=== PATIENT | female | born 1935 | race Caucasian/White ===

== ENCOUNTER → 2016-06-13 | Outpatient (CLI) | payer BC ==
[~2016-06-13] MED LIST: ACET-1256 PO; ACET1TAB84 PO; ACET325T96 PO; AMT10 PO; CALC500C3 PO; CEFU1TAB35 PO; CHOL1TAB42 PO; CIPR250T3 PO; HYDR25TA5 PO; LANS30CA63 PO; LEVO75TA PO; LISI-725 PO; LISI20TA3 PO; LPR25 PO; MELA1TAB5 PO; METO25TA56 PO; MGNO400 PO; MTR500 PO; ONDA4TAB46 PO; PLQ200 PO; PRD/1 PO; PRD10 PO; PRED-301 PO; PRED10TA PO; QSTP PO; RANI150T3 PO; SACC250C PO; SACC250C3 PO; SERT25TA PO; VANC1CAP3 PO; VANC5CAP PO; VERA1TAB52 PO
--- NOTE | 2016-06-13 09:32 | DIAGNOSTIC IMAGING REPORT ---
THORACIC SPINE 3 VIEWS ROUTINE CLINICAL HISTORY: Polymyalgia rheumatica, long-term steroid use COMPARISON STUDY: No previous studies for comparison. FINDINGS: There are mild to moderate multilevel degenerative changes. No acute fractures are visualized. The paraspinal line is not displaced. There is a minor spinal curvature convex to the right. There is widening of the prevertebral soft tissues and cervical level. A neck mass cannot be excluded. IMPRESSION: 1. Multilevel degenerative change. No acute fractures are visualized on conventional radiographic imaging. 2. Widening of the prevertebral soft tissues at the mid cervical level. This could be indirect evidence of a neck mass. CT scanning could be obtained in follow-up as deemed clinically indicated. Electronically signed by: Jerome Al M.D. 06/13/2016 9:30 AM Dictated Date/Time: 06/13/2016 9:25 AM
[2016-06-13 16:17] LABS: BLOOD UREA NITROGEN 23 mg/dl (7-18)
[2016-06-14 17:25] LABS: ALBUMIN 3.9 G/DL (3.8-4.8); GAMMA GLOBULIN 0.6 G/DL (0.8-1.7); TOTAL PROTEIN 6.6 G/DL (6.2-8.3)
== END | disposition home or self-care (01) ==
LOC: C.RAD1850 09:02
PROVIDERS: ATTEND Internal Medicine Rheumatology
DX: E55.9 Vitamin D deficiency, unspecified (principal); M15.9 Polyosteoarthritis, unspecified; M35.3 Polymyalgia rheumatica; M62.81 Muscle weakness (generalized); R53.81 Other malaise; Z79.52 Long term (current) use of systemic steroids

== ENCOUNTER → 2016-06-19 | Outpatient (CLI) | payer BC ==
[~2016-06-19] MED LIST changes: +OPTIRAY 320 IV PRN
--- NOTE | 2016-06-19 11:48 | DIAGNOSTIC IMAGING REPORT ---
CT soft tissue neck SOFT TISSUE NECK WITH CLINICAL HISTORY: R22.1 Neck [id number] abnormal cervical thoracic images. Mass. TECHNIQUE: Transaxial acquisition with multi axial reformatted images COMPARISON STUDY: 06/13/2016 FINDINGS: Patient salivary glands are unremarkable. This includes parotid and submandibular glands. Prevertebral soft tissues showed no evidence for abnormal mass or collection. The plain film findings most likely are on the basis of technical and/or positional artifact. Thyroid appears to be symmetric. There is some nodularity of the superior aspects of the thyroid lobes bilaterally. There is no significant cervical adenopathy. There is no airway compromise. IMPRESSION: Negative study. Soft tissue prominence in the prevertebral mid cervical region appears to be secondary to overlap or positional artifact. Electronically signed by: Byron Garcia M.D. 06/19/2016 11:47 AM Dictated Date/Time: 06/19/2016 11:43 AM
== END | disposition home or self-care (01) ==
LOC: C.CTS 10:45
PROVIDERS: ATTEND Internal Medicine Rheumatology
DX: R22.1 Localized swelling, mass and lump, neck (principal)

== ENCOUNTER → 2016-07-07 | Outpatient (CLI) | payer BC ==
[~2016-07-07] MED LIST changes: -OPTIRAY 320 IV PRN
[2016-07-07 14:53] LABS: BASO % 0.3 %; BASO ABS # 0.04 K/uL (0-0.2); COMPLETE YES; EOS % 0.5 %; HEMATOCRIT 30.1 % (37-47); IG% 0.5 %; LYMPH % 5.7 %; LYMPH ABS # 0.85 K/uL (1.2-3.4); MEAN CELL VOLUME 84.8 fL (80-100); MEAN CORPUSCULAR HEMOGLOBIN 26.5 pg (25-34); MEAN CORPUSCULAR HGB CONC 31.2 g/dl (32-36); MEAN PLATELET VOLUME 10.4 fL (7.4-10.4); MONO % 2.7 %; NEUT % 90.3 %; PLATELET COUNT 371 K/uL (130-400); RED BLOOD COUNT 3.55 M/uL (4.2-5.4); WHITE BLOOD COUNT 14.91 K/uL (4.8-10.8)
[2016-07-07 14:58] LABS: ALT/SGPT 14 U/L (12-78); AST/SGOT 8 U/L (15-37)
[2016-07-07 15:01] LABS: ALKALINE PHOSPHATASE 52 U/L (45-117)
== END | disposition home or self-care (01) ==
LOC: C.LAB1850 12:44
PROVIDERS: ATTEND Internal Medicine Rheumatology
DX: E55.9 Vitamin D deficiency, unspecified (principal); M65.88 Other synovitis and tenosynovitis, other site; R60.9 Edema, unspecified; Z79.52 Long term (current) use of systemic steroids; M15.9 Polyosteoarthritis, unspecified; R29.898 Other symptoms and signs involving the musculoskeletal system

== ENCOUNTER → 2016-08-24 | Outpatient (CLI) | payer BC ==
--- NOTE | 2016-08-24 12:24 | DIAGNOSTIC IMAGING REPORT ---
RIGHT HAND 3 VIEWS CLINICAL HISTORY: Right hand pain. FINDINGS: 3 views of the right hand are obtained. No prior studies are available for comparison at the time of dictation. The skeletal structures are osteopenic. No fracture is seen. 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 Mild osteoarthritic change is present at the first metacarpophalangeal joint and the proximal interphalangeal joints. Mild arthritic changes also seen at the carpometacarpal joint. Moderate arthritic changes seen involving the radial carpal row. The overlying soft tissues are within normal limits. IMPRESSION: Osteopenia end arthritic change as above. Erosive arthritis is noted involving the distal interphalangeal joints. Electronically signed by: Juan Nguyen M.D. 08/24/2016 12:23 PM Dictated Date/Time: 08/24/2016 12:21 PM
--- NOTE | 2016-08-24 12:27 | DIAGNOSTIC IMAGING REPORT ---
RIGHT HIP UNILATERAL 2 VIEWS CLINICAL HISTORY: Right hip pain. Remitting seronegative symmetrical synovitis with pitting edema. COMPARISON: CT of the abdomen and pelvis November 01, 2015 and pelvis radiograph May 12, 2015. FINDINGS: Alignment of the right hip is anatomic. There is no acute fracture or joint space is preserved. There is mild osteophytosis. There is no evidence of avascular necrosis of the right femoral head on this exam. Vascular calcification is noted. There are soft tissue calcification of the proximal right thigh which is chronic. IMPRESSION: 1. Mild osteoarthritis of the right hip. No radiographic evidence of avascular necrosis. 2. No acute fracture. Electronically signed by: Miko Richmond M.D. 08/24/2016 12:26 PM Dictated Date/Time: 08/24/2016 12:21 PM
== END | disposition home or self-care (01) ==
LOC: C.RAD1850 12:05
PROVIDERS: ATTEND Internal Medicine Rheumatology
DX: E55.9 Vitamin D deficiency, unspecified (principal); M65.88 Other synovitis and tenosynovitis, other site; M79.643 Pain in unspecified hand; M85.841 Other specified disorders of bone density and structure, right hand

== ENCOUNTER 2016-09-23 12:28 | Emergency (ER) | payer BC ==
[~2016-09-23] VITALS: Ht 152.4 cm; Wt 77.3 kg
[~2016-09-23 12:28] MED LIST changes: -ACET1TAB84 PO; -ACET325T96 PO; -CALC500C3 PO; -CEFU1TAB35 PO; -CHOL1TAB42 PO; -CIPR250T3 PO; -LISI20TA3 PO; -LPR25 PO; -METO25TA56 PO; -MGNO400 PO; -MTR500 PO; -ONDA4TAB46 PO; -PLQ200 PO; -PRD10 PO; -PRED10TA PO; -QSTP PO; -RANI150T3 PO; -SACC250C PO; -SACC250C3 PO; -SERT25TA PO; -VANC1CAP3 PO; -VANC5CAP PO
[2016-09-23 12:47] VITALS: Ht 152.4 cm; Wt 77.3 kg
[2016-09-23 13:25] LABS: HEMATOCRIT 27.7 % (37-47); MEAN CELL VOLUME 81.7 fL (80-100); MEAN CORPUSCULAR HEMOGLOBIN 26.5 pg (25-34); MEAN CORPUSCULAR HGB CONC 32.5 g/dl (32-36); MEAN PLATELET VOLUME 10.4 fL (7.4-10.4); PLATELET COUNT 340 K/uL (130-400); RED BLOOD COUNT 3.39 M/uL (4.2-5.4); WHITE BLOOD COUNT 12.46 K/uL (4.8-10.8)
[2016-09-23] MEDS ORDERED: SODIUM CHLORIDE 0.9% 1000ML 1,000 ML IV ONE (13:30)
[2016-09-23] MEDS ORDERED: ONDANSETRON INJ 2 MG/ML 2 ML VIAL IV PRN (13:30)
--- NOTE | 2016-09-23 13:30 | EMERGENCY ROOM VISIT NOTE ---
History Report prepared by Shavon: Natalie Burrows Under the Supervision of: Dr. Se Chavez M.D. First contact with patient: 13:15 Chief Complaint: ILLNESS Stated Complaint: GENERALIZED WEAKNESS/NAUSEA/VOMITING History of Present Illness The patient is an 81 year old female who presents to the Emergency Room with complaints of a persistent illness that began 1 week ago. The patient reports that she was recently started on medications for her arthritis. She states that she has been feeling generally weak and has noticed bilateral hand swelling. The patient states that she initially started the medication just daily, but states that recently she had been taking the medication twice per day. She states that she developed nausea, vomiting and diarrhea and was instructed to stop taking the medication until the diarrhea was under control. The patient reports that she took the medication yesterday for the first time in several days, but states that she has continued to feel ill today. She associates dry heaving today, but denies any current diarrhea. The patient additionally notes a chills, but denies any abdominal pain or fever. She states that she has been trying to keep up with fluid intake, but states that she has only been able to take small sips. Source of History: patient Onset: 1 week ago Position: other (global) Quality: other (illness) Timing: other (persistent) Associated Symptoms: + chills, + nausea, + vomiting, + diarrhea, No fevers, No abdominal pain Review of Systems All systems have been listed, reviewed, and are negative other than those previously mentioned. Please see Additional Medical History Sheet. Past Medical & Surgical Medical Problems: (1) Acute kidney injury (2) Dehydration (3) Diarrhea (4) Dizziness (5) DJD (degenerative joint disease) (6) Hypertension (7) Hypokalemia (8) Syncopal episodes (9) Thoracic radiculopathy Family History Heart disease Hypertension Social History Smoking Status: Never Smoker Smokeless Tobacco Use: No Alcohol Use: none Drug Use: none Marital Status: Housing Status: lives with significant other Occupation Status: retired Current/Historical Medications Scheduled Cholecalciferol (Vitamin D), 5,000 UNITS PO DAILY Hydrochlorothiazide (Hydrochlorothiazide), 25 MG PO DAILY Hydroxychloroquine Sulfate (Hydroxychloroquine Sulfat), 200 MG PO BID Lansoprazole (Prevacid), 30 MG PO DAILY Levothyroxine Sodium (Synthroid), 75 MCG PO DAILY Lisinopril (Prinivil), 20 MG PO BID Melatonin (Kp Melatonin), 6 MG PO HS Prednisone (Prednisone), 3 MG PO QAM Prednisone (Prednisone), 5 MG PO DAILY Sertraline (Zoloft), 25 MG PO HS Verapamil Hcl (Verapamil Hcl Er), 120 MG PO DAILY Allergies Coded Allergies: Sulfa Antibiotics (Verified Allergy, Intermediate, RASH, 09/23/16) Erythromycin (Verified Adverse Reaction, Unknown, N&V, 09/23/16) N&V Physical Exam Vital Signs Date Time Temp Pulse Resp B/P (MAP) Pulse Ox O2 Delivery O2 Flow Rate FiO2 09/23/16 18:35 37.2 77 18 149/63 96 09/23/16 17:43 78 16 96 09/23/16 17:38 80 16 95 09/23/16 17:33 82 17 97 09/23/16 17:32 149/63 09/23/16 17:28 81 22 94 09/23/16 17:23 84 23 98 09/23/16 17:18 83 18 93 09/23/16 17:13 83 20 94 09/23/16 17:08 81 19 93 09/23/16 17:03 80 17 94 09/23/16 17:02 157/56 09/23/16 16:58 78 16 95 09/23/16 16:53 79 18 94 09/23/16 16:48 78 22 96 09/23/16 16:43 77 15 98 09/23/16 16:38 86 20 95 09/23/16 16:33 87 22 94 09/23/16 16:32 175/82 09/23/16 16:28 92 24 95 09/23/16 16:23 80 16 93 09/23/16 16:18 80 17 97 09/23/16 16:13 81 18 92 09/23/16 16:08 81 18 93 09/23/16 16:03 82 21 89 09/23/16 16:02 162/58 09/23/16 15:58 79 16 93 09/23/16 15:53 82 19 91 09/23/16 15:48 79 21 99 09/23/16 15:43 77 13 98 09/23/16 15:38 81 22 99 09/23/16 15:33 81 19 91 09/23/16 15:32 164/58 09/23/16 15:28 79 20 92 09/23/16 15:23 81 17 91 09/23/16 15:19 159/67 09/23/16 15:18 78 17 96 09/23/16 15:13 86 17 87 09/23/16 15:08 84 17 85 09/23/16 15:03 37.2 91 19 85 09/23/16 14:58 89 19 86 09/23/16 14:53 90 19 81 09/23/16 14:48 85 17 83 09/23/16 14:43 82 15 85 09/23/16 14:38 75 22 97 09/23/16 14:33 75 19 94 09/23/16 14:28 74 18 99 09/23/16 14:23 72 20 94 09/23/16 14:18 70 20 97 09/23/16 14:13 68 17 98 09/23/16 14:08 73 20 100 09/23/16 14:03 72 22 98 09/23/16 13:58 81 23 99 09/23/16 13:53 78 16 100 09/23/16 13:48 68 17 147/70 97 09/23/16 13:43 67 17 98 09/23/16 13:38 70 17 96 09/23/16 13:33 69 17 94 09/23/16 13:28 69 15 98 09/23/16 13:23 70 22 99 09/23/16 13:18 69 19 99 09/23/16 13:13 73 21 96 09/23/16 13:08 69 15 99 09/23/16 13:03 68 21 99 09/23/16 13:02 71 09/23/16 12:47 36.5 70 18 163/102 99 Room Air 09/23/16 12:35 163/102 Physical Exam GENERAL: Patient awake, alert, oriented x 3. Patient appears mildly dehydrated. Patient follows commands. Patient does not appear toxic. Patient is well-nourished. SKIN: No erythema, pallor, cyanosis or rash HEENT: Normal head, pupils equal, reactive to light and accommodation. Ears normal. Mucous membranes appear slightly dry. Oral cavity and posterior pharynx appear normal. Neck: Without adenopathy, no neck vein distention. LUNGS: Clear to auscultation. No wheezes, no rales, no rhonchi. HEART: No murmurs. No gallops. No rubs ABDOMEN: Obese, No masses, no rebound, no hepatomegaly or splenomegaly. EXTREMITIES: Patient has some generalized swelling of hands consistent with chronic rheumatoid arthritis, 2+ nonpitting pretibial edema. NEUROLOGIC: Cranial nerves II-XII within normal limits. No gross motor sensory function deficits. Medical Decision & Procedures Laboratory Results 09/23/16 13:10 Red Blood Count 3.39, Mean Corpuscular Volume 81.7, Mean Corpuscular Hemoglobin 26.5, Mean Corpuscular Hemoglobin Concent 32.5, Mean Platelet Volume 10.4, Neutrophils (%) (Auto) 88.9, Lymphocytes (%) (Auto) 5.1, Monocytes (%) (Auto) 5.3, Eosinophils (%) (Auto) 0.0, Basophils (%) (Auto) 0.3, Neutrophils # (Auto) 11.07, Lymphocytes # (Auto) 0.64, Monocytes # (Auto) 0.66, Eosinophils # (Auto) 0.00, Basophils # (Auto) 0.04 09/23/16 13:10 Test 09/23/16 13:10 09/23/16 14:00 09/23/16 14:12 White Blood Count 12.46 K/uL (4.8-10.8) Red Blood Count 3.39 M/uL (4.2-5.4) Hemoglobin 9.0 g/dL (12.0-16.0) Hematocrit 27.7 % (37-47) Mean Corpuscular Volume 81.7 fL (80-100) Mean Corpuscular Hemoglobin 26.5 pg (25-34) Mean Corpuscular Hemoglobin Concent 32.5 g/dl (32-36) Platelet Count 340 K/uL (130-400) Mean Platelet Volume 10.4 fL (7.4-10.4) Neutrophils (%) (Auto) 88.9 % Lymphocytes (%) (Auto) 5.1 % Monocytes (%) (Auto) 5.3 % Eosinophils (%) (Auto) 0.0 % Basophils (%) (Auto) 0.3 % Neutrophils # (Auto) 11.07 K/uL (1.4-6.5) Lymphocytes # (Auto) 0.64 K/uL (1.2-3.4) Monocytes # (Auto) 0.66 K/uL (0.11-0.59) Eosinophils # (Auto) 0.00 K/uL (0-0.5) Basophils # (Auto) 0.04 K/uL (0-0.2) RDW Standard Deviation 44.0 fL (36.4-46.3) RDW Coefficient of Variation 14.6 % (11.5-14.5) Immature Granulocyte % (Auto) 0.4 % Immature Granulocyte # (Auto) 0.05 K/uL (0.00-0.02) Anion Gap 9.0 mmol/L (3-11) Est Creatinine Clear Calc Drug Dose 27.5 ml/min Estimated GFR () 37.7 Estimated GFR (Non- 32.6 BUN/Creatinine Ratio 13.3 (10-20) Calcium Level 8.9 mg/dl (8.5-10.1) Total Bilirubin 0.4 mg/dl (0.2-1) Aspartate Amino Transf (AST/SGOT) 15 U/L (15-37) Alanine Aminotransferase (ALT/SGPT) 12 U/L (12-78) Alkaline Phosphatase 53 U/L (45-117) Total Protein 6.5 gm/dl (6.4-8.2) Albumin 3.4 gm/dl (3.4-5.0) Globulin 3.1 gm/dl (2.5-4.0) Albumin/Globulin Ratio 1.1 (0.9-2) Urine Color YELLOW Urine Appearance CLEAR (CLEAR) Urine pH 8.0 (4.5-7.5) Urine Specific [place] 1.006 (1.000-1.030) Urine Protein NEG (NEG) Urine Glucose (UA) NEG (NEG) Urine Ketones NEG (NEG) Urine Occult Blood NEG (NEG) Urine Nitrite POS (NEG) Urine Bilirubin NEG (NEG) Urine Urobilinogen NEG (NEG) Urine Leukocyte Esterase SMALL (NEG) Urine WBC (Auto) 5-10 /hpf (0-5) Urine RBC (Auto) 0-4 /hpf (0-4) Urine Hyaline Casts (Auto) 0 /lpf (0-5) Urine Epithelial Cells (Auto) 20-30 /lpf (0-5) Urine Bacteria (Auto) 4+ (NEG) Influenza Type A Antigen Neg for Influ A (NEG) Influenza Type B Antigen Neg for Influ B (NEG) Laboratory results as stated above per my review. Medications Administered Medications (Trade) Dose Ordered Sig/Sanya Route Start Time Stop Time Status Last Admin Dose Admin Sodium Chloride 1,000 ml @ 1,000 mls/hr Q1H ONCE IV 09/23/16 13:30 09/23/16 14:29 DC 09/23/16 13:30 1,000 MLS/HR Ondansetron HCl (Zofran Inj) 4 mg Q1HWA PRN IV 09/23/16 13:30 09/23/16 18:55 DC 09/23/16 14:04 4 MG ECG Indication: weakness Rate (beats per minute): 70 Rhythm: sinus rhythm Findings: no acute ischemic change, no ectopy, other (short AR interval) ED Course 1316: Past medical records reviewed. The patient was evaluated in room B7. A complete history and physical examination was performed. 1330: Ordered Zofran Inj 4 mg IV, Sodium Chloride 1000 ml @ 1000 mls/hr IV. 1615: I reevaluated the patient and she is feeling better. She states that her nausea has subsided so she is going to try eating and drinking. 1715: I reevaluated the patient and she is doing well. I discussed all the exam findings with her and I discussed the treatment plan. She verbalized complete understanding and agreement. She is ready to go home. Medical Decision Nurses notes reviewed. Medical history sheet reviewed. Differential diagnosis includes but is not limited to: medication reaction, gastritis, gastroenteritis , dehydration, metabolic disorder. Medication Reconciliation: I attest that I have personally reviewed the patient' s current medication list. Blood Pressure Screening: Patient was found to have an elevated blood pressure and was referred to their primary doctor for recheck and further treatment. The patient was given medication for nausea.. She was able to drink and eat prior to discharge. I believe her symptoms are related to the hydroxychloroquine. Labs, EKG and imaging were evaluated. Please see above. The patient will stop the hydroxychloroquine.. She is to follow up with her sharepoint analyst within the next 3 days. Impression Primary Impression: Medication reaction Additional Impression: Anemia Scribe Attestation The scribe's documentation has been prepared under my direction and personally reviewed by me in its entirety. I confirm that the note above accurately reflects all work, treatment, procedures, and medical decision making performed by me. Departure Information Dispostion Home / Self-Care Referrals Seth Knox D.O. (PCP) Reyna Marte MD Forms HOME CARE DOCUMENTATION FORM, IMPORTANT VISIT INFORMATION Patient Instructions My [facility] Additional Instructions Stop hydroxychloroquine. Continue all of your other medications as prescribed. Follow up with your sharepoint analyst on Sunday. Drink extra fluids. Problem Qualifiers
[2016-09-23 13:43] LABS: BUN/CREATININE RATIO 13.3 (10-20); CALCIUM 8.9 mg/dl (8.5-10.1); CREATININE 1.5 mg/dl (0.60-1.20); POTASSIUM 3.4 mmol/L (3.5-5.1)
[2016-09-23 13:46] LABS: ALB/GLOB RATIO 1.1 (0.9-2)
[2016-09-23 13:49] LABS: BASO % 0.3 %; BASO ABS # 0.04 K/uL (0-0.2); COMPLETE YES; IG% 0.4 %; LYMPH % 5.1 %; LYMPH ABS # 0.64 K/uL (1.2-3.4); MONO % 5.3 %; NEUT % 88.9 %
[2016-09-23] MEDS ORDERED: CHOL1TAB42 PO (13:59)
[2016-09-23] MEDS ORDERED: SERT25TA PO (13:59)
[2016-09-23] MEDS ORDERED: LISI20TA3 PO (13:59)
[2016-09-23] MEDS ORDERED: PLQ200 PO (13:59)
[2016-09-23 14:30] LABS: URINE APPEARANCE CLEAR (CLEAR); URINE BILIRUBIN NEG (NEG); URINE COLOR YELLOW; URINE EPITHELIAL CELL AUTO 20-30 /lpf (0-5); URINE NITRITE POS (NEG); URINE SPECIFIC GRAVITY 1.006 (1.000-1.030); UROBILINOGEN NEG (NEG); ZZURINE CULT IF INDIC CATH YES
[2016-09-23 14:40] LABS: MANUAL MICROSCOPIC REQUIRED? NO; REVIEW REQ? NO
[2016-09-23 18:35] VITALS: BP 149/63; PULSE 77; TEMP 37.2; O2SAT 96
--- NOTE | 2016-09-26 16:45 | Pharmacy Progress Note ---
ED Pharmacist Culture FollowUp Date of Service: Sep 26, 2016. Patient was admitted to [facility] on 09/25. They are currently receiving ceftriaxone which should cover the E. coli growing from the patient's urine culture.
[2016-10-03] MEDS ORDERED: LPR25 PO (11:55)
[2016-10-03] MEDS ORDERED: VANC5CAP PO (11:55)
[2016-10-23] MEDS ORDERED: QSTP PO (08:30)
[2016-10-23] MEDS ORDERED: METO25TA56 PO (14:13)
== END 2016-09-23 18:00 | disposition home or self-care (01) ==
LOC: EDBD 12:28 → C.EDB 12:29
DX: T50.905A Adverse effect of unspecified drugs, medicaments and biological substances, initial encounter (principal); D64.9 Anemia, unspecified; I10 Essential (primary) hypertension; M19.90 Unspecified osteoarthritis, unspecified site; M54.14 Radiculopathy, thoracic region; Z79.899 Other long term (current) drug therapy; Z88.2 Allergy status to sulfonamides; Z88.3 Allergy status to other anti-infective agents; Z82.49 Family history of ischemic heart disease and other diseases of the circulatory system

== ENCOUNTER 2016-09-25 13:04 | Inpatient (IN) | payer BC, OTHER ==
[~2016-09-25] VITALS: Ht 152.4 cm; Wt 79.7 kg
[~2016-09-25 13:04] MED LIST changes: -ACET-1256 PO; -AMT10 PO; +CHOL1TAB42 PO; -LISI-725 PO; +LISI20TA3 PO; +PLQ200 PO; +SERT25TA PO
[2016-09-25] MEDS ORDERED: SODIUM CHLORIDE 0.9% 1000ML 500 ML IV STA (14:01)
[2016-09-25] MEDS ORDERED: SODIUM CHLORIDE 0.9% 1000ML 1,000 ML IV STA (14:01)
[2016-09-25] MEDS ORDERED: CEFTRIAXONE SOD INJ 1 GM ADDVIAL IV STA (14:12)
[2016-09-25 14:38] LABS: BASO % 0.2 %; BASO ABS # 0.03 K/uL (0-0.2); COMPLETE YES; HEMATOCRIT 29.3 % (37-47); IG% 0.2 %; LYMPH % 3.9 %; MEAN CELL VOLUME 81.4 fL (80-100); MEAN CORPUSCULAR HEMOGLOBIN 26.4 pg (25-34); MEAN CORPUSCULAR HGB CONC 32.4 g/dl (32-36); MEAN PLATELET VOLUME 10.1 fL (7.4-10.4); MONO % 4.9 %; NEUT % 90.8 %; PLATELET COUNT 344 K/uL (130-400); WHITE BLOOD COUNT 12.92 K/uL (4.8-10.8)
[2016-09-25 14:57] LABS: BUN/CREATININE RATIO 12.1 (10-20); CALCIUM 9.1 mg/dl (8.5-10.1); CREATININE 1.2 mg/dl (0.60-1.20); MAGNESIUM 1.8 mg/dl (1.8-2.4); POTASSIUM 3.3 mmol/L (3.5-5.1)
--- NOTE | 2016-09-25 15:03 | DIAGNOSTIC IMAGING REPORT ---
CT SCAN OF THE ABDOMEN AND PELVIS WITHOUT IV CONTRAST CLINICAL HISTORY: Nausea and vomiting. Diarrhea. COMPARISON STUDY: Abdominal CT dated 11/01/2015. TECHNIQUE: CT scan of the abdomen and pelvis is performed from the lung bases to the proximal femora. Images are reviewed in the axial, sagittal, and coronal planes. IV contrast was not administered for this examination as per the referring clinician. Note that examination is significant suboptimal without oral and IV contrast. The examination is also degraded by motion artifact. Automated dose control exposure was utilized. CT DOSE: 938.09 mGy.cm FINDINGS: Lung bases: The heart is top normal in size and without pericardial effusion. There is diminished attenuation of the cardiac blood pool as compared to the myocardium suggesting anemia. Coronary artery calcifications are noted. The lung bases are clear. Liver: The unenhanced liver is normal in size, contour, and attenuation. There is no intrahepatic biliary ductal dilatation. Gallbladder: Unremarkable. Spleen: Normal in size and attenuation. Pancreas: There is fatty atrophy of the pancreas which is grossly unremarkable. Adrenal glands: Unremarkable. Kidneys: The unenhanced kidneys are atrophic and without hydronephrosis. There are no renal calculi identified. There is no evidence of contour deforming renal mass lesion. Abdominal vasculature: The abdominal aorta is normal in course and caliber noting moderate atherosclerotic calcification. Bowel: There is no bowel obstruction. There is moderate sigmoid diverticulosis without CT evidence of acute diverticulitis. Submucosal fat deposition is incidentally noted in the cecum. The appendix is well-visualized and normal. Peritoneum: There is no intraperitoneal free air or abdominal ascites. Lymphadenopathy: None. Pelvic viscera: The bladder is normal as visualized. The uterus is surgically absent. No adnexal lesion is seen. There is nonspecific induration of the perianal soft tissues. Skeletal structures: The skeletal structures are osteopenic. No lytic or blastic lesions are seen. IMPRESSION: 1. Suboptimal examination without oral and IV contrast. 2. There are no acute infectious or inflammatory findings in the abdomen or pelvis. 3. There is nonspecific induration of the perianal soft tissues. This is of indeterminant etiology and significance. Correlation with physical examination findings is recommended. 4. Moderate sigmoid diverticulosis without CT evidence of acute diverticulitis. Electronically signed by: Juan Nguyen M.D. 09/25/2016 3:01 PM Dictated Date/Time: 09/25/2016 2:55 PM
--- NOTE | 2016-09-25 15:54 | EMERGENCY ROOM VISIT NOTE ---
ED Visit Note First contact with patient: 13:37 Staff note: I have reviewed the Patients chart and have discussed this case with my PA. I generally agree with the ED note and findings.
--- NOTE | 2016-09-25 16:05 | EMERGENCY ROOM VISIT NOTE ---
History First contact with patient: 13:37 Chief Complaint: ILLNESS Stated Complaint: N/V/D History of Present Illness Patient is an 81-year-old white female with past medical history including GERD , hypothyroidism, hypertension, depression, PMR, degenerative joint disease, arthritis, vitamin D deficiency, chronic urinary incontinence, among others, who is brought back to the emergency department by ALS ambulance from home for evaluation of nausea, vomiting, diarrhea and weakness 2 days. Patient was seen here 2 days ago for the same complaint. Patient provides the history, is supplemented thumb by the daughter. She has been having trouble for several weeks, they thought it was related to a new medication, hydroxychloroquine, which was started for her arthritic process. She had started it last week, and developed some GI symptoms which were alleviated when she stopped the medication. She took it again last Sunday, and again developed nausea, vomiting and diarrhea for which she was seen in the emergency department Sunday, 09/23. She was evaluated with laboratory studies, urinalysis and an EKG , which apparently were unremarkable, and the patient reports that she did not feel better upon discharge from our facility. She was too weak to be able to care for herself at home, cannot get out of bed or get to a bathroom without significant assistance. She did feel a little bit better yesterday and was able to eat half of the grill cheese sandwich, some mashed potatoes and pasta but did feel nauseous after dinner. Today, she had yogurt and part of a bagel, then promptly vomited and had diarrhea 2. This occurred about 3 hours ago. She denies any abdominal pain or distention. She does have a history of diverticulosis, but has never had a bowel obstruction. She has chronic urinary incontinence, wears pads and diapers, and denies any changes in this although family does note a small foul-smelling urine. She has been referred to urology for the incontinence and cannot get in until next month. She has not had any fevers. She denies any back or flank pain. No chest pain, palpitations or shortness of breath. She has not been on any antibiotics recently. No sick contacts at home. They have well water with filters as a source at home. She was scheduled to see Dr. Marte, her crossbar frame wirer in follow-up tomorrow. Review of Systems Review of systems as per HPI. All other systems reviewed were negative. 10 systems reviewed. Past Medical/Surgical History Medical Problems: (1) Acute kidney injury (2) Altered mental status (3) Anemia (4) Dehydration (5) Diarrhea (6) Diverticulosis Colon (W/O Ment Of Hemorrhage) (7) Dizziness (8) DJD (degenerative joint disease) (9) Esophageal Reflux (10) Headache (11) Hypertension (12) Hypokalemia (13) Hypomagnesemia (14) Hyponatremia (15) Hypothyroidism, Unspecified (16) Irritable Bowel Syndrome (17) Long-Term(Current)Use Of Steroids (18) Medication reaction (19) Nausea & vomiting (20) Polymyalgia Rheumatica (21) Renal insufficiency (22) Rheumatoid Arthritis, Unspecified (23) SIRS (systemic inflammatory response syndrome) (24) Syncopal episodes (25) Syncope (26) Thoracic radiculopathy (27) Unspecified Urinary Incontinence (28) Vitamin D Deficiency, Unspecified (29) Weakness Surgical Problems: (1) History of hysterectomy (2) Knee Joint Replacement Status Electronic medical records are reviewed and summarized as above/below. See Problem List. Family History Heart disease Hypertension Social History Smoking Status: Never Smoker Alcohol Use: none Drug Use: none Marital Status: Housing Status: lives with family Occupation Status: retired Current/Historical Medications Scheduled Cholecalciferol (Vitamin D), 5,000 UNITS PO DAILY Hydrochlorothiazide (Hydrochlorothiazide), 25 MG PO DAILY Hydroxychloroquine Sulfate (Hydroxychloroquine Sulfat), 200 MG PO BID Lansoprazole (Prevacid), 30 MG PO DAILY Levothyroxine Sodium (Synthroid), 75 MCG PO DAILY Lisinopril (Prinivil), 20 MG PO BID Melatonin (Kp Melatonin), 6 MG PO HS Prednisone (Prednisone), 3 MG PO QAM Prednisone (Prednisone), 5 MG PO DAILY Sertraline (Zoloft), 25 MG PO HS Verapamil Hcl (Verapamil Hcl Er), 120 MG PO DAILY Allergies Coded Allergies: Sulfa Antibiotics (Verified Allergy, Intermediate, RASH, 09/25/16) Erythromycin (Verified Adverse Reaction, Unknown, N&V, 09/25/16) N&V Physical Exam Vital Signs Date Time Temp Pulse Resp B/P (MAP) Pulse Ox O2 Delivery O2 Flow Rate FiO2 09/25/16 17:01 98 Room Air 09/25/16 16:25 70 16 149/87 98 Room Air 09/25/16 15:25 65 09/25/16 15:15 66 16 150/91 09/25/16 13:17 36.5 74 18 135/65 98 Room Air Physical Exam CONSTITUTIONAL: Patient is a well-appearing 81-year-old white female who is awake and alert and in no acute distress. Vital signs are stable. EYES: Pupils equal, round, reactive to light and accommodation. EOMs intact without nystagmus. Sclera are anicteric. ENT: Tympanic membranes intact, with normal landmarks. External canals are clear. Oral and nasopharynx are clear. Mucous membranes are moist, no lesions , tongue and gums appear normal. CARDIOVASCULAR: Regular rate and rhythm, with normal S1 and S2, no murmur or gallop or rub is heard. No carotid bruits auscultated. No JVD. Peripheral pulses easy to palpable. RESPIRATORY: Breath sounds equal and clear to auscultation without wheezes, rales, or rhonchi heard. Full and equal chest expansion without accessory muscle use or retractions. GI: Bowel sounds are present. Abdomen is soft, nontender, nondistended. No organomegaly. No pulsatile masses. No guarding or rebound. MUSCULOSKELETAL: Full range of motion of extremities x 4 with good strength. No cyanosis, edema, joint tenderness or swelling. No deformity. INTEGUMENTARY: No lesions or rash, normal skin turgor. NEUROLOGICAL: Alert, oriented, and cooperative. Cranial nerves, sensation and strength grossly intact. Pupils round, equal, and react to light, EOMs are full. LYMPH: No lymphadenopathy. Medical Decision & Procedures ER Provider Diagnostic Interpretation: CT SCAN OF THE ABDOMEN AND PELVIS WITHOUT IV CONTRAST CLINICAL HISTORY: Nausea and vomiting. Diarrhea. COMPARISON STUDY: Abdominal CT dated 11/01/2015. TECHNIQUE: CT scan of the abdomen and pelvis is performed from the lung bases to the proximal femora. Images are reviewed in the axial, sagittal, and coronal planes. IV contrast was not administered for this examination as per the referring clinician. Note that examination is significant suboptimal without oral and IV contrast. The examination is also degraded by motion artifact. Automated dose control exposure was utilized. CT DOSE: 938.09 mGy.cm FINDINGS: Lung bases: The heart is top normal in size and without pericardial effusion. There is diminished attenuation of the cardiac blood pool as compared to the myocardium suggesting anemia. Coronary artery calcifications are noted. The lung bases are clear. Liver: The unenhanced liver is normal in size, contour, and attenuation. There is no intrahepatic biliary ductal dilatation. Gallbladder: Unremarkable. Spleen: Normal in size and attenuation. Pancreas: There is fatty atrophy of the pancreas which is grossly unremarkable. Adrenal glands: Unremarkable. Kidneys: The unenhanced kidneys are atrophic and without hydronephrosis. There are no renal calculi identified. There is no evidence of contour deforming renal mass lesion. Abdominal vasculature: The abdominal aorta is normal in course and caliber noting moderate atherosclerotic calcification. Bowel: There is no bowel obstruction. There is moderate sigmoid diverticulosis without CT evidence of acute diverticulitis. Submucosal fat deposition is incidentally noted in the cecum. The appendix is well-visualized and normal. Peritoneum: There is no intraperitoneal free air or abdominal ascites. Lymphadenopathy: None. Pelvic viscera: The bladder is normal as visualized. The uterus is surgically absent. No adnexal lesion is seen. There is nonspecific induration of the perianal soft tissues. Skeletal structures: The skeletal structures are osteopenic. No lytic or blastic lesions are seen. IMPRESSION: 1. Suboptimal examination without oral and IV contrast. 2. There are no acute infectious or inflammatory findings in the abdomen or pelvis. 3. There is nonspecific induration of the perianal soft tissues. This is of indeterminant etiology and significance. Correlation with physical examination findings is recommended. 4. Moderate sigmoid diverticulosis without CT evidence of acute diverticulitis. Laboratory Results 09/25/16 14:20 Red Blood Count 3.60, Mean Corpuscular Volume 81.4, Mean Corpuscular Hemoglobin 26.4, Mean Corpuscular Hemoglobin Concent 32.4, Mean Platelet Volume 10.1, Neutrophils (%) (Auto) 90.8, Lymphocytes (%) (Auto) 3.9, Monocytes (%) (Auto) 4.9, Eosinophils (%) (Auto) 0.0, Basophils (%) (Auto) 0.2, Neutrophils # (Auto) 11.73, Lymphocytes # (Auto) 0.50, Monocytes # (Auto) 0.63, Eosinophils # (Auto) 0.00, Basophils # (Auto) 0.03 09/25/16 14:20 Test 09/25/16 14:20 White Blood Count 12.92 K/uL (4.8-10.8) Red Blood Count 3.60 M/uL (4.2-5.4) Hemoglobin 9.5 g/dL (12.0-16.0) Hematocrit 29.3 % (37-47) Mean Corpuscular Volume 81.4 fL (80-100) Mean Corpuscular Hemoglobin 26.4 pg (25-34) Mean Corpuscular Hemoglobin Concent 32.4 g/dl (32-36) Platelet Count 344 K/uL (130-400) Mean Platelet Volume 10.1 fL (7.4-10.4) Neutrophils (%) (Auto) 90.8 % Lymphocytes (%) (Auto) 3.9 % Monocytes (%) (Auto) 4.9 % Eosinophils (%) (Auto) 0.0 % Basophils (%) (Auto) 0.2 % Neutrophils # (Auto) 11.73 K/uL (1.4-6.5) Lymphocytes # (Auto) 0.50 K/uL (1.2-3.4) Monocytes # (Auto) 0.63 K/uL (0.11-0.59) Eosinophils # (Auto) 0.00 K/uL (0-0.5) Basophils # (Auto) 0.03 K/uL (0-0.2) RDW Standard Deviation 43.5 fL (36.4-46.3) RDW Coefficient of Variation 14.6 % (11.5-14.5) Immature Granulocyte % (Auto) 0.2 % Immature Granulocyte # (Auto) 0.03 K/uL (0.00-0.02) Prothrombin Time 10.9 SECONDS (9.0-12.0) Prothromb Time International Ratio 1.0 (0.9-1.1) Activated Partial Thromboplast Time 29.1 SECONDS (21.0-31.0) Partial Thromboplastin Ratio 1.1 Anion Gap 11.0 mmol/L (3-11) Est Creatinine Clear Calc Drug Dose 34.9 ml/min Estimated GFR () 49.4 Estimated GFR (Non- 42.7 BUN/Creatinine Ratio 12.1 (10-20) Calcium Level 9.1 mg/dl (8.5-10.1) Magnesium Level 1.8 mg/dl (1.8-2.4) Total Bilirubin 0.4 mg/dl (0.2-1) Aspartate Amino Transf (AST/SGOT) 13 U/L (15-37) Alanine Aminotransferase (ALT/SGPT) 13 U/L (12-78) Alkaline Phosphatase 54 U/L (45-117) Total Protein 6.7 gm/dl (6.4-8.2) Albumin 3.3 gm/dl (3.4-5.0) Globulin 3.4 gm/dl (2.5-4.0) Albumin/Globulin Ratio 1.0 (0.9-2) Lipase 105 U/L (73-393) Medications Administered Medications (Trade) Dose Ordered Sig/Sanya Route Start Time Stop Time Status Last Admin Dose Admin Sodium Chloride 500 ml @ 999 mls/hr Q31M STAT IV 09/25/16 14:01 09/25/16 14:31 DC 09/25/16 14:40 999 MLS/HR Sodium Chloride 1,000 ml @ 250 mls/hr Q4H STAT IV 09/25/16 14:01 09/25/16 18:00 DC 09/25/16 15:19 250 MLS/HR Ceftriaxone Sodium (Rocephin Inj) 1 gm NOW STAT IV 09/25/16 14:12 09/25/16 14:13 DC 09/25/16 15:19 1 GM Potassium Chloride (Klor-Con Tab) 40 meq NOW ONCE PO 09/25/16 18:00 09/25/16 19:21 DC 09/25/16 19:38 40 MEQ Sodium Chloride 1,000 ml @ 125 mls/hr Q8H IV 09/25/16 18:00 10/25/16 17:59 09/25/16 19:37 125 MLS/HR ED Course The patient was seen and assessed as above. Her old records were reviewed, including her ED visit from 2 days ago. Her urine culture from that time is growing Escherichia coli and a gram-negative emili. This was not treated. IV lock was initiated. Patient was hydrated with normal saline solution. She was given 1 g of Rocephin IV. Laboratory studies were collected including CBC with differential CMP, magnesium, and lipase. The patient was unable to give a stool for analysis. Urinalysis was not repeated as it had just been performed 2 days ago and she has a positive urine culture. Given her persistent vomiting and diarrhea, CT scan of the abdomen pelvis with no contrast was ordered. Laboratory studies today revealed a white count of 12,900, consistent with prior labs. Stable anemia, H&H 9.5 and 29.3. Electrolytes revealed a sodium of 130, potassium 3.3, chloride 91, carbon dioxide 28, BUN 14 and creatinine 1.2. Liver functions are not elevated. Magnesium is normal. Lipase is not indicative of acute pancreatitis. CT scan of the abdomen and pelvis without contrast did not identify any acute infectious or inflammatory findings. There was evidence for sigmoid IV particular cyst without evidence for acute diverticulitis. The patient was reassessed. She had no further diarrhea or vomiting while in the emergency department. All laboratory and diagnostic imaging studies were reviewed with attending physician, and discussed with the mass spectrometry manager. Given her present vomiting and diarrheal illness in addition to the pain and disability from her arthritic condition, the patient is unable to care for herself at home, even with assistance of family members. It was not felt that she could be safely discharged home. Patient was discussed with the [facility] Hospitalist Service for further care and management. Medical Decision Differential diagnoses entertained included UTI, cystitis, pyelonephritis, renal colic, viral illness, infectious versus inflammatory colitis/enteritis, bowel obstruction, perforation, abscess, medication side effect, among others. Impression Primary Impression: Vomiting and diarrhea Additional Impressions: Urinary tract infection Weakness Departure Information Referrals Seth Knox D.O. (PCP) Patient Instructions My [facility] Health Problem Qualifiers
[2016-09-25 17:01] VITALS: O2SAT 98; Ht 152.4 cm; Wt 79.7 kg
[2016-09-25] MEDS ORDERED: ONDANSETRON INJ 2 MG/ML 2 ML VIAL IV PRN (18:00)
[2016-09-25] MEDS ORDERED: POTASSIUM CHLORIDE 20 MEQ TABCR PO ONE (18:00)
[2016-09-25] MEDS ORDERED: POLYETHYLENE (MIRALAX) 17 GM PACK PO PRN (18:00)
[2016-09-25] MEDS ORDERED: ALUMINUM/MAGNESIUM/SIMETH (MAALOX MAX) 30 ML UDC PO PRN (18:00)
[2016-09-25] MEDS ORDERED: MAGNESIUM HYDROXIDE SUSP 30 ML UDC PO PRN (18:00)
--- NOTE | 2016-09-25 18:33 | History and Physical ---
History & Physical Date & Time of Service: Sep 25, 2016 at 18:08 Chief Complaint: N/V/D Primary Care Physician: Seth Knox D.OMike History of Present Illness Source: patient, spouse ( at bedside), clinic records, hospital records This is an 81 y/o female with a history of PMR, RS3PE syndrome, inflammatory symmetrical polyarthritis, hypertension, hypothyroidism, irritable bowel syndrome, and chronic reflux esophagitis who presented to the ED on 09/25 with nausea, vomiting, diarrhea, and weakness. The patient states that she's been having nausea, vomiting, and diarrhea for the last 2 weeks. She was recently started on hydroxychloroquine for her inflammatory arthritis by her electrician refinery, Dr. Marte. The patient was initially started on 200 mg once daily for 1 week, and then her dose was increased to 200 mg BID. The patient had been able to tolerate the lower dosing and saw improvement in her symptoms however after increasing her dosage she began to develop N/V/D. She then called Dr. Marte who advised that she stop the medication until her symptoms were under control and then restart at the lower dosage. The patient stopped the medication on September 19 and was feeling better. She took one dose on September 22 and then experienced recurrence of her N/V/D. The last 2 days the patient has been feeling very weak in addition to her previous symptoms. The patient has not been able to take care of herself due to her weakness. The patient also complains of swelling and joint pain in her hands and wrists that also limits her ability to care of herself. When the swelling is severe, she also complains of numbness and tingling in her hands. The patient denies fevers, chills, sweats, chest pain, palpitations, claudication, cough, wheezing, shortness of breath, abdominal pain, dysuria, hematuria, urinary retention, paralysis. Past Medical/Surgical History Medical Problems: (1) Acute kidney injury Status: Resolved (2) Altered mental status Status: Resolved (3) Anemia Status: Chronic (4) Dehydration Status: Resolved (5) Diarrhea Status: Resolved (6) Diverticulosis Colon (W/O Ment Of Hemorrhage) Status: Chronic (7) Dizziness Status: Resolved (8) DJD (degenerative joint disease) Status: Chronic (9) Esophageal Reflux Status: Chronic (10) Headache Status: Resolved (11) Hypertension Status: Chronic (12) Hypokalemia Status: Resolved (13) Hypomagnesemia Status: Resolved (14) Hyponatremia Status: Resolved (15) Hypothyroidism, Unspecified Status: Chronic (16) Irritable Bowel Syndrome Status: Chronic (17) Long-Term(Current)Use Of Steroids Status: Chronic (18) Medication reaction Status: Resolved (19) Polymyalgia Rheumatica Status: Chronic (20) Renal insufficiency Status: Resolved (21) Rheumatoid Arthritis, Unspecified Status: Chronic (22) SIRS (systemic inflammatory response syndrome) Status: Resolved (23) Syncopal episodes Status: Resolved (24) Syncope Status: Resolved (25) Thoracic radiculopathy Status: Resolved (26) Unspecified Urinary Incontinence Status: Chronic (27) Vitamin D Deficiency, Unspecified Status: Chronic Surgical Problems: (1) History of hysterectomy Status: Resolved (2) Knee Joint Replacement Status Status: Resolved Family History Heart disease Hypertension Social History Smoking Status: Never Smoker Smokeless Tobacco Use: No Alcohol Use: none Drug Use: none Marital Status: Housing status: lives with significant other Occupational Status: retired Immunizations History of Influenza Vaccine: Yes History of Tetanus Vaccine?: Yes Tetanus Immunization Date: Oct 30, 2007 History of Pneumococcal: Yes Pneumococcal Date: Sep 30, 2003 History of Hepatitis B Vaccine: No Multi-Drug Resistant Organisms History of MDRO: No Allergies Coded Allergies: Sulfa Antibiotics (Verified Allergy, Intermediate, RASH, 09/25/16) Erythromycin (Verified Adverse Reaction, Unknown, N&V, 09/25/16) N&V Home Medications Scheduled Cholecalciferol (Vitamin D), 5,000 UNITS PO DAILY Hydrochlorothiazide (Hydrochlorothiazide), 25 MG PO DAILY Hydroxychloroquine Sulfate (Hydroxychloroquine Sulfat), 200 MG PO BID Lansoprazole (Prevacid), 30 MG PO DAILY Levothyroxine Sodium (Synthroid), 75 MCG PO DAILY Lisinopril (Prinivil), 20 MG PO BID Melatonin (Kp Melatonin), 6 MG PO HS Prednisone (Prednisone), 3 MG PO QAM Prednisone (Prednisone), 5 MG PO DAILY Sertraline (Zoloft), 25 MG PO HS Verapamil Hcl (Verapamil Hcl Er), 120 MG PO DAILY Review of Systems Constitutional: + weakness, + fatigue, No fever, No chills, No sweats Eyes: No worsening of vision, No eye pain, No diplopia ENT: No sore throat, No trouble swallowing Respiratory: No cough, No wheezing, No shortness of breath Cardiovascular: No chest pain, No claudication, No palpitations Abdomen: + nausea, + vomiting, + diarrhea, No pain, No GI bleeding Musculoskeletal: + joint pain, + swelling, No calf pain Genitourinary - Female: + urinary incontinence (chronic), No dysuria, No hematuria Neurologic: + numbness/tingling, No paralysis, No weakness Integumentary: No rash, No itch, No color change Physical Exam Vital Signs Date Time Temp Pulse Resp B/P (MAP) Pulse Ox O2 Delivery O2 Flow Rate FiO2 09/25/16 17:01 98 Room Air 09/25/16 16:25 70 16 149/87 98 Room Air 09/25/16 15:25 65 09/25/16 15:15 66 16 150/91 09/25/16 13:17 36.5 74 18 135/65 98 Room Air General appearance: +Obese. Well-developed, well-nourished, no apparent distress Head: Normocephalic, atraumatic Eyes: Normal inspection, PERRL, EOMI ENT: Normal ENT inspection, hearing grossly normal, pharynx normal Neck: Supple, no JVD, trachea midline Respiratory/Chest: Lungs clear to auscultation, normal breath sounds, no respiratory distress Cardiovascular: Regular rate & rhythm, no gallop, no murmur Abdomen/GI: +Hypoactive bowel sounds. Non-tender, soft Extremities/Musculoskeletal: +Edema of hands/fingers bilaterally. Limited ROM of fingers secondary to swelling. Normal inspection, no calf tenderness Skin: Normal color, warm/dry, no rash Diagnostics Laboratory Results Results Past 24 Hours Test 09/25/16 14:20 Range/Units White Blood Count 12.92 4.8-10.8 K/uL Red Blood Count 3.60 4.2-5.4 M/uL Hemoglobin 9.5 12.0-16.0 g/dL Hematocrit 29.3 37-47 % Mean Corpuscular Volume 81.4 80-100 fL Mean Corpuscular Hemoglobin 26.4 25-34 pg Mean Corpuscular Hemoglobin Concent 32.4 32-36 g/dl Platelet Count 344 130-400 K/uL Mean Platelet Volume 10.1 7.4-10.4 fL Neutrophils (%) (Auto) 90.8 % Lymphocytes (%) (Auto) 3.9 % Monocytes (%) (Auto) 4.9 % Eosinophils (%) (Auto) 0.0 % Basophils (%) (Auto) 0.2 % Neutrophils # (Auto) 11.73 1.4-6.5 K/uL Lymphocytes # (Auto) 0.50 1.2-3.4 K/uL Monocytes # (Auto) 0.63 0.11-0.59 K/uL Eosinophils # (Auto) 0.00 0-0.5 K/uL Basophils # (Auto) 0.03 0-0.2 K/uL RDW Standard Deviation 43.5 36.4-46.3 fL RDW Coefficient of Variation 14.6 11.5-14.5 % Immature Granulocyte % (Auto) 0.2 % Immature Granulocyte # (Auto) 0.03 0.00-0.02 K/uL Sodium Level 130 136-145 mmol/L Potassium Level 3.3 3.5-5.1 mmol/L Chloride Level 91 98-107 mmol/L Carbon Dioxide Level 28 21-32 mmol/L Anion Gap 11.0 3-11 mmol/L Blood Urea Nitrogen 14 7-18 mg/dl Creatinine 1.20 0.60-1.20 mg/dl Est Creatinine Clear Calc Drug Dose 34.9 ml/min Estimated GFR () 49.4 Estimated GFR (Non- 42.7 BUN/Creatinine Ratio 12.1 10-20 Random Glucose 112 70-99 mg/dl Calcium Level 9.1 8.5-10.1 mg/dl Magnesium Level 1.8 1.8-2.4 mg/dl Total Bilirubin 0.4 0.2-1 mg/dl Aspartate Amino Transf (AST/SGOT) 13 15-37 U/L Alanine Aminotransferase (ALT/SGPT) 13 12-78 U/L Alkaline Phosphatase 54 45-117 U/L Total Protein 6.7 6.4-8.2 gm/dl Albumin 3.3 3.4-5.0 gm/dl Globulin 3.4 2.5-4.0 gm/dl Albumin/Globulin Ratio 1.0 0.9-2 Lipase 105 73-393 U/L Diagnostic Radiology Reviewed the following studies and agree with interpretation as follows: Patient Name: YELENA MCCOY Unit Number: [id number] Dictated: 09/25/161454 Transcribed: 09/25/161454 EV Printed Date/Time: [~ rep prt dt]/[~ rep prt tm] [~ rep ct labl] - [~ rep ct ivnm] [facility] [place] [place] [address] Dictated: 09/25/161454 Transcribed: 09/25/161454 EV Printed Date/Time: [~ rep prt dt]/[~ rep prt tm] [~ rep ct labl] - [~ rep ct ivnm] Patient: YELENA MCCOY Address1: [address] [place] [address] Rec: [id number] Address2: Acct ID: [id number] [facility] Zip: [place] [address] Date: 1935 Sex: F Room/Bed: Ref Phy: Seth Knox D.O. SC: VERN Att Phy: Report #: [id number] Vani Phy: Seth Knox D.O. Test: APWO Admit Phy: Studio Associate: [facility] Interpreting Phy: Juan Nguyen M.D. Diagnosis: N/V/D Ordering Phy: Shae Castano Service Date: 09/25/16 Admit Date: 09/25/16 MNE: [id number] CONF: DICTATED BY: Juan Nguyen M.D.]] CC: Seth Knox D.O. Burton, Ryan M., Shae Weaver PA Endcc: [~ rep ct add3]] CT SCAN OF THE ABDOMEN AND PELVIS WITHOUT IV CONTRAST CLINICAL HISTORY: Nausea and vomiting. Diarrhea. COMPARISON STUDY: Abdominal CT dated 11/01/2015. TECHNIQUE: CT scan of the abdomen and pelvis is performed from the lung bases to the proximal femora. Images are reviewed in the axial, sagittal, and coronal planes. IV contrast was not administered for this examination as per the referring clinician. Note that examination is significant suboptimal without oral and IV contrast. The examination is also degraded by motion artifact. Automated dose control exposure was utilized. CT DOSE: 938.09 mGy.cm FINDINGS: Lung bases: The heart is top normal in size and without pericardial effusion. There is diminished attenuation of the cardiac blood pool as compared to the myocardium suggesting anemia. Coronary artery calcifications are noted. The lung bases are clear. Liver: The unenhanced liver is normal in size, contour, and attenuation. There is no intrahepatic biliary ductal dilatation. Gallbladder: Unremarkable. Spleen: Normal in size and attenuation. Pancreas: There is fatty atrophy of the pancreas which is grossly unremarkable. Adrenal glands: Unremarkable. Kidneys: The unenhanced kidneys are atrophic and without hydronephrosis. There are no renal calculi identified. There is no evidence of contour deforming renal mass lesion. Abdominal vasculature: The abdominal aorta is normal in course and caliber noting moderate atherosclerotic calcification. Bowel: There is no bowel obstruction. There is moderate sigmoid diverticulosis without CT evidence of acute diverticulitis. Submucosal fat deposition is incidentally noted in the cecum. The appendix is well-visualized and normal. Peritoneum: There is no intraperitoneal free air or abdominal ascites. Lymphadenopathy: None. Pelvic viscera: The bladder is normal as visualized. The uterus is surgically absent. No adnexal lesion is seen. There is nonspecific induration of the perianal soft tissues. Skeletal structures: The skeletal structures are osteopenic. No lytic or blastic lesions are seen. IMPRESSION: 1. Suboptimal examination without oral and IV contrast. 2. There are no acute infectious or inflammatory findings in the abdomen or pelvis. 3. There is nonspecific induration of the perianal soft tissues. This is of indeterminant etiology and significance. Correlation with physical examination findings is recommended. 4. Moderate sigmoid diverticulosis without CT evidence of acute diverticulitis. Electronically signed by: Juan Nguyen M.D. 09/25/2016 3:01 PM Dictated Date/Time: 09/25/2016 2:55 PM The status of this report is Signed. Draft = Not yet reviewed or approved by Radiologist. Signed = Reviewed and approved by Radiologist. <AttendingPhy></AttendingPhy> <FamilyPhy>Seth Knox D.O.</FamilyPhy> < PrimaryPhy>Seth Knox D.O.</PrimaryPhy> <UnitNumber>[id number]</ UnitNumber> <VisitNumber>[id number]</VisitNumber> <PatientName>YELENA MCCOY</PatientName> <DateOfBirth>1935</DateOfBirth> <Location>[facility]</Location > <ServiceDate>09/25/16</ServiceDate> <MNE>ESINDI</MNE> <OrderingPhy>Eyad Shae C PA</OrderingPhy> <OrderingPhyMNE>f rep ord dr jimenez</OrderingPhyMNE> < DictatingPhyMNE>f rep dict dr jimenez</DictatingPhyMNE> <CCListMNE>f rep ct yovannye</ CCListMNE> <AdmittingPhyMNE>f pt admit dr jimenez</AdmittingPhyMNE> <AttendingPhyMNE >f pt attend dr jimenez</AttendingPhyMNE> <ConsultingPhyMNE>f pt consult dr jimenez</ConsultingPhyMNE> <FamilyPhyMNE>f pt fam dr jimenez</FamilyPhyMNE> <OtherPhyMNE>f pt other dr jimenez</OtherPhyMNE> < PrimaryPhyMNE>f pt prim care dr jimenez</PrimaryPhyMNE> <ReferringPhyMNE>f pt referring dr jimenez</ReferringPhyMNE> Impression Assessment and Plan 81 y/o female with a history of PMR, RS3PE syndrome, inflammatory symmetrical polyarthritis, hypertension, hypothyroidism, irritable bowel syndrome, and chronic reflux esophagitis who presented to the ED on 09/25 with nausea, vomiting , diarrhea, and weakness. Patient was recently started on hydroxychloroquine when the symptoms began and symptoms improved when she stopped taking it. Abdominal CT unremarkable and does not show evidence of acute inflammation or infection. White blood cell count elevated at 12.92. Patient presented to ER on 09/23 where she had a urinalysis and urine culture obtained. Urine culture is back positive with Escherichia coli and a second gram-negative emili. Patient received a dose of Rocephin IV in ED. Nausea, vomiting, diarrhea--likely secondary to hydroxychloroquine -Admit to med/surg -Hold hydroxychloroquine -Clear liquid diet -Zofran 4 mg IV every 6 hours when necessary for nausea -IV fluids with normal saline solution 125 mL per hour Weakness--could be secondary to N/V/D vs adrenal insufficiency -Increase patient's prednisone to 15 mg for stress dosing -PT/OT evaluate and treat UTI POA--positive urinalysis and urine culture from 09/23, did not receive empiric treatment. Given Rocephin 1 gm IV x 1 in ED 09/25 -Continue Rocephin 1 gm IV qd for now Hypokalemia -Potassium 3.3 on arrival -Potassium chloride 40 mEq PO x 1 -Continue to monitor Hyponatremia -Sodium 130 on arrival -IVF with NSS as above PMR--per Dr. Marte's records, this has been stable -Prednisone as above RS3PE/inflammatory symmetrical polyarthritis--ongoing -Hold hydroxychloroquine HTN--stable -Continue lisinopril 20 mg PO BID, hydrochlorothiazide 25 mg PO qd, and verapamil 120 mg PO qd Hypothyroidism -Continue Synthroid 75 g PO qd Depression -Continue Zoloft 25 mg PO qhs DVT prophylaxis -Heparin 5000 units SC q12h -BRONWYN whittaker and Dodie Code Status -Level V, DO NOT RESUSCITATE Level of Care Med/Surg Advanced Directives Existing Living Will: Yes Existing Power of Childbirth Educator: Yes Resuscitation Status DO NOT RESUSCITATE VTE Prophylaxis VTE Risk Assessment Done? Y/N: Yes Risk Level: Moderate Given or contraindicated: Unfractionated heparin SQ, T.E.D. Stockings, SCD's Assessment and Plan Attending Addendum: I have physically seen and examined this patient, directed their medical care, supervised the Physician Balancing Machine Set Up Worker's activity, and agree with the H&P as noted above, with the following changes: NONE.
[2016-09-25 19:26] VITALS: BP 156/82; PULSE 67; TEMP 36.7; O2SAT 95
[2016-09-25 19:31] LABS: PARTIAL THROMBOPLASTIN RATIO 1.1; PROTHROMBIN TIME (PATIENT) 10.9 SECONDS (9.0-12.0)
[2016-09-25] MEDS: SODIUM CHLORIDE 0.9% 1000ML 1,000 ML IV SCH (19:37)
[2016-09-25] MEDS: SERTRALINE HCL 50 MG TAB PO SCH (21:50)
[2016-09-25] MEDS: LISINOPRIL 20 MG TAB PO SCH (21:50)
[2016-09-25] MEDS: HEPARIN SOD 5000 UNIT/0.5 ML CARP SQ SCH (21:52)
[2016-09-26] VITALS: BP 153/77; PULSE 75; TEMP 36.9; O2SAT 96
[2016-09-26] MEDS: SODIUM CHLORIDE 0.9% 1000ML 1,000 ML IV SCH ×3 (02:12→23:17)
[2016-09-26] MEDS: LEVOTHYROXINE 75 MCG TAB PO SCH (04:55)
[2016-09-26 07:02] VITALS: BP 171/64; PULSE 83; TEMP 36.9; O2SAT 96
[2016-09-26 07:57] LABS: BASO % 0.5 %; BASO ABS # 0.04 K/uL (0-0.2); EOS % 0.7 %; HEMATOCRIT 25.7 % (37-47); IG% 0.3 %; LYMPH % 21.7 %; LYMPH ABS # 1.59 K/uL (1.2-3.4); MEAN CELL VOLUME 82.1 fL (80-100); MEAN CORPUSCULAR HEMOGLOBIN 26.2 pg (25-34); MEAN CORPUSCULAR HGB CONC 31.9 g/dl (32-36); MEAN PLATELET VOLUME 9.8 fL (7.4-10.4); MONO % 7.5 %; NEUT % 69.3 %; PLATELET COUNT 309 K/uL (130-400); RED BLOOD COUNT 3.13 M/uL (4.2-5.4); WHITE BLOOD COUNT 7.32 K/uL (4.8-10.8)
[2016-09-26] MEDS ORDERED: HydrALAZINE HCL 20 MG/ML VIAL IV. PRN (08:00)
[2016-09-26 08:35] LABS: BUN/CREATININE RATIO 10.1 (10-20); CREATININE 0.92 mg/dl (0.60-1.20); POTASSIUM 3.6 mmol/L (3.5-5.1)
[2016-09-26 08:48] LABS: COMPLETE YES
[2016-09-26] MEDS: LISINOPRIL 20 MG TAB PO SCH ×2 (08:50→20:35)
[2016-09-26] MEDS: VERAPAMIL HCL 120 MG TABCR PO SCH (08:51)
[2016-09-26] MEDS: HYDROCHLOROTHIAZIDE 25 MG TAB PO SCH (08:52)
[2016-09-26] MEDS: PANTOprazole SOD 40 MG TAB PO SCH (08:52)
[2016-09-26 08:55] LABS: CALCIUM 8.8 mg/dl (8.5-10.1)
[2016-09-26] MEDS: HEPARIN SOD 5000 UNIT/0.5 ML CARP SQ SCH ×2 (08:55→20:39)
--- NOTE | 2016-09-26 08:55 | Progress Note ---
Subjective Date of Service: Sep 26, 2016. Subjective Pt evaluation today including: conversation w/ patient, physical exam, chart review, lab review, review of studies, conversation w/ specialty development consultant, review of inpatient medication list No more nausea vomiting, tolerate diet, however reports ubaldo wrists and elbows pain and swelling, which she has it before, No other complaint Problem List Medical Problems: (1) Anemia Status: Chronic (2) Diverticulosis Colon (W/O Ment Of Hemorrhage) Status: Chronic (3) DJD (degenerative joint disease) Status: Chronic (4) Esophageal Reflux Status: Chronic (5) Hypertension Status: Chronic (6) Hypothyroidism, Unspecified Status: Chronic (7) Irritable Bowel Syndrome Status: Chronic (8) Long-Term(Current)Use Of Steroids Status: Chronic (9) Polymyalgia Rheumatica Status: Chronic (10) Rheumatoid Arthritis, Unspecified Status: Chronic (11) Unspecified Urinary Incontinence Status: Chronic (12) Urinary tract infection Status: Acute (13) Vitamin D Deficiency, Unspecified Status: Chronic (14) Vomiting and diarrhea Status: Acute Review of Systems Constitutional: + weakness, + fatigue, No fever, No chills, No sweats, No weight loss, No problem reported Eyes: No worsening of vision, No eye pain, No redness, No discharge, No diplopia ENT: No hearing loss, No unusual epistaxis, No nasal symptoms, No sore throat, No tinnitus, No dental problems, No trouble swallowing Respiratory: No cough, No sputum, No wheezing, No shortness of breath, No dyspnea on exertion, No dyspnea at rest, No hemoptysis Cardiac: No chest pain, No orthopnea, No PND, No edema, No claudication, No palpitations Abdomen: No pain, No nausea, No vomiting, No diarrhea, No constipation Musculoskeletal: + joint pain, + swelling, No muscle pain, No calf pain Female : No dysuria, No urinary frequency, No hematuria, No incontinence, No abnormal vaginal bleeding, No vaginal discharge Neurologic: No memory loss, No paralysis, No weakness, No numbness/tingling, No vertigo, No balance problems Psychiatric: No depression symptoms, No anhedonism, No anxiety, No insomnia, No substance abuse Heme: No abnormal bleeding/bruising, No clotting problems, No swollen lymph nodes, No night sweats Endo: No fatigue, No excessive thirst, No excessive urination Skin: No rash, No itch, No new/changing skin lesions, No color change, No bleeding Objective Vital Signs Date Time Temp Pulse Resp B/P (MAP) Pulse Ox O2 Delivery O2 Flow Rate FiO2 09/26/16 07:37 Room Air 09/26/16 07:02 36.9 83 18 171/64 (99) 96 Room Air 09/26/16 00:00 36.9 75 18 153/77 (102) 96 Room Air 09/26/16 00:00 Room Air 09/25/16 19:26 36.7 67 18 156/82 (106) 95 Room Air 09/25/16 18:40 36.5 73 16 162/76 98 09/25/16 18:12 73 16 162/76 98 Room Air 09/25/16 17:01 98 Room Air 09/25/16 16:25 70 16 149/87 98 Room Air 09/25/16 15:25 65 09/25/16 15:15 66 16 150/91 09/25/16 13:17 36.5 74 18 135/65 98 Room Air Physical Exam General Appearance: WD/WN, no apparent distress, + obese Eyes: normal inspection, PERRL, EOMI, sclerae normal ENT: normal ENT inspection, hearing grossly normal, pharynx normal Neck: supple, no adenopathy, thyroid normal, no JVD, no carotid bruits, trachea midline Respiratory/Chest: chest non-tender, lungs clear, normal breath sounds, no respiratory distress, no accessory muscle use Cardiovascular: regular rate, rhythm, no edema, no gallop, no JVD, no murmur Abdomen: normal bowel sounds, non tender, soft, no organomegaly, no pulsatile mass Extremities: no pedal edema, no calf tenderness, normal capillary refill, pelvis stable, + pertinent finding (bilateral wrists swelling and tender in palpation, associated with symmetric bone deformity which is not new) Neurologic/Psychiatric: custom shoemaker II-XII nml as tested, no motor/sensory deficits, alert, normal mood/affect, oriented x 3 Skin: normal color, warm/dry, no rash Lymphatic: no adenopathy Laboratory Results Last 24 Hours Test 09/25/16 14:20 09/26/16 07:47 White Blood Count 12.92 K/uL 7.32 K/uL Red Blood Count 3.60 M/uL 3.13 M/uL Hemoglobin 9.5 g/dL 8.2 g/dL Hematocrit 29.3 % 25.7 % Mean Corpuscular Volume 81.4 fL 82.1 fL Mean Corpuscular Hemoglobin 26.4 pg 26.2 pg Mean Corpuscular Hemoglobin Concent 32.4 g/dl 31.9 g/dl Platelet Count 344 K/uL 309 K/uL Mean Platelet Volume 10.1 fL 9.8 fL Neutrophils (%) (Auto) 90.8 % 69.3 % Lymphocytes (%) (Auto) 3.9 % 21.7 % Monocytes (%) (Auto) 4.9 % 7.5 % Eosinophils (%) (Auto) 0.0 % 0.7 % Basophils (%) (Auto) 0.2 % 0.5 % Neutrophils # (Auto) 11.73 K/uL 5.07 K/uL Lymphocytes # (Auto) 0.50 K/uL 1.59 K/uL Monocytes # (Auto) 0.63 K/uL 0.55 K/uL Eosinophils # (Auto) 0.00 K/uL 0.05 K/uL Basophils # (Auto) 0.03 K/uL 0.04 K/uL RDW Standard Deviation 43.5 fL 44.3 fL RDW Coefficient of Variation 14.6 % 14.7 % Immature Granulocyte % (Auto) 0.2 % 0.3 % Immature Granulocyte # (Auto) 0.03 K/uL 0.02 K/uL Prothrombin Time 10.9 SECONDS Prothromb Time International Ratio 1.0 Activated Partial Thromboplast Time 29.1 SECONDS Partial Thromboplastin Ratio 1.1 Sodium Level 130 mmol/L 134 mmol/L Potassium Level 3.3 mmol/L 3.6 mmol/L Chloride Level 91 mmol/L 99 mmol/L Carbon Dioxide Level 28 mmol/L 24 mmol/L Anion Gap 11.0 mmol/L 11.0 mmol/L Blood Urea Nitrogen 14 mg/dl 9 mg/dl Creatinine 1.20 mg/dl 0.92 mg/dl Est Creatinine Clear Calc Drug Dose 34.9 ml/min 45.6 ml/min Estimated GFR () 49.4 68.2 Estimated GFR (Non- 42.7 58.8 BUN/Creatinine Ratio 12.1 10.1 Random Glucose 112 mg/dl 80 mg/dl Calcium Level 9.1 mg/dl Magnesium Level 1.8 mg/dl Total Bilirubin 0.4 mg/dl Aspartate Amino Transf (AST/SGOT) 13 U/L Alanine Aminotransferase (ALT/SGPT) 13 U/L Alkaline Phosphatase 54 U/L Total Protein 6.7 gm/dl Albumin 3.3 gm/dl Globulin 3.4 gm/dl Albumin/Globulin Ratio 1.0 Lipase 105 U/L Assessment and Plan 81 y/o female admitted on 09/25/2016 with possible gastritis with nausea, vomiting , diarrhea, and weakness. Patient was recently started on hydroxychloroquine when the symptoms began and symptoms improved when she stopped taking it. Abdominal CT unremarkable and does not show evidence of acute inflammation or infection. White blood cell count elevated at 12.92. Patient presented to ER on 09/23 where she had a urinalysis and urine culture obtained. Urine culture is back positive with Escherichia coli and a second gram-negative emili. Patient received a dose of Rocephin IV in ED. History of PMR, RS3PE syndrome, inflammatory symmetrical polyarthritis, hypertension, hypothyroidism, irritable bowel syndrome, and chronic reflux esophagitis who presented to the ED on Possible drug-induced gastritis by hydroxychloroquine with Nausea, vomiting, diarrhea--likely Stable and improved - cont hold hydroxychloroquine -Continue Clear liquid diet -Continue Zofran 4 mg IV every 6 hours when necessary for nausea - Decreased IV fluids with normal saline solution 125 mL per hour to a female per hour Weakness--could be secondary to N/V/D vs adrenal insufficiency -Has Increases patient's prednisone to 15 mg for stress dosing upon admission -PT/OT evaluate and treat UTI POA--positive urinalysis and urine culture from 09/23, did not receive empiric treatment. Given Rocephin 1 gm IV x 1 in ED 09/25 -Continue Rocephin 1 gm IV qd for now, will change to oral per culture results and if tolerate diet continuely Hypokalemia resolved -Potassium 3.3 on arrival -Potassium chloride 40 mEq PO x 1 upon admission improved -Continue to monitor Hyponatremia improved -Sodium 130 on arrival -IVF with NSS as above PMR--per Dr. Marte's records, this has been stable -Prednisone as above - I'm contacting Dr. taylor office to get advice of hydroxychloroquine, will night to know to decrease the dose of one tablet a day on restart the same dose 1 tablet 2 times a day, or change to other medication, we'll continue follow- up. Patient reported she tolerated well when hydroxychloroquine was on once a day RS3PE/inflammatory symmetrical polyarthritis--ongoing -Hold hydroxychloroquine HTN--stable -Continue lisinopril 20 mg PO BID, hydrochlorothiazide 25 mg PO qd, and verapamil 120 mg PO qd Hypothyroidism -Continue Synthroid 75 g PO qd Depression -Continue Zoloft 25 mg PO qhs DVT prophylaxis -Heparin 5000 units SC q12h -BRONWYN Renteria Code Status -Level V, DO NOT RESUSCITATE Discussed with patient about a care plan, answered all the questions, Continued [facility] stay due to: multiple IV medications needed Discharge planning: home
[2016-09-26] MEDS: CHOLECALCIFEROL 1000 INTER.UNIT TAB PO SCH (09:01)
[2016-09-26] MEDS: ACETAMINOPHEN 325 MG TAB PO PRN (10:31)
[2016-09-26 15:38] VITALS: BP 130/66; PULSE 76; TEMP 36.7; O2SAT 95
[2016-09-26 16:00] VITALS: O2SAT 95
[2016-09-26] MEDS ORDERED: CEFTRIAXONE SOD INJ 1 GM in DEXTROSE 5% ADD-VANTAGE 50ML 50 ML IV SCH (16:00)
[2016-09-26] MEDS: SERTRALINE HCL 50 MG TAB PO SCH (20:36)
[2016-09-26] MEDS ORDERED: MELATONIN 6 MG PO SCH (22:00)
[2016-09-26 23:13] VITALS: BP 148/70; PULSE 71; TEMP 36.8; O2SAT 96
[2016-09-27] MEDS: LEVOTHYROXINE 75 MCG TAB PO SCH (06:04)
[2016-09-27 07:25] VITALS: BP 181/69; PULSE 76; TEMP 36.7; O2SAT 97
[2016-09-27 07:45] VITALS: O2SAT 97
[2016-09-27 08:17] LABS: BASO % 0.5 %; BASO ABS # 0.03 K/uL (0-0.2); EOS % 0.2 %; HEMATOCRIT 26.6 % (37-47); IG% 0.3 %; LYMPH % 22.3 %; LYMPH ABS # 1.36 K/uL (1.2-3.4); MEAN CELL VOLUME 81.1 fL (80-100); MEAN CORPUSCULAR HEMOGLOBIN 25.3 pg (25-34); MEAN CORPUSCULAR HGB CONC 31.2 g/dl (32-36); MEAN PLATELET VOLUME 9.5 fL (7.4-10.4); MONO % 10.2 %; NEUT % 66.5 %; PLATELET COUNT 311 K/uL (130-400); RED BLOOD COUNT 3.28 M/uL (4.2-5.4); WHITE BLOOD COUNT 6.09 K/uL (4.8-10.8)
[2016-09-27 08:44] LABS: BUN/CREATININE RATIO 8.9 (10-20); CREATININE 0.87 mg/dl (0.60-1.20); POTASSIUM 3.5 mmol/L (3.5-5.1)
[2016-09-27 08:48] LABS: CALCIUM 8.8 mg/dl (8.5-10.1)
[2016-09-27] MEDS: VERAPAMIL HCL 120 MG TABCR PO SCH (09:07)
[2016-09-27] MEDS: PANTOprazole SOD 40 MG TAB PO SCH (09:07)
[2016-09-27] MEDS: CHOLECALCIFEROL 1000 INTER.UNIT TAB PO SCH (09:07)
[2016-09-27] MEDS: HYDROCHLOROTHIAZIDE 25 MG TAB PO SCH (09:07)
[2016-09-27] MEDS: LISINOPRIL 20 MG TAB PO SCH ×2 (09:07→21:17)
[2016-09-27] MEDS: HEPARIN SOD 5000 UNIT/0.5 ML CARP SQ SCH ×2 (09:13→21:18)
[2016-09-27 10:00] VITALS: BP 152/68; PULSE 72; TEMP 36.5; O2SAT 97
[2016-09-27 10:01] LABS: COMPLETE YES
[2016-09-27] MEDS: ACETAMINOPHEN 325 MG TAB PO PRN (11:09)
--- NOTE | 2016-09-27 11:36 | Progress Note ---
Subjective Date of Service: Sep 27, 2016. Subjective Pt evaluation today including: conversation w/ patient, physical exam, chart review, lab review, review of studies, conversation w/ netsuite consultant, review of inpatient medication list Report 2-3 times diarrhea since yesterday, stool samples mixed with incontinent urine, Generally looking better, and ubaldo hands and wrist less swelling and pain No other complaint Problem List Medical Problems: (1) Anemia Status: Chronic (2) Diverticulosis Colon (W/O Ment Of Hemorrhage) Status: Chronic (3) DJD (degenerative joint disease) Status: Chronic (4) Esophageal Reflux Status: Chronic (5) Hypertension Status: Chronic (6) Hypothyroidism, Unspecified Status: Chronic (7) Irritable Bowel Syndrome Status: Chronic (8) Long-Term(Current)Use Of Steroids Status: Chronic (9) Polymyalgia Rheumatica Status: Chronic (10) Rheumatoid Arthritis, Unspecified Status: Chronic (11) Unspecified Urinary Incontinence Status: Chronic (12) Urinary tract infection Status: Acute (13) Vitamin D Deficiency, Unspecified Status: Chronic (14) Vomiting and diarrhea Status: Acute Review of Systems Constitutional: + weakness, + fatigue, No fever, No chills, No sweats, No weight loss, No problem reported Eyes: No worsening of vision, No eye pain, No redness, No discharge, No diplopia ENT: No hearing loss, No unusual epistaxis, No nasal symptoms, No sore throat, No tinnitus, No dental problems, No trouble swallowing Respiratory: No cough, No sputum, No wheezing, No shortness of breath, No dyspnea on exertion, No dyspnea at rest, No hemoptysis Cardiac: No chest pain, No orthopnea, No PND, No edema, No claudication, No palpitations Abdomen: + diarrhea, No pain, No nausea, No vomiting, No constipation Musculoskeletal: No joint pain, No muscle pain, No swelling, No calf pain Female : No dysuria, No urinary frequency, No hematuria, No incontinence, No abnormal vaginal bleeding, No vaginal discharge Neurologic: No memory loss, No paralysis, No weakness, No numbness/tingling, No vertigo, No balance problems Psychiatric: No depression symptoms, No anhedonism, No anxiety, No insomnia, No substance abuse Heme: No abnormal bleeding/bruising, No clotting problems, No swollen lymph nodes, No night sweats Endo: No fatigue, No excessive thirst, No excessive urination Skin: No rash, No itch, No new/changing skin lesions, No color change, No bleeding Objective Vital Signs Date Time Temp Pulse Resp B/P (MAP) Pulse Ox O2 Delivery O2 Flow Rate FiO2 09/27/16 10:00 36.5 72 18 152/68 (96) 97 Room Air 09/27/16 07:45 97 Room Air 09/27/16 07:25 36.7 76 18 181/69 (106) 97 Room Air 09/26/16 23:15 Room Air 09/26/16 23:13 36.8 71 18 148/70 (96) 96 Room Air 09/26/16 16:00 95 Room Air 09/26/16 15:38 36.7 76 18 130/66 (87) 95 Room Air Physical Exam General Appearance: WD/WN, no apparent distress Eyes: normal inspection, PERRL, EOMI, sclerae normal ENT: normal ENT inspection, hearing grossly normal, pharynx normal Neck: supple, no adenopathy, thyroid normal, no JVD, no carotid bruits, trachea midline Respiratory/Chest: chest non-tender, lungs clear, normal breath sounds, no respiratory distress, no accessory muscle use Cardiovascular: regular rate, rhythm, no edema, no gallop, no JVD, no murmur Abdomen: normal bowel sounds, non tender, soft, no organomegaly, no pulsatile mass Extremities: normal range of motion, non-tender, normal inspection, no pedal edema, no calf tenderness, normal capillary refill, pelvis stable Neurologic/Psychiatric: maintenance 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 manager II-XII nml as tested, no motor/sensory deficits, alert, normal mood/affect, oriented x 3 Skin: normal color, warm/dry, no rash Lymphatic: no adenopathy Laboratory Results Last 24 Hours Test 09/27/16 07:58 White Blood Count 6.09 K/uL Red Blood Count 3.28 M/uL Hemoglobin 8.3 g/dL Hematocrit 26.6 % Mean Corpuscular Volume 81.1 fL Mean Corpuscular Hemoglobin 25.3 pg Mean Corpuscular Hemoglobin Concent 31.2 g/dl Platelet Count 311 K/uL Mean Platelet Volume 9.5 fL Neutrophils (%) (Auto) 66.5 % Lymphocytes (%) (Auto) 22.3 % Monocytes (%) (Auto) 10.2 % Eosinophils (%) (Auto) 0.2 % Basophils (%) (Auto) 0.5 % Neutrophils # (Auto) 4.05 K/uL Lymphocytes # (Auto) 1.36 K/uL Monocytes # (Auto) 0.62 K/uL Eosinophils # (Auto) 0.01 K/uL Basophils # (Auto) 0.03 K/uL RDW Standard Deviation 42.6 fL RDW Coefficient of Variation 14.3 % Immature Granulocyte % (Auto) 0.3 % Immature Granulocyte # (Auto) 0.02 K/uL Red Blood Cell Morphology Unremarkable Sodium Level 135 mmol/L Potassium Level 3.5 mmol/L Chloride Level 100 mmol/L Carbon Dioxide Level 24 mmol/L Anion Gap 11.0 mmol/L Blood Urea Nitrogen 8 mg/dl Creatinine 0.87 mg/dl Est Creatinine Clear Calc Drug Dose 48.2 ml/min Estimated GFR () 72.9 Estimated GFR (Non- 62.9 BUN/Creatinine Ratio 8.9 Random Glucose 83 mg/dl Calcium Level 8.8 mg/dl Assessment and Plan 81 y/o female admitted on 09/25/2016 with possible gastritis with nausea, vomiting , diarrhea, and weakness. Patient was recently started on hydroxychloroquine when the symptoms began and symptoms improved when she stopped taking it. Abdominal CT unremarkable and does not show evidence of acute inflammation or infection. White blood cell count elevated at 12.92. Patient presented to ER on 09/23 where she had a urinalysis and urine culture obtained. Urine culture is back positive with Escherichia coli and a second gram-negative emili. Patient received a dose of Rocephin IV in ED. History of PMR, RS3PE syndrome, inflammatory symmetrical polyarthritis, hypertension, hypothyroidism, irritable bowel syndrome, and chronic reflux esophagitis who presented to the ED on Possible drug-induced gastritis by hydroxychloroquine with Nausea, vomiting, diarrhea--likely Now has some nausea edition symptoms plus some diarrhea Continue Stable and improved - cont hold hydroxychloroquine -Advance diet as tolerated -Continue Zofran 4 mg IV every 6 hours when necessary for nausea - Decreased IV fluids with normal saline solution 125 mL per hour to a female per hour - Some diarrhea with currently on antibiotic, check stool C. difficile, which has been sent UTI POA has been on Rocephin since 09/25, did not receive empiric treatment. 3 out of 7 days , Change to oral Keflex, no culture results. Hypokalemia resolved -Potassium 3.3 on arrival -Potassium chloride 40 mEq PO x 1 upon admission improved -Continue to monitor Hyponatremia improved -Sodium 130 on arrival -IVF with NSS as above PMR--per Dr. Marte's records, this has been stable RS3PE/inflammatory symmetrical polyarthritis--ongoing -Hold hydroxychloroquine - Discussed with Dr. marte, recommend continue hold hydroxychloroquine, and follow-up with her as outpatient 2 week HTN--stable -Continue lisinopril 20 mg PO BID, hydrochlorothiazide 25 mg PO qd, and verapamil 120 mg PO qd Hypothyroidism -Continue Synthroid 75 g PO qd Depression -Continue Zoloft 25 mg PO qhs DVT prophylaxis -Heparin 5000 units SC q12h -BRONWYN Renteria Code Status -Level V, DO NOT RESUSCITATE - PT OT recommend rehabilitation, will talk to upper caser for the discharge plan - Possible tomorrow Discussed with patient about a care plan, answered all the questions, Continued [facility] stay due to: multiple IV medications needed Discharge planning: home
[2016-09-27] MEDS: CEPHALEXIN MONOHYDRATE 500 MG CAP PO SCH ×3 (13:32→21:17)
[2016-09-27 15:54] VITALS: BP 153/74; PULSE 73; TEMP 36.6; O2SAT 95
[2016-09-27 16:00] VITALS: O2SAT 95
[2016-09-27] MEDS ORDERED: NURSING VERBAL MED ORDER ONE (16:00)
[2016-09-27] MEDS ORDERED: METRONIDAZOLE 500 MG TAB PO ONE (16:15)
[2016-09-27] MEDS: SERTRALINE HCL 50 MG TAB PO SCH (21:17)
[2016-09-27] MEDS: METRONIDAZOLE 500 MG TAB PO SCH (21:17)
[2016-09-28 00:51] VITALS: BP 153/83; PULSE 75; TEMP 36.6; O2SAT 95
[2016-09-28] MEDS: LEVOTHYROXINE 75 MCG TAB PO SCH (06:29)
[2016-09-28 07:34] VITALS: BP 173/73; PULSE 79; TEMP 36.8; O2SAT 94
[2016-09-28 07:37] LABS: BASO % 0.3 %; BASO ABS # 0.03 K/uL (0-0.2); EOS % 0.4 %; HEMATOCRIT 27.1 % (37-47); IG% 0.3 %; LYMPH % 12.1 %; LYMPH ABS # 1.23 K/uL (1.2-3.4); MEAN CELL VOLUME 82.1 fL (80-100); MEAN CORPUSCULAR HEMOGLOBIN 26.4 pg (25-34); MEAN CORPUSCULAR HGB CONC 32.1 g/dl (32-36); MEAN PLATELET VOLUME 9.9 fL (7.4-10.4); MONO % 5.4 %; NEUT % 81.5 %; PLATELET COUNT 309 K/uL (130-400); WHITE BLOOD COUNT 10.16 K/uL (4.8-10.8)
[2016-09-28 08:23] LABS: COMPLETE YES; HYPERSEGMENTED POLYS 1+
[2016-09-28 08:41] LABS: BUN/CREATININE RATIO 8.6 (10-20); CREATININE 0.97 mg/dl (0.60-1.20); MAGNESIUM 1.5 mg/dl (1.8-2.4); POTASSIUM 3.1 mmol/L (3.5-5.1)
[2016-09-28 08:55] LABS: CALCIUM 9.2 mg/dl (8.5-10.1)
[2016-09-28] MEDS: HYDROCHLOROTHIAZIDE 25 MG TAB PO SCH (09:05)
[2016-09-28] MEDS: METRONIDAZOLE 500 MG TAB PO SCH ×3 (09:05→20:59)
[2016-09-28] MEDS: VERAPAMIL HCL 120 MG TABCR PO SCH (09:05)
[2016-09-28] MEDS: HEPARIN SOD 5000 UNIT/0.5 ML CARP SQ SCH ×2 (09:06→21:06)
[2016-09-28] MEDS: LISINOPRIL 20 MG TAB PO SCH ×2 (09:12→20:59)
[2016-09-28] MEDS: CHOLECALCIFEROL 1000 INTER.UNIT TAB PO SCH (09:12)
[2016-09-28] MEDS: PANTOprazole SOD 40 MG TAB PO SCH (09:13)
[2016-09-28] MEDS: CEPHALEXIN MONOHYDRATE 500 MG CAP PO SCH ×2 (09:13→12:54)
--- NOTE | 2016-09-28 11:56 | Progress Note ---
Subjective Date of Service: Sep 28, 2016. Subjective Pt evaluation today including: conversation w/ patient, physical exam, chart review, lab review, review of studies, conversation w/ cognos consultant, review of inpatient medication list Feel mild nausea, a lot of diarrhea, had diarrhea every time after she eat Gen. feel tired Problem List Medical Problems: (1) Anemia Status: Chronic (2) Diverticulosis Colon (W/O Ment Of Hemorrhage) Status: Chronic (3) DJD (degenerative joint disease) Status: Chronic (4) Esophageal Reflux Status: Chronic (5) Hypertension Status: Chronic (6) Hypothyroidism, Unspecified Status: Chronic (7) Irritable Bowel Syndrome Status: Chronic (8) Long-Term(Current)Use Of Steroids Status: Chronic (9) Polymyalgia Rheumatica Status: Chronic (10) Rheumatoid Arthritis, Unspecified Status: Chronic (11) Unspecified Urinary Incontinence Status: Chronic (12) Urinary tract infection Status: Acute (13) Vitamin D Deficiency, Unspecified Status: Chronic (14) Vomiting and diarrhea Status: Acute Review of Systems Constitutional: No fever, No chills, No sweats, No weight loss, No weakness, No fatigue, No problem reported Eyes: No worsening of vision, No eye pain, No redness, No discharge, No diplopia ENT: No hearing loss, No unusual epistaxis, No nasal symptoms, No sore throat, No tinnitus, No dental problems, No trouble swallowing Respiratory: No cough, No sputum, No wheezing, No shortness of breath, No dyspnea on exertion, No dyspnea at rest, No hemoptysis Cardiac: No chest pain, No orthopnea, No PND, No edema, No claudication, No palpitations Abdomen: + see HPI, + nausea, + diarrhea, No pain, No vomiting, No constipation Musculoskeletal: No joint pain, No muscle pain, No swelling, No calf pain Female : No dysuria, No urinary frequency, No hematuria, No incontinence, No abnormal vaginal bleeding, No vaginal discharge Neurologic: No memory loss, No paralysis, No weakness, No numbness/tingling, No vertigo, No balance problems Psychiatric: No depression symptoms, No anhedonism, No anxiety, No insomnia, No substance abuse Heme: No abnormal bleeding/bruising, No clotting problems, No swollen lymph nodes, No night sweats Endo: No fatigue, No excessive thirst, No excessive urination Skin: No rash, No itch, No new/changing skin lesions, No color change, No bleeding Objective Vital Signs Date Time Temp Pulse Resp B/P (MAP) Pulse Ox O2 Delivery O2 Flow Rate FiO2 09/28/16 08:00 Room Air 09/28/16 07:34 36.8 79 20 173/73 (106) 94 09/28/16 00:51 36.6 75 16 153/83 (106) 95 09/27/16 23:59 Room Air 09/27/16 16:00 95 Room Air 09/27/16 15:54 36.6 73 18 153/74 (100) 95 Room Air Physical Exam General Appearance: WD/WN, no apparent distress, + obese, + pertinent finding ( looks tired, ill looking) Eyes: normal inspection, PERRL, EOMI, sclerae normal ENT: normal ENT inspection, hearing grossly normal, pharynx normal Neck: supple, no adenopathy, thyroid normal, no JVD, no carotid bruits, trachea midline Respiratory/Chest: chest non-tender, normal breath sounds, no respiratory distress, no accessory muscle use, + decreased breath sounds Cardiovascular: regular rate, rhythm, no edema, no gallop, no JVD, no murmur Abdomen: normal bowel sounds, non tender, soft, no organomegaly, no pulsatile mass Extremities: normal range of motion, non-tender, normal inspection, no pedal edema, no calf tenderness, normal capillary refill, pelvis stable Neurologic/Psychiatric: 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-XII nml as tested, no motor/sensory deficits, alert, normal mood/affect, oriented x 3 Skin: normal color, warm/dry, no rash Lymphatic: no adenopathy Laboratory Results Last 24 Hours Test 09/28/16 07:22 White Blood Count 10.16 K/uL Red Blood Count 3.30 M/uL Hemoglobin 8.7 g/dL Hematocrit 27.1 % Mean Corpuscular Volume 82.1 fL Mean Corpuscular Hemoglobin 26.4 pg Mean Corpuscular Hemoglobin Concent 32.1 g/dl Platelet Count 309 K/uL Mean Platelet Volume 9.9 fL Neutrophils (%) (Auto) 81.5 % Lymphocytes (%) (Auto) 12.1 % Monocytes (%) (Auto) 5.4 % Eosinophils (%) (Auto) 0.4 % Basophils (%) (Auto) 0.3 % Neutrophils # (Auto) 8.28 K/uL Lymphocytes # (Auto) 1.23 K/uL Monocytes # (Auto) 0.55 K/uL Eosinophils # (Auto) 0.04 K/uL Basophils # (Auto) 0.03 K/uL RDW Standard Deviation 43.6 fL RDW Coefficient of Variation 14.4 % Immature Granulocyte % (Auto) 0.3 % Immature Granulocyte # (Auto) 0.03 K/uL Hypersegmented Polys 1+ Sodium Level 135 mmol/L Potassium Level 3.1 mmol/L Chloride Level 98 mmol/L Carbon Dioxide Level 27 mmol/L Anion Gap 10.0 mmol/L Blood Urea Nitrogen 8 mg/dl Creatinine 0.97 mg/dl Est Creatinine Clear Calc Drug Dose 43.2 ml/min Estimated GFR () 63.9 Estimated GFR (Non- 55.2 BUN/Creatinine Ratio 8.6 Random Glucose 88 mg/dl Calcium Level 9.2 mg/dl Magnesium Level 1.5 mg/dl Assessment and Plan 81 y/o female admitted on 09/25/2016 with possible gastritis with nausea, vomiting , diarrhea, and weakness, found has diarrhea and C. difficile positive on 2016 Patient was recently started on hydroxychloroquine when the symptoms began and symptoms improved when she stopped taking it. Abdominal CT unremarkable and does not show evidence of acute inflammation or infection. White blood cell count elevated at 12.92. Patient presented to ER on 09/23 where she had a urinalysis and urine culture obtained. Urine culture is back positive with Escherichia coli and a second gram-negative emili. Patient received a dose of Rocephin IV in ED. C. difficile diarrhea, new diagnosed which is her first time of this condition, not improved yet Started the metronidazole by mouth 3 times a day from 09/27/2016, day 1 out of 14 Hypokinemia, hypomagnesemia, replaced Diarrhea and poor by mouth intake, possible dehydration, start IV fluid, follow- up lytes Gastritis upon admission , resolved History of PMR, RS3PE syndrome, inflammatory symmetrical polyarthritis, hypertension, hypothyroidism, irritable bowel syndrome, and chronic reflux esophagitis who presented to the ED Possible drug-induced gastritis by hydroxychloroquine with Nausea, vomiting, diarrhea--likely Symptom was totally resolved after holding hydroxychloroquine Continue Stable and improved - cont hold hydroxychloroquine -Advance diet as tolerated -Continue Zofran 4 mg IV every 6 hours when necessary for nausea Escherichia coli UTI POA has been on Rocephin since 09/25, Was changed to Keflex To be sensitive per culture results 4 out of 7 days , Hypokalemia resolved -Potassium 3.3 on arrival -Potassium chloride 40 mEq PO x 1 upon admission improved -Continue to monitor Hyponatremia improved -Sodium 130 on arrival -IVF with NSS as above PMR--per Dr. Marte's records, this has been stable RS3PE/inflammatory symmetrical polyarthritis--ongoing -Hold hydroxychloroquine - Discussed with Dr. marte, recommend continue hold hydroxychloroquine, and follow-up with her as outpatient 2 week HTN--stable -Continue lisinopril 20 mg PO BID, hydrochlorothiazide 25 mg PO qd, and verapamil 120 mg PO qd Hypothyroidism -Continue Synthroid 75 g PO qd Depression -Continue Zoloft 25 mg PO qhs DVT prophylaxis -Heparin 5000 units SC q12h -BRONWYN whittaker and SCDs Code Status -Level V, DO NOT RESUSCITATE - PT OT recommend rehabilitation, will talk to rn case manager for the discharge plan - Possible after improving and diarrhea better Discussed with patient about a care plan, answered all the questions, Continued [facility] stay due to: multiple IV medications needed Discharge planning: home
[2016-09-28] MEDS ORDERED: MAGNESIUM SULFATE 1GM / D5W 1 GM in PREMIXED IN D5W 100 ML IV ONE (12:00)
[2016-09-28] MEDS: SACCHAROMYCES BOUL (FLORASTOR) 250 MG CAP PO SCH (12:53)
[2016-09-28] MEDS: NSS + 20MEQ KCL 1000ML 1,000 ML IV SCH ×2 (12:53→20:57)
[2016-09-28] MEDS: CEFUROXIME AXETIL 500 MG TAB PO SCH ×2 (13:58→21:01)
[2016-09-28 15:52] VITALS: BP 113/61; PULSE 70; TEMP 36.7; O2SAT 96
[2016-09-28 16:00] VITALS: O2SAT 96
[2016-09-28] MEDS: ACETAMINOPHEN 325 MG TAB PO PRN (18:13)
[2016-09-28] MEDS: MAGNESIUM OXIDE 400 MG TAB PO SCH (21:00)
[2016-09-28] MEDS: SERTRALINE HCL 50 MG TAB PO SCH (21:01)
[2016-09-29 00:32] VITALS: BP 136/70; PULSE 71; TEMP 36.4; O2SAT 97
[2016-09-29] MEDS: NSS + 20MEQ KCL 1000ML 1,000 ML IV SCH ×3 (04:07→20:20)
[2016-09-29] MEDS: LEVOTHYROXINE 75 MCG TAB PO SCH (06:20)
[2016-09-29 06:44] LABS: BASO % 0.6 %; BASO ABS # 0.04 K/uL (0-0.2); EOS % 0.8 %; HEMATOCRIT 26.4 % (37-47); IG% 0.5 %; LYMPH % 23.1 %; LYMPH ABS # 1.43 K/uL (1.2-3.4); MEAN CELL VOLUME 82.5 fL (80-100); MEAN CORPUSCULAR HEMOGLOBIN 26.3 pg (25-34); MEAN CORPUSCULAR HGB CONC 31.8 g/dl (32-36); MEAN PLATELET VOLUME 9.5 fL (7.4-10.4); MONO % 8.3 %; NEUT % 66.7 %; PLATELET COUNT 330 K/uL (130-400); WHITE BLOOD COUNT 6.18 K/uL (4.8-10.8)
[2016-09-29 07:25] VITALS: BP 155/77; PULSE 67; TEMP 36.8; O2SAT 97
[2016-09-29 07:36] LABS: COMPLETE YES; HYPERSEGMENTED POLYS 1+
[2016-09-29 07:38] LABS: BUN/CREATININE RATIO 10.2 (10-20); CALCIUM 8.5 mg/dl (8.5-10.1); CREATININE 0.97 mg/dl (0.60-1.20); MAGNESIUM 1.8 mg/dl (1.8-2.4); POTASSIUM 4.1 mmol/L (3.5-5.1)
[2016-09-29] MEDS: VERAPAMIL HCL 120 MG TABCR PO SCH (08:13)
[2016-09-29] MEDS: METRONIDAZOLE 500 MG TAB PO SCH ×3 (08:13→20:09)
[2016-09-29] MEDS: CHOLECALCIFEROL 1000 INTER.UNIT TAB PO SCH (08:14)
[2016-09-29] MEDS: CEFUROXIME AXETIL 500 MG TAB PO SCH ×2 (08:15→20:13)
[2016-09-29] MEDS: HYDROCHLOROTHIAZIDE 25 MG TAB PO SCH (08:15)
[2016-09-29] MEDS: LISINOPRIL 20 MG TAB PO SCH ×2 (08:15→20:09)
[2016-09-29] MEDS: SACCHAROMYCES BOUL (FLORASTOR) 250 MG CAP PO SCH (08:16)
[2016-09-29] MEDS: PANTOprazole SOD 40 MG TAB PO SCH (08:16)
[2016-09-29] MEDS: MAGNESIUM OXIDE 400 MG TAB PO SCH ×2 (08:16→20:08)
[2016-09-29] MEDS: HEPARIN SOD 5000 UNIT/0.5 ML CARP SQ SCH ×2 (09:04→20:15)
--- NOTE | 2016-09-29 14:55 | Progress Note ---
Subjective Date of Service: Sep 29, 2016. Subjective Pt evaluation today including: conversation w/ patient, conversation w/ family , physical exam, chart review, lab review, review of studies, conversation w/ functional consultant, review of inpatient medication list No diarrhea since this morning, feeling 100% better, Problem List Medical Problems: (1) Anemia Status: Chronic (2) Diverticulosis Colon (W/O Ment Of Hemorrhage) Status: Chronic (3) DJD (degenerative joint disease) Status: Chronic (4) Esophageal Reflux Status: Chronic (5) Hypertension Status: Chronic (6) Hypothyroidism, Unspecified Status: Chronic (7) Irritable Bowel Syndrome Status: Chronic (8) Long-Term(Current)Use Of Steroids Status: Chronic (9) Polymyalgia Rheumatica Status: Chronic (10) Rheumatoid Arthritis, Unspecified Status: Chronic (11) Unspecified Urinary Incontinence Status: Chronic (12) Urinary tract infection Status: Acute (13) Vitamin D Deficiency, Unspecified Status: Chronic (14) Vomiting and diarrhea Status: Acute Review of Systems Constitutional: No fever, No chills, No sweats, No weight loss, No weakness, No fatigue, No problem reported Eyes: No worsening of vision, No eye pain, No redness, No discharge, No diplopia ENT: No hearing loss, No unusual epistaxis, No nasal symptoms, No sore throat, No tinnitus, No dental problems, No trouble swallowing Respiratory: No cough, No sputum, No wheezing, No shortness of breath, No dyspnea on exertion, No dyspnea at rest, No hemoptysis Cardiac: No chest pain, No orthopnea, No PND, No edema, No claudication, No palpitations Abdomen: No pain, No nausea, No vomiting, No diarrhea, No constipation Musculoskeletal: No joint pain, No muscle pain, No swelling, No calf pain Female : No dysuria, No urinary frequency, No hematuria, No incontinence, No abnormal vaginal bleeding, No vaginal discharge Neurologic: No memory loss, No paralysis, No weakness, No numbness/tingling, No vertigo, No balance problems Psychiatric: No depression symptoms, No anhedonism, No anxiety, No insomnia, No substance abuse Heme: No abnormal bleeding/bruising, No clotting problems, No swollen lymph nodes, No night sweats Endo: No fatigue, No excessive thirst, No excessive urination Skin: No rash, No itch, No new/changing skin lesions, No color change, No bleeding Objective Vital Signs Date Time Temp Pulse Resp B/P (MAP) Pulse Ox O2 Delivery O2 Flow Rate FiO2 09/29/16 08:00 Room Air 09/29/16 07:25 36.8 67 20 155/77 (103) 97 Room Air 09/29/16 00:32 36.4 71 16 136/70 (92) 97 09/29/16 00:00 Room Air 09/28/16 16:00 96 Room Air 09/28/16 15:52 36.7 70 20 113/61 (78) 96 Room Air Physical Exam General Appearance: WD/WN, no apparent distress, + obese, + pertinent finding ( pleasant and smiling) Eyes: normal inspection, PERRL, EOMI, sclerae normal ENT: normal ENT inspection, hearing grossly normal, pharynx normal Neck: supple, no adenopathy, thyroid normal, no JVD, no carotid bruits, trachea midline Respiratory/Chest: chest non-tender, lungs clear, normal breath sounds, no respiratory distress, no accessory muscle use Cardiovascular: regular rate, rhythm, no edema, no gallop, no JVD, no murmur Abdomen: normal bowel sounds, non tender, soft, no organomegaly, no pulsatile mass Extremities: normal range of motion, non-tender, normal inspection, no pedal edema, no calf tenderness, normal capillary refill, pelvis stable Neurologic/Psychiatric: 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 II-XII nml as tested, no motor/sensory deficits, alert, normal mood/affect, oriented x 3 Skin: normal color, warm/dry, no rash Lymphatic: no adenopathy Laboratory Results Last 24 Hours Test 09/29/16 06:26 White Blood Count 6.18 K/uL Red Blood Count 3.20 M/uL Hemoglobin 8.4 g/dL Hematocrit 26.4 % Mean Corpuscular Volume 82.5 fL Mean Corpuscular Hemoglobin 26.3 pg Mean Corpuscular Hemoglobin Concent 31.8 g/dl Platelet Count 330 K/uL Mean Platelet Volume 9.5 fL Neutrophils (%) (Auto) 66.7 % Lymphocytes (%) (Auto) 23.1 % Monocytes (%) (Auto) 8.3 % Eosinophils (%) (Auto) 0.8 % Basophils (%) (Auto) 0.6 % Neutrophils # (Auto) 4.12 K/uL Lymphocytes # (Auto) 1.43 K/uL Monocytes # (Auto) 0.51 K/uL Eosinophils # (Auto) 0.05 K/uL Basophils # (Auto) 0.04 K/uL RDW Standard Deviation 43.9 fL RDW Coefficient of Variation 14.4 % Immature Granulocyte % (Auto) 0.5 % Immature Granulocyte # (Auto) 0.03 K/uL Hypersegmented Polys 1+ Sodium Level 138 mmol/L Potassium Level 4.1 mmol/L Chloride Level 104 mmol/L Carbon Dioxide Level 27 mmol/L Anion Gap 7.0 mmol/L Blood Urea Nitrogen 10 mg/dl Creatinine 0.97 mg/dl Est Creatinine Clear Calc Drug Dose 43.2 ml/min Estimated GFR () 63.9 Estimated GFR (Non- 55.2 BUN/Creatinine Ratio 10.2 Random Glucose 84 mg/dl Calcium Level 8.5 mg/dl Magnesium Level 1.8 mg/dl Assessment and Plan 81 y/o female admitted on 09/25/2016 with possible gastritis with nausea, vomiting , diarrhea, and weakness, found has diarrhea and C. difficile positive on 2016 Possible hydroxychloroquine -induced gastritis, resolved after discontinuation of hydroxychloroquine Patient was recently started on hydroxychloroquine when the symptoms began and symptoms improved when she stopped taking it. Abdominal CT unremarkable and does not show evidence of acute inflammation or infection. Patient presented to ER on 09/23 where she had a urinalysis and urine culture obtained. Urine culture is back positive with Escherichia coli and a second gram-negative emili. Patient received a dose of Rocephin IV in ED. New diagnosed C. difficile diarrhea, \ is her first time of this condition, not improved yet Started the metronidazole by mouth 3 times a day from 09/27/2016, day 2 out of 14 Significant improves Continue current care Hypokinemia, hypomagnesemia, replaced Diarrhea and poor by mouth intake, possible dehydration, start IV fluid, follow- up lytes History of PMR, RS3PE syndrome, inflammatory symmetrical polyarthritis, hypertension, hypothyroidism, irritable bowel syndrome, and chronic reflux esophagitis who presented to the ED Possible drug-induced gastritis by hydroxychloroquine with Nausea, vomiting, diarrhea--likely Symptom was totally resolved after holding hydroxychloroquine Continue Stable and improved - cont hold hydroxychloroquine, and follow-up with brick off bearer as instructed -Advance diet as tolerated -Continue Zofran 4 mg IV every 6 hours when necessary for nausea Escherichia coli UTI POA has been on Rocephin since 09/25, which was changed to Ceftin, / days Was changed to Ceftin To be sensitive per culture results Hypokalemia resolved -Potassium 3.3 on arrival -Potassium chloride 40 mEq PO x 1 upon admission improved -Continue to monitor Hyponatremia improved -Sodium 130 on arrival -IVF with NSS as above PMR--per Dr. Marte's records, this has been stable RS3PE/inflammatory symmetrical polyarthritis--ongoing -Hold hydroxychloroquine - Discussed with Dr. marte, recommend continue hold hydroxychloroquine, and follow-up with her as outpatient 2 week HTN--stable -Continue lisinopril 20 mg PO BID, hydrochlorothiazide 25 mg PO qd, and verapamil 120 mg PO qd Hypothyroidism -Continue Synthroid 75 g PO qd Depression -Continue Zoloft 25 mg PO qhs DVT prophylaxis -Heparin 5000 units SC q12h -BRONWYN Renteria Code Status -Level V, DO NOT RESUSCITATE - PT OT recommend rehabilitation, talked to caser shoe parts for discharge tomorrow - Possible after improving and diarrhea better Discussed with patient about a care plan, answered all the questions, Continued [facility] stay due to: multiple IV medications needed Discharge planning: home
[2016-09-29 16:09] VITALS: BP 134/72; PULSE 64; TEMP 36.3; O2SAT 98
[2016-09-29] MEDS: SERTRALINE HCL 50 MG TAB PO SCH (20:08)
[2016-09-29 20:09] VITALS: BP 132/68; PULSE 64
[2016-09-30 00:09] VITALS: BP 162/56; PULSE 73; TEMP 36.7; O2SAT 94
[2016-09-30] MEDS: NSS + 20MEQ KCL 1000ML 1,000 ML IV SCH (04:13)
[2016-09-30] MEDS: LEVOTHYROXINE 75 MCG TAB PO SCH (06:43)
[2016-09-30] MEDS ORDERED: MTR500 PO (08:14)
[2016-09-30] MEDS ORDERED: MGNO400 PO (08:14)
[2016-09-30] MEDS: MAGNESIUM OXIDE 400 MG TAB PO SCH ×2 (08:14→21:57)
[2016-09-30] MEDS ORDERED: CEFU1TAB35 PO (08:14)
[2016-09-30] MEDS ORDERED: PRD10 PO (08:14)
[2016-09-30] MEDS ORDERED: SACC250C3 PO (08:14)
[2016-09-30] MEDS: HYDROCHLOROTHIAZIDE 25 MG TAB PO SCH (08:14)
[2016-09-30] MEDS: PANTOprazole SOD 40 MG TAB PO SCH (08:15)
[2016-09-30] MEDS: SACCHAROMYCES BOUL (FLORASTOR) 250 MG CAP PO SCH (08:15)
[2016-09-30] MEDS: CEFUROXIME AXETIL 500 MG TAB PO SCH ×2 (08:15→21:56)
[2016-09-30] MEDS: VERAPAMIL HCL 120 MG TABCR PO SCH (08:15)
[2016-09-30] MEDS: METRONIDAZOLE 500 MG TAB PO SCH ×3 (08:16→21:56)
[2016-09-30] MEDS: CHOLECALCIFEROL 1000 INTER.UNIT TAB PO SCH (08:16)
[2016-09-30] MEDS: LISINOPRIL 20 MG TAB PO SCH ×2 (08:16→21:59)
--- NOTE | 2016-09-30 08:17 | Discharge Instructions ---
Discharge Instructions Date of Service Sep 30, 2016. Admission Reason for Admission: Nausea & Vomiting,Urinary Tract Infection,Weakness Discharge Discharge Diagnosis / Problem: New diagnosed C. difficile diarrhea Discharge Goals Goal(s): Decrease discomfort, Improve function, Increase independence, Improve disease control, Improve nutritional status, Learn about illness, Diagnostic testing, Therapeutic intervention, Prevent Disease Progression, Specific goals Activity Recommendations Activity Level: Up Ad Elli Therapies: Physical Therapy, Occupational Therapy . Additional Information Patient informed of condition: Yes Advance Directives: Yes DNR: Yes Level of Care: Skilled Communicable Disease: Yes Prognosis: Stable Oxygen at (LPM): no Julian Catheter: No Instructions / Follow-Up Instructions / Follow-Up you possible have Possible hydroxychloroquine -induced gastritis, you need to cont hold hydroxychloroquine until you see by Dr. Marte you have New diagnosed C. difficile diarrhea need to continue antibiotics as instructed ecoli uti: need to continue antibiotics as instructed - you need to follow up with your primary care physician in 1 week, - take medication as instructed, never overdose or any misuse, or take with alcohol, because misuse of medicine may cause organ damage or , call your primary care physician if have questions of medicaitons. - call your primary care physician OR go to local emergency room if has any fever/chill, chest pain, shortness of breathing, nausea/vomiting/abdominal pain , facial droop/slurry speech/local weakness, or if has any questions. - fall precaution - diet as instructed - you need to follow up with your subspecialist - you should understand that it is important to follow up the above instruction , and "not following the above instruction" may cause delayed or missed care of your medical conditions which may cause permanent organ damage and even . Current Hospital Diet Patient's current hospital diet: AHA Diet (Heart Healthy) Discharge Diet Recommended Diet: AHA Diet (Heart Healthy) Procedures Procedures Performed: no Pending Studies Studies pending at discharge: no Physician Orders On Transfer POLST Discussion: without POLST completion Medical Emergencies . Who to Call and When: Medical Emergencies: If at any time you feel your situation is an emergency, please call 911 immediately. . Non-Emergent Contact Non-Emergency issues call your: Primary Care Provider, Specialist . . "Provider Documentation" section prepared by Master Jules. . Core Measure Problem Core Measures: None
[2016-09-30 08:24] VITALS: BP_SYST 185; BP_SYST 200; BP_DIAS 73; PULSE 72; TEMP 36.6; O2SAT 97
[2016-09-30] MEDS: HEPARIN SOD 5000 UNIT/0.5 ML CARP SQ SCH ×2 (09:24→22:03)
[2016-09-30] MEDS: ACETAMINOPHEN 325 MG TAB PO PRN (09:39)
--- NOTE | 2016-09-30 09:52 | Progress Note ---
Subjective Date of Service: Sep 30, 2016. Subjective Pt evaluation today including: conversation w/ patient, conversation w/ family , physical exam, chart review, lab review, review of studies, review of inpatient medication list Report has 4 time diarrhea since 4 AM, feeling tired, although the amount of diarrhea is not as bad as before the patient is concerned Problem List Medical Problems: (1) Anemia Status: Chronic (2) Diverticulosis Colon (W/O Ment Of Hemorrhage) Status: Chronic (3) DJD (degenerative joint disease) Status: Chronic (4) Esophageal Reflux Status: Chronic (5) Hypertension Status: Chronic (6) Hypothyroidism, Unspecified Status: Chronic (7) Irritable Bowel Syndrome Status: Chronic (8) Long-Term(Current)Use Of Steroids Status: Chronic (9) Polymyalgia Rheumatica Status: Chronic (10) Rheumatoid Arthritis, Unspecified Status: Chronic (11) Unspecified Urinary Incontinence Status: Chronic (12) Urinary tract infection Status: Acute (13) Vitamin D Deficiency, Unspecified Status: Chronic (14) Vomiting and diarrhea Status: Acute Review of Systems Constitutional: No fever, No chills, No sweats, No weight loss, No weakness, No fatigue, No problem reported Eyes: No worsening of vision, No eye pain, No redness, No discharge, No diplopia ENT: No hearing loss, No unusual epistaxis, No nasal symptoms, No sore throat, No tinnitus, No dental problems, No trouble swallowing Respiratory: No cough, No sputum, No wheezing, No shortness of breath, No dyspnea on exertion, No dyspnea at rest, No hemoptysis Cardiac: No chest pain, No orthopnea, No PND, No edema, No claudication, No palpitations Abdomen: + nausea, + diarrhea, No pain, No vomiting, No constipation Musculoskeletal: No joint pain, No muscle pain, No swelling, No calf pain Female : No dysuria, No urinary frequency, No hematuria, No incontinence, No abnormal vaginal bleeding, No vaginal discharge Neurologic: No memory loss, No paralysis, No weakness, No numbness/tingling, No vertigo, No balance problems Psychiatric: No depression symptoms, No anhedonism, No anxiety, No insomnia, No substance abuse Heme: No abnormal bleeding/bruising, No clotting problems, No swollen lymph nodes, No night sweats Endo: No fatigue, No excessive thirst, No excessive urination Skin: No rash, No itch, No new/changing skin lesions, No color change, No bleeding Objective Vital Signs Date Time Temp Pulse Resp B/P (MAP) Pulse Ox O2 Delivery O2 Flow Rate FiO2 09/30/16 08:24 36.6 72 18 185/73 (110) 97 Room Air 200/73 (115) 09/30/16 00:09 36.7 73 16 162/56 (91) 94 Room Air 09/30/16 00:00 Room Air 09/29/16 20:09 64 132/68 (89) 09/29/16 20:00 Room Air 09/29/16 16:09 36.3 64 19 134/72 (92) 98 Room Air 09/29/16 16:00 Room Air Physical Exam General Appearance: WD/WN, no apparent distress, + obese Eyes: normal inspection, PERRL, EOMI, sclerae normal ENT: normal ENT inspection, hearing grossly normal, pharynx normal Neck: supple, no adenopathy, thyroid normal, no JVD, no carotid bruits, trachea midline Respiratory/Chest: chest non-tender, lungs clear, normal breath sounds, no respiratory distress, no accessory muscle use Cardiovascular: regular rate, rhythm, no edema, no gallop, no JVD, no murmur Abdomen: normal bowel sounds, non tender, soft, no organomegaly, no pulsatile mass Extremities: normal range of motion, non-tender, normal inspection, no pedal edema, no calf tenderness, normal capillary refill, pelvis stable Neurologic/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 difficile positive on 2016 New diagnosed C. difficile diarrhea is her first time of this condition, was improved yesterday But this morning seems have some moderate diarrhea Started the metronidazole by mouth 3 times a day from 09/27/2016, day 3 out of 14 Continue current care, watch for the diarrhea, and lytes Escherichia coli UTI : Patient presented to ER on 09/23 where she had a urinalysis and urine culture obtained. Urine culture is back positive with Escherichia coli and a second gram-negative emili. Patient received a dose of Rocephin IV in ED. Rocephin was changed to oral Ceftin Hypokinemia, hypomagnesemia, replaced Diarrhea and poor by mouth intake, possible dehydration, was on IV fluid, resolved History of PMR, RS3PE syndrome, inflammatory symmetrical polyarthritis, hypertension, hypothyroidism, irritable bowel syndrome, and chronic reflux esophagitis who presented to the ED Possible drug-induced gastritis by hydroxychloroquine with Nausea, vomiting, diarrhea--likely Symptom was totally resolved after holding hydroxychloroquine Continue Stable and improved - cont hold hydroxychloroquine, and follow-up with planer tailer as instructed -Advance diet as tolerated -Continue Zofran 4 mg IV every 6 hours when necessary for nausea Hyponatremia improved -Sodium 130 on arrival -IVF with NSS as above PMR--per Dr. Marte's records, this has been stable RS3PE/inflammatory symmetrical polyarthritis--ongoing -Hold hydroxychloroquine - Discussed with Dr. marte, recommend continue hold hydroxychloroquine, and follow-up with her as outpatient 2 week HTN--stable -Continue lisinopril 20 mg PO BID, hydrochlorothiazide 25 mg PO qd, and verapamil 120 mg PO qd Hypothyroidism -Continue Synthroid 75 g PO qd Depression -Continue Zoloft 25 mg PO qhs DVT prophylaxis -Heparin 5000 units SC q12h -BRONWYN Renteria Code Status -Level V, DO NOT RESUSCITATE - PT OT recommend rehabilitation, hold dc today because some moderate diarrhea, talked to spring encaser for discharge tomorrow Discussed with patient about a care plan, answered all the questions, Continued [facility] stay due to: home environment unsafe for pt Discharge planning: home
[2016-09-30 11:28] VITALS: BP 149/72; PULSE 83
[2016-09-30 15:48] VITALS: BP 170/53; PULSE 81; TEMP 36.6; O2SAT 95
[2016-09-30 21:58] VITALS: BP 172/60; PULSE 74
[2016-09-30] MEDS: SERTRALINE HCL 50 MG TAB PO SCH (21:58)
[2016-10-01 00:48] VITALS: BP 158/68; PULSE 83; TEMP 36.7; O2SAT 95
[2016-10-01] MEDS: LEVOTHYROXINE 75 MCG TAB PO SCH (05:54)
[2016-10-01 06:04] LABS: MEAN CELL VOLUME 82.5 fL (80-100); MEAN CORPUSCULAR HEMOGLOBIN 25.1 pg (25-34); MEAN CORPUSCULAR HGB CONC 30.4 g/dl (32-36); MEAN PLATELET VOLUME 9.3 fL (7.4-10.4); PLATELET COUNT 339 K/uL (130-400); RED BLOOD COUNT 3.15 M/uL (4.2-5.4); WHITE BLOOD COUNT 7.22 K/uL (4.8-10.8)
[2016-10-01 06:38] LABS: BUN/CREATININE RATIO 14.1 (10-20); CALCIUM 8.7 mg/dl (8.5-10.1); CREATININE 0.88 mg/dl (0.60-1.20); MAGNESIUM 1.8 mg/dl (1.8-2.4)
[2016-10-01 07:16] VITALS: BP 185/76; PULSE 93; TEMP 36.6; O2SAT 97
[2016-10-01] MEDS: HYDROCHLOROTHIAZIDE 25 MG TAB PO SCH (07:53)
[2016-10-01] MEDS: CEFUROXIME AXETIL 500 MG TAB PO SCH ×2 (07:54→20:26)
[2016-10-01] MEDS: CHOLECALCIFEROL 1000 INTER.UNIT TAB PO SCH (07:55)
[2016-10-01] MEDS: PANTOprazole SOD 40 MG TAB PO SCH (07:55)
[2016-10-01] MEDS: VERAPAMIL HCL 120 MG TABCR PO SCH (07:55)
[2016-10-01] MEDS: SACCHAROMYCES BOUL (FLORASTOR) 250 MG CAP PO SCH (07:56)
[2016-10-01] MEDS: LISINOPRIL 20 MG TAB PO SCH ×2 (07:57→20:25)
[2016-10-01] MEDS: METRONIDAZOLE 500 MG TAB PO SCH ×2 (07:57→13:45)
[2016-10-01] MEDS: MAGNESIUM OXIDE 400 MG TAB PO SCH ×2 (08:58→20:26)
[2016-10-01] MEDS: HEPARIN SOD 5000 UNIT/0.5 ML CARP SQ SCH (09:00)
[2016-10-01] MEDS: ACETAMINOPHEN 325 MG TAB PO PRN (09:04)
[2016-10-01 09:05] LABS: FERRITIN 224.7 ng/ml (8.0-388.0)
[2016-10-01] MEDS ORDERED: METOPROLOL TARTRATE 25 MG TAB PO SCH (09:30)
[2016-10-01 10:20] VITALS: BP 177/72; PULSE 92
[2016-10-01] MEDS: RASPBERRY SYRUP 5 ML UDP PO SCH ×3 (15:05→20:18)
[2016-10-01] MEDS: VANCOMYCIN HCL 125 MG/2.5ML SOLN PO SCH ×3 (15:05→20:18)
--- NOTE | 2016-10-01 15:10 | Progress Note ---
Subjective Date of Service: Oct 01, 2016. Subjective Pt evaluation today including: conversation w/ patient, conversation w/ family , physical exam, chart review, lab review, review of studies, conversation w/ health analytics consultant, review of inpatient medication list Reported no appetite, general weakness, but is getting better, still has diarrhea 3-4 times this morning, No fever and chill No blood in the stool Problem List Medical Problems: (1) Anemia Status: Chronic (2) Diverticulosis Colon (W/O Ment Of Hemorrhage) Status: Chronic (3) DJD (degenerative joint disease) Status: Chronic (4) Esophageal Reflux Status: Chronic (5) Hypertension Status: Chronic (6) Hypothyroidism, Unspecified Status: Chronic (7) Irritable Bowel Syndrome Status: Chronic (8) Long-Term(Current)Use Of Steroids Status: Chronic (9) Polymyalgia Rheumatica Status: Chronic (10) Rheumatoid Arthritis, Unspecified Status: Chronic (11) Unspecified Urinary Incontinence Status: Chronic (12) Urinary tract infection Status: Acute (13) Vitamin D Deficiency, Unspecified Status: Chronic (14) Vomiting and diarrhea Status: Acute Review of Systems Constitutional: + weakness, + fatigue, No fever, No chills, No sweats, No weight loss, No problem reported Eyes: No worsening of vision, No eye pain, No redness, No discharge, No diplopia ENT: No hearing loss, No unusual epistaxis, No nasal symptoms, No sore throat, No tinnitus, No dental problems, No trouble swallowing Respiratory: No cough, No sputum, No wheezing, No shortness of breath, No dyspnea on exertion, No dyspnea at rest, No hemoptysis Cardiac: No chest pain, No orthopnea, No PND, No edema, No claudication, No palpitations Abdomen: + diarrhea, No pain, No nausea, No vomiting, No constipation Musculoskeletal: No joint pain, No muscle pain, No swelling, No calf pain Female : No dysuria, No urinary frequency, No hematuria, No incontinence, No abnormal vaginal bleeding, No vaginal discharge Neurologic: No memory loss, No paralysis, No weakness, No numbness/tingling, No vertigo, No balance problems Psychiatric: No depression symptoms, No anhedonism, No anxiety, No insomnia, No substance abuse Heme: No abnormal bleeding/bruising, No clotting problems, No swollen lymph nodes, No night sweats Endo: No fatigue, No excessive thirst, No excessive urination Skin: No rash, No itch, No new/changing skin lesions, No color change, No bleeding Objective Vital Signs Date Time Temp Pulse Resp B/P (MAP) Pulse Ox O2 Delivery O2 Flow Rate FiO2 10/01/16 10:20 92 177/72 (107) 10/01/16 08:00 Room Air 10/01/16 07:16 36.6 93 18 185/76 (112) 97 Room Air 10/01/16 00:48 36.7 83 17 158/68 (98) 95 Room Air 10/01/16 00:00 Room Air 09/30/16 21:58 74 172/60 (97) 09/30/16 20:00 Room Air 09/30/16 16:00 Room Air 09/30/16 15:48 36.6 81 20 170/53 (92) 95 Room Air Physical Exam General Appearance: WD/WN, no apparent distress Eyes: normal inspection, PERRL, EOMI, sclerae normal ENT: normal ENT inspection, hearing grossly normal, pharynx normal Neck: supple, no adenopathy, thyroid normal, no JVD, no carotid bruits, trachea midline Respiratory/Chest: chest non-tender, normal breath sounds, no respiratory distress, no accessory muscle use, + decreased breath sounds Cardiovascular: regular rate, rhythm, no edema, no gallop, no JVD, no murmur Abdomen: normal bowel sounds, non tender, soft, no organomegaly, no pulsatile mass Extremities: normal range of motion, non-tender, normal inspection, no pedal edema, no calf tenderness, normal capillary refill, pelvis stable 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/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, no motor/sensory deficits, alert, normal mood/affect, oriented x 3 Skin: normal color, warm/dry, no rash Lymphatic: no adenopathy Laboratory Results Last 24 Hours Test 10/01/16 05:47 10/01/16 08:10 10/01/16 08:16 White Blood Count 7.22 K/uL Red Blood Count 3.15 M/uL Hemoglobin 7.9 g/dL Hematocrit 26.0 % Mean Corpuscular Volume 82.5 fL Mean Corpuscular Hemoglobin 25.1 pg Mean Corpuscular Hemoglobin Concent 30.4 g/dl RDW Standard Deviation 45.3 fL RDW Coefficient of Variation 15.0 % Platelet Count 339 K/uL Mean Platelet Volume 9.3 fL Sodium Level 138 mmol/L Potassium Level 4.0 mmol/L Chloride Level 103 mmol/L Carbon Dioxide Level 26 mmol/L Anion Gap 9.0 mmol/L Blood Urea Nitrogen 12 mg/dl Creatinine 0.88 mg/dl Est Creatinine Clear Calc Drug Dose 47.6 ml/min Estimated GFR () 71.9 Estimated GFR (Non- 62.1 BUN/Creatinine Ratio 14.1 Random Glucose 88 mg/dl Calcium Level 8.7 mg/dl Magnesium Level 1.8 mg/dl Stool Occult Blood POSITIVE Total Iron Binding Capacity 213 mcg/dl Ferritin 224.7 ng/ml Vitamin B12 Level 1735 pg/mL Folate 6.13 ng/mL Assessment and Plan 81 y/o female admitted on 09/25/2016 with possible gastritis with nausea, vomiting , diarrhea, and weakness, found has diarrhea and C. difficile positive on 2016 New diagnosed C. difficile diarrhea, was improved but it getting worse again for 2 days already is her first time of this condition, Initially was started on the metronidazole by mouth 3 times a day from 2016, I changed to oral vancomycin today because of worsening diarrhea for 2 days, patient has underlined possible immunodeficiency secondary to taking oral prednisone for rheumatoid disease Escherichia coli UTI : Patient presented to ER on 09/23 where she had a urinalysis and urine culture obtained. Urine culture is back positive with Escherichia coli and a second gram-negative emili. Patient received a dose of Rocephin IV in ED. Rocephin was changed to oral Ceftin, today will be last dose of Ceftin. Heme positive stool with possible GI bleeding with decreased hemoglobin level Is checking anemia panel , patient had colonoscopy [address] 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 Marte, cont hold hydroxychloroquine, and follow-up with [employer] division director as instructed -Advance diet as tolerated -Continue Zofran 4 mg IV every 6 hours when necessary for nausea Hyponatremia improved -Sodium 130 on arrival - Encourage oral intake PMR--per Dr. Marte's records, this has been stable RS3PE/inflammatory symmetrical polyarthritis--ongoing -Hold hydroxychloroquine - Discussed with Dr. marte, recommend continue hold hydroxychloroquine, and follow-up with her as outpatient 2 week HTN--not well controlled, continue lisinopril 20 mg PO BID, hydrochlorothiazide 25 mg PO qd, and verapamil 120 mg PO qd add metoprolol 12.5 mg by mouth twice a day yesterday, we'll increase to 25 mg by mouth twice a day Hypothyroidism -Continue Synthroid 75 g PO qd Depression -Continue Zoloft 25 mg PO qhs DVT prophylaxis -Heparin 5000 units SC q12h -BRONWYN frausto SCDs Code Status -Level V, DO NOT RESUSCITATE - PT OT recommend rehabilitation, has a bed available at long-term rehabilitation in [facility], can be discharged when medically ready Continued [facility] stay due to: home environment unsafe for pt Discharge planning: home
[2016-10-01 16:00] VITALS: BP 134/75; PULSE 62; TEMP 36.6; O2SAT 96
--- NOTE | 2016-10-01 19:32 | GASTROINTESTINAL CONSULTATION ---
DATE OF CONSULTATION: 10/01/2016 REASON FOR CONSULTATION: C. diff colitis, anemia and heme-positive stool. HISTORY OF PRESENT ILLNESS: The patient is an 81-year-old female from [place] with polymyalgia rheumatica and polyarthritis syndrome who presented to the hospital with nausea, vomiting, diarrhea and weakness on September 25. The patient has been started on hydroxychloroquine for her inflammatory arthritis and apparently was not tolerating it well, was held and then started back and the same symptoms came back. She was admitted to the hospital for the above symptoms and on September 27 was found to have positive C. diff. She was initially treated with Flagyl, but then today since she was not improving she was switched to vancomycin 125 mg 4 times a day. Of note, is that the patient has been getting ceftriaxone for urinary tract infection from E. coli. She is also on a probiotic. She had a CT scan of the abdomen that showed diverticulosis, but no other colonic abnormalities. She did have a colonoscopy about 5 years ago which has showed diverticulosis. PAST MEDICAL HISTORY: Remarkable for anemia of chronic disease, C. diff colitis, this is her first episode; diverticulosis, degenerative joint disease, inflammatory arthropathy, polymyalgia rheumatica, hypertension, hypothyroidism, irritable bowel, renal insufficiency, history of hysterectomy and rectocele repair. MEDICATIONS: Vitamin D, hydrochlorothiazide, hydroxychloroquine, Prevacid, Synthroid, Prinivil, melatonin, prednisone, Zoloft and verapamil. ALLERGIES: SULFA AND ERYTHROMYCIN. FAMILY HISTORY: Positive for heart disease, hypertension. SOCIAL HISTORY: The patient is a resident of [place], lives with her , does not smoke. She is retired. REVIEW OF SYSTEMS: Positive for fatigue and diarrhea. Remainder is negative. PHYSICAL EXAMINATION: GENERAL: The patient is overweight, in no acute distress. VITAL SIGNS: Blood pressure is 150/85, pulse ox is 98 on room air, pulse 70 and regular. ABDOMEN: Shows a low transverse scar. There are no masses, tenderness, or hepatosplenomegaly. LUNGS: Clear. HEART: Showed a normal S1 and S2, regular rate and rhythm without murmurs, rubs, or gallops. LABORATORY: Shows hemoglobin of 7.9, white count 7.22, platelets are 339. B12 and folate are normal. MCV is normal. IMPRESSION: The patient has Clostridium difficile colitis, just starting vancomycin today. Because of the patient's compromised status, I would have preferred that she was started on vancomycin initially, she will need to be on the vancomycin at least 10 days following the termination of her ceftriaxone for urinary tract infection. I agree with keeping her on a probiotic for now to help crowd out the Clostridium difficile. She is at a 25% risk of recurrence of disease after treatment to determination of spores. The Clostridium difficile colitis is most likely the source for her heme-positive stool and I will look back at her records to find out when her last colonoscopy was but certainly we do not want to do it now while she is acutely infected. Her anemia is normochromic normocytic and most likely related to her polymyalgia rheumatica. We will follow the patient during her hospital stay.
[2016-10-01] MEDS: METOPROLOL TARTRATE 25 MG TAB PO SCH (20:18)
[2016-10-01] MEDS: SERTRALINE HCL 50 MG TAB PO SCH (20:27)
--- NOTE | 2016-10-01 20:55 | Medical Consult ---
Consultation Date of Consultation: Oct 01, 2016. Attending Physician: Vin Oneal M.D. Reason for Consultation: C. diff diarrhea History of Present Illness 81-year-old female with history of polymyalgia rheumatica recently started on hydroxychloroquine with developed symptoms consistent with urinary tract infection earlier this month, was found a positive culture for E coli. She was treated with a course of oral cefuroxime, but for 3-4 days prior to her admission, she developed nausea, vomiting, and diarrhea. She was found with have positive PCR for C difficile and was initially started on Flagyl. However symptoms persisted, and has now been changed to oral vancomycin therapy. Still with 3-4 diarrheal bowel movements with daily. Has remained afebrile, hemodynamically stable. No new urinary symptoms. Past Medical/Surgical History Medical Problems: (1) Anemia Status: Chronic (2) Diverticulosis Colon (W/O Ment Of Hemorrhage) Status: Chronic (3) DJD (degenerative joint disease) Status: Chronic (4) Esophageal Reflux Status: Chronic (5) Hypertension Status: Chronic (6) Hypothyroidism, Unspecified Status: Chronic (7) Irritable Bowel Syndrome Status: Chronic (8) Long-Term(Current)Use Of Steroids Status: Chronic (9) Polymyalgia Rheumatica Status: Chronic (10) Rheumatoid Arthritis, Unspecified Status: Chronic (11) Unspecified Urinary Incontinence Status: Chronic (12) Urinary tract infection Status: Acute (13) Vitamin D Deficiency, Unspecified Status: Chronic (14) Vomiting and diarrhea Status: Acute Medical Problems: (1) Acute kidney injury (2) Altered mental status (3) Anemia (4) Dehydration (5) Diarrhea (6) Diverticulosis Colon (W/O Ment Of Hemorrhage) (7) Dizziness (8) DJD (degenerative joint disease) (9) Esophageal Reflux (10) Headache (11) Hypertension (12) Hypokalemia (13) Hypomagnesemia (14) Hyponatremia (15) Hypothyroidism, Unspecified (16) Irritable Bowel Syndrome (17) Long-Term(Current)Use Of Steroids (18) Medication reaction (19) Nausea & vomiting (20) Polymyalgia Rheumatica (21) Renal insufficiency (22) Rheumatoid Arthritis, Unspecified (23) SIRS (systemic inflammatory response syndrome) (24) Syncopal episodes (25) Syncope (26) Thoracic radiculopathy (27) Unspecified Urinary Incontinence (28) Vitamin D Deficiency, Unspecified (29) Weakness Surgical Problems: (1) History of hysterectomy (2) Knee Joint Replacement Status Family History Heart disease Hypertension Social History Smoking Status: Never Smoker Smokeless Tobacco Use: No Alcohol Use: none Drug Use: none Marital Status: Housing Status: lives with family Occupation Status: retired Allergies Coded Allergies: Sulfa Antibiotics (Verified Allergy, Intermediate, RASH, 09/25/16) Erythromycin (Verified Adverse Reaction, Unknown, N&V, 09/25/16) N&V Current Inpatient Medications Current Inpatient Medications Medications (Trade) Dose Ordered Sig/Sanya Route Start Time Stop Time Status Last Admin Dose Admin Acetaminophen (Tylenol Tab) 650 mg Q4H PRN PO 09/25/16 18:00 10/25/16 17:59 10/01/16 09:04 650 MG Al Hydrox/Mg Hydrox/Simethicone (Maalox Max Susp) 15 ml Q4H PRN PO 09/25/16 18:00 10/25/16 17:59 Magnesium Hydroxide (Milk Of Magnesia Susp) 30 ml Q6H PRN PO 09/25/16 18:00 10/25/16 17:59 Polyethylene (Miralax Powder Packet) 17 gm DAILY PRN PO 09/25/16 18:00 10/25/16 17:59 Ondansetron HCl (Zofran Inj) 4 mg Q6H PRN IV 09/25/16 18:00 10/25/16 17:59 09/28/16 06:38 4 MG Hydrochlorothiazide (Hydrochlorothiazide Tab) 25 mg DAILY PO 09/26/16 08:00 10/26/16 08:59 10/01/16 07:53 25 MG Levothyroxine Sodium (Synthroid Tab) 75 mcg DAILYBB PO 09/26/16 06:30 10/26/16 06:29 10/01/16 05:54 75 MCG Lisinopril (Zestril Tab) 20 mg BID PO 09/25/16 20:00 10/25/16 20:59 10/01/16 20:25 20 MG Sertraline HCl (Zoloft Tab) 25 mg HS PO 09/25/16 21:00 10/25/16 20:59 10/01/16 20:27 25 MG Verapamil HCl (Calan-Sr Tab) 120 mg DAILY PO 09/26/16 08:00 10/26/16 08:59 10/01/16 07:55 120 MG Pantoprazole Sodium (Protonix Tab) 40 mg QAM PO 09/26/16 08:00 10/26/16 08:59 10/01/16 07:55 40 MG Cholecalciferol (Vitamin D Tab) 5,000 inter.unit DAILY PO 09/26/16 08:00 10/26/16 07:59 10/01/16 07:55 5,000 INTER.UNIT Hydralazine HCl (HydrALAZINE INJ) 20 mg Q8 PRN IV. 09/26/16 08:00 10/26/16 07:59 Prednisone (PredniSONE TAB) 10 mg DAILY PO 09/27/16 08:00 10/26/16 08:59 10/01/16 07:54 10 MG Magnesium Oxide (Mag-Ox Tab) 400 mg BID PO 09/28/16 20:00 10/28/16 19:59 10/01/16 20:26 400 MG Saccharomyces Boulardii (Florastor Cap) 250 mg DAILY PO 09/28/16 12:30 10/28/16 12:29 10/01/16 07:56 250 MG Cefuroxime Axetil (Ceftin Tab) 500 mg BID PO 09/28/16 13:21 10/02/16 13:20 10/01/16 20:26 500 MG Metoprolol Tartrate (Lopressor Tab) 25 mg BID PO 10/01/16 20:00 10/31/16 09:29 10/01/16 20:18 25 MG Vancomycin HCl (Vancomycin Oral Soln) 125 mg QID PO 10/01/16 14:30 10/11/16 14:29 10/01/16 20:18 125 MG Raspberry (Raspberry Syrup 5ml Cup) 5 ml QID PO 10/01/16 14:30 10/15/16 14:29 10/01/16 20:18 5 ML Review of Systems Constitutional: + weakness, + fatigue, No fever Eyes: No problem reported ENT: No problem reported Respiratory: No problem reported Cardiovascular: No problem reported Abdomen: + diarrhea Musculoskeletal: No problem reported Genitourinary - Female: No problem reported Neurologic: No problem reported Psychiatric: No problem reported Endocrine: No problem reported Hematologic / Lymphatic: No problem reported Integumentary: No problem reported Allergic / Immunologic: No problem reported Physical Exam Date Time Temp Pulse Resp B/P (MAP) Pulse Ox O2 Delivery O2 Flow Rate FiO2 10/01/16 16:00 Room Air 10/01/16 16:00 36.6 62 18 134/75 (94) 96 Room Air 10/01/16 10:20 92 177/72 (107) 10/01/16 08:00 Room Air 10/01/16 07:16 36.6 93 18 185/76 (112) 97 Room Air 10/01/16 00:48 36.7 83 17 158/68 (98) 95 Room Air 10/01/16 00:00 Room Air 09/30/16 21:58 74 172/60 (97) General Appearance: WD/WN, no apparent distress Head: normocephalic, atraumatic Eyes: normal inspection, EOMI, sclerae normal ENT: normal ENT inspection, pharynx normal Neck: supple, no adenopathy, thyroid normal, trachea midline Respiratory/Chest: chest non-tender, lungs clear, normal breath sounds, no respiratory distress Cardiovascular: regular rate, rhythm, no gallop, no murmur Abdomen/GI: normal bowel sounds, non tender, soft, no organomegaly Back: normal inspection, no CVA tenderness Extremities/Musculoskelatal: no calf tenderness, non-tender Neurologic/Psych: alert, oriented x 3 Skin: normal color, warm/dry, no rash Lymphatic: no adenopathy Laboratory Results Last 24 Hours Test 10/01/16 05:47 10/01/16 08:10 10/01/16 08:16 White Blood Count 7.22 K/uL Red Blood Count 3.15 M/uL Hemoglobin 7.9 g/dL Hematocrit 26.0 % Mean Corpuscular Volume 82.5 fL Mean Corpuscular Hemoglobin 25.1 pg Mean Corpuscular Hemoglobin Concent 30.4 g/dl RDW Standard Deviation 45.3 fL RDW Coefficient of Variation 15.0 % Platelet Count 339 K/uL Mean Platelet Volume 9.3 fL Sodium Level 138 mmol/L Potassium Level 4.0 mmol/L Chloride Level 103 mmol/L Carbon Dioxide Level 26 mmol/L Anion Gap 9.0 mmol/L Blood Urea Nitrogen 12 mg/dl Creatinine 0.88 mg/dl Est Creatinine Clear Calc Drug Dose 47.6 ml/min Estimated GFR () 71.9 Estimated GFR (Non- 62.1 BUN/Creatinine Ratio 14.1 Random Glucose 88 mg/dl Calcium Level 8.7 mg/dl Magnesium Level 1.8 mg/dl Stool Occult Blood POSITIVE Total Iron Binding Capacity 213 mcg/dl Ferritin 224.7 ng/ml Vitamin B12 Level 1735 pg/mL Folate 6.13 ng/mL Assessment & Plan Clostridium difficile colitis in setting of treatment for E. coli UTI. Vancomycin appropriate therapy, would give prolonged tapering course given need for treatment of UTI with high risk of recurrent infection. Will discuss with all involved and follow.
[2016-10-01 22:20] VITALS: BP 149/70; PULSE 70; TEMP 36.7; O2SAT 97
[2016-10-02] MEDS: LEVOTHYROXINE 75 MCG TAB PO SCH (06:35)
[2016-10-02 07:21] LABS: BASO % 0.7 %; BASO ABS # 0.05 K/uL (0-0.2); EOS % 1.3 %; HEMATOCRIT 27.5 % (37-47); IG% 1.1 %; LYMPH % 31.8 %; LYMPH ABS # 2.27 K/uL (1.2-3.4); MEAN CELL VOLUME 83.3 fL (80-100); MEAN CORPUSCULAR HEMOGLOBIN 26.4 pg (25-34); MEAN CORPUSCULAR HGB CONC 31.6 g/dl (32-36); MEAN PLATELET VOLUME 9.8 fL (7.4-10.4); MONO % 9.9 %; NEUT % 55.2 %; PLATELET COUNT 356 K/uL (130-400); WHITE BLOOD COUNT 7.14 K/uL (4.8-10.8)
[2016-10-02 07:25] VITALS: BP 185/79; PULSE 74; TEMP 36.7; O2SAT 96
[2016-10-02 07:56] LABS: BUN/CREATININE RATIO 14.5 (10-20); CALCIUM 8.9 mg/dl (8.5-10.1); CREATININE 0.93 mg/dl (0.60-1.20); MAGNESIUM 1.9 mg/dl (1.8-2.4); POTASSIUM 3.8 mmol/L (3.5-5.1)
[2016-10-02] MEDS: VERAPAMIL HCL 120 MG TABCR PO SCH (08:02)
[2016-10-02] MEDS: CEFUROXIME AXETIL 500 MG TAB PO SCH (08:02)
[2016-10-02] MEDS: RASPBERRY SYRUP 5 ML UDP PO SCH ×4 (08:03→20:28)
[2016-10-02] MEDS: VANCOMYCIN HCL 125 MG/2.5ML SOLN PO SCH ×4 (08:03→20:28)
[2016-10-02] MEDS: HYDROCHLOROTHIAZIDE 25 MG TAB PO SCH (08:03)
[2016-10-02] MEDS: SACCHAROMYCES BOUL (FLORASTOR) 250 MG CAP PO SCH (08:03)
[2016-10-02] MEDS: PANTOprazole SOD 40 MG TAB PO SCH (08:03)
[2016-10-02] MEDS: METOPROLOL TARTRATE 25 MG TAB PO SCH ×2 (08:03→20:30)
[2016-10-02] MEDS: MAGNESIUM OXIDE 400 MG TAB PO SCH ×2 (08:03→20:29)
[2016-10-02 08:04] LABS: COMPLETE YES
[2016-10-02] MEDS: CHOLECALCIFEROL 1000 INTER.UNIT TAB PO SCH (08:04)
[2016-10-02] MEDS: LISINOPRIL 20 MG TAB PO SCH ×2 (08:04→20:29)
[2016-10-02] MEDS: ACETAMINOPHEN 325 MG TAB PO PRN ×2 (11:03→16:55)
--- NOTE | 2016-10-02 14:40 | Progress Note ---
Subjective Date of Service: Oct 02, 2016. Subjective Pt evaluation today including: conversation w/ patient, physical exam, chart review, lab review, review of studies, conversation w/ planning consultant Pt resting comfortably in bed No distress noted States only 2 BMs overnight which were formed No fevers or chills No other complaints Problem List Medical Problems: (1) Anemia Status: Chronic (2) Diverticulosis Colon (W/O Ment Of Hemorrhage) Status: Chronic (3) DJD (degenerative joint disease) Status: Chronic (4) Esophageal Reflux Status: Chronic (5) Hypertension Status: Chronic (6) Hypothyroidism, Unspecified Status: Chronic (7) Irritable Bowel Syndrome Status: Chronic (8) Long-Term(Current)Use Of Steroids Status: Chronic (9) Polymyalgia Rheumatica Status: Chronic (10) Rheumatoid Arthritis, Unspecified Status: Chronic (11) Unspecified Urinary Incontinence Status: Chronic (12) Urinary tract infection Status: Acute (13) Vitamin D Deficiency, Unspecified Status: Chronic (14) Vomiting and diarrhea Status: Acute Review of Systems Constitutional: No fever, No chills, No sweats, No weight loss Eyes: No worsening of vision, No eye pain, No redness, No discharge ENT: No hearing loss, No unusual epistaxis, No nasal symptoms, No sore throat Respiratory: No cough, No sputum, No wheezing, No shortness of breath Cardiac: No chest pain, No orthopnea, No PND, No edema Abdomen: No pain, No nausea, No vomiting, No diarrhea, No constipation Musculoskeletal: No joint pain, No muscle pain Female : No dysuria, No urinary frequency, No hematuria, No incontinence Neurologic: No memory loss, No paralysis, No weakness, No numbness/tingling Psychiatric: No depression symptoms, No anhedonism, No anxiety, No insomnia Objective Vital Signs Date Time Temp Pulse Resp B/P (MAP) Pulse Ox O2 Delivery O2 Flow Rate FiO2 10/02/16 08:58 Room Air 10/02/16 07:25 36.7 74 18 185/79 (114) 96 Room Air 10/02/16 00:00 Room Air 10/01/16 22:20 36.7 70 16 149/70 (96) 97 Room Air 10/01/16 20:00 Room Air 10/01/16 16:00 Room Air 10/01/16 16:00 36.6 62 18 134/75 (94) 96 Room Air Physical Exam General Appearance: WD/WN, no apparent distress Eyes: normal inspection, PERRL, EOMI, sclerae normal ENT: normal ENT inspection, hearing grossly normal, TMs normal, pharynx normal Neck: supple, no adenopathy, thyroid normal, no JVD Respiratory/Chest: chest non-tender, lungs clear, normal breath sounds, no respiratory distress Cardiovascular: regular rate, rhythm, no edema, no gallop, no JVD Abdomen: normal bowel sounds, non tender, soft, no organomegaly Neurologic/Psychiatric: no motor/sensory deficits, alert, normal mood/affect, oriented x 3 Laboratory Results Last 24 Hours Test 10/02/16 07:05 White Blood Count 7.14 K/uL Red Blood Count 3.30 M/uL Hemoglobin 8.7 g/dL Hematocrit 27.5 % Mean Corpuscular Volume 83.3 fL Mean Corpuscular Hemoglobin 26.4 pg Mean Corpuscular Hemoglobin Concent 31.6 g/dl Platelet Count 356 K/uL Mean Platelet Volume 9.8 fL Neutrophils (%) (Auto) 55.2 % Lymphocytes (%) (Auto) 31.8 % Monocytes (%) (Auto) 9.9 % Eosinophils (%) (Auto) 1.3 % Basophils (%) (Auto) 0.7 % Neutrophils # (Auto) 3.94 K/uL Lymphocytes # (Auto) 2.27 K/uL Monocytes # (Auto) 0.71 K/uL Eosinophils # (Auto) 0.09 K/uL Basophils # (Auto) 0.05 K/uL RDW Standard Deviation 45.9 fL RDW Coefficient of Variation 15.1 % Immature Granulocyte % (Auto) 1.1 % Immature Granulocyte # (Auto) 0.08 K/uL Red Blood Cell Morphology Unremarkable Sodium Level 137 mmol/L Potassium Level 3.8 mmol/L Chloride Level 101 mmol/L Carbon Dioxide Level 28 mmol/L Anion Gap 8.0 mmol/L Blood Urea Nitrogen 14 mg/dl Creatinine 0.93 mg/dl Est Creatinine Clear Calc Drug Dose 45.1 ml/min Estimated GFR () 67.3 Estimated GFR (Non- 58.0 BUN/Creatinine Ratio 14.5 Random Glucose 87 mg/dl Calcium Level 8.9 mg/dl Magnesium Level 1.9 mg/dl Assessment and Plan 81 y/o female admitted on 09/25/2016 with nausea, vomiting, diarrhea, and weakness New onset C. difficile diarrhea Improved now on vancomycin Will need prolonged tx per ID recs Failed fagyl as pt states worsening diarrhea Patient has underlined possible immunodeficiency secondary to taking oral prednisone for rheumatoid disease Escherichia coli UTI: Urine culture is back positive with Escherichia coli and a second gram-negative emili. No symptoms Finished course of ceftin Heme positive stool liekly from C dfiff infection GI consulted Hg improving Rec continued antibx course 10 days after last dose fo ceftin Diarrhea and poor by mouth intake, possible dehydration, was on IV fluid, resolved History of PMR, RS3PE syndrome, inflammatory symmetrical polyarthritis, hypertension, hypothyroidism, irritable bowel syndrome, and chronic reflux esophagitis who presented to the ED Hyponatremia resolved with adequate PO intake RS3PE/inflammatory symmetrical polyarthritis--stable Cont to hold hydroxychloroquine, discussed with Dr. tyson, recommend continue hold hydroxychloroquine, and follow-up with her as outpatient 2 week HTN--not well controlled, continue lisinopril 20 mg PO BID, hydrochlorothiazide 25 mg PO qd, and verapamil 120 mg PO qd, metoprolol 12.5 mg by mouth twice a day yesterday, we'll increase to 25 mg by mouth twice a day Hypothyroidism--stable, continue Synthroid 75 g PO qd Depression--stable, continue Zoloft 25 mg PO qhs DVT prophylaxis with heparin 5000 units SC q12h -BRONWYN whittaker and SCDs Code Status DO NOT RESUSCITATE Continued [facility] stay due to: home environment unsafe for pt Discharge planning: home
[2016-10-02 15:40] VITALS: BP 115/56; PULSE 56; TEMP 36.9; O2SAT 96
--- NOTE | 2016-10-02 15:46 | Infectious Disease Progress Nt ---
Progress Note Date of Service Oct 02, 2016. Subjective Pt evaluation today including: conversation w/ patient, physical exam, chart review, lab review, review of studies, conversation w/ internal consultant, review of inpatient medication list Patient feeling better with less diarrhea. No fever for 2 days. No other new complaints. All Other Systems: Reviewed and Negative Medications Current Inpatient Medications Medications (Trade) Dose Ordered Sig/Sanya Route Start Time Stop Time Status Last Admin Dose Admin Acetaminophen (Tylenol Tab) 650 mg Q4H PRN PO 09/25/16 18:00 10/25/16 17:59 10/02/16 11:03 650 MG Al Hydrox/Mg Hydrox/Simethicone (Maalox Max Susp) 15 ml Q4H PRN PO 09/25/16 18:00 10/25/16 17:59 Magnesium Hydroxide (Milk Of Magnesia Susp) 30 ml Q6H PRN PO 09/25/16 18:00 10/25/16 17:59 Polyethylene (Miralax Powder Packet) 17 gm DAILY PRN PO 09/25/16 18:00 10/25/16 17:59 Ondansetron HCl (Zofran Inj) 4 mg Q6H PRN IV 09/25/16 18:00 10/25/16 17:59 09/28/16 06:38 4 MG Hydrochlorothiazide (Hydrochlorothiazide Tab) 25 mg DAILY PO 09/26/16 08:00 10/26/16 08:59 10/02/16 08:03 25 MG Levothyroxine Sodium (Synthroid Tab) 75 mcg DAILYBB PO 09/26/16 06:30 10/26/16 06:29 10/02/16 06:35 75 MCG Lisinopril (Zestril Tab) 20 mg BID PO 09/25/16 20:00 10/25/16 20:59 10/02/16 08:04 20 MG Sertraline HCl (Zoloft Tab) 25 mg HS PO 09/25/16 21:00 10/25/16 20:59 10/01/16 20:27 25 MG Verapamil HCl (Calan-Sr Tab) 120 mg DAILY PO 09/26/16 08:00 10/26/16 08:59 10/02/16 08:02 120 MG Pantoprazole Sodium (Protonix Tab) 40 mg QAM PO 09/26/16 08:00 10/26/16 08:59 10/02/16 08:03 40 MG Cholecalciferol (Vitamin D Tab) 5,000 inter.unit DAILY PO 09/26/16 08:00 10/26/16 07:59 10/02/16 08:04 5,000 INTER.UNIT Hydralazine HCl (HydrALAZINE INJ) 20 mg Q8 PRN IV. 09/26/16 08:00 10/26/16 07:59 Prednisone (PredniSONE TAB) 10 mg DAILY PO 09/27/16 08:00 10/26/16 08:59 10/02/16 08:03 10 MG Magnesium Oxide (Mag-Ox Tab) 400 mg BID PO 09/28/16 20:00 10/28/16 19:59 10/02/16 08:03 400 MG Saccharomyces Boulardii (Florastor Cap) 250 mg DAILY PO 09/28/16 12:30 10/28/16 12:29 10/02/16 08:03 250 MG Metoprolol Tartrate (Lopressor Tab) 25 mg BID PO 10/01/16 20:00 10/31/16 09:29 10/02/16 08:03 25 MG Vancomycin HCl (Vancomycin Oral Soln) 125 mg QID PO 10/01/16 14:30 10/11/16 14:29 10/02/16 12:14 125 MG Raspberry (Raspberry Syrup 5ml Cup) 5 ml QID PO 10/01/16 14:30 10/15/16 14:29 10/02/16 12:14 5 ML Objective Vital Signs Date Time Temp Pulse Resp B/P (MAP) Pulse Ox O2 Delivery O2 Flow Rate FiO2 10/02/16 15:40 36.9 56 16 115/56 (75) 96 Room Air 10/02/16 08:58 Room Air 10/02/16 07:25 36.7 74 18 185/79 (114) 96 Room Air 10/02/16 00:00 Room Air 10/01/16 22:20 36.7 70 16 149/70 (96) 97 Room Air 10/01/16 20:00 Room Air 10/01/16 16:00 Room Air 10/01/16 16:00 36.6 62 18 134/75 (94) 96 Room Air Physical Exam General Appearance: WD/WN, no apparent distress Eyes: normal inspection, sclerae normal ENT: normal ENT inspection, pharynx normal Neck: supple, no adenopathy, trachea midline Respiratory/Chest: chest non-tender, lungs clear, normal breath sounds, no respiratory distress Cardiovascular: regular rate, rhythm, no gallop, no murmur Abdomen: normal bowel sounds, non tender, soft, no organomegaly Extremities: non-tender, no calf tenderness Neurologic/Psychiatric: alert, oriented x 3 Skin: normal color, no rash Lymphatic: no adenopathy Laboratory Results Last 24 Hours Test 10/02/16 07:05 White Blood Count 7.14 K/uL Red Blood Count 3.30 M/uL Hemoglobin 8.7 g/dL Hematocrit 27.5 % Mean Corpuscular Volume 83.3 fL Mean Corpuscular Hemoglobin 26.4 pg Mean Corpuscular Hemoglobin Concent 31.6 g/dl Platelet Count 356 K/uL Mean Platelet Volume 9.8 fL Neutrophils (%) (Auto) 55.2 % Lymphocytes (%) (Auto) 31.8 % Monocytes (%) (Auto) 9.9 % Eosinophils (%) (Auto) 1.3 % Basophils (%) (Auto) 0.7 % Neutrophils # (Auto) 3.94 K/uL Lymphocytes # (Auto) 2.27 K/uL Monocytes # (Auto) 0.71 K/uL Eosinophils # (Auto) 0.09 K/uL Basophils # (Auto) 0.05 K/uL RDW Standard Deviation 45.9 fL RDW Coefficient of Variation 15.1 % Immature Granulocyte % (Auto) 1.1 % Immature Granulocyte # (Auto) 0.08 K/uL Red Blood Cell Morphology Unremarkable Sodium Level 137 mmol/L Potassium Level 3.8 mmol/L Chloride Level 101 mmol/L Carbon Dioxide Level 28 mmol/L Anion Gap 8.0 mmol/L Blood Urea Nitrogen 14 mg/dl Creatinine 0.93 mg/dl Est Creatinine Clear Calc Drug Dose 45.1 ml/min Estimated GFR () 67.3 Estimated GFR (Non- 58.0 BUN/Creatinine Ratio 14.5 Random Glucose 87 mg/dl Calcium Level 8.9 mg/dl Magnesium Level 1.9 mg/dl Assessment and Plan Clostridium difficile colitis in setting of treatment for E. coli UTI. Vancomycin appropriate therapy, would give prolonged tapering course given need for treatment of UTI with high risk of recurrent infection. Will discuss with all involved and follow.
[2016-10-02 16:00] VITALS: O2SAT 96
[2016-10-02 20:27] VITALS: BP 130/70; PULSE 67
[2016-10-02] MEDS: SERTRALINE HCL 50 MG TAB PO SCH (20:31)
[2016-10-02 23:42] VITALS: BP 151/73; PULSE 63; TEMP 36.8; O2SAT 93
[2016-10-03] MEDS: LEVOTHYROXINE 75 MCG TAB PO SCH (05:37)
[2016-10-03 07:26] VITALS: BP_SYST 157; BP_SYST 162; BP_DIAS 106; BP_DIAS 73; PULSE 66; TEMP 36.7; O2SAT 98
[2016-10-03] MEDS: VERAPAMIL HCL 120 MG TABCR PO SCH (08:49)
[2016-10-03] MEDS: MAGNESIUM OXIDE 400 MG TAB PO SCH (08:50)
[2016-10-03] MEDS: PANTOprazole SOD 40 MG TAB PO SCH (08:50)
[2016-10-03] MEDS: METOPROLOL TARTRATE 25 MG TAB PO SCH (08:50)
[2016-10-03] MEDS: RASPBERRY SYRUP 5 ML UDP PO SCH ×2 (08:50→12:10)
[2016-10-03] MEDS: HYDROCHLOROTHIAZIDE 25 MG TAB PO SCH (08:50)
[2016-10-03] MEDS: SACCHAROMYCES BOUL (FLORASTOR) 250 MG CAP PO SCH (08:50)
[2016-10-03] MEDS: VANCOMYCIN HCL 125 MG/2.5ML SOLN PO SCH ×2 (08:51→12:10)
[2016-10-03] MEDS: LISINOPRIL 20 MG TAB PO SCH (08:51)
[2016-10-03] MEDS: CHOLECALCIFEROL 1000 INTER.UNIT TAB PO SCH (08:51)
[2016-10-03] MEDS: ACETAMINOPHEN 325 MG TAB PO PRN (08:54)
[2016-10-03 10:22] VITALS: BP 105/64; PULSE 81; O2SAT 97
[2016-10-03] MEDS ORDERED: LPR25 PO (11:55)
[2016-10-03] MEDS ORDERED: VANC5CAP PO (11:55)
--- NOTE | 2016-10-03 11:58 | Discharge Instructions ---
Discharge Instructions Date of Service Oct 03, 2016. Admission Reason for Admission: Nausea & Vomiting,Urinary Tract Infection,Weakness Discharge Discharge Diagnosis / Problem: Urinary tract infection, c diff infection Discharge Goals Goal(s): Decrease discomfort, Improve function, Increase independence, Improve disease control, Learn about illness, Diagnostic testing, Therapeutic intervention, Prevent Disease Progression Activity Recommendations Activity Limitations: resume your previous activity Shower/Bathe: no limitations Patient to be discharged to [facility] Please continue to take antibiotic vancomycin 125 mg tablet 4 times a day for 9 more days Please note increase in blood pressure medication metoprolol to 25 mg twice a day If worsening diarrhea, fevers or abdominal pain please report to ER Please follow up with primary care provider in 1-2 weeks . Current Hospital Diet Patient's current hospital diet: AHA Diet (Heart Healthy) Discharge Diet Recommended Diet: AHA Diet (Heart Healthy) Procedures Procedures Performed: no Pending Studies Studies pending at discharge: no Medical Emergencies . Who to Call and When: Medical Emergencies: If at any time you feel your situation is an emergency, please call 911 immediately. . Non-Emergent Contact Non-Emergency issues call your: Primary Care Provider Call Non-Emergent contact if: you have a fever, your pain is worsening . . "Provider Documentation" section prepared by Miguelito Potter. . VTE Core Measure Inpt VTE Proph given/why not?: Unfractionated heparin SQ, T.E.D. Stockings, SCD 's
[2016-10-03 12:18] VITALS: BP 162/73; PULSE 66; TEMP 36.7; O2SAT 98
--- NOTE | 2016-10-03 13:21 | Discharge Summary ---
Discharge Summary Date of Service Oct 03, 2016. Discharge Summary Admission Date: Sep 25, 2016 at 18:07 Discharge Date: Sep 30, 2016 Discharge Disposition: [facility] facility Principal Diagnosis: C diff infection, UTI Problems/Secondary Diagnoses: (1) Anemia Status: Chronic (2) Diverticulosis Colon (W/O Ment Of Hemorrhage) Status: Chronic (3) DJD (degenerative joint disease) Status: Chronic (4) Esophageal Reflux Status: Chronic (5) Hypertension Status: Chronic (6) Hypothyroidism, Unspecified Status: Chronic (7) Irritable Bowel Syndrome Status: Chronic (8) Long-Term(Current)Use Of Steroids Status: Chronic (9) Polymyalgia Rheumatica Status: Chronic (10) Rheumatoid Arthritis, Unspecified Status: Chronic (11) Unspecified Urinary Incontinence Status: Chronic (12) Vitamin D Deficiency, Unspecified Status: Chronic Immunizations: Have You Had Influenza Vaccine: Yes History of Tetanus Vaccine?: Yes Tetanus Immunization Date: Oct 30, 2007 History of Pneumococcal: Yes Pneumococcal Date: Sep 30, 2003 History of Hepatitis B Vaccine: No Medication Reconciliation New Medications: Vancomycin Hcl (Vancomycin) 125 Mg Cap 125 MG PO QID for 9 Days, #36 TABS Magnesium Oxide (Magnesium-Oxide) 400 Mg Tab 400 MG PO BID for 5 Days, TAB Metoprolol Tartrate (Lopressor) 25 Mg Tab 25 MG PO BID for 30 Days, #60 TAB Prednisone (Prednisone) 10 Mg Tab 10 MG PO DAILY for 30 Days, TAB Saccharomyces Boulardii (Florastor) 250 Mg Cap 250 MG PO DAILY for 7 Days, CAP Continued Medications: Cholecalciferol (Vitamin D) 5,000 Unit Tab 5000 UNITS PO DAILY Hydrochlorothiazide (Hydrochlorothiazide) 25 Mg Tab 25 MG PO DAILY, #90 Lansoprazole (Prevacid) 30 Mg Cap 30 MG PO DAILY, #90 Levothyroxine Sodium (Synthroid) 75 Mcg Tab 75 MCG PO DAILY, TAB Lisinopril (Prinivil) 20 Mg Tab 20 MG PO BID, TAB Melatonin (Kp Melatonin) 3 Mg Tab 6 MG PO HS for 30 Days, #30 TAB Sertraline (Zoloft) 25 Mg Tab 25 MG PO HS, TAB Verapamil Hcl (Verapamil Hcl Er) 120 Mg Tab 120 MG PO DAILY, #90 Discontinued Medications: Hydroxychloroquine Sulfate (Hydroxychloroquine Sulfat) 200 Mg Tab 200 MG PO BID Prednisone (Prednisone) 1 Mg Tab 3 MG PO QAM, TAB Prednisone (Prednisone) 5 Mg Tab 5 MG PO DAILY, TAB Discharge Exam Review of Systems: Constitutional: No fever, No chills, No sweats, No weakness, No fatigue ENT: No hearing loss, No unusual epistaxis, No nasal symptoms, No sore throat, No tinnitus Respiratory: No cough, No sputum, No wheezing, No shortness of breath, No dyspnea on exertion Cardiovascular: No chest pain, No orthopnea, No PND, No edema Abdomen: No pain, No nausea, No vomiting, No diarrhea, No constipation Musculoskeletal: No joint pain, No muscle pain, No swelling Genitourinary - Female: No dysuria, No urinary frequency, No urinary urgency , No urinary incontinence Neurologic: No memory loss, No paralysis, No weakness, No numbness/tingling Psychiatric: No depression symptoms, No anhedonism, No anxiety, No insomnia Integumentary: No rash, No itch Physical Exam: General Appearance: WD/WN, no apparent distress Eyes: normal inspection, PERRL, EOMI, sclerae normal Neck: supple, no adenopathy, thyroid normal, no JVD Respiratory/Chest: chest non-tender, lungs clear, normal breath sounds, no respiratory distress Cardiovascular: regular rate, rhythm, no edema, no gallop, no JVD Abdomen / GI: normal bowel sounds, non tender, soft, no organomegaly Extremities: normal inspection, no calf tenderness, normal capillary refill , no pedal edema Neurologic/Psychiatric: alert, normal mood/affect, normal reflexes, oriented x 3 Skin: normal color, warm/dry, no rash Hospital Course 81 y/o female admitted on 09/25/2016 with nausea, vomiting, diarrhea, and weakness New onset C. difficile diarrhea, improved Improved now on vancomycin, will discharge home on vancomycin 125 mg PO QID x 9 days in addition to florastor Will need prolonged tx per ID recs Failed flagyl as pt states worsening diarrhea Patient has underlined possible immunodeficiency secondary to taking oral prednisone for rheumatoid disease Escherichia coli UTI: Urine culture is back positive with Escherichia coli and a second gram-negative emili. No symptoms Finished course of ceftin Afebrile Heme positive stool likely from C dfiff infection GI consulted Hg stable, no further intervention Rec continued antibx course 10 days after last dose of ceftin Diarrhea and poor by mouth intake, possible dehydration, was on IV fluid, resolved History of PMR, RS3PE syndrome, inflammatory symmetrical polyarthritis, hypertension, hypothyroidism, irritable bowel syndrome, and chronic reflux esophagitis who presented to the ED Hyponatremia resolved with adequate PO intake RS3PE/inflammatory symmetrical polyarthritis--stable Cont to hold hydroxychloroquine, discussed with Dr. tyson, recommend continue hold hydroxychloroquine, and follow-up with her as outpatient 2 week HTN--not well controlled, continue lisinopril 20 mg PO BID, hydrochlorothiazide 25 mg PO qd, and verapamil 120 mg PO qd, metoprolol 12.5 mg by mouth twice a day yesterday, we'll increase to 25 mg by mouth twice a day Hypothyroidism--stable, continue Synthroid 75 g PO qd Depression--stable, continue Zoloft 25 mg PO qhs DVT prophylaxis with heparin 5000 units SC q12h -BRONWYN whittaker and SCDs Code Status DO NOT RESUSCITATE Total Time Spent: Greater than 30 minutes This includes examination of the patient, discharge planning, medication reconciliation, and communication with other providers. Discharge Instructions Please refer to the electronic Patient Visit Report (Discharge Instructions) for additional information.
[2016-10-03 14:16] VITALS: BP 162/73; PULSE 66; TEMP 36.7; O2SAT 98
[2016-10-23] MEDS ORDERED: QSTP PO (08:30)
[2016-10-23] MEDS ORDERED: METO25TA56 PO (14:13)
== END 2016-10-03 13:30 | DRG 372 ==
LOC: EDBD 13:04 → C.EDC 13:05 → UNDOADMIN 18:07 → C.MS4W 18:07 → EDBEDREQ 18:10 → ENRESERV 18:20
PROVIDERS: ADMIT Hospitalist; ATTEND Hospitalist
DX: A04.7 Enterocolitis due to Clostridium difficile (principal); N39.0 Urinary tract infection, site not specified; E87.1 Hypo-osmolality and hyponatremia; K57.30 Diverticulosis of large intestine without perforation or abscess without bleeding; M06.9 Rheumatoid arthritis, unspecified; M35.3 Polymyalgia rheumatica; I10 Essential (primary) hypertension; E03.9 Hypothyroidism, unspecified; M19.90 Unspecified osteoarthritis, unspecified site; K58.0 Irritable bowel syndrome with diarrhea; R32 Unspecified urinary incontinence; F32.9 Major depressive disorder, single episode, unspecified; K21.9 Gastro-esophageal reflux disease without esophagitis; B96.20 Unspecified Escherichia coli [E. coli] as the cause of diseases classified elsewhere; E87.6 Hypokalemia; E55.9 Vitamin D deficiency, unspecified; E66.9 Obesity, unspecified; Z79.52 Long term (current) use of systemic steroids; Z90.710 Acquired absence of both cervix and uterus; Z96.659 Presence of unspecified artificial knee joint; Z88.0 Allergy status to penicillin; Z88.1 Allergy status to other antibiotic agents; Z66 Do not resuscitate; Z79.899 Other long term (current) drug therapy; Z82.49 Family history of ischemic heart disease and other diseases of the circulatory system; Z68.34 Body mass index [BMI] 34.0-34.9, adult; R19.5 Other fecal abnormalities; T50.905A Adverse effect of unspecified drugs, medicaments and biological substances, initial encounter; D64.9 Anemia, unspecified; M54.14 Radiculopathy, thoracic region; Z88.2 Allergy status to sulfonamides; Z88.3 Allergy status to other anti-infective agents

== ENCOUNTER 2016-10-19 18:31 | Inpatient (IN) | payer BC, OTHER ==
[~2016-10-19] VITALS: Ht 152.4 cm; Wt 70.9 kg
[~2016-10-19 18:31] MED LIST changes: +LPR25 PO; +MGNO400 PO; -PLQ200 PO; -PRD/1 PO; +PRD10 PO; -PRED-301 PO; +SACC250C3 PO; +VANC5CAP PO
[2016-10-19] MEDS ORDERED: SODIUM CHLORIDE 0.9% 1000ML 1,000 ML IV STA (18:39)
[2016-10-19 18:58] LABS: BASO % 0.2 %; BASO ABS # 0.03 K/uL (0-0.2); COMPLETE YES; EOS % 0.5 %; HEMATOCRIT 29.7 % (37-47); IG% 0.7 %; LYMPH % 10.9 %; LYMPH ABS # 1.41 K/uL (1.2-3.4); MEAN CELL VOLUME 77.5 fL (80-100); MEAN CORPUSCULAR HEMOGLOBIN 25.3 pg (25-34); MEAN CORPUSCULAR HGB CONC 32.7 g/dl (32-36); MEAN PLATELET VOLUME 9.3 fL (7.4-10.4); MONO % 4.6 %; NEUT % 83.1 %; PLATELET COUNT 401 K/uL (130-400); RED BLOOD COUNT 3.83 M/uL (4.2-5.4); WHITE BLOOD COUNT 12.93 K/uL (4.8-10.8)
[2016-10-19] MEDS ORDERED: ONDANSETRON 8 MG/54 ML D5W IV STA (19:00)
[2016-10-19] MEDS ORDERED: METO25TA56 PO (19:04)
[2016-10-19] MEDS ORDERED: SACC250C PO (19:04)
[2016-10-19] MEDS ORDERED: ACET1TAB84 PO (19:04)
[2016-10-19] MEDS ORDERED: VANC1CAP3 PO (19:04)
[2016-10-19] MEDS ORDERED: ACET325T96 PO (19:04)
[2016-10-19] MEDS ORDERED: RANI150T3 PO (19:04)
[2016-10-19] MEDS ORDERED: PRED10TA PO (19:04)
[2016-10-19] MEDS ORDERED: CIPR250T3 PO (19:04)
[2016-10-19] MEDS ORDERED: ONDA4TAB46 PO (19:04)
[2016-10-19] MEDS ORDERED: CALC500C3 PO (19:04)
[2016-10-19 19:48] LABS: ALKALINE PHOSPHATASE 56 U/L (45-117); ALT/SGPT 18 U/L (12-78); AST/SGOT 10 U/L (15-37); BLOOD UREA NITROGEN 17 mg/dl (7-18); CALCIUM 9.9 mg/dl (8.5-10.1); CARBON DIOXIDE 25 mmol/L (21-32); CHLORIDE 78 mmol/L (98-107); GLUCOSE 117 mg/dl (70-99); MAGNESIUM 1.9 mg/dl (1.8-2.4); POTASSIUM 4.3 mmol/L (3.5-5.1); SODIUM 115 mmol/L (136-145)
[2016-10-19] MEDS ORDERED: ACETAMINOPHEN 325 MG TAB PO PRN (21:30)
[2016-10-19] MEDS ORDERED: CALCIUM CARBONATE 500 MG CHEWABLE PO PRN (21:30)
[2016-10-19] MEDS ORDERED: ONDANSETRON 4 MG TAB PO PRN (21:30)
--- NOTE | 2016-10-19 21:55 | History and Physical ---
History & Physical Date & Time of Service: Oct 19, 2016 at 21:35 Chief Complaint: Abnormal Labs Primary Care Physician: Seth Knox D.O. History of Present Illness Source: patient, family 81 year old female transferred from [facility] with extreme fatigue. Was discharged from the hospital two weeks ago after being treated for cdiff and uti. She was sent to [facility] for rehabilitation. She was discharged on vancomycin. At [facility] she continued her vancomycin and she got a UTI while there so was therefore treated with ciprofloxacin. Starting 2-3 days ago at [facility] she started feeling very tired. She has been drinking 3-4 cups of large water. She has been urinating 3 times over the past 24 hours. She has been feeling thirsty. She vomited twice today. Her bowel movements are now semiformed. Past Medical/Surgical History Medical Problems: (1) Acute kidney injury Status: Resolved (2) Altered mental status Status: Resolved (3) Anemia Status: Chronic (4) Dehydration Status: Resolved (5) Diarrhea Status: Resolved (6) Diverticulosis Colon (W/O Ment Of Hemorrhage) Status: Chronic (7) Dizziness Status: Resolved (8) DJD (degenerative joint disease) Status: Chronic (9) Esophageal Reflux Status: Chronic (10) Headache Status: Resolved (11) Hypertension Status: Chronic (12) Hypokalemia Status: Resolved (13) Hypomagnesemia Status: Resolved (14) Hyponatremia Status: Resolved (15) Hypothyroidism, Unspecified Status: Chronic (16) Irritable Bowel Syndrome Status: Chronic (17) Long-Term(Current)Use Of Steroids Status: Chronic (18) Medication reaction Status: Resolved (19) Polymyalgia Rheumatica Status: Chronic (20) Renal insufficiency Status: Resolved (21) Rheumatoid Arthritis, Unspecified Status: Chronic (22) SIRS (systemic inflammatory response syndrome) Status: Resolved (23) Syncopal episodes Status: Resolved (24) Syncope Status: Resolved (25) Thoracic radiculopathy Status: Resolved (26) Unspecified Urinary Incontinence Status: Chronic (27) Vitamin D Deficiency, Unspecified Status: Chronic Surgical Problems: (1) History of hysterectomy Status: Resolved (2) Knee Joint Replacement Status Status: Resolved Family History Heart disease Hypertension Social History Smoking Status: Never Smoker Alcohol Use: none Drug Use: none Marital Status: Housing status: lives with significant other Occupational Status: retired Immunizations History of Influenza Vaccine: Yes History of Tetanus Vaccine?: Yes Tetanus Immunization Date: Oct 30, 2007 History of Pneumococcal: Yes Pneumococcal Date: Sep 30, 2003 History of Hepatitis B Vaccine: No Multi-Drug Resistant Organisms History of MDRO: No Allergies Coded Allergies: Sulfa Antibiotics (Verified Allergy, Intermediate, RASH, 10/19/16) Erythromycin (Verified Adverse Reaction, Unknown, N&V, 10/19/16) N&V Home Medications Scheduled Acetaminophen (Tylenol Arthritis Ext Rel), 650 MG PO TID Cholecalciferol (Vitamin D), 5,000 UNITS PO DAILY Ciprofloxacin (Cipro), 250 MG PO BID Hydrochlorothiazide (Hydrochlorothiazide), 25 MG PO DAILY Lansoprazole (Prevacid), 30 MG PO DAILY Levothyroxine Sodium (Synthroid), 75 MCG PO DAILY Lisinopril (Prinivil), 20 MG PO BID Melatonin (Kp Melatonin), 6 MG PO HS Metoprolol Tartrate (Lopressor) (Lopressor), 25 MG PO BID Prednisone (Prednisone), 10 MG PO QAM Ranitidine Hcl (Zantac), 150 MG PO BID17 Saccharomyces Boulardii (Florastor), 250 MG PO BID Sertraline (Zoloft), 25 MG PO HS Vancomycin Hcl (Vancomycin), 250 MG PO QID Verapamil Hcl (Verapamil Hcl Er), 120 MG PO DAILY Scheduled PRN Acetaminophen Tab (Tylenol), 650 MG PO Q4H PRN for Pain or Fever Calcium Carbonate (Tums), 1 TAB PO Q4H PRN for Indigestion Ondansetron Hcl (Zofran), 4 MG PO Q6H PRN for Nausea Review of Systems Constitutional: No fever, No chills, No sweats Respiratory: + cough, No sputum, No shortness of breath Cardiovascular: No chest pain, No claudication, No palpitations Abdomen: No pain, No nausea, No vomiting Musculoskeletal: + joint pain, No muscle pain, No swelling Genitourinary - Female: No dysuria, No urinary frequency Neurologic: + paralysis, + weakness Endocrine: + fatigue Physical Exam Vital Signs Date Time Temp Pulse Resp B/P (MAP) Pulse Ox O2 Delivery O2 Flow Rate FiO2 10/19/16 21:30 78 20 159/90 97 Room Air 10/19/16 20:48 84 20 176/81 98 10/19/16 19:05 62 20 165/72 95 10/19/16 19:04 66 10/19/16 18:44 98 Room Air 10/19/16 18:39 36.7 72 20 199/61 98 Room Air General Appearance: WD/WN, no apparent distress Head: normocephalic, atraumatic ENT: hearing grossly normal, pharynx normal Neck: supple, no adenopathy, no JVD, no carotid bruits, trachea midline Respiratory/Chest: chest non-tender, lungs clear, no respiratory distress, no accessory muscle use Cardiovascular: regular rate, rhythm, no JVD, no murmur, normal peripheral pulses Abdomen/GI: normal bowel sounds, soft Extremities/Musculoskelatal: normal inspection, no calf tenderness, no pedal edema, normal range of motion, non-tender, + pertinent finding (painful joints in the hands bilaterally, non erythematous and non swollen) Neurologic/Psych: alert, normal mood/affect, oriented x 3 Skin: normal color, warm/dry, no rash Diagnostics Laboratory Results Results Past 24 Hours Test 10/19/16 18:15 Range/Units White Blood Count 12.93 4.8-10.8 K/uL Red Blood Count 3.83 4.2-5.4 M/uL Hemoglobin 9.7 12.0-16.0 g/dL Hematocrit 29.7 37-47 % Mean Corpuscular Volume 77.5 80-100 fL Mean Corpuscular Hemoglobin 25.3 25-34 pg Mean Corpuscular Hemoglobin Concent 32.7 32-36 g/dl Platelet Count 401 130-400 K/uL Mean Platelet Volume 9.3 7.4-10.4 fL Neutrophils (%) (Auto) 83.1 % Lymphocytes (%) (Auto) 10.9 % Monocytes (%) (Auto) 4.6 % Eosinophils (%) (Auto) 0.5 % Basophils (%) (Auto) 0.2 % Neutrophils # (Auto) 10.74 1.4-6.5 K/uL Lymphocytes # (Auto) 1.41 1.2-3.4 K/uL Monocytes # (Auto) 0.59 0.11-0.59 K/uL Eosinophils # (Auto) 0.07 0-0.5 K/uL Basophils # (Auto) 0.03 0-0.2 K/uL RDW Standard Deviation 41.9 36.4-46.3 fL RDW Coefficient of Variation 14.7 11.5-14.5 % Immature Granulocyte % (Auto) 0.7 % Immature Granulocyte # (Auto) 0.09 0.00-0.02 K/uL Sodium Level 115 136-145 mmol/L Potassium Level 4.3 3.5-5.1 mmol/L Chloride Level 78 98-107 mmol/L Carbon Dioxide Level 25 21-32 mmol/L Anion Gap 12.0 3-11 mmol/L Blood Urea Nitrogen 17 7-18 mg/dl Creatinine 1.10 0.60-1.20 mg/dl Est Creatinine Clear Calc Drug Dose 35.8 ml/min Estimated GFR () 54.9 Estimated GFR (Non- 47.4 BUN/Creatinine Ratio 15.0 10-20 Random Glucose 117 70-99 mg/dl Calcium Level 9.9 8.5-10.1 mg/dl Magnesium Level 1.9 1.8-2.4 mg/dl Total Bilirubin 0.3 0.2-1 mg/dl Direct Bilirubin < 0.1 0-0.2 mg/dl Aspartate Amino Transf (AST/SGOT) 10 15-37 U/L Alanine Aminotransferase (ALT/SGPT) 18 12-78 U/L Alkaline Phosphatase 56 45-117 U/L Troponin I < 0.015 0-0.045 ng/ml Total Protein 7.4 6.4-8.2 gm/dl Albumin 3.5 3.4-5.0 gm/dl Lipase 139 73-393 U/L Thyroid Stimulating Hormone (TSH) 2.920 0.300-4.500 uIu/ml EKG Sinus rythm with PVCs Impression Assessment and Plan 81 year old female currently being treated at [facility] for c.diff and uti brought to the ED for severe fatigue and hyponatremia Hyponatremia - sodium in the ED was 115 - awaiting serum osm and urine osm as ED did not order these - will give stress dose steroids of 100mg hydrocortisone q8 - check sodium q6 - continue 125 ns - Dr. Oneal will decide on further treatment after receiving serum osm and urine osm UTI - obtain UA - continue cipro until to finish full course C.Diff - continue vanc PO until October 20 to finish full course - can get repeat c.diff to ensure eradication HTN - continue hctz, lisinopril, metoprolol and verapamil Hypothyroidism - continue synthroid 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 Marte Depression - continue sertraline GERD - continue prevacid and zantac PMR - hold prednisone. 10mg daily is home dose Diet - regular DVT prophylaxis - SCD's and TEDS Code - DNR Level of Care Med/Surg Resuscitation Status DO NOT RESUSCITATE VTE Prophylaxis VTE Risk Assessment Done? Y/N: Yes Risk Level: Moderate Given or contraindicated: Adolfo Stocktaqueria, SCD's Assessment and Plan Attending Addendum: I have physically seen and examined this patient, have directed their medical care, have supervised the medical residents activities, and agree with the H&P as noted above, with the following changes: NONE
[2016-10-19 22:58] VITALS: BP 153/67; PULSE 68; TEMP 36.6; O2SAT 98; Ht 152.4 cm; Wt 70.9 kg
[2016-10-19 23:55] LABS: BUN/CREATININE RATIO 14.1 (10-20); CALCIUM 8.8 mg/dl (8.5-10.1); POTASSIUM 3.8 mmol/L (3.5-5.1)
[2016-10-20] VITALS: O2SAT 98
[2016-10-20] MEDS: RASPBERRY SYRUP 5 ML UDP PO SCH ×5 (00:08→20:56)
[2016-10-20] MEDS: VANCOMYCIN HCL 250 MG/5 ML SOLN PO SCH ×5 (00:08→20:56)
[2016-10-20] MEDS: HYDROCORTISONE IV 100 MG in SYRINGE 0 ML IV SCH ×4 (00:09→20:47)
--- NOTE | 2016-10-20 01:11 | EMERGENCY ROOM VISIT NOTE ---
History Report prepared by Shavon: Marlon Benoit Under the Supervision of: Dr. Morgan Sequeira M.D. First contact with patient: 18:34 Chief Complaint: REFERRED BY DOCTOR Stated Complaint: ABNORMAL LABS History of Present Illness The patient is an 81 year old female who presents to the Emergency Room with constant abnormal laboratory results that occurred prior to arrival. The patient states that she is experiencing nausea, vomiting, fevers, chills, weakness, and diarrhea. Pt denies LOC, headache, diaphoresis, visual changes, neck pain, chest pain, breathing difficulties, abdominal pain, back pain, melena , hematochezia, urinary symptoms, numbness, lymphadenopathy, rash, or other complaints. She notes that she has a history of a knee replacement, and a partially torn IT cord. The patient states her PCP is Dr. Knox. The patient's records state that she was admitted and discharged on September 30 at [facility] after being treated for a UTI and C-Diff. They report the patient's blood work today found that she was severely hypernatremic with a level of 115. Source of History: patient, other (patient records) Onset: prior to arrival Position: other (global) Quality: other (abnormal lab results) Timing: constant Associated Symptoms: + fevers, + chills, + nausea, + vomiting, + diarrhea, + weakness Review of Systems See HPI for pertinent positives and negatives. A total of ten systems were reviewed and were otherwise negative. Past Medical & Surgical Medical Problems: (1) Acute kidney injury (2) Altered mental status (3) Anemia (4) Dehydration (5) Diarrhea (6) Diverticulosis Colon (W/O Ment Of Hemorrhage) (7) Dizziness (8) DJD (degenerative joint disease) (9) Esophageal Reflux (10) Headache (11) Hypertension (12) Hypokalemia (13) Hypomagnesemia (14) Hyponatremia (15) Hyponatremia (16) Hypothyroidism, Unspecified (17) Irritable Bowel Syndrome (18) Long-Term(Current)Use Of Steroids (19) Medication reaction (20) Nausea & vomiting (21) Polymyalgia Rheumatica (22) Renal insufficiency (23) Rheumatoid Arthritis, Unspecified (24) SIRS (systemic inflammatory response syndrome) (25) Syncopal episodes (26) Syncope (27) Thoracic radiculopathy (28) Unspecified Urinary Incontinence (29) Vitamin D Deficiency, Unspecified (30) Weakness Surgical Problems: (1) History of hysterectomy (2) Knee Joint Replacement Status Family History Heart disease Hypertension Social History Smoking Status: Never Smoker Alcohol Use: none Drug Use: none Marital Status: Housing Status: lives with family Occupation Status: retired Current/Historical Medications Scheduled Acetaminophen (Tylenol Arthritis Ext Rel), 650 MG PO TID Cholecalciferol (Vitamin D), 5,000 UNITS PO DAILY Ciprofloxacin (Cipro), 250 MG PO BID Hydrochlorothiazide (Hydrochlorothiazide), 25 MG PO DAILY Lansoprazole (Prevacid), 30 MG PO DAILY Levothyroxine Sodium (Synthroid), 75 MCG PO DAILY Lisinopril (Prinivil), 20 MG PO BID Melatonin (Kp Melatonin), 6 MG PO HS Metoprolol Tartrate (Lopressor) (Lopressor), 25 MG PO BID Prednisone (Prednisone), 10 MG PO QAM Ranitidine Hcl (Zantac), 150 MG PO BID17 Saccharomyces Boulardii (Florastor), 250 MG PO BID Sertraline (Zoloft), 25 MG PO HS Vancomycin Hcl (Vancomycin), 250 MG PO QID Verapamil Hcl (Verapamil Hcl Er), 120 MG PO DAILY Scheduled PRN Acetaminophen Tab (Tylenol), 650 MG PO Q4H PRN for Pain or Fever Calcium Carbonate (Tums), 1 TAB PO Q4H PRN for Indigestion Ondansetron Hcl (Zofran), 4 MG PO Q6H PRN for Nausea Allergies Coded Allergies: Sulfa Antibiotics (Verified Allergy, Intermediate, RASH, 10/19/16) Erythromycin (Verified Adverse Reaction, Unknown, N&V, 10/19/16) N&V Physical Exam Vital Signs Date Time Temp Pulse Resp B/P (MAP) Pulse Ox O2 Delivery O2 Flow Rate FiO2 10/19/16 21:30 78 20 159/90 97 Room Air 10/19/16 20:48 84 20 176/81 98 10/19/16 19:05 62 20 165/72 95 10/19/16 19:04 66 10/19/16 18:44 98 Room Air 10/19/16 18:39 36.7 72 20 199/61 98 Room Air Physical Exam GENERAL: Awake, alert, uncomfortable-appearing, in no distress HENT: Normocephalic, atraumatic. Oropharynx unremarkable. EYES: Normal conjunctiva. Sclera non-icteric. NECK: Supple. No nuchal rigidity. FROM. No JVD. RESPIRATORY: Clear to auscultation. CARDIAC: Regular rate, normal rhythm. Extremities warm and well perfused. Pulses equal. ABDOMEN: Soft, non-distended. No tenderness to palpation. No rebound or guarding. No masses. RECTAL: Deferred. MUSCULOSKELETAL: Chest examination reveals no tenderness. The back is symmetrical on inspection without obvious abnormality. There is no CVA tenderness to palpation. No joint edema. LOWER EXTREMITIES: Calves are equal size bilaterally and non-tender. Trace edema. No discoloration. NEURO: Normal sensorium. No sensory or motor deficits noted. SKIN: No rash or jaundice noted. Medical Decision & Procedures Laboratory Results 10/19/16 18:15 Red Blood Count 3.83, Mean Corpuscular Volume 77.5, Mean Corpuscular Hemoglobin 25.3, Mean Corpuscular Hemoglobin Concent 32.7, Mean Platelet Volume 9.3, Neutrophils (%) (Auto) 83.1, Lymphocytes (%) (Auto) 10.9, Monocytes (%) (Auto) 4.6, Eosinophils (%) (Auto) 0.5, Basophils (%) (Auto) 0.2, Neutrophils # (Auto) 10.74, Lymphocytes # (Auto) 1.41, Monocytes # (Auto) 0.59, Eosinophils # (Auto) 0.07, Basophils # (Auto) 0.03 Test 10/19/16 18:15 White Blood Count 12.93 K/uL (4.8-10.8) Red Blood Count 3.83 M/uL (4.2-5.4) Hemoglobin 9.7 g/dL (12.0-16.0) Hematocrit 29.7 % (37-47) Mean Corpuscular Volume 77.5 fL (80-100) Mean Corpuscular Hemoglobin 25.3 pg (25-34) Mean Corpuscular Hemoglobin Concent 32.7 g/dl (32-36) Platelet Count 401 K/uL (130-400) Mean Platelet Volume 9.3 fL (7.4-10.4) Neutrophils (%) (Auto) 83.1 % Lymphocytes (%) (Auto) 10.9 % Monocytes (%) (Auto) 4.6 % Eosinophils (%) (Auto) 0.5 % Basophils (%) (Auto) 0.2 % Neutrophils # (Auto) 10.74 K/uL (1.4-6.5) Lymphocytes # (Auto) 1.41 K/uL (1.2-3.4) Monocytes # (Auto) 0.59 K/uL (0.11-0.59) Eosinophils # (Auto) 0.07 K/uL (0-0.5) Basophils # (Auto) 0.03 K/uL (0-0.2) RDW Standard Deviation 41.9 fL (36.4-46.3) RDW Coefficient of Variation 14.7 % (11.5-14.5) Immature Granulocyte % (Auto) 0.7 % Immature Granulocyte # (Auto) 0.09 K/uL (0.00-0.02) Osmolality 248 mOsm/kg (280-300) Magnesium Level 1.9 mg/dl (1.8-2.4) Total Bilirubin 0.3 mg/dl (0.2-1) Direct Bilirubin < 0.1 mg/dl (0-0.2) Aspartate Amino Transf (AST/SGOT) 10 U/L (15-37) Alanine Aminotransferase (ALT/SGPT) 18 U/L (12-78) Alkaline Phosphatase 56 U/L (45-117) Troponin I < 0.015 ng/ml (0-0.045) Total Protein 7.4 gm/dl (6.4-8.2) Albumin 3.5 gm/dl (3.4-5.0) Lipase 139 U/L (73-393) Thyroid Stimulating Hormone (TSH) 2.920 uIu/ml (0.300-4.500) Laboratory results reviewed by me Medications Administered Medications (Trade) Dose Ordered Sig/Sanya Route Start Time Stop Time Status Last Admin Dose Admin Sodium Chloride 1,000 ml @ 125 mls/hr Q8H STAT IV 10/19/16 18:39 10/19/16 22:32 DC 10/19/16 19:04 125 MLS/HR Ondansetron HCl (Zofran 8mg Iv) 8 mg NOW STAT IV 10/19/16 19:00 10/19/16 19:02 DC 10/19/16 19:04 8 MG ECG Indication: weakness Rate (beats per minute): 69 Rhythm: sinus rhythm Findings: no acute ischemic change, other (Premature Supraventricular Complexes ) ED Course 183: Ordered Sodium Chloride 1000 ml @ 125 mls/hr IV 185: The patient was evaluated in room C10. A complete history and physical exam was performed. 1899: Ordered Zofran 8mg IV 1949: I reevaluated the patient, and she if feeling better. I discussed her exam findings and treatment plan. She verbalized complete agreement. 2004: I discussed the patient's case with Dr. Oneal [facility] Hospitalist. The patient will be evaluated for further treatment. Medical Decision Medication Reconciliation: I attest that I have personally reviewed the patient' s current medication list Blood pressure screening: Patient was found to have an elevated blood pressure and was referred to their primary doctor for recheck and further treatment. Prior records/ancillary studies reviewed and summarized above. Nursing notes reviewed and agree them. Additional history obtained from family. The patient's history was concerning for altered mental status. Differential diagnosis: Etiologies such as infection, hypoglycemia, electrolyte abnormalities, cardiac sources, intracerebral event, toxicologic, neurologic, as well as others were entertained. Physical examination: As above. ER treatment provided: IV Lock Normal saline hydration at 125ml per hour On reassessment the patient felt better. Diagnostics interpretation by me: ECG: As above The labs revealed mild leukocytosis of 12.9. The patient has mild anemia at 9.7. Sodium was confirmed very low at 115. Troponin was negative. Urinalysis pending. The patient has severe hyponatremia. She will need admission to the hospital. Consultation: A consultation was placed with the hospitalist. The case was discussed and diagnostics were reviewed. The patient was evaluated in the ER for further treatment. Consults Time Called: 2002 Consulting Physician: Dr. Oneal [facility] Hospitalist Returned Call: 2004 I discussed the patient's case with Dr. Oneal [facility] Hospitalist. The patient will be evaluated for further treatment. Impression Primary Impression: Hyponatremia Additional Impressions: Vomiting Weakness Scribe Attestation The scribe's documentation has been prepared under my direction and personally reviewed by me in its entirety. I confirm that the note above accurately reflects all work, treatment, procedures, and medical decision making performed by me. Departure Information Dispostion Being Evaluated By Hospitalist Referrals Seth Knox D.O. (PCP) Patient Instructions My [facility] Problem Qualifiers
[2016-10-20] MEDS ORDERED: PNEUMOCOCCAL POLYSACCHARIDES 25 MCG/0.5 ML VIAL/SYR IM. ONE (02:15)
[2016-10-20] MEDS ORDERED: PNEUMOCOCCAL ADMINISTRATION CHARGE ONE (02:15)
[2016-10-20 04:45] LABS: BUN/CREATININE RATIO 13.2 (10-20); CREATININE 0.97 mg/dl (0.60-1.20); POTASSIUM 3.8 mmol/L (3.5-5.1)
[2016-10-20] MEDS: LEVOTHYROXINE 75 MCG TAB PO SCH (05:56)
[2016-10-20 07:30] VITALS: BP 128/71; PULSE 74; TEMP 36.8; O2SAT 95
[2016-10-20] MEDS: PANTOprazole SOD 40 MG TAB PO SCH (07:52)
[2016-10-20] MEDS: CIPROFLOXACIN 250 MG TAB PO SCH ×2 (07:52→20:47)
[2016-10-20] MEDS: SACCHAROMYCES BOUL (FLORASTOR) 250 MG CAP PO SCH ×2 (07:52→20:48)
[2016-10-20] MEDS: RANITIDINE HCL 150 MG TAB PO SCH ×2 (07:52→17:07)
[2016-10-20] MEDS: LISINOPRIL 20 MG TAB PO SCH ×2 (07:53→20:49)
[2016-10-20] MEDS: CHOLECALCIFEROL 1000 INTER.UNIT TAB PO SCH (07:53)
[2016-10-20] MEDS: METOPROLOL TARTRATE 25 MG TAB PO SCH ×2 (07:53→20:49)
[2016-10-20] MEDS: ACETAMINOPHEN 325 MG TAB PO SCH ×3 (07:53→20:51)
[2016-10-20] MEDS: VERAPAMIL HCL 120 MG TABCR PO SCH (07:53)
[2016-10-20 08:27] LABS: CALCIUM 9.2 mg/dl (8.5-10.1); CREATININE 0.97 mg/dl (0.60-1.20)
[2016-10-20] MEDS ORDERED: HYDROCHLOROTHIAZIDE 25 MG TAB PO SCH (09:00)
[2016-10-20 12:57] LABS: BUN/CREATININE RATIO 11.4 (10-20); CALCIUM 9.6 mg/dl (8.5-10.1); CREATININE 1.2 mg/dl (0.60-1.20); POTASSIUM 3.9 mmol/L (3.5-5.1)
--- NOTE | 2016-10-20 14:58 | Progress Note ---
Subjective Date of Service: Oct 20, 2016. Subjective Pt evaluation today including: conversation w/ patient, physical exam, lab review, review of inpatient medication list Pain: no pain PO Intake: adequate Voiding: no voiding problems patient reports she was doing well at rehab up until a few days ago she started to get weak c/o non-productive cough and sinus congestion at [facility], however, slightly better here had a loose stool this AM, but overall diarrhea much better on Vancomycin she admits that she drinks a lot of water, about 3 pitchers (600cc each) per day no real signs of polydipsia labs reviewed, Na coming up to 122 which is fine for the first 24 hours serum osm low at 248 but urine osm appropriately low at 108, so trying to get rid of excess water Problem List Medical Problems: (1) Anemia Status: Chronic (2) Diverticulosis Colon (W/O Ment Of Hemorrhage) Status: Chronic (3) DJD (degenerative joint disease) Status: Chronic (4) Esophageal Reflux Status: Chronic (5) Hypertension Status: Chronic (6) Hypothyroidism, Unspecified Status: Chronic (7) Irritable Bowel Syndrome Status: Chronic (8) Long-Term(Current)Use Of Steroids Status: Chronic (9) Polymyalgia Rheumatica Status: Chronic (10) Rheumatoid Arthritis, Unspecified Status: Chronic (11) Unspecified Urinary Incontinence Status: Chronic (12) Urinary tract infection Status: Acute (13) Vitamin D Deficiency, Unspecified Status: Chronic (14) Vomiting Status: Acute (15) Vomiting and diarrhea Status: Acute Review of Systems Constitutional: + weakness, + fatigue ENT: + nasal symptoms (congestion) Respiratory: + cough Abdomen: + diarrhea (one loose stool) All Other Systems: Reviewed and Negative Medications Current Inpatient Medications Medications (Trade) Dose Ordered Sig/Sanya Route Start Time Stop Time Status Last Admin Dose Admin Acetaminophen (Tylenol Tab) 650 mg Q4H PRN PO 10/19/16 21:30 11/18/16 21:29 Calcium Carbonate (Tums Chew Tab) 500 mg Q4H PRN PO 10/19/16 21:30 11/18/16 21:29 Levothyroxine Sodium (Synthroid Tab) 75 mcg DAILYBB PO 10/20/16 06:30 11/19/16 06:29 10/20/16 05:56 75 MCG Lisinopril (Zestril Tab) 20 mg BID PO 10/20/16 09:00 11/19/16 08:59 10/20/16 07:53 20 MG Metoprolol Tartrate (Lopressor Tab) 25 mg BID PO 10/20/16 09:00 11/19/16 08:59 10/20/16 07:53 25 MG Ondansetron HCl (Zofran Tab) 4 mg Q6H PRN PO 10/19/16 21:30 11/18/16 21:29 Ranitidine HCl (zANTac TAB) 150 mg BID17 PO 10/20/16 09:00 11/19/16 08:59 10/20/16 07:52 150 MG Saccharomyces Boulardii (Florastor Cap) 250 mg BID PO 10/20/16 09:00 11/19/16 08:59 10/20/16 07:52 250 MG Sertraline HCl (Zoloft Tab) 25 mg HS PO 10/20/16 21:00 11/19/16 20:59 Vancomycin HCl (Vancomycin Oral Soln) 250 mg QID PO 10/19/16 23:30 11/02/16 23:29 10/20/16 13:09 250 MG Verapamil HCl (Calan-Sr Tab) 120 mg DAILY PO 10/20/16 09:00 11/19/16 08:59 10/20/16 07:53 120 MG Acetaminophen (Tylenol Tab) 650 mg TID PO 10/20/16 09:00 11/19/16 08:59 10/20/16 13:55 650 MG Cholecalciferol (Vitamin D Tab) 5,000 inter.unit DAILY PO 10/20/16 09:00 11/19/16 08:59 10/20/16 07:53 5,000 INTER.UNIT Pantoprazole Sodium (Protonix Tab) 40 mg DAILY PO 10/20/16 09:00 11/19/16 08:59 10/20/16 07:52 40 MG Hydrocortisone Sodium Succinate 100 mg/Syringe 2 ml @ 4 mls/min Q8 IV 10/19/16 23:30 11/18/16 23:29 10/20/16 13:54 4 MLS/MIN Ciprofloxacin (Ciprofloxacin Tab) 250 mg BID PO 10/20/16 09:00 10/21/16 09:00 10/20/16 07:52 250 MG Raspberry (Raspberry Syrup 5ml Cup) 5 ml QID PO 10/19/16 23:30 11/02/16 23:29 10/20/16 13:08 5 ML Objective Vital Signs Date Time Temp Pulse Resp B/P (MAP) Pulse Ox O2 Delivery O2 Flow Rate FiO2 10/20/16 08:00 Room Air 10/20/16 07:30 36.8 74 18 128/71 (90) 95 10/20/16 00:00 98 Room Air 10/19/16 22:58 36.6 68 20 153/67 98 Room Air 10/19/16 21:30 78 20 159/90 97 Room Air 10/19/16 20:48 84 20 176/81 98 10/19/16 19:05 62 20 165/72 95 10/19/16 19:04 66 10/19/16 18:44 98 Room Air 10/19/16 18:39 36.7 72 20 199/61 98 Room Air Physical Exam General Appearance: WD/WN, no apparent distress Eyes: normal inspection, EOMI, sclerae normal ENT: hearing grossly normal, pharynx normal, + nasal congestion, + nasal drainage Neck: supple, no adenopathy, no JVD, trachea midline Respiratory/Chest: chest non-tender, lungs clear, normal breath sounds, no respiratory distress, no accessory muscle use Cardiovascular: regular rate, rhythm, no edema, no gallop, no JVD, no murmur Abdomen: normal bowel sounds, non tender, soft, no organomegaly Extremities: normal range of motion, non-tender, normal inspection, no pedal edema, no calf tenderness, pelvis stable 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, no motor/sensory deficits, alert, normal mood/affect, oriented x 3 Skin: normal color, warm/dry, no rash Lymphatic: no adenopathy Laboratory Results Last 24 Hours Test 10/19/16 18:15 10/19/16 23:25 10/20/16 02:30 10/20/16 03:47 White Blood Count 12.93 K/uL Red Blood Count 3.83 M/uL Hemoglobin 9.7 g/dL Hematocrit 29.7 % Mean Corpuscular Volume 77.5 fL Mean Corpuscular Hemoglobin 25.3 pg Mean Corpuscular Hemoglobin Concent 32.7 g/dl Platelet Count 401 K/uL Mean Platelet Volume 9.3 fL Neutrophils (%) (Auto) 83.1 % Lymphocytes (%) (Auto) 10.9 % Monocytes (%) (Auto) 4.6 % Eosinophils (%) (Auto) 0.5 % Basophils (%) (Auto) 0.2 % Neutrophils # (Auto) 10.74 K/uL Lymphocytes # (Auto) 1.41 K/uL Monocytes # (Auto) 0.59 K/uL Eosinophils # (Auto) 0.07 K/uL Basophils # (Auto) 0.03 K/uL RDW Standard Deviation 41.9 fL RDW Coefficient of Variation 14.7 % Immature Granulocyte % (Auto) 0.7 % Immature Granulocyte # (Auto) 0.09 K/uL Sodium Level 115 mmol/L 118 mmol/L 122 mmol/L Potassium Level 4.3 mmol/L 3.8 mmol/L 3.8 mmol/L Chloride Level 78 mmol/L 84 mmol/L 86 mmol/L Carbon Dioxide Level 25 mmol/L 26 mmol/L 26 mmol/L Anion Gap 12.0 mmol/L 8.0 mmol/L 10.0 mmol/L Blood Urea Nitrogen 17 mg/dl 14 mg/dl 13 mg/dl Creatinine 1.10 mg/dl 1.00 mg/dl 0.97 mg/dl Est Creatinine Clear Calc Drug Dose 35.8 ml/min 39.4 ml/min 40.6 ml/min Estimated GFR () 54.9 61.6 63.9 Estimated GFR (Non- 47.4 53.2 55.2 BUN/Creatinine Ratio 15.0 14.1 13.2 Random Glucose 117 mg/dl 93 mg/dl 103 mg/dl Osmolality 248 mOsm/kg Calcium Level 9.9 mg/dl 8.8 mg/dl 9.0 mg/dl Magnesium Level 1.9 mg/dl Total Bilirubin 0.3 mg/dl Direct Bilirubin < 0.1 mg/dl Aspartate Amino Transf (AST/SGOT) 10 U/L Alanine Aminotransferase (ALT/SGPT) 18 U/L Alkaline Phosphatase 56 U/L Troponin I < 0.015 ng/ml Total Protein 7.4 gm/dl Albumin 3.5 gm/dl Lipase 139 U/L Thyroid Stimulating Hormone (TSH) 2.920 uIu/ml Urine Osmolality 109 mOms/kg Test 10/20/16 07:55 10/20/16 12:06 Sodium Level 122 mmol/L 122 mmol/L Potassium Level 4.0 mmol/L 3.9 mmol/L Chloride Level 87 mmol/L 86 mmol/L Carbon Dioxide Level 27 mmol/L 26 mmol/L Anion Gap 8.0 mmol/L 10.0 mmol/L Blood Urea Nitrogen 13 mg/dl 14 mg/dl Creatinine 0.97 mg/dl 1.20 mg/dl Est Creatinine Clear Calc Drug Dose 40.6 ml/min 32.9 ml/min Estimated GFR () 63.9 49.4 Estimated GFR (Non- 55.2 42.7 BUN/Creatinine Ratio 13.0 11.4 Random Glucose 111 mg/dl 115 mg/dl Calcium Level 9.2 mg/dl 9.6 mg/dl Assessment and Plan 81 year old female currently being treated at [facility] for c.diff and uti brought to the ED for severe fatigue and hyponatremia Hyponatremia - sodium in the ED was 115, slowly rising up to 122 with NSS overnight, stopped this AM - low serum osm with appropriately low urine osm, so no signs of SIADH - stop NSS, strict fluid restriction, start 1gm NaCl daily - stop HCTZ - repeat BMP and osmolalities later today and then in the AM Cough - dry, due to nasal congestion, post nasal drip - Robitussin UTI - continue Cipro until 10/21 C.Diff - continue vanc PO until October 20 to finish full course - less diarrhea, clinically improving HTN - stop HCTZ with the hyponatremia - continue lisinopril, metoprolol and verapamil Hypothyroidism - continue synthroid 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 Marte Depression - continue sertraline - if hyponatremia continues to be problematic may need to stop SSRI as well GERD - continue prevacid and zantac PMR - hold prednisone. 10mg daily is home dose Diet - regular DVT prophylaxis - SCD's and TEDS Code - DNR
[2016-10-20] MEDS ORDERED: SODIUM CHLORIDE 1 GM TAB PO ONE (15:00)
[2016-10-20] MEDS: GUAIFENESIN/CODEINE 100MG/10MG 5ML UDC PO PRN ×2 (15:31→20:47)
[2016-10-20 16:00] VITALS: O2SAT 95
[2016-10-20 16:24] VITALS: BP 121/77; PULSE 62; TEMP 36.6; O2SAT 95
[2016-10-20 17:02] LABS: CALCIUM 8.7 mg/dl (8.5-10.1); CREATININE 1.3 mg/dl (0.60-1.20); POTASSIUM 3.7 mmol/L (3.5-5.1)
[2016-10-20] MEDS: SERTRALINE HCL 50 MG TAB PO SCH (20:50)
[2016-10-20] MEDS ORDERED: MELATONIN 6 MG PO SCH (21:00)
[2016-10-20 23:15] VITALS: BP 119/70; PULSE 65; TEMP 36.9; O2SAT 96
[2016-10-21] MEDS: LEVOTHYROXINE 75 MCG TAB PO SCH (05:49)
[2016-10-21] MEDS: HYDROCORTISONE IV 100 MG in SYRINGE 0 ML IV SCH ×3 (05:50→21:38)
[2016-10-21 07:31] LABS: BUN/CREATININE RATIO 16.6 (10-20); CREATININE 1.4 mg/dl (0.60-1.20); POTASSIUM 3.7 mmol/L (3.5-5.1)
[2016-10-21 07:52] VITALS: BP_SYST 169; BP_SYST 181; BP_DIAS 67; PULSE 69; TEMP 36.6; O2SAT 95
[2016-10-21] MEDS: VANCOMYCIN HCL 250 MG/5 ML SOLN PO SCH ×4 (07:55→20:58)
[2016-10-21] MEDS: RASPBERRY SYRUP 5 ML UDP PO SCH ×4 (07:55→20:58)
[2016-10-21] MEDS: SACCHAROMYCES BOUL (FLORASTOR) 250 MG CAP PO SCH ×2 (07:55→20:50)
[2016-10-21] MEDS: VERAPAMIL HCL 120 MG TABCR PO SCH (07:55)
[2016-10-21] MEDS: RANITIDINE HCL 150 MG TAB PO SCH ×2 (07:56→16:55)
[2016-10-21] MEDS: CHOLECALCIFEROL 1000 INTER.UNIT TAB PO SCH (07:56)
[2016-10-21] MEDS: CIPROFLOXACIN 250 MG TAB PO SCH (07:56)
[2016-10-21] MEDS: SODIUM CHLORIDE 1 GM TAB PO SCH (07:56)
[2016-10-21] MEDS: METOPROLOL TARTRATE 25 MG TAB PO SCH ×2 (07:56→20:52)
[2016-10-21] MEDS: ACETAMINOPHEN 325 MG TAB PO SCH ×3 (07:56→20:53)
[2016-10-21] MEDS: PANTOprazole SOD 40 MG TAB PO SCH (07:57)
[2016-10-21] MEDS: LISINOPRIL 20 MG TAB PO SCH ×2 (07:57→20:51)
--- NOTE | 2016-10-21 12:19 | Progress Note ---
Subjective Date of Service: Oct 21, 2016. Subjective Pt evaluation today including: conversation w/ patient, physical exam, lab review, review of inpatient medication list Pain: no pain PO Intake: adequate Voiding: no voiding problems reviewed labs, Na up to 125, osmolality rising to 263, urine osmolality going up patient feels well, denies diarrhea today, no pain, eating and drinking well planning to participate in therapy Problem List Medical Problems: (1) Anemia Status: Chronic (2) Diverticulosis Colon (W/O Ment Of Hemorrhage) Status: Chronic (3) DJD (degenerative joint disease) Status: Chronic (4) Esophageal Reflux Status: Chronic (5) Hypertension Status: Chronic (6) Hypothyroidism, Unspecified Status: Chronic (7) Irritable Bowel Syndrome Status: Chronic (8) Long-Term(Current)Use Of Steroids Status: Chronic (9) Polymyalgia Rheumatica Status: Chronic (10) Rheumatoid Arthritis, Unspecified Status: Chronic (11) Unspecified Urinary Incontinence Status: Chronic (12) Urinary tract infection Status: Acute (13) Vitamin D Deficiency, Unspecified Status: Chronic (14) Vomiting Status: Acute (15) Vomiting and diarrhea Status: Acute Review of Systems All Other Systems: Reviewed and Negative Medications Current Inpatient Medications Medications (Trade) Dose Ordered Sig/Sanya Route Start Time Stop Time Status Last Admin Dose Admin Acetaminophen (Tylenol Tab) 650 mg Q4H PRN PO 10/19/16 21:30 11/18/16 21:29 Calcium Carbonate (Tums Chew Tab) 500 mg Q4H PRN PO 10/19/16 21:30 11/18/16 21:29 Levothyroxine Sodium (Synthroid Tab) 75 mcg DAILYBB PO 10/20/16 06:30 11/19/16 06:29 10/21/16 05:49 75 MCG Lisinopril (Zestril Tab) 20 mg BID PO 10/20/16 09:00 11/19/16 08:59 10/21/16 07:57 20 MG Metoprolol Tartrate (Lopressor Tab) 25 mg BID PO 10/20/16 09:00 11/19/16 08:59 10/21/16 07:56 25 MG Ondansetron HCl (Zofran Tab) 4 mg Q6H PRN PO 10/19/16 21:30 11/18/16 21:29 Ranitidine HCl (zANTac TAB) 150 mg BID17 PO 10/20/16 09:00 11/19/16 08:59 10/21/16 07:56 150 MG Saccharomyces Boulardii (Florastor Cap) 250 mg BID PO 10/20/16 09:00 11/19/16 08:59 10/21/16 07:55 250 MG Sertraline HCl (Zoloft Tab) 25 mg HS PO 10/20/16 21:00 11/19/16 20:59 10/20/16 20:50 25 MG Vancomycin HCl (Vancomycin Oral Soln) 250 mg QID PO 10/19/16 23:30 11/02/16 23:29 10/21/16 07:55 250 MG Verapamil HCl (Calan-Sr Tab) 120 mg DAILY PO 10/20/16 09:00 11/19/16 08:59 10/21/16 07:55 120 MG Acetaminophen (Tylenol Tab) 650 mg TID PO 10/20/16 09:00 11/19/16 08:59 10/21/16 07:56 650 MG Cholecalciferol (Vitamin D Tab) 5,000 inter.unit DAILY PO 10/20/16 09:00 11/19/16 08:59 10/21/16 07:56 5,000 INTER.UNIT Pantoprazole Sodium (Protonix Tab) 40 mg DAILY PO 10/20/16 09:00 11/19/16 08:59 10/21/16 07:57 40 MG Hydrocortisone Sodium Succinate 100 mg/Syringe 2 ml @ 4 mls/min Q8 IV 10/19/16 23:30 11/18/16 23:29 10/21/16 05:50 4 MLS/MIN Raspberry (Raspberry Syrup 5ml Cup) 5 ml QID PO 10/19/16 23:30 11/02/16 23:29 10/21/16 07:55 5 ML Sodium Chloride (Sodium Chloride Tab) 1 gm DAILY PO 10/21/16 09:00 11/20/16 08:59 10/21/16 07:56 1 GM Codeine Phosphate/ Guaifenesin (Robitussin-AC Sugar Free Syrup) 5 ml Q6H PRN PO 10/20/16 14:45 11/19/16 14:44 10/20/16 20:47 5 ML Sodium Chloride 1,000 ml @ 75 mls/hr [id number] IV 10/21/16 12:15 11/20/16 12:14 UNV Objective Vital Signs Date Time Temp Pulse Resp B/P (MAP) Pulse Ox O2 Delivery O2 Flow Rate FiO2 10/21/16 08:00 Room Air 10/21/16 07:52 36.6 69 18 181/67 (105) 95 169/67 (101) 10/21/16 00:00 Room Air 10/20/16 23:15 36.9 65 18 119/70 (86) 96 Room Air 10/20/16 16:24 36.6 62 16 121/77 (92) 95 Room Air 10/20/16 16:00 95 Room Air Physical Exam General Appearance: WD/WN, no apparent distress Eyes: normal inspection, EOMI, sclerae normal Respiratory/Chest: chest non-tender, lungs clear, normal breath sounds, no respiratory distress, no accessory muscle use Cardiovascular: regular rate, rhythm, no edema, no gallop, no JVD, no murmur Abdomen: normal bowel sounds, non tender, soft, no organomegaly Extremities: normal range of motion, non-tender, normal inspection, no pedal edema, no calf tenderness, pelvis stable 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, no motor/sensory deficits, alert, normal mood/affect, oriented x 3 Skin: normal color, warm/dry, no rash Lymphatic: no adenopathy Laboratory Results Last 24 Hours Test 10/20/16 16:25 10/21/16 06:02 10/21/16 10:31 Sodium Level 121 mmol/L 125 mmol/L Potassium Level 3.7 mmol/L 3.7 mmol/L Chloride Level 88 mmol/L 91 mmol/L Carbon Dioxide Level 25 mmol/L 26 mmol/L Anion Gap 8.0 mmol/L 8.0 mmol/L Blood Urea Nitrogen 18 mg/dl 23 mg/dl Creatinine 1.30 mg/dl 1.40 mg/dl Est Creatinine Clear Calc Drug Dose 30.3 ml/min 28.2 ml/min Estimated GFR () 44.9 41.0 Estimated GFR (Non- 38.7 35.4 BUN/Creatinine Ratio 14.0 16.6 Random Glucose 157 mg/dl 115 mg/dl Osmolality 260 mOsm/kg 265 mOsm/kg Calcium Level 8.7 mg/dl 9.0 mg/dl Magnesium Level 2.0 mg/dl Urine Osmolality 313 mOms/kg Assessment and Plan 81 year old female currently being treated at [facility] for c.diff and uti brought to the ED for severe fatigue and hyponatremia Hyponatremia - sodium in the ED was 115, up to 125 over past 36 hours which is appropriate - Cr up to 1.4 and BUN slowly rising on 1200cc fluid restriction will liberalize the fluids to 1800cc and add NSS at 75cc/hr for the next 24 hours - low serum osm with appropriately low urine osm, so no signs of SIADH on admission - continue NaCl 1gm daily - stop HCTZ indefinitely - repeat BMP and osmolalities later today and then in the AM again Cough - dry, due to nasal congestion, post nasal drip - Robitussin UTI - continue Cipro, stop after today C.Diff - finished PO Vanco yesterday - no diarrhea today, solid BM HTN - stop HCTZ with the hyponatremia - continue lisinopril, metoprolol and verapamil Hypothyroidism - continue synthroid 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 Marte Depression - continue sertraline - if hyponatremia continues to be problematic may need to stop SSRI as well GERD - continue prevacid and zantac PMR - resume Prednisone 10mg daily Diet - regular, 1800cc fluid restriction DVT prophylaxis - SCD's and TEDS Code - DNR repeat labs tomorrow, PT/OT evals, d/c to home with home health once medically stable
[2016-10-21] MEDS: SODIUM CHLORIDE 0.9% 1000ML 1,000 ML IV SCH (12:45)
[2016-10-21 15:34] VITALS: BP 110/45; PULSE 59; TEMP 36.8; O2SAT 94
[2016-10-21 16:05] LABS: CALCIUM 8.6 mg/dl (8.5-10.1); CREATININE 1.4 mg/dl (0.60-1.20)
[2016-10-21 16:51] VITALS: BP 144/71; PULSE 69
[2016-10-21] MEDS: SERTRALINE HCL 50 MG TAB PO SCH (20:51)
[2016-10-21] MEDS: GUAIFENESIN/CODEINE 100MG/10MG 5ML UDC PO PRN (20:59)
[2016-10-21 21:03] VITALS: BP 129/56; PULSE 64
[2016-10-21 23:07] VITALS: BP 153/79; PULSE 68; TEMP 36.5; O2SAT 97
[2016-10-22] MEDS: SODIUM CHLORIDE 0.9% 1000ML 1,000 ML IV SCH (01:04)
[2016-10-22] MEDS: HYDROCORTISONE IV 100 MG in SYRINGE 0 ML IV SCH (06:09)
[2016-10-22] MEDS: LEVOTHYROXINE 75 MCG TAB PO SCH (06:10)
[2016-10-22 07:23] LABS: BUN/CREATININE RATIO 22.4 (10-20); CALCIUM 8.6 mg/dl (8.5-10.1); CREATININE 1.1 mg/dl (0.60-1.20)
[2016-10-22 07:52] VITALS: BP_SYST 174; BP_DIAS 74; BP_DIAS 82; PULSE 61; TEMP 36.8; O2SAT 96
[2016-10-22] MEDS: VANCOMYCIN HCL 250 MG/5 ML SOLN PO SCH ×4 (09:05→21:17)
[2016-10-22] MEDS: RASPBERRY SYRUP 5 ML UDP PO SCH ×4 (09:05→21:02)
[2016-10-22] MEDS: METOPROLOL TARTRATE 25 MG TAB PO SCH ×2 (09:06→21:02)
[2016-10-22] MEDS: RANITIDINE HCL 150 MG TAB PO SCH ×2 (09:06→17:03)
[2016-10-22] MEDS: SACCHAROMYCES BOUL (FLORASTOR) 250 MG CAP PO SCH ×2 (09:06→21:02)
[2016-10-22] MEDS: CHOLECALCIFEROL 1000 INTER.UNIT TAB PO SCH (09:06)
[2016-10-22] MEDS: PANTOprazole SOD 40 MG TAB PO SCH (09:06)
[2016-10-22] MEDS: VERAPAMIL HCL 120 MG TABCR PO SCH (09:06)
[2016-10-22] MEDS: ACETAMINOPHEN 325 MG TAB PO SCH ×3 (09:06→21:03)
[2016-10-22] MEDS: LISINOPRIL 20 MG TAB PO SCH ×2 (09:06→21:03)
[2016-10-22] MEDS: SODIUM CHLORIDE 1 GM TAB PO SCH (09:07)
--- NOTE | 2016-10-22 14:36 | Progress Note ---
Subjective Date of Service: Oct 22, 2016. Subjective Pt evaluation today including: conversation w/ patient, physical exam, lab review, review of inpatient medication list Pain: no pain PO Intake: adequate Voiding: no voiding problems RN called this AM, concern for some mild confusion which patient had yesterday as well I talked with patient, she had no evidence of confusion later in the AM, oriented x 3 she told me in great detail plans to treat her cataracts and her cornea when I told her that she was confused for the RN earlier she said "of course I was, that board says it is Sunday when it is actually Sunday" she became tearful describing having difficulty holding her bowels loose stools back discussed adding questran and repeat C diff testing still with tentative plan for going home, needs therapy moriah reviewed labs, Na normal at 135, stop NaCl tablet and fluids Problem List Medical Problems: (1) Anemia Status: Chronic (2) Diverticulosis Colon (W/O Ment Of Hemorrhage) Status: Chronic (3) DJD (degenerative joint disease) Status: Chronic (4) Esophageal Reflux Status: Chronic (5) Hypertension Status: Chronic (6) Hypothyroidism, Unspecified Status: Chronic (7) Irritable Bowel Syndrome Status: Chronic (8) Long-Term(Current)Use Of Steroids Status: Chronic (9) Polymyalgia Rheumatica Status: Chronic (10) Rheumatoid Arthritis, Unspecified Status: Chronic (11) Unspecified Urinary Incontinence Status: Chronic (12) Urinary tract infection Status: Acute (13) Vitamin D Deficiency, Unspecified Status: Chronic (14) Vomiting Status: Acute (15) Vomiting and diarrhea Status: Acute Review of Systems Constitutional: + weakness Abdomen: + diarrhea (difficulty holding bowels, cannot get to bathroom fast enough) All Other Systems: Reviewed and Negative Medications Current Inpatient Medications Medications (Trade) Dose Ordered Sig/Sanya Route Start Time Stop Time Status Last Admin Dose Admin Acetaminophen (Tylenol Tab) 650 mg Q4H PRN PO 10/19/16 21:30 11/18/16 21:29 Calcium Carbonate (Tums Chew Tab) 500 mg Q4H PRN PO 10/19/16 21:30 11/18/16 21:29 Levothyroxine Sodium (Synthroid Tab) 75 mcg DAILYBB PO 10/20/16 06:30 11/19/16 06:29 10/22/16 06:10 75 MCG Lisinopril (Zestril Tab) 20 mg BID PO 10/20/16 09:00 11/19/16 08:59 10/22/16 09:06 20 MG Metoprolol Tartrate (Lopressor Tab) 25 mg BID PO 10/20/16 09:00 11/19/16 08:59 10/22/16 09:06 25 MG Ondansetron HCl (Zofran Tab) 4 mg Q6H PRN PO 10/19/16 21:30 11/18/16 21:29 Ranitidine HCl (zANTac TAB) 150 mg BID17 PO 10/20/16 09:00 11/19/16 08:59 10/22/16 09:06 150 MG Saccharomyces Boulardii (Florastor Cap) 250 mg BID PO 10/20/16 09:00 11/19/16 08:59 10/22/16 09:06 250 MG Sertraline HCl (Zoloft Tab) 25 mg HS PO 10/20/16 21:00 11/19/16 20:59 10/21/16 20:51 25 MG Vancomycin HCl (Vancomycin Oral Soln) 250 mg QID PO 10/19/16 23:30 11/02/16 23:29 10/22/16 13:35 250 MG Verapamil HCl (Calan-Sr Tab) 120 mg DAILY PO 10/20/16 09:00 11/19/16 08:59 10/22/16 09:06 120 MG Acetaminophen (Tylenol Tab) 650 mg TID PO 10/20/16 09:00 11/19/16 08:59 10/22/16 13:36 650 MG Cholecalciferol (Vitamin D Tab) 5,000 inter.unit DAILY PO 10/20/16 09:00 11/19/16 08:59 10/22/16 09:06 5,000 INTER.UNIT Pantoprazole Sodium (Protonix Tab) 40 mg DAILY PO 10/20/16 09:00 11/19/16 08:59 10/22/16 09:06 40 MG Raspberry (Raspberry Syrup 5ml Cup) 5 ml QID PO 10/19/16 23:30 11/02/16 23:29 10/22/16 13:36 5 ML Codeine Phosphate/ Guaifenesin (Robitussin-AC Sugar Free Syrup) 5 ml Q6H PRN PO 10/20/16 14:45 11/19/16 14:44 10/21/16 20:59 5 ML Prednisone (PredniSONE TAB) 10 mg QAM PO 10/22/16 09:00 11/21/16 08:59 10/22/16 09:47 10 MG Cholestyramine Resin (Questran Powder Light) 4 gm BID@10,22 PO 10/22/16 22:00 11/21/16 21:59 Objective Vital Signs Date Time Temp Pulse Resp B/P (MAP) Pulse Ox O2 Delivery O2 Flow Rate FiO2 10/22/16 08:00 Room Air 10/22/16 07:52 36.8 61 17 174/82 (112) 96 174/74 (107) 10/22/16 00:00 Room Air 10/21/16 23:07 36.5 68 18 153/79 (103) 97 Room Air 10/21/16 21:03 64 129/56 (80) 10/21/16 20:00 Room Air 10/21/16 16:51 69 144/71 (95) 10/21/16 16:00 Room Air 10/21/16 15:34 36.8 59 18 110/45 (66) 94 Room Air Physical Exam General Appearance: WD/WN, no apparent distress Eyes: normal inspection, EOMI, sclerae normal ENT: normal ENT inspection, hearing grossly normal, pharynx normal Neck: supple, no adenopathy, no JVD, trachea midline Respiratory/Chest: chest non-tender, lungs clear, normal breath sounds, no respiratory distress, no accessory muscle use Cardiovascular: regular rate, rhythm, no edema, no gallop, no JVD, no murmur Abdomen: normal bowel sounds, non tender, soft, no organomegaly Extremities: normal range of motion, non-tender, normal inspection, no pedal edema, no calf tenderness, pelvis stable 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, alert, normal mood/affect, oriented x 3, + motor weakness (generalized) Skin: normal color, warm/dry, no rash Laboratory Results Last 24 Hours Test 10/21/16 15:21 10/22/16 06:03 Sodium Level 129 mmol/L 135 mmol/L Potassium Level 4.0 mmol/L 4.0 mmol/L Chloride Level 96 mmol/L 101 mmol/L Carbon Dioxide Level 26 mmol/L 26 mmol/L Anion Gap 7.0 mmol/L 8.0 mmol/L Blood Urea Nitrogen 28 mg/dl 25 mg/dl Creatinine 1.40 mg/dl 1.10 mg/dl Est Creatinine Clear Calc Drug Dose 28.2 ml/min 35.8 ml/min Estimated GFR () 41.0 54.9 Estimated GFR (Non- 35.4 47.4 BUN/Creatinine Ratio 20.0 22.4 Random Glucose 160 mg/dl 124 mg/dl Osmolality 277 mOsm/kg 285 mOsm/kg Calcium Level 8.6 mg/dl 8.6 mg/dl Assessment and Plan 81 year old female currently being treated at [facility] for c.diff and uti brought to the ED for severe fatigue and hyponatremia Hyponatremia - sodium in the ED on admission was 115, trended up slowly over past three days , today is 135 - will d/c NaCl tablet and stop IV fluids, continue 1800cc fluid restriction and follow Na level - low serum osm with appropriately low urine osm on admission, so no signs of SIADH - stop HCTZ indefinitely, may need to wean off SSRI in the future if hyponatremia persists - check labs in the AM Cough - dry, due to nasal congestion, post nasal drip - Robitussin UTI - completed course of Cipro C.Diff - finished PO xenia Damon returned - will resume Vanco, check for C diff, add Questran to try to bulk up stools - has difficulty with stool incontinence because she cannot make it to the bathroom in time HTN - stop HCTZ with the hyponatremia - continue lisinopril, metoprolol and verapamil Hypothyroidism - continue synthroid 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 Marte Depression - continue sertraline - if hyponatremia continues to be problematic may need to stop SSRI as well GERD - continue prevacid and zantac PMR - resume Prednisone 10mg daily Diet - regular, 1800cc fluid restriction DVT prophylaxis - SCD's and TEDS Code - DNR PT/OT evals, d/c to home with home health once medically stable, likely tomorrow but need to get repeat C diff tested
[2016-10-22 15:41] VITALS: BP 164/60; PULSE 59; TEMP 36.5; O2SAT 97
[2016-10-22 16:02] VITALS: O2SAT 97
[2016-10-22 20:00] VITALS: O2SAT 97
[2016-10-22] MEDS: SERTRALINE HCL 50 MG TAB PO SCH (21:04)
[2016-10-22] MEDS: CHOLESTYRAMINE LIGHT 4 GM PKT PO SCH (22:18)
[2016-10-23] MEDS: LEVOTHYROXINE 75 MCG TAB PO SCH (06:07)
[2016-10-23 07:10] VITALS: BP 163/72; PULSE 65; TEMP 36.6; O2SAT 98
[2016-10-23 07:34] LABS: BUN/CREATININE RATIO 21.9 (10-20); CALCIUM 8.8 mg/dl (8.5-10.1); CREATININE 1.1 mg/dl (0.60-1.20); POTASSIUM 3.7 mmol/L (3.5-5.1)
[2016-10-23] MEDS ORDERED: QSTP PO (08:30)
--- NOTE | 2016-10-23 08:30 | Discharge Instructions ---
Discharge Instructions Date of Service Oct 23, 2016. Admission Reason for Admission: Hyponatremia Discharge Discharge Diagnosis / Problem: hyponatremia, cough, uti Discharge Goals Goal(s): Decrease discomfort, Improve function, Increase independence, Improve disease control, Improve nutritional status, Learn about illness, Diagnostic testing, Therapeutic intervention, Prevent Disease Progression, Specific goals Activity Recommendations Activity Limitations: resume your previous activity (fall precaution) . Instructions / Follow-Up Instructions / Follow-Up you have Hyponatremia, one of your blood pressure medicine HCTZ is stop, You need to check blood pressure 2 time a day, bring the number of blood pressure to family doctor , and adjust the blood pressure medicine accordingly You was having C.Diff, finished PO Vanco, I'm giving you Questran to try to bulk up stools, Questran can be stop if you have normal stool You need to have blood testing with PCP to follow up your sodium level You need to continue physical therapy at home with home healthcare - you need to follow up with your primary care physician in 1 week, - take medication as instructed, never overdose or any misuse, or take with alcohol, because misuse of medicine may cause organ damage or , call your primary care physician if have questions of medicaitons. - call your primary care physician OR go to local emergency room if has any fever/chill, chest pain, shortness of breathing, nausea/vomiting/abdominal pain , facial droop/slurry speech/local weakness, or if has any questions. - fall precaution - diet as instructed - you should understand that it is important to follow up the above instruction , and "not following the above instruction" may cause delayed or missed care of your medical conditions which may cause permanent organ damage and even . Current Hospital Diet Patient's current hospital diet: Regular Diet Discharge Diet Recommended Diet: Regular Diet Fluid Restriction: 1800 ml (7 cups) Pending Studies Studies pending at discharge: no Medical Emergencies . Who to Call and When: Medical Emergencies: If at any time you feel your situation is an emergency, please call 911 immediately. . Non-Emergent Contact Non-Emergency issues call your: Primary Care Provider . . "Provider Documentation" section prepared by Master Jules. . VTE Core Measure Inpt VTE Proph given/why not?: Adolfo Farias, MICHELLE's
[2016-10-23] MEDS: LISINOPRIL 20 MG TAB PO SCH (08:32)
[2016-10-23] MEDS: SACCHAROMYCES BOUL (FLORASTOR) 250 MG CAP PO SCH (08:32)
[2016-10-23] MEDS: PANTOprazole SOD 40 MG TAB PO SCH (08:32)
[2016-10-23] MEDS: CHOLECALCIFEROL 1000 INTER.UNIT TAB PO SCH (08:33)
[2016-10-23] MEDS: RANITIDINE HCL 150 MG TAB PO SCH (08:33)
[2016-10-23] MEDS: VERAPAMIL HCL 120 MG TABCR PO SCH (08:34)
[2016-10-23] MEDS: METOPROLOL TARTRATE 25 MG TAB PO SCH (08:34)
[2016-10-23] MEDS: ACETAMINOPHEN 325 MG TAB PO SCH (08:35)
[2016-10-23] MEDS: CHOLESTYRAMINE LIGHT 4 GM PKT PO SCH (08:37)
--- NOTE | 2016-10-23 08:48 | Discharge Summary ---
Discharge Summary Date of Service Oct 23, 2016. Discharge Summary Admission Date: Oct 19, 2016 at 21:34 Discharge Date: Oct 23, 2016 Principal Diagnosis: Hyponatremia from multiple factor Problems/Secondary Diagnoses: Hypertension C. difficile diarrhea Cough UTI (1) Anemia Status: Chronic (2) Diverticulosis Colon (W/O Ment Of Hemorrhage) Status: Chronic (3) DJD (degenerative joint disease) Status: Chronic (4) Esophageal Reflux Status: Chronic (5) Hypertension Status: Chronic (6) Hypothyroidism, Unspecified Status: Chronic (7) Irritable Bowel Syndrome Status: Chronic (8) Long-Term(Current)Use Of Steroids Status: Chronic (9) Polymyalgia Rheumatica Status: Chronic (10) Rheumatoid Arthritis, Unspecified Status: Chronic (11) Unspecified Urinary Incontinence Status: Chronic (12) Vitamin D Deficiency, Unspecified Status: Chronic Immunizations: Have You Had Influenza Vaccine: Yes History of Tetanus Vaccine?: Yes Tetanus Immunization Date: Oct 30, 2007 History of Pneumococcal: Yes Pneumococcal Date: Sep 30, 2003 History of Hepatitis B Vaccine: No Procedures: No Consultations: No Medication Reconciliation New Medications: Cholestyramine (Cholestyramine Light) 4 Gm Pack 4 GM PO BID@10,22 for 7 Days Continued Medications: Acetaminophen (Tylenol Arthritis Ext Rel) 650 Mg Cplt 650 MG PO TID, CAP Acetaminophen Tab (Tylenol) 325 Mg Tab 650 MG PO Q4H PRN for Pain or Fever, TAB Calcium Carbonate (Tums) 500 Mg Chew 1 TAB PO Q4H PRN for Indigestion Cholecalciferol (Vitamin D) 5,000 Unit Tab 5000 UNITS PO DAILY Lansoprazole (Prevacid) 30 Mg Cap 30 MG PO DAILY, #90 Levothyroxine Sodium (Synthroid) 75 Mcg Tab 75 MCG PO DAILY, TAB Lisinopril (Prinivil) 20 Mg Tab 20 MG PO BID, TAB Melatonin (Kp Melatonin) 3 Mg Tab 6 MG PO HS for 30 Days, #30 TAB Metoprolol Tartrate (Lopressor) (Lopressor) 25 Mg Tab 25 MG PO BID, TAB Ondansetron Hcl (Zofran) 4 Mg Tab 4 MG PO Q6H PRN for Nausea, TAB Prednisone (Prednisone) 10 Mg Tab 10 MG PO QAM, TAB Ranitidine Hcl (Zantac) 150 Mg Tab 150 MG PO BID17, TAB Saccharomyces Boulardii (Florastor) 250 Mg Cap 250 MG PO BID Sertraline (Zoloft) 25 Mg Tab 25 MG PO HS, TAB Verapamil Hcl (Verapamil Hcl Er) 120 Mg Tab 120 MG PO DAILY, #90 Discontinued Medications: Ciprofloxacin (Cipro) 250 Mg Tab 250 MG PO BID, TAB STARTED 10/17/16 FOR 3 DAYS, LAST DOSE 10/20/16-AM DOSE. Hydrochlorothiazide (Hydrochlorothiazide) 25 Mg Tab 25 MG PO DAILY, #90 Vancomycin Hcl (Vancomycin) 250 Mg Cap 250 MG PO QID STARTED 10/19/16 @ 2000, FOR 10 DAYS. Discharge Exam Doing okay, up and walk to the restroom by self Has one bowel movement yesterday with soft stool, today has one bowel movement, no more diarrhea Pleasant, conversational, recognizing me because I was taking care of her before No complaining Review of Systems: Constitutional: No fever, No chills, No sweats, No weight loss, No weakness , No fatigue, No problem reported Eyes: No worsening of vision, No eye pain, No redness, No discharge, No diplopia, No problem reported ENT: No hearing loss, No unusual epistaxis, No nasal symptoms, No sore throat, No tinnitus, No dental problems, No trouble swallowing, No problem reported Respiratory: No cough, No sputum, No wheezing, No shortness of breath, No dyspnea on exertion, No dyspnea at rest, No hemoptysis, No problem reported Cardiovascular: No chest pain, No orthopnea, No PND, No edema, No claudication, No palpitations, No problem reported Abdomen: No pain, No nausea, No vomiting, No diarrhea, No constipation, No GI bleeding, No problem reported Musculoskeletal: No joint pain, No muscle pain, No swelling, No calf pain, No problem reported Genitourinary - Female: No dysuria, No urinary frequency, No urinary urgency , No urinary incontinence, No urinary retention, No hematuria, No dysmenorrhea, No menorrhagia, No metrorrhagia, No rash, No vaginal bleeding, No vaginal discharge, No vaginal itching, No vulvodynia, No , No problem reported Neurologic: No memory loss, No paralysis, No weakness, No numbness/tingling , No vertigo, No balance problems, No problem reported Psychiatric: No depression symptoms, No anhedonism, No anxiety, No insomnia , No substance abuse, No problem reported Endocrine: No fatigue, No excessive thirst, No excessive urination, No problem reported Hematologic / Lymphatic: No abnormal bleeding/bruising, No clotting problems , No swollen lymph nodes, No night sweats, No problem reported Integumentary: No rash, No itch, No new/changing skin lesions, No color change, No bleeding, No problem reported Physical Exam: General Appearance: WD/WN, no apparent distress Eyes: normal inspection, PERRL ENT: normal ENT inspection, hearing grossly normal Neck: supple, no adenopathy Respiratory/Chest: chest non-tender, no respiratory distress, no accessory muscle use, + decreased breath sounds Cardiovascular: regular rate, rhythm, no edema, no gallop Abdomen / GI: normal bowel sounds, non tender, soft, no organomegaly, no pulsatile mass Extremities: normal inspection, no calf tenderness, normal capillary refill 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 for c.diff and uti was brought to the ED for severe fatigue and hyponatremia Hyponatremia, I feel it is a multi factorial - sodium in the ED on admission was 115, trended up slowly over past three days , continue to be improved and stable, and normalized - continue 1800cc fluid restriction and follow Na level - low serum osm with appropriately low urine osm on admission, so no signs of SIADH, likely from HCTZ diuretic, all from recent diarrhea - stop HCTZ indefinitely, may need to wean off SSRI in the future if hyponatremia persists - Has discharge instructions to follow-up with PCP for another BMP to follow-up sodium level Cough, resolved - dry, due to nasal congestion, post nasal drip - Robitussin UTI - completed course of Cipro C.Diff - finished PO Vanco, dirrhea returned yesterday, but only had 1 stool - was resumed Vanco, but will not continue because checked for C diff was negative, added Questran to try to bulk up stools, which possible help, but I do give introductions to stop Questran if have normal bowel movement, HTN - stop HCTZ with the hyponatremia - continue lisinopril, metoprolol and verapamil - Upon discharge his for 2 days, SBP was around 160,, PCP please follow-up, to add new blood pressure medicine if needed Hypothyroidism - continue synthroid 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 Marte Depression - continue sertraline - if hyponatremia continues to be problematic may need to stop SSRI as well GERD - continue prevacid and zantac PMR - resume Prednisone 10mg daily Diet - regular, 1800cc fluid restriction DVT prophylaxis - SCD's and TEDS Code - DNR PT/OT [place]iah, d/c to home with home health once medically stable, I discussed with patient in detail about the discharge plan and care plan, I called to patient's daughter Sarah about the care plan and discharge plan, they all understand and agreed Talked to Navigator and social security benefits interviewer to setting up home health care Instructions / Follow-Up you have Hyponatremia, one of your blood pressure medicine HCTZ is stop, You need to check blood pressure 2 time a day, bring the number of blood pressure to family doctor , and adjust the blood pressure medicine accordingly You was having C.Diff, finished PO Vanco, I'm giving you Questran to try to bulk up stools, Questran can be stop if you have normal stool You need to have blood testing with PCP to follow up your sodium level You need to continue physical therapy at home with home healthcare - you need to follow up with your primary care physician in 1 week, - take medication as instructed, never overdose or any misuse, or take with alcohol, because misuse of medicine may cause organ damage or , call your primary care physician if have questions of medicaitons. - call your primary care physician OR go to local emergency room if has any fever/chill, chest pain, shortness of breathing, nausea/vomiting/abdominal pain , facial droop/slurry speech/local weakness, or if has any questions. - fall precaution - diet as instructed - you should understand that it is important to follow up the above instruction , and "not following the above instruction" may cause delayed or missed care of your medical conditions which may cause permanent organ damage and even . Total Time Spent: Greater than 30 minutes This includes examination of the patient, discharge planning, medication reconciliation, and communication with other providers. Discharge Instructions Please refer to the electronic Patient Visit Report (Discharge Instructions) for additional information. Additional Copies To Seth Knox D.O.
[2016-10-23] MEDS: VANCOMYCIN HCL 250 MG/5 ML SOLN PO SCH (09:00)
[2016-10-23] MEDS: RASPBERRY SYRUP 5 ML UDP PO SCH (09:00)
[2016-10-23 09:42] VITALS: BP 163/72; PULSE 65; TEMP 36.6; O2SAT 98
[2016-10-23] MEDS ORDERED: METO25TA56 PO (14:13)
== END 2016-10-23 11:01 | disposition home health service (06) | DRG 641 ==
LOC: EDBD 18:31 → C.EDC 18:32 → UNDOADMIN 21:34 → C.MS2W 21:34 → ENRESERV 21:53
PROVIDERS: ADMIT Hospitalist; ATTEND Hospitalist
DX: E87.1 Hypo-osmolality and hyponatremia (principal); A04.7 Enterocolitis due to Clostridium difficile; N39.0 Urinary tract infection, site not specified; M19.90 Unspecified osteoarthritis, unspecified site; K21.9 Gastro-esophageal reflux disease without esophagitis; I10 Essential (primary) hypertension; K57.30 Diverticulosis of large intestine without perforation or abscess without bleeding; M35.3 Polymyalgia rheumatica; K58.0 Irritable bowel syndrome with diarrhea; M06.9 Rheumatoid arthritis, unspecified; E55.9 Vitamin D deficiency, unspecified; E03.9 Hypothyroidism, unspecified; F32.9 Major depressive disorder, single episode, unspecified; Z66 Do not resuscitate; Z79.52 Long term (current) use of systemic steroids; Z90.710 Acquired absence of both cervix and uterus; Z88.2 Allergy status to sulfonamides; Z82.49 Family history of ischemic heart disease and other diseases of the circulatory system; Z79.899 Other long term (current) drug therapy; Z88.4 Allergy status to anesthetic agent; H26.9 Unspecified cataract; Z96.659 Presence of unspecified artificial knee joint

== ENCOUNTER → 2017-01-04 | Outpatient (CLI) | payer BC ==
[~2017-01-04] MED LIST changes: +ACET1TAB84 PO; +ACET325T96 PO; +CALC500C3 PO; -HYDR25TA5 PO; -LPR25 PO; +METO25TA56 PO; -MGNO400 PO; +ONDA4TAB46 PO; -PRD10 PO; +PRED10TA PO; +QSTP PO; +RANI150T3 PO; +SACC250C PO; -SACC250C3 PO; -VANC5CAP PO
== END | disposition home or self-care (01) ==
LOC: C.LAB1850 11:48
PROVIDERS: ATTEND Internal Medicine Rheumatology
DX: M35.3 Polymyalgia rheumatica (principal)

== ENCOUNTER → 2017-02-01 | Outpatient (CLI) | payer BC | END | disposition home or self-care (01) | LOC: C.LAB1850 14:32 | PROVIDERS: ATTEND Internal Medicine Rheumatology | DX: Z51.81 Encounter for therapeutic drug level monitoring (principal); M65.88 Other synovitis and tenosynovitis, other site; Z79.52 Long term (current) use of systemic steroids; M35.3 Polymyalgia rheumatica; M15.9 Polyosteoarthritis, unspecified ==

== ENCOUNTER → 2017-03-14 | Outpatient (CLI) | payer BC | END | disposition home or self-care (01) | LOC: C.LAB1850 11:01 | PROVIDERS: ATTEND Internal Medicine Rheumatology | DX: M35.3 Polymyalgia rheumatica (principal) ==

== ENCOUNTER → 2017-04-26 | Outpatient (CLI) | payer BC ==
[~2017-04-26] MED LIST changes: +ACET-1693 PO; -ACET325T96 PO; +CALC500C73 PO; +CLC100 PO; +LDDP5 TD; +LPR25 PO; +MAGIC1 PO; +MISCCAP80 PO; +MLXESC PO; +NUTRMIS PO; +ONDA4TAB65 PO; +PANT1TAB4 PO; +PRD/1 PO; +PRED-301 PO; +RXC5 PO; +SERT1TAB88 PO
== END | disposition home or self-care (01) ==
LOC: C.LAB1850 11:35
PROVIDERS: ATTEND Internal Medicine Rheumatology
DX: M65.88 Other synovitis and tenosynovitis, other site (principal); M15.9 Polyosteoarthritis, unspecified; M35.3 Polymyalgia rheumatica

== ENCOUNTER → 2017-05-17 | Outpatient (CLI) | payer BC ==
[~2017-05-17] MED LIST changes: -ACET-1693 PO; +ACET325T96 PO; -CALC500C73 PO; -CLC100 PO; -LDDP5 TD; -LPR25 PO; -MAGIC1 PO; -MISCCAP80 PO; -MLXESC PO; -NUTRMIS PO; -ONDA4TAB65 PO; -PANT1TAB4 PO; -PRD/1 PO; -PRED-301 PO; -RXC5 PO; -SERT1TAB88 PO
== END | disposition home or self-care (01) ==
LOC: C.MAMM 15:23
PROVIDERS: ATTEND Family Medicine
DX: M85.89 Other specified disorders of bone density and structure, multiple sites (principal); E28.39 Other primary ovarian failure

== ENCOUNTER → 2017-05-31 | Outpatient (CLI) | payer BC ==
[~2017-05-31] MED LIST changes: +ACET-1693 PO; -ACET325T96 PO
== END | disposition home or self-care (01) ==
LOC: C.LAB1850 14:27
PROVIDERS: ATTEND Internal Medicine Rheumatology
DX: M65.88 Other synovitis and tenosynovitis, other site (principal); K58.9 Irritable bowel syndrome, unspecified; M35.3 Polymyalgia rheumatica

== ENCOUNTER → 2017-08-03 | Outpatient (CLI) | payer BC | END | disposition home or self-care (01) | LOC: C.LAB1850 15:07 | PROVIDERS: ATTEND Internal Medicine Rheumatology | DX: M65.88 Other synovitis and tenosynovitis, other site (principal); Z79.52 Long term (current) use of systemic steroids; M35.3 Polymyalgia rheumatica ==

== ENCOUNTER → 2017-08-06 | Outpatient (CLI) | payer BC | END | disposition home or self-care (01) | LOC: C.LAB1850 13:41 | PROVIDERS: ATTEND Internal Medicine Rheumatology | DX: M65.88 Other synovitis and tenosynovitis, other site (principal); M81.0 Age-related osteoporosis without current pathological fracture; Z79.52 Long term (current) use of systemic steroids; E55.9 Vitamin D deficiency, unspecified; M35.3 Polymyalgia rheumatica; M70.61 Trochanteric bursitis, right hip ==

== ENCOUNTER → 2017-11-20 | Outpatient (CLI) | payer BC ==
[~2017-11-20] MED LIST changes: -ACET-1693 PO; -CALC500C3 PO; +CALC500C73 PO; +CLC100 PO; -LANS30CA63 PO; +LDDP5 TD; +MAGIC1 PO; +MISCCAP80 PO; +MLXESC PO; +NUTRMIS PO; -ONDA4TAB46 PO; +ONDA4TAB65 PO; +PANT1TAB4 PO; +PRD/1 PO; +PRED-301 PO; -PRED10TA PO; -QSTP PO; -RANI150T3 PO; +RXC5 PO; -SACC250C PO; +SERT1TAB88 PO; -SERT25TA PO
== END | disposition home or self-care (01) ==
LOC: C.LAB1850 14:44
PROVIDERS: ATTEND Internal Medicine Rheumatology
DX: M65.88 Other synovitis and tenosynovitis, other site (principal); M35.3 Polymyalgia rheumatica

== ENCOUNTER 2019-03-12 20:26 | Inpatient (IN) ==
[2019-03-12] MEDS ORDERED: SODIUM CHLORIDE 0.9% 1000ML 2,000 ML IV SCH (21:00)
[2019-03-12 21:17] LABS: Basophils # (auto) 0.02 K/uL (0-0.2); Basophils % (auto) 0.2 %; Eosinophils # (auto) 0.11 K/uL (0-0.5); Eosinophils % (auto) 1.2 %; Hematocrit (blood only) 33.3 % (37-47); Hemoglobin 10.8 g/dL (12.0-16.0); Immature Granulocytes # (auto) 0.02 K/uL (0.00-0.02); Immature Granulocytes % (auto) 0.2 %; Lymphocytes % (auto) 30.2 %; Mean Corpuscular Hemoglobin 29.3 pg (25-34); Mean Corpuscular Hgb Conc 32.4 g/dL (32-36); Mean Corpuscular Volume 90.2 fL (80-100); Mean Platelet Volume 9.8 fL (7.4-10.4); Monocytes # (auto) 0.61 K/uL (0.11-0.59); Monocytes % (auto) 6.8 %; Neutrophils # (auto) 5.49 K/uL (1.4-6.5); Neutrophils % (auto) 61.4 %; Platelet Count 225 K/uL (130-400); RDW Coefficient of Variation 14.9 % (11.5-14.5); RDW Standard Deviation 48.9 fL (36.4-46.3); Red Blood Count 3.69 M/uL (4.2-5.4); White Blood Count 8.95 K/uL (4.8-10.8)
[2019-03-12 21:18] LABS: Appearance Urine Clear (Clear); Bilirubin Urine Negative (Negative); Blood Urine Negative (Negative); Color Urine Yellow; Glucose Urine UA Negative (Negative); Ketones Urine Negative (Negative); Leukocyte Esterase Urine Trace (Negative); Nitrite Urine Negative (Negative); Protein Urine Negative (Negative); Specific Gravity Urine <= 1.005 (1.000-1.030); Urobilinogen Urine Negative (Negative)
--- NOTE | 2019-03-12 21:19 | CT Scan Report ---
CT head/brain wo con CT DOSE: 537.48 mGy.cm HISTORY: Mental status change ams TECHNIQUE: Multiaxial CT images of the head were performed without the use of intravenous contrast. A dose lowering technique was utilized adhering to the principles of ALARA. Comparison: 04/27/2018 Findings: The paranasal sinuses and mastoid air cells are clear. Chronic small vessel change. Chronic ventricular prominence unchanged. Age-related atrophy and chronic small vessel change. No acute intracranial hemorrhage. Impression: Chronic and age-related change. No acute process. The above report was generated using voice recognition software. It may contain grammatical, syntax or spelling errors. Electronically signed by: Byron Garcia M.D. 03/12/2019 9:18 PM
[2019-03-12] MEDS ORDERED: ONDANSETRON INJ 2 MG/ML 2 ML VIAL IV STA ×2 (21:23→22:21)
[2019-03-12 21:27] LABS: Prothrombin Time 10.5 Seconds (9.0-12.0)
--- NOTE | 2019-03-12 21:28 | XRay Report ---
XR chest 1V portable CLINICAL HISTORY: weak COMPARISON STUDY: 09/23/2018 FINDINGS: The bones soft tissues and hemidiaphragms are normal. The cardiomediastinal silhouette is n ormal. The lungs are clear. The pulmonary vasculature is normal. IMPRESSION: Negative chest. The above report was generated using voice recognition software. It may contain grammatical, syntax or spelling errors. Electronically signed by: Byron Garcia M.D. 03/12/2019 9:26 PM
[2019-03-12 21:29] LABS: Bacteria Urine 1+ (Negative); Epithelial Cell Urine 20-30 /lpf (0-5); RBC Urine 0-4 /hpf (0-4)
[2019-03-12 21:31] LABS: Alanine Aminotransferase 14 U/L (12-78); Albumin Level 3.6 gm/dl (3.4-5.0); Aspartate Aminotransferase 12 U/L (15-37); BUN Creatinine Ratio 18.6 (10-20); Blood Urea Nitrogen 26 mg/dl (7-18); Calcium 9.5 mg/dl (8.5-10.1); Carbon Dioxide 29 mmol/L (21-32); Chloride 107 mmol/L (98-107); Est GFR (African American) 40.9; Est GFR (Non-African American) 35.3; Glucose 102 mg/dl (70-99); Potassium 3.6 mmol/L (3.5-5.1); Sodium 142 mmol/L (136-145)
[2019-03-12 21:36] LABS: Albumin Globulin Ratio 1.2 (0.9-2); Alkaline Phosphatase 48 U/L (45-117); Bilirubin,Total 0.3 mg/dl (0.2-1); Globulin 3.1 gm/dl (2.5-4.0); Total Protein 6.7 gm/dl (6.4-8.2); Troponin I < 0.015 ng/ml (0-0.045)
[2019-03-12] MEDS ORDERED: LABETALOL HCL IV 5 MG/ML 20ML IV STA ×2 (21:38→22:21)
[2019-03-12 22:00] LABS: D Dimer 410 ug/L FEU (0-500)
[2019-03-12] MEDS ORDERED: OPTIRAY 320 125ml IV PRN (22:14)
--- NOTE | 2019-03-12 22:27 | CT Scan Report ---
CT angio chest PE protocol CT DOSE: 334.41 mGy.cm HISTORY: Dyspnea hypoxic htn TECHNIQUE: Multiaxial CT images of the chest were performed following the intravenous administration of contrast to evaluate the pulmonary arteries. Maximal intensity projection images were also obtaine d. A dose lowering technique was utilized adhering to the principles of ALARA. COMPARISON STUDY: None. FINDINGS: Mild atherosclerotic change thoracic aorta. Pulmonary vasculature enhances appropriately. There is a small filling defect lateral aspect right mainstem bronchus image 123. This appear to repr esent chronic vascular scarring rather than pulmonary embolus. Evaluation of the lung parenchyma shows evidence for emphysematous change. There are no focal infiltr ative changes. There are slight peribronchial and basilar interstitial and peribronchial prominence. IMPRESSION: 1. No evidence of pulmonary embolus. 2. Emphysematous change with components of interstitial and mild peribronchial change of the mid to l ower lung regions bilaterally. 3. No evidence for consolidative infiltrate. The above report was generated using voice recognition software. It may contain grammatical, syntax or spelling errors. Electronically signed by: Byron Garcia M.D. 03/12/2019 10:25 PM
--- NOTE | 2019-03-12 23:32 | History & Physical Report ---
Date of Service March 12, 2019 Assessment & Plan (1) Altered mental status: 84-year-old female with history of hypertension, hypothyroidism, GERD, anemia, polymyalgia rheumatica, rheumatoid arthritis, IBS, diverticulosis, vitamin D deficiency, degenerative joint disease presents from [facility] for concern of confusion Altered mental status/headache: Likely in the setting of hypertensive urgency/hypertensive encephalopathy versus dehydration versus hypoxia versus UTI versus stroke Normal neurologic exam Head CT: Chronic age-related changes no acute findings Chest x-ray: Negative CTA chest: Emphysematous change with components of interstitial and mild peribronchial change of the mid to lower lung regions bilaterally. Blood pressure was 225/100-120s Continue to monitor clinically Hypertensive urgency History of hypertension - Blood pressure was 225/100-120s Patient received labetalol 10 mg IV x2 in the ED and 2 L normal saline Continue home BP meds -metoprolol, and verapamil; lisinopril held in the setting of RONAL Started on hydralazine 10 mg every 6 hours as needed Continue to monitor Hypoxia Likely secondary to worsening emphysema versus atelectasis CTA chest: Emphysematous change with components of interstitial and mild peribronchial change of the mid to lower lung regions bilaterally DuoNeb's every 6 hours scheduled Supplemental O2 as needed Possible UTI Concern for urinary hesitancy/incontinence UA positive: 5-10 WBC 1+ bacteria, trace leuk esterase however 20-30 epi Started on Rocephin Follow urine culture RONAL likely secondary to dehydration in the setting of recent diarrhea BUN/creatinine 26/1.38 Hold home lisinopril Received 2 L NS in the ED Follow BMP Hypothyroidism Continue home levothyroxine GERD Continue home PPI Polymyalgia rheumatica/RA Continue home prednisone, Tylenol Allergic rhinitis Continue fluticasone Mood disorder Continue home sertraline FEN/GI: Heart healthy diet DVT prophylaxis: SCDs only low risk Code: DNR/DNI discussion with patient and daughter -she has POLST form at [facility] Position: MedSurg with telemetry, PT OT ordered (2) Hypoxia: (3) Hypertensive urgency: (4) HTN (hypertension): (5) Acute kidney injury: (6) Anemia: (7) DJD (degenerative joint disease): (8) Fall: (9) Hypertension: (10) Polymyalgia rheumatica: History of Present Illness Chief Complaint: Confusion Primary Care Provider: Marcela Beckford 84-year-old female with history of hypertension, hypothyroidism, GERD, anemia, polymyalgia rheumatica, rheumatoid arthritis, IBS, diverticulosis, vitamin D deficiency, degenerative joint disease presents from [facility] for concern of confusion. Per daughter her visited her today and thought she was confused as she could not say her name and started crying. Patient says "I am sick ", "I am not actually hurting not sure what is going on ". Per daughter patient has been complaining of headache and had diarrhea yesterday which improved after she takes some Imodium. Patient reports headache associated with nausea, vomiting here in the ED, lightheadedness has been bothering her all day today. Denies any photophobia/phonophobia. Per daughter she has history of mild dementia mainly short-term memory loss. Daughter also reports some urine dribbling at the skilled nursing and possible incontinence. R eports chronic runny nose. Patient denies any chest pain, shortness of breath, fever, chills, cold symptoms, abdominal pain, hematochezia, melena, dysuria, hematuria. Allergies Allergy/AdvReac Type Severity Reaction Status Date / Time hydroxychloroquine Allergy Severe GI SYMPTOMS Verified 03/12/19 22:59 Sulfa (Sulfonamide Allergy Intermediate RASH Verified 03/12/19 22:59 Antibiotics) erythromycin base AdvReac Unknown N&V Verified 03/12/19 22:59 Home Medications Home Medications Medication Instructions Recorded Confirmed Type Saccharomyces boulardii 250 mg PO DAILY 03/12/19 03/12/19 History acetaminophen [Tylenol Arthritis 650 mg PO BID MDD 3G 03/12/19 03/12/19 History Pain] benzonatate [Tessalon Perles] 100 mg PO TID PRN 03/12/19 03/12/19 History calcium carbonate [Oysco-500] 500 mg PO BID 03/12/19 03/12/19 History camphor-methyl salicyl-menthol 1 patch TOPICAL DAILY PRN 03/12/19 03/12/19 History [Salonpas] cholecalciferol (vitamin D3) 5,000 unit PO DAILY 03/12/19 03/12/19 History [Vitamin D3] docusate sodium 100 mg PO BID 03/12/19 03/12/19 History fluticasone propionate 1 spray INTRANASAL DAILY 03/12/19 03/12/19 History guaifenesin [Mucinex] 600 mg PO Q12H PRN 03/12/19 03/12/19 History ibuprofen 200 mg PO Q4H PRN 03/12/19 03/12/19 History lansoprazole 30 mg PO DAILY 03/12/19 03/12/19 History levothyroxine 75 mcg PO DAILY 03/12/19 03/12/19 History lisinopril 20 mg PO DAILY 03/12/19 03/12/19 History loperamide [Imodium A-D] 2 mg PO Q3H PRN 03/12/19 03/12/19 History melatonin 10 mg PO HS 03/12/19 03/12/19 History menthol [Cough Drops] 5 mg MUCOUS MEMBRANE Q2H PRN 03/12/19 03/12/19 History metoprolol tartrate 25 mg PO BID 03/12/19 03/12/19 History nystatin [Nystop] 1 applic TOPICAL BID PRN 03/12/19 03/12/19 History ondansetron 4 mg PO Q6H PRN 03/12/19 03/12/19 History prednisone 5 mg PO DAILY 03/12/19 03/12/19 History risedronate 150 mg PO MONTHLY 03/12/19 03/12/19 History sertraline 100 mg PO DAILY 03/12/19 03/12/19 History sodium chloride [Tigre 128] 1 drp OPB HS 03/12/19 03/12/19 History verapamil 120 mg PO QAM 03/12/19 03/12/19 History Past Med/Surg History Medical History Dehydration (Resolved) Diarrhea (Resolved) Dizziness (Resolved) Hypokalemia (Resolved) Hyponatremia Nausea & vomiting (Resolved) Pubic ramus fracture Syncopal episodes (Resolved) Thoracic radiculopathy (Resolved) Weakness (Resolved) Surgical History No pertinent past surgical history Social History Preferred Language: Malay Communication Ability: 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: No Beliefs That Will Affect Care: None Current Living Situation: [place] Feels Safe at Home: Yes Smoking Status: Never smoker Hx Alcohol Use: No Hx Substance Use: No Review of Systems Review of Systems: As per HPI Physical Exam Physical Exam: General: In NAD Neuro: A&O x 3 (person, place, situation but not time), CN 2-12 intact (of note: L pupil more dilated than R pupil s/p cataract surgery and manual dilation), strength 4/5 bilateral upper and lower extremities, sensation intact Pulm: RLL crackles appreciated, equal breath sounds bilaterally CV: RRR, no m/r/g Abdomen:+BS, no TTP in all quadrants, non-distended LE: no LE edema, no calf TTP Results & Data Vital Signs (Past 12 Hours) Vital Signs Temp Pulse Pulse Resp BP BP Pulse Ox 03/12/19 23:23 80 18 206/97 H 99 03/12/19 22:40 83 18 180/80 H 98 03/12/19 22:30 85 236/83 H 03/12/19 22:24 109 H 24 99 03/12/19 22:00 80 17 97 03/12/19 21:54 87 20 225/82 H 87 L 03/12/19 21:45 71 21 241/89 H 95 03/12/19 21:30 72 13 225/101 H 03/12/19 21:23 73 21 219/109 H 96 03/12/19 21:20 87 24 03/12/19 21:01 68 16 194/123 H 94 03/12/19 21:00 70 17 92 03/12/19 20:48 64 21 97 03/12/19 20:46 64 25 H 213/92 H 97 03/12/19 20:28 37.0 C 66 20 209/78 H 96 Laboratory Results Abnormal lab results 03/12/19 03/12/19 03/12/19 Range/Units 21:00 21:00 21:00 RBC 3.69 L (4.2-5.4) M/uL Hgb 10.8 L (12.0-16.0) g/dL Hct 33.3 L (37-47) % RDW Std Deviation 48.9 H (36.4-46.3) fL RDW Coeff of Kwasi 14.9 H (11.5-14.5) % Levy # (Auto) 0.61 H (0.11-0.59) K/uL BUN 26 H (7-18) mg/dl Creatinine 1.38 H (0.6-1.2) mg/dl Glucose 102 H (70-99) mg/dl AST 12 L (15-37) U/L Ur Leukocyte Esterase Trace H (Negative) Urine WBC 5-10 H (0-5) /hpf Ur Epithelial Cells 20-30 H (0-5) /lpf Urine Bacteria 1+ H (Negative) Diagnostic Findings CT head/brain wo con CT DOSE: 537.48 mGy.cm HISTORY: Mental status change ams TECHNIQUE: Multiaxial CT images of the head were performed without the use of intravenous contrast. A dose lowering technique was utilized adhering to the principles of ALARA. Comparison: 04/27/2018 Findings: The paranasal sinuses and mastoid air cells are clear. Chronic small vessel change. Chronic ventricular prominence unchanged. Age-related atrophy and chronic small vessel change. No acute intracranial hemorrhage. Impression: Chronic and age-related change. No acute process. XR chest 1V portable CLINICAL HISTORY: weak COMPARISON STUDY: 09/23/2018 FINDINGS: The bones soft tissues and hemidiaphragms are normal. The cardiomediastinal silhouette is normal. The lungs are clear. The pulmonary vasculature is normal. IMPRESSION: Negative chest. CT angio chest PE protocol CT DOSE: 334.41 mGy.cm HISTORY: Dyspnea hypoxic htn TECHNIQUE: Multiaxial CT images of the chest were performed following the intravenous administration of contrast to evaluate the pulmonary arteries. Maximal intensity projection images were also obtained. A dose lowering technique was utilized adhering to the principles of ALARA. COMPARISON STUDY: None. FINDINGS: Mild atherosclerotic change thoracic aorta. Pulmonary vasculature enhances appropriately. There is a small filling defect lateral aspect right mainstem bronchus image 123. This appear to represent chronic vascular scarring rather than pulmonary embolus. Evaluation of the lung parenchyma shows evidence for emphysematous change. There are no focal infiltrative changes. There are slight peribronchial and basilar interstitial and peribronchial prominence. IMPRESSION: 1. No evidence of pulmonary embolus. 2. Emphysematous change with components of interstitial and mild peribronchial change of the mid to lower lung regions bilaterally. 3. No evidence for consolidative infiltrate. Code Status & VTE Plan Code Status DNR/DNI per discussion with patient and daughter VTE Prophylaxis Plan VTE Prophylaxis will be ordered: Yes Supervising Physician Co-Signing Physician Notes Patient seen and examined, chart reviewed, case discussed with Dr. Rod and I agree with her assessment and plan as documented above. Briefly, patient is an 84-year-old female presenting with altered mental status. Daughter at bedside reports patient with poor p.o. intake lately. Patient denies pain, fever, shortness of breath. She has some diarrhea yesterday and vomiting today which is since resolved On exam she is afebrile, hypertensive otherwise hemodynamically stable Elderly female resting comfortably, no acute distress oriented x1 HEENTnormocephalic atraumatic. Round reactive to light, dry mucous membranes, neck supple HeartS1-S2 present, regular Lungsfaint crackles in the right base Abdomenbowel sounds present soft, nontender/nondistended Labs and images reviewed Assessment/[id number] female presenting with confusion -IV fluid, ceftriaxone, follow cultures -Remainder of plan as above Resident Activity Tracking Resident Involvement: Resident Care Provided Care Provided: Adult Hospital Medicine (1) Altered mental status Altered mental status type: disorientation Qualified Code(s): R41.0 - Disorientation, unspecified (2) Fall Encounter type: initial encounter Qualified Code(s): W19.XXXA - Unspecified fall, initial encounter
--- NOTE | 2019-03-13 00:11 | Emergency Department Note ---
Entered by Dominique Coyle acting as a scribe for Manfred Thorpe DO History of Present Illness General Chief complaint: Confusion Stated complaint: LOW BP 90/40, CONFUSED, DEHYDRATED Source: patient History of Present Illness Onset (ago): day(s) 1 Pain Consistency: + constant Relieved By: + none Associated symptoms: + denies other symptoms (denies abdominal pain, urinary symptoms), + confusion and + other (difficulty swallowing); no nausea/vomiting Treatments prior to arrival: none The patient is a 84 year old female who presents to the Emergency Room with complaints of confusion that started today. The patient is very confused and disoriented. Her daughter states that she normally knows where she is at what the year is. However, she could not recall the year when asked today. Her daughter reports that her mother has dementia, but usually is pretty good on a day to day basis. She states that her dad called her tonight because her mother was extremely confused and crying. The patient was taking her diaper off because she thought it was wet when it was not. She had diarrhea yesterday, but has not had an episode today. She complains of difficulty swallowing. The patient denies abdominal pain, nausea, pain with urination. She took her blood pressure medication today, and she is not on any blood thinners. Home Medications Home Medications Medication Instructions Recorded Confirmed Type Saccharomyces boulardii 250 mg PO DAILY 03/12/19 03/12/19 History acetaminophen [Tylenol Arthritis 650 mg PO BID MDD 3G 03/12/19 03/12/19 History Pain] benzonatate [Tessalon Perles] 100 mg PO TID PRN 03/12/19 03/12/19 History calcium carbonate [Oysco-500] 500 mg PO BID 03/12/19 03/12/19 History camphor-methyl salicyl-menthol 1 patch TOPICAL DAILY PRN 03/12/19 03/12/19 History [Salonpas] cholecalciferol (vitamin D3) 5,000 unit PO DAILY 03/12/19 03/12/19 History [Vitamin D3] docusate sodium 100 mg PO BID 03/12/19 03/12/19 History fluticasone propionate 1 spray INTRANASAL DAILY 03/12/19 03/12/19 History guaifenesin [Mucinex] 600 mg PO Q12H PRN 03/12/19 03/12/19 History ibuprofen 200 mg PO Q4H PRN 03/12/19 03/12/19 History lansoprazole 30 mg PO DAILY 03/12/19 03/12/19 History levothyroxine 75 mcg PO DAILY 03/12/19 03/12/19 History lisinopril 20 mg PO DAILY 03/12/19 03/12/19 History loperamide [Imodium A-D] 2 mg PO Q3H PRN 03/12/19 03/12/19 History melatonin 10 mg PO HS 03/12/19 03/12/19 History menthol [Cough Drops] 5 mg MUCOUS MEMBRANE Q2H PRN 03/12/19 03/12/19 History metoprolol tartrate 25 mg PO BID 03/12/19 03/12/19 History nystatin [Nystop] 1 applic TOPICAL BID PRN 03/12/19 03/12/19 History ondansetron 4 mg PO Q6H PRN 03/12/19 03/12/19 History prednisone 5 mg PO DAILY 03/12/19 03/12/19 History risedronate 150 mg PO MONTHLY 03/12/19 03/12/19 History sertraline 100 mg PO DAILY 03/12/19 03/12/19 History sodium chloride [Tigre 128] 1 drp OPB HS 03/12/19 03/12/19 History verapamil 120 mg PO QAM 03/12/19 03/12/19 History Allergies Allergy/AdvReac Type Severity Reaction Status Date / Time hydroxychloroquine Allergy Severe GI SYMPTOMS Verified 03/12/19 22:59 Sulfa (Sulfonamide Allergy Intermediate RASH Verified 03/12/19 22:59 Antibiotics) erythromycin base AdvReac Unknown N&V Verified 03/12/19 22:59 Past Med/Surg History Medical History Dehydration (Resolved) Diarrhea (Resolved) Dizziness (Resolved) Hypokalemia (Resolved) Hyponatremia Nausea & vomiting (Resolved) Pubic ramus fracture Syncopal episodes (Resolved) Thoracic radiculopathy (Resolved) Weakness (Resolved) Surgical History No pertinent past surgical history Social History Preferred Language: Lithuanian Feels Safe at Home: Yes Smoking Status: Never smoker Review of Systems See HPI for pertinent positives & negatives. and A total of 10 systems reviewed and were otherwise negative Physical Exam Vital Signs Vital Signs - 24 hr 03/12/19 20:26 03/12/19 20:28 03/12/19 20:46 Temperature 37.0 C Temperature Source Oral Pulse Rate 66 64 Pulse Rate [Left Apical] Pulse Rate from SpO2 Sensor Respiratory Rate 20 25 H Respiratory Effort / Characteristics Respiratory Depth Respiratory Pattern Blood Pressure 209/78 H 213/92 H Blood Pressure [Right Arm] Blood Pressure Mean 121 176 Blood Pressure Mean [Right Arm] Blood Pressure Position [Right Arm] Pulse Oximetry 96 97 Oxygen Delivery Method Room Air Room Air Oxygen Flow Rate Sepsis Recent Fever Within 48 Hours No Sepsis New/Unexplained Change in Mental Status Yes Sepsis Action Taken by Nursing No Action Required 03/12/19 20:48 03/12/19 20:55 03/12/19 21:00 Temperature Temperature Source Pulse Rate 64 70 Pulse Rate [Left Apical] Pulse Rate from SpO2 Sensor Respiratory Rate 21 17 Respiratory Effort / Characteristics Respiratory Depth Respiratory Pattern Blood Pressure Blood Pressure [Right Arm] Blood Pressure Mean Blood Pressure Mean [Right Arm] Blood Pressure Position [Right Arm] Pulse Oximetry 97 92 Oxygen Delivery Method Room Air Oxygen Flow Rate Sepsis Recent Fever Within 48 Hours Sepsis New/Unexplained Change in Mental Status Sepsis Action Taken by Nursing 03/12/19 21:01 03/12/19 21:20 03/12/19 21:23 Temperature Temperature Source Pulse Rate 68 87 73 Pulse Rate [Left Apical] Pulse Rate from SpO2 Sensor Respiratory Rate 16 24 21 Respiratory Effort / Characteristics Respiratory Depth Respiratory Pattern Blood Pressure 194/123 H 219/109 H Blood Pressure [Right Arm] Blood Pressure Mean 149 172 Blood Pressure Mean [Right Arm] Blood Pressure Position [Right Arm] Pulse Oximetry 94 96 Oxygen Delivery Method Oxygen Flow Rate Sepsis Recent Fever Within 48 Hours Sepsis New/Unexplained Change in Mental Status Sepsis Action Taken by Nursing 03/12/19 21:30 03/12/19 21:45 03/12/19 21:54 Temperature Temperature Source Pulse Rate 72 71 87 Pulse Rate [Left Apical] Pulse Rate from SpO2 Sensor 72 86 Respiratory Rate 13 21 20 Respiratory Effort / Characteristics Respiratory Depth Respiratory Pattern Blood Pressure 225/101 H 241/89 H 225/82 H Blood Pressure [Right Arm] Blood Pressure Mean 142 113 104 Blood Pressure Mean [Right Arm] Blood Pressure Position [Right Arm] Pulse Oximetry 95 87 L Oxygen Delivery Method Oxygen Flow Rate Sepsis Recent Fever Within 48 Hours Sepsis New/Unexplained Change in Mental Status Sepsis Action Taken by Nursing 03/12/19 22:00 03/12/19 22:24 03/12/19 22:30 Temperature Temperature Source Pulse Rate 80 109 H Pulse Rate [Left Apical] 85 Pulse Rate from SpO2 Sensor 79 110 H Respiratory Rate 17 24 Respiratory Effort / Characteristics Respiratory Depth Respiratory Pattern Blood Pressure Blood Pressure [Right Arm] 236/83 H Blood Pressure Mean Blood Pressure Mean [Right Arm] 134 Blood Pressure Position [Right Arm] Lying Pulse Oximetry 97 99 Oxygen Delivery Method Oxygen Flow Rate Sepsis Recent Fever Within 48 Hours Sepsis New/Unexplained Change in Mental Status Sepsis Action Taken by Nursing 03/12/19 22:40 03/12/19 23:23 03/12/19 23:30 Temperature Temperature Source Pulse Rate Pulse Rate [Left Apical] 83 80 82 Pulse Rate from SpO2 Sensor Respiratory Rate 18 18 20 Respiratory Effort / Characteristics Non-Labored Spontaneous Respiratory Depth Normal Normal Normal Respiratory Pattern Regular Blood Pressure Blood Pressure [Right Arm] 180/80 H 206/97 H 174/79 H Blood Pressure Mean Blood Pressure Mean [Right Arm] 113 133 110 Blood Pressure Position [Right Arm] Pulse Oximetry 98 99 99 Oxygen Delivery Method Nasal Cannula Nasal Cannula Nasal Cannula Oxygen Flow Rate 4 4 4 Sepsis Recent Fever Within 48 Hours Sepsis New/Unexplained Change in Mental Status Sepsis Action Taken by Nursing 03/12/19 23:45 Temperature Temperature Source Pulse Rate Pulse Rate [Left Apical] 79 Pulse Rate from SpO2 Sensor Respiratory Rate 18 Respiratory Effort / Characteristics Respiratory Depth Normal Respiratory Pattern Blood Pressure Blood Pressure [Right Arm] 179/58 H Blood Pressure Mean Blood Pressure Mean [Right Arm] 98 Blood Pressure Position [Right Arm] Pulse Oximetry 97 Oxygen Delivery Method Nasal Cannula Oxygen Flow Rate 4 Sepsis Recent Fever Within 48 Hours Sepsis New/Unexplained Change in Mental Status Sepsis Action Taken by Nursing GENERAL: sitting up in bed, anxious and tearful, following commands EYE EXAM: normal conjunctiva, EOM's intact. Left pupil oblique and larger than right OROPHARYNX: no exudate, no erythema, lips, buccal mucosa, and tongue normal and mucous membranes are moist NECK: supple, no nuchal rigidity, no adenopathy, non-tender LUNGS: Clear to auscultation. Normal chest wall mechanics HEART: no murmurs, S1 normal and S2 normal ABDOMEN: abdomen soft, non-tender, normo-active bowel sounds, no masses, no rebound or guarding. BACK: Back is symmetrical on inspection and there is no deformity, no midline tenderness, no CVA tenderness. SKIN: no rashes and no bruising UPPER EXTREMITIES: upper extremities are grossly normal. LOWER EXTREMITIES: No pitting edema. NEURO EXAM: Oriented to person, place, but not year. cranial nerves II-XII intact, normal speech, no weakness of arms, no weakness of legs. No drift. Finger to nose intact. Gross sensation intact. Course Course ED COURSE: Vital signs were reviewed and showed hypertension. The patients medical record was reviewed The above diagnostic studies were performed and reviewed. ED treatments and interventions as stated above. 2044: The patient was evaluated in room B11B. A complete history and physical examination was performed. 2156: The patient is still hypertensive and hypoxic, so she was put on nasal cannula. 2223: The patient is throwing up and feels sick. She will receive Zofran to help with her nausea. 1: I spoke to Natalie Akins, [facility] hospitalist, regarding the patient. She agreed to take over care and further evaluate the patient. 2210: Upon reevaluation, the patient is resting in bed. I discussed my findings with the patient and her daughter, and they understands and agree with the treatment plan. Based on the patients age, coexisting illnesses, exam and lab findings the decision to treat as an inpatient was made. The patient remained stable while under my care. The patient will be evaluated for further management. Administered Medications Ioversol (Optiray 320 125ml) 120 ml IV ONCE PRN PRN Reason: Interaction Checking Stop: 03/16/19 22:13 Last Admin: 03/12/19 22:15 Dose: 120 ml Documented by: [id number] Discontinued Medications Sodium Chloride (Nss 1000ml) 2,000 mls @ 999 mls/hr IV .Q2H1M KEVIN Stop: 03/12/19 23:00 Last Infusion: 03/12/19 23:33 Dose: 0 mls/hr Documented by: [id number] Admin: 03/12/19 21:30 Dose: 999 mls/hr Documented by: [id number] Labetalol HCl (Normodyne) 10 mg IV NOW STA Stop: 03/12/19 21:39 Last Admin: 03/12/19 21:46 Dose: 10 mg Documented by: [id number] Cosigned by: [id number] Labetalol HCl (Normodyne) 10 mg IV NOW STA Stop: 03/12/19 22:22 Last Admin: 03/12/19 22:32 Dose: 10 mg Documented by: [id number] Cosigned by: [id number] Ondansetron HCl (Zofran) 4 mg IV NOW STA Stop: 03/12/19 21:24 Last Admin: 03/12/19 21:30 Dose: 4 mg Documented by: [id number] Ondansetron HCl (Zofran) 4 mg IV NOW STA Stop: 03/12/19 22:22 Last Admin: 03/12/19 22:30 Dose: 4 mg Documented by: [id number] Critical Care Time Critical Care Time: Yes Total Critical Care Time: 32 I have personally spent 32 minutes of critical care time in the direct management of this patient. This includes bedside care, interpretation of diagnostic studies, and testing, discussion with consultants, patient, and family members, and other required patient management activities. This 32 mi nutes is in excess of all separately billable procedures. Medical Decision Making Differential Diagnosis Differential diagnosis includes: metabolic, infection, hypoglycemia, electrolyte abnormalities, cardiac sources, intracerebral event, toxicologic, neurologic, as well as others were entertained. Medical Records Attestation: I reviewed the patient's medical records. Home Medications Current Medication List: was personally reviewed by me Laboratory Data Attestation: I reviewed the patient's lab results. Result diagrams: 03/12/19 21:00 03/12/19 21:00 Lab Results 03/12/19 03/12/19 03/12/19 Range/Units 21:00 21:00 21:00 WBC 8.95 (4.8-10.8) K/uL RBC 3.69 L (4.2-5.4) M/uL Hgb 10.8 L (12.0-16.0) g/dL Hct 33.3 L (37-47) % MCV 90.2 (80-100) fL MCH 29.3 (25-34) pg MCHC 32.4 (32-36) g/dL RDW Std Deviation 48.9 H (36.4-46.3) fL RDW Coeff of Kwasi 14.9 H (11.5-14.5) % Plt Count 225 (130-400) K/uL MPV 9.8 (7.4-10.4) fL Immature Gran % (Auto) 0.2 % Neut % (Auto) 61.4 % Lymph % (Auto) 30.2 % [place] % (Auto) 6.8 % Eos % (Auto) 1.2 % Baso % (Auto) 0.2 % Immature Gran # (Auto) 0.02 (0.00-0.02) K/uL Neut # (Auto) 5.49 (1.4-6.5) K/uL Lymph # (Auto) 2.70 (1.2-3.4) K/uL [place] # (Auto) 0.61 H (0.11-0.59) K/uL Eos # (Auto) 0.11 (0-0.5) K/uL Baso # (Auto) 0.02 (0-0.2) K/uL PT 10.5 (9.0-12.0) Seconds INR 1.0 (0.9-1.1) D-Dimer (0-500) ug/L FEU Sodium 142 (136-145) mmol/L Potassium 3.6 (3.5-5.1) mmol/L Chloride 107 (98-107) mmol/L Carbon Dioxide 29 (21-32) mmol/L Anion Gap 6.0 (3-11) BUN 26 H (7-18) mg/dl Creatinine 1.38 H (0.6-1.2) mg/dl Est Cr Clr Drug Dosing Not Reportable Est GFR ( Amer) 40.9 Est GFR (Non-Af Amer) 35.3 BUN/Creatinine Ratio 18.6 (10-20) Glucose 102 H (70-99) mg/dl Calcium 9.5 (8.5-10.1) mg/dl Total Bilirubin 0.3 (0.2-1) mg/dl AST 12 L (15-37) U/L ALT 14 (12-78) U/L Alkaline Phosphatase 48 (45-117) U/L Troponin I < 0.015 (0-0.045) ng/ml Total Protein 6.7 (6.4-8.2) gm/dl Albumin 3.6 (3.4-5.0) gm/dl Globulin 3.1 (2.5-4.0) gm/dl Albumin/Globulin Ratio 1.2 (0.9-2) Urine Color Urine Appearance (Clear) Urine pH (4.5-7.5) Ur Specific [place] (1.000-1.030) Urine Protein (Negative) Urine Glucose (UA) (Negative) Urine Ketones (Negative) Urine Blood (Negative) Urine Nitrite (Negative) Urine Bilirubin (Negative) Urine Urobilinogen (Negative) Ur Leukocyte Esterase (Negative) Urine RBC (0-4) /hpf Urine WBC (0-5) /hpf Ur Epithelial Cells (0-5) /lpf Urine Bacteria (Negative) 03/12/19 03/12/19 Range/Units 21:00 21:00 WBC (4.8-10.8) K/uL RBC (4.2-5.4) M/uL Hgb (12.0-16.0) g/dL Hct (37-47) % MCV (80-100) fL MCH (25-34) pg MCHC (32-36) g/dL RDW Std Deviation (36.4-46.3) fL RDW Coeff of Kwasi (11.5-14.5) % Plt Count (130-400) K/uL MPV (7.4-10.4) fL Immature Gran % (Auto) % Neut % (Auto) % Lymph % (Auto) % [place] % (Auto) % Eos % (Auto) % Baso % (Auto) % Immature Gran # (Auto) (0.00-0.02) K/uL Neut # (Auto) (1.4-6.5) K/uL Lymph # (Auto) (1.2-3.4) K/uL [place] # (Auto) (0.11-0.59) K/uL Eos # (Auto) (0-0.5) K/uL Baso # (Auto) (0-0.2) K/uL PT (9.0-12.0) Seconds INR (0.9-1.1) D-Dimer 410 (0-500) ug/L FEU Sodium (136-145) mmol/L Potassium (3.5-5.1) mmol/L Chloride (98-107) mmol/L Carbon Dioxide (21-32) mmol/L Anion Gap (3-11) BUN (7-18) mg/dl Creatinine (0.6-1.2) mg/dl Est Cr Clr Drug Dosing Est GFR ( Amer) Est GFR (Non-Af Amer) BUN/Creatinine Ratio (10-20) Glucose (70-99) mg/dl Calcium (8.5-10.1) mg/dl Total Bilirubin (0.2-1) mg/dl AST (15-37) U/L ALT (12-78) U/L Alkaline Phosphatase (45-117) U/L Troponin I (0-0.045) ng/ml Total Protein (6.4-8.2) gm/dl Albumin (3.4-5.0) gm/dl Globulin (2.5-4.0) gm/dl Albumin/Globulin Ratio (0.9-2) Urine Color Yellow Urine Appearance Clear (Clear) Urine pH 7.0 (4.5-7.5) Ur Specific [place] <= 1.005 (1.000-1.030) Urine Protein Negative (Negative) Urine Glucose (UA) Negative (Negative) Urine Ketones Negative (Negative) Urine Blood Negative (Negative) Urine Nitrite Negative (Negative) Urine Bilirubin Negative (Negative) Urine Urobilinogen Negative (Negative) Ur Leukocyte Esterase Trace H (Negative) Urine RBC 0-4 (0-4) /hpf Urine WBC 5-10 H (0-5) /hpf Ur Epithelial Cells 20-30 H (0-5) /lpf Urine Bacteria 1+ H (Negative) Imaging Data Radiologist's Impression: Radiology results as stated below per my review and the radiologist's interpretation: CT head/brain wo con CT DOSE: 537.48 mGy.cm HISTORY: Mental status change ams TECHNIQUE: Multiaxial CT images of the head were performed without the use of intravenous contrast. A dose lowering technique was utilized adhering to the principles of ALARA. Comparison: 04/27/2018 Findings: The paranasal sinuses and mastoid air cells are clear. Chronic small v essel change. Chronic ventricular prominence unchanged. Age-related atrophy and chronic small vessel change. No acute intracranial hemorrhage. Impression: Chronic and age-related change. No acute process. The above report was generated using voice recognition software. It may contain grammatical, syntax or spelling errors. Electronically signed by: Byron Garcia M.D. 03/12/2019 9:18 PM XR chest 1V portable CLINICAL HISTORY: weak COMPARISON STUDY: 09/23/2018 FINDINGS: The bones soft tissues and hemidiaphragms are normal. The cardiomediastinal silhouette is normal. The lungs are clear. The pulmonary vasculature is normal. IMPRESSION: Negative chest. The above report was generated using voice recognition software. It may contain grammatical, syntax or spelling errors. Electronically signed by: Byron Garcia M.D. 03/12/2019 9:[address] angio chest PE protocol CT DOSE: 334.41 mGy.cm HISTORY: Dyspnea hypoxic htn TECHNIQUE: Multiaxial CT images of the chest were performed following the intravenous administration of contrast to evaluate the pulmonary arteries. Maximal intensity projection images were also obtained. A dose lowering technique was utilized adhering to the principles of ALARA. COMPARISON STUDY: None. FINDINGS: Mild atherosclerotic change thoracic aorta. Pulmonary vasculature enhances appropriately. There is a small filling defect lateral aspect right mainstem bronchus image 123. This appear to represent chronic vascular scarring rather than pulmonary embolus. Evaluation of the lung parenchyma shows evidence for emphysematous change. There are no focal infiltrative changes. There are slight peribronchial and basilar interstitial and peribronchial prominence. IMPRESSION: 1. No evidence of pulmonary embolus. 2. Emphysematous change with components of interstitial and mild peribronchial change of the mid to lower lung regions bilaterally. 3. No evidence for consolidative infiltrate. The above report was generated using voice recognition software. It may contain grammatical, syntax or spelling errors. Electronically signed by: Byron Garcia M.D. 03/12/2019 10:25 PM ECG Data Attestation: I personally reviewed and interpreted this ECG as follows: Indication: + altered mental status Rate (beats per minute): 62 Rhythm: + normal sinus ECG Intervals/blocks: + Normal QT ECG [place]: + Normal ECG Findings: no PVCs Blood Pressure Blood Pressure Findings: Elevated blood pressure Blood Pressure Disposition: further management by hospitalist LONI Saunders Patient is an 84-year-old female who presents the ER from [facility] for confusion and reported hypotension. Upon arrival she is found to be hypertensive with systolic blood pressures of 240. She is oriented to person place but not year and has been mixing up who her daughter is. IV was established blood work was obtained and showed a mild anemia 10.8. No significant leukocytosis. INR was unremarkable. BMP with creatinine 1.38 and a slightly elevated BUN. Troponin was negative. Patient was given 900 cc of IV fluids. Initially upon arrival she dropped her pulse ox to 74 extremely brief period of time. Uncertain if this was a true/good waveform. She did this once more and after prolonged period of time she dropped down to 86% and remain there. She was placed on 2 to 3 L nasal cannula. UA was negative. CT head and chest x-ray were unremarkable. No focal infiltrate on chest x-ray. CT of the chest was performed due to the intermittent hypoxia although a negative d-dimer and showed no PE no significant infiltrate. Patient was given 2 doses of labetalol due to the systolic blood pressures of 240. It trended down to 180. She was discussed with the hospitalist and they are updated bedside. She was admitted for altered mental status with hypertensive emergency. Impression & Plan Altered mental status, Hypoxia, Hypertensive urgency Discharge Plan Visit Data Chief Complaint: Confusion Stated Complaint: LOW BP 90/40, CONFUSED, DEHYDRATED ED Provider: Manfred Thorpe Discharge Problem: Altered mental status, Hypoxia, Hypertensive urgency Forms Stand Alone Forms: [facility] Prescriptions Prescriptions: No Action risedronate 150 mg tablet 150 mg PO MONTHLY RF: 0 Saccharomyces boulardii 250 mg Capsule 250 mg PO DAILY RF: 0 sertraline 100 mg tablet 100 mg PO DAILY RF: 0 verapamil 120 mg tablet 120 mg PO QAM RF: 0 cholecalciferol (vitamin D3) [Vitamin D3] 5,000 unit Tablet 5,000 unit PO DAILY RF: 0 lansoprazole 30 mg capsule,delayed release(DR/EC) 30 mg PO DAILY RF: 0 docusate sodium 100 mg Tablet 100 mg PO BID RF: 0 levothyroxine 75 mcg tablet 75 mcg PO DAILY RF: 0 lisinopril 20 mg tablet 20 mg PO DAILY RF: 0 melatonin 10 mg Tablet 10 mg PO HS RF: 0 metoprolol tartrate 25 mg tablet 25 mg PO BID RF: 0 sodium chloride [Tigre 128] 5 % Drops 1 drp OPB HS RF: 0 calcium carbonate [Oysco-500] 500 mg calcium (1,250 mg) Tablet 500 mg PO BID RF: 0 prednisone 5 mg tablet 5 mg PO DAILY RF: 0 acetaminophen [Tylenol Arthritis Pain] 650 mg Tablet Extended Release 650 mg PO BID MDD 3G RF: 0 loperamide [Imodium A-D] 2 mg Tablet 2 mg PO Q3H PRN (Reason: Diarrhea) RF: 0 Cough Drops 5 mg Lozenge 5 mg mucous membrane Q2H PRN (Reason: Dry Mouth) RF: 0 ibuprofen 200 mg Tablet 200 mg PO Q4H PRN (Reason: Pain) RF: 0 guaifenesin [Mucinex] 600 mg Tablet Extended Release 12hr 600 mg PO Q12H PRN (Reason: Congestion) RF: 0 nystatin [Nystop] 100,000 unit/gram Powder 1 applic TOPICAL BID PRN (Reason: Skin Irritation) RF: 0 ondansetron 4 mg Tablet,Disintegrating 4 mg PO Q6H PRN (Reason: Nausea And Vomiting) RF: 0 Salonpas 3.1-10-6 % Adhesive Patch,Medicated 1 patch TOPICAL DAILY PRN (Reason: Pain) RF: 0 benzonatate [Tessalon Perles] 100 mg Capsule 100 mg PO TID PRN (Reason: Cough) RF: 0 fluticasone propionate 50 mcg/actuation spray,suspension 1 spray INTRANASAL DAILY RF: 0 Referrals Referrals: Marcela Beckford [Primary Care Provider] - Discharge Problem: Altered mental status Qualifiers: Altered mental status type: disorientation Qualified Code(s): R41.0 - Disorientation, unspecified The scribe's documentation has been prepared under my direction and personally reviewed by me in its entirety. I confirm that the note above accurately reflects all work, treatment, procedures, and medical decision making performed by me.
[2019-03-13] MEDS ORDERED: NYSTATIN POWDER 15GM BTL EXT PRN (00:50)
[2019-03-13] MEDS ORDERED: HydrALAZINE 10 MG TAB PO PRN (00:50)
[2019-03-13] MEDS ORDERED: ONDANSETRON 4 MG OD TAB PO PRN (01:03)
[2019-03-13] MEDS ORDERED: COUGH DROP (SUGAR FREE) LOZ 24 LOZ/1 BOX BUCCAL PRN (01:10)
[2019-03-13] MEDS: METOPROLOL TARTRATE 25 MG TAB PO SCH ×3 (01:24→20:48)
[2019-03-13] MEDS: cefTRIAXone SODIUM 1,000 MG in DEXTROSE 5% 50 ML IV SCH (01:24)
--- NOTE | 2019-03-13 03:00 | Billing Data ---
Coding Level of Care Code 85563 Initial Inpt Care Lvl 3
[2019-03-13] MEDS: LEVOTHYROXINE SODIUM 75 MCG TABLET PO SCH (05:35)
[2019-03-13] MEDS: ALBUT/IPRATROP 3MG/0.5MG NEB 3 ML VIAL NEB SCH ×4 (06:54→19:30)
[2019-03-13 08:20] LABS: BUN Creatinine Ratio 18.8 (10-20); Calcium 9.4 mg/dl (8.5-10.1); Creatinine Clr Calc Pharmacy 33.6 ml/min; Est GFR (African American) 53.2; Est GFR (Non-African American) 45.9; Potassium 3.5 mmol/L (3.5-5.1)
--- NOTE | 2019-03-13 08:30 | Medical Student Progress Note ---
Date of Service March 13, 2019 Assessment & Plan (1) Altered mental status: 84 y/o female with a history of hypertension, anemia, hypothyroidism, IBS, diverticulosis, GERD, polymyalgia rheumatica, rheumatoid arthritis, IBS, diverticulosis, vitamin D deficiency, degenerative joint disease, admitted following confusion and disoriented state at assisted living facility Altered mental status, metabolic encephalopathy no focal neurologic deficits no significant derangement of electrolyte levels Head CT: Chronic and age-related change. No acute process. hx of dementia diagnosis uncertain, not documented Likely secondary to UTI supportive care probable UTI started ceftriaxone 1000mg IV Q24H urine culture: gram negative bacilli waiting for sensitivities to adjust abx as needed Accelerated Hypertension possibly sec to agitation from Mental status change on admission: BP 209/78 given labetolol 10mg IV x2 in ED and given hydralazine 10mg PO Q6H x1, PRN if SBP>180, DBP>110 BP improved. continue metoprolol 25mg PO BID continue verapamil 120mg PO QAM restart lisinopril 20mg PO QAM now that BUN and Cr WNL continue to monitor BP titrate medications as needed hypoxia 03/12: O2sat 87% on room air CTA: No evidence of pulmonary embolus. Emphysematous change with components of interstitial and mild peribronchial change of the mid to lower lung regions bilaterally. No evidence for consolidative infiltrate. Resolved FEN/GI: no fluids needed, Heart healthy diet DVT prophylaxis: SCDs only low risk Code: DNR/DNI discussion with patient and daughter -she has POLST form at [facility] Position: MedSurg with telemetry, PT OT ordered Altered mental status type: disorientation Qualified Code(s): R41.0 - Disorientation, unspecified (2) Hypoxia: (3) Hypertensive urgency: (4) HTN (hypertension): (5) Acute kidney injury: (6) Polymyalgia rheumatica: Supervising Attestation Medical student Supervision Note: I independently interviewed and examined the patient and verified the bass history and physical, reviewed labs and image studies, discussed the case with Amrik Caruso and agree with the findings and care plan. confused. likely with underlying dementia. continue IV ceftriaxone for UTI BP improved. Subjective Ms. Adry Stratton is a 84 y/o female with a history of hypertension, anemia, hypothyroidism, IBS, diverticulosis, GERD, polymyalgia rheumatica, rheumatoid arthritis,vitamin D deficiency, degenerative joint disease, who was admitted 03/12 following confusion by staff at the assisted living facility.Pt had a poor recent memory and couldn't recall why was she was admitted and states "I must be here because I'm sick". Pt states she thinks she was brought in by her and daughter, but cannot recall what happened for her and daughter to bring her in. Pt's history of dementia is unclear, not documented. Previous reports describe that staff the assisted living facility state that she was confused, disoriented, stating she felt her diaper was wet and needed a change though it was dry. Pt does not endorse any f/c, no n/v, no SOB, no CP, no issues with urination or bowel movement. Pt states she has a headache but has a difficult time describing her headache. Pt states she feels weak and dizzy but has a difficult time describing her weakness and dizziness. Review of Systems Constitutional: + weakness Eyes: no worsening vision Respiratory: no dyspnea Cardiovascular: no chest pain Gastrointestinal: no change in bowel habits Genitourinary: no dysuria and no difficulty urinating Neurologic: + dizziness Physical Exam Constitutional: + frail appearing; no acute distress Eyes: no conjunctival abnormality, no scleral abnormality, normal light reflex and no fundoscopic abnormality left pupil larger than right pupil ENMT: Ears: no hearing impairment Respiratory: normal respiratory effort, lungs clear to auscultation Cardiovascular: Rate/Rhythm: regular rate and regular rhythm Heart Sounds: normal S2 and + murmur (systolic murmur) Vessels: no carotid bruit Extremities: + edema Gastrointestinal (Abdomen): Inspection/Auscultation: normal bowel sounds; abdomen not distended Percussion/Palpation: abdomen nontender Neurologic: CN's II-XI intact bilaterally; no focal motor deficits Billy r/Sensory: + sensory deficit (right lower extremity) Cranial Nerves: tongue midline, no nystagmus and symmetric palate elevation Coordination: normal [id number] test Psychiatric: Orientation: alert, oriented to person and oriented to place; + not oriented to time Cognition: remote memory grossly intact; + recent memory not intact Insight: + poor insight Results & Data Vital Signs (Past 12 Hours) Vital Signs Temp Pulse Pulse Pulse Resp BP BP 03/13/19 07:48 36.9 C 62 18 154/74 H 11/21/19 07:34 63 03/13/19 06:54 88 18 03/13/19 03:15 36.5 C 60 18 03/13/19 01:02 73 03/13/19 00:34 36.6 C 80 20 03/13/19 00:12 81 20 182/76 H 03/12/19 23:45 79 18 03/12/19 23:30 82 20 03/12/19 23:23 80 18 03/12/19 22:40 83 18 03/12/19 22:30 85 03/12/19 22:24 109 H 24 03/12/19 22:00 80 17 03/12/19 21:54 87 20 225/82 H 03/12/19 21:45 71 21 241/89 H 03/12/19 21:30 72 13 225/101 H 03/12/19 21:23 73 21 219/109 H 03/12/19 21:20 87 24 03/12/19 21:01 68 16 194/123 H 03/12/19 21:00 70 17 03/12/19 20:48 64 21 03/12/19 20:46 64 25 H 213/92 H 03/12/19 20:28 37.0 C 66 20 209/78 H BP Pulse Ox 03/13/19 07:48 97 03/13/19 07:34 03/13/19 06:54 94 03/13/19 03:15 126/77 99 03/13/19 01:02 03/13/19 00:34 180/72 H 96 03/13/19 00:12 99 03/12/19 23:45 179/58 H 97 03/12/19 23:30 174/79 H 99 03/12/19 23:23 206/97 H 99 03/12/19 22:40 180/80 H 98 03/12/19 22:30 236/83 H 03/12/19 22:24 99 03/12/19 22:00 97 03/12/19 21:54 87 L 03/12/19 21:45 95 03/12/19 21:30 03/12/19 21:23 96 03/12/19 21:20 03/12/19 21:01 94 03/12/19 21:00 92 03/12/19 20:48 97 03/12/19 20:46 97 03/12/19 20:28 96
[2019-03-13] MEDS: SACCHAROMYCES BOULARDII 250 MG CAP PO SCH (08:34)
[2019-03-13] MEDS: SERTRALINE HCL 100 MG TABLET PO SCH (08:34)
[2019-03-13] MEDS: predniSONE 5 MG TAB PO SCH (08:34)
[2019-03-13] MEDS: PANTOprazole 40 MG TAB PO SCH (08:35)
[2019-03-13] MEDS: VERAPAMIL HCL 40 MG TAB PO SCH (08:35)
[2019-03-13] MEDS: CALCIUM CARBONATE 1250MG TAB PO SCH ×2 (08:35→21:57)
[2019-03-13] MEDS: CHOLECALCIFEROL 1,000 UNITS TAB PO SCH (08:36)
[2019-03-13] MEDS: ACETAMINOPHEN 325 MG TAB PO SCH ×2 (08:37→20:49)
[2019-03-13] MEDS: FLUTICASONE PROPIONATE NA SPR 16 GM BTL SCH (08:38)
[2019-03-13] MEDS: LISINOPRIL 20 MG TAB PO SCH (11:27)
[2019-03-13] MEDS: SODIUM CHLORIDE 5% OP SOLN 15 ML BTL OPB SCH (20:49)
[2019-03-14] MEDS: cefTRIAXone SODIUM 1,000 MG in DEXTROSE 5% 50 ML IV SCH (00:40)
[2019-03-14] MEDS: LEVOTHYROXINE SODIUM 75 MCG TABLET PO SCH (06:16)
[2019-03-14] MEDS: ALBUT/IPRATROP 3MG/0.5MG NEB 3 ML VIAL NEB SCH ×4 (07:21→19:19)
[2019-03-14] MEDS: CHOLECALCIFEROL 1,000 UNITS TAB PO SCH (07:51)
[2019-03-14] MEDS: FLUTICASONE PROPIONATE NA SPR 16 GM BTL SCH (07:51)
[2019-03-14] MEDS: CALCIUM CARBONATE 1250MG TAB PO SCH ×2 (07:51→20:38)
[2019-03-14 07:52] LABS: Hematocrit (blood only) 32.8 % (37-47); Hemoglobin 10.7 g/dL (12.0-16.0); Mean Corpuscular Hemoglobin 29.8 pg (25-34); Mean Corpuscular Hgb Conc 32.6 g/dL (32-36); Mean Corpuscular Volume 91.4 fL (80-100); Mean Platelet Volume 9.3 fL (7.4-10.4); Platelet Count 169 K/uL (130-400); RDW Coefficient of Variation 14.9 % (11.5-14.5); RDW Standard Deviation 49.9 fL (36.4-46.3); Red Blood Count 3.59 M/uL (4.2-5.4); White Blood Count 7.77 K/uL (4.8-10.8)
[2019-03-14] MEDS: METOPROLOL TARTRATE 25 MG TAB PO SCH ×2 (07:52→20:39)
[2019-03-14] MEDS: LISINOPRIL 20 MG TAB PO SCH (07:52)
[2019-03-14] MEDS: SACCHAROMYCES BOULARDII 250 MG CAP PO SCH (07:52)
[2019-03-14] MEDS: PANTOprazole 40 MG TAB PO SCH (07:53)
[2019-03-14] MEDS: predniSONE 5 MG TAB PO SCH (07:53)
[2019-03-14] MEDS: SERTRALINE HCL 100 MG TABLET PO SCH (07:53)
[2019-03-14] MEDS: ACETAMINOPHEN 325 MG TAB PO SCH ×2 (07:54→20:44)
[2019-03-14] MEDS: VERAPAMIL HCL 40 MG TAB PO SCH (07:56)
[2019-03-14 08:17] LABS: BUN Creatinine Ratio 22.4 (10-20); Calcium 9.3 mg/dl (8.5-10.1); Creatinine Clr Calc Pharmacy 39.7 ml/min; Est GFR (African American) 65.9; Est GFR (Non-African American) 56.8; Potassium 3.2 mmol/L (3.5-5.1)
--- NOTE | 2019-03-14 10:09 | Hospitalist Progress Note ---
Date of Service March 14, 2019 Assessment & Plan (1) Altered mental status: 84 y/o female with a history of hypertension, anemia, hypothyroidism, IBS, diverticulosis, GERD, polymyalgia rheumatica, rheumatoid arthritis, IBS, diverticulosis, vitamin D deficiency, degenerative joint disease, admitted following confusion and disoriented state at assisted living facility Possible metabolic encephalopathy secondary to UTI/Hypoxia no focal neurologic deficits no significant derangement of electrolyte levels Head CT: Chronic and age-related change. No acute process. hx of dementia diagnosis uncertain, not documented Likely secondary to UTI supportive care UTI continue ceftriaxone 1000mg IV Q24H urine culture: gram negative bacilli waiting for sensitivities to adjust abx as needed Accelerated Hypertension possibly sec to agitation from Mental status change on admission: BP 209/78 given labetolol 10mg IV x2 in ED and given hydralazine 10mg PO Q6H x1, PRN if SBP>180, DBP>110 BP improved. continue metoprolol 25mg PO BID continue verapamil 120mg PO QAM restarted lisinopril 20mg PO QAM now that BUN and Cr WNL continue to monitor BP titrate medications as needed hypoxia 03/12: O2sat 87% on room air CTA: No evidence of pulmonary embolus. Emphysematous change with components of interstitial and mild peribronchial change of the mid to lower lung regions bilaterally. No evidence for consolidative infiltrate. Resolved FEN/GI: no fluids needed, Heart healthy diet DVT prophylaxis: SCDs only low risk Code: DNR/DNI discussion with patient and daughter -she has POL[facility] form at [facility] Position: MedSurg with telemetry, PT OT ordered (2) HTN (hypertension): (3) Hypoxia: (4) Hypertensive urgency: Supervising Physician Co-Signing Physician Notes Resident Physician Supervision Note: I independently interviewed and examined the patient and verified the bass history and physical, reviewed labs and image studies, discussed the case with the resident Dr. Vaca and agree with the findings and care plan. Subjective Pt without acute events overnight. Still is confused why she is in the hospital but can tell me her name and states that nothing is bothering her. Denies fevers or chills, SOB, CP, abdominal pain, diarrhea or constipation. Per conversation with pt's daughter over the phone the patient is normally alert and oriented to self and place and is fairly independent at the nursing facility, save for help with some ADLs such as putting on shoes and showering. Has recently been getting more tearful and confused in the nighttime. Review of Systems Constitutional: no fever and no chills Respiratory: no cough, no dyspnea and no wheezing Cardiovascular: no chest pain, no syncope and no edema Gastrointestinal: no abdominal pain, no nausea, no vomiting, no constipation and no diarrhea/loose stools Genitourinary: + urinary frequency (reported by daughter on phone conversation.); no dysuria Physical Exam Constitutional: WD/WN, vitals as above Respiratory: normal respiratory effort, lungs clear to auscultation Cardiovascular: RRR, no murmur, no edema Gastrointestinal (Abdomen): normal bowel sounds, soft, nontender, no hepatosplenomegaly no suprapubic or CVA tenderness Skin: no rashes, warm and dry Neurologic: alert and oriented to self at this time. Psychiatric: Affect: euthymic affect Results & Data Vital Signs (Past 12 Hours) Vital Signs Temp Pulse Pulse Resp BP Pulse Ox 03/14/19 08:57 73 03/14/19 07:49 36.8 C 62 18 167/67 H 96 03/14/19 07:24 57 L 18 97 03/14/19 05:36 99 H 03/14/19 04:14 37.2 C 75 18 154/72 H 92 03/13/19 23:58 36.9 C 87 18 151/71 H 95 Resident Activity Tracking Resident Involvement: Resident Care Provided Care Provided: Adult Hospital Medicine (1) Altered mental status Altered mental status type: disorientation Qualified Code(s): R41.0 - Disorientation, unspecified
[2019-03-14] MEDS ORDERED: POTASSIUM CHLORIDE 20 MEQ TABCR PO STA (10:15)
[2019-03-14] MEDS: cephALEXin 500 MG CAP PO SCH (20:38)
[2019-03-14] MEDS: SODIUM CHLORIDE 5% OP SOLN 15 ML BTL OPB SCH (20:39)
[2019-03-15] MEDS: LEVOTHYROXINE SODIUM 75 MCG TABLET PO SCH (06:25)
[2019-03-15] MEDS: ALBUT/IPRATROP 3MG/0.5MG NEB 3 ML VIAL NEB SCH ×4 (06:59→20:37)
[2019-03-15] MEDS: VERAPAMIL HCL 40 MG TAB PO SCH (07:37)
[2019-03-15] MEDS: predniSONE 5 MG TAB PO SCH (07:37)
[2019-03-15] MEDS: LISINOPRIL 20 MG TAB PO SCH (07:37)
[2019-03-15] MEDS: FLUTICASONE PROPIONATE NA SPR 16 GM BTL SCH (07:38)
[2019-03-15] MEDS: CALCIUM CARBONATE 1250MG TAB PO SCH ×2 (07:38→21:24)
[2019-03-15] MEDS: cephALEXin 500 MG CAP PO SCH ×2 (07:38→21:23)
[2019-03-15] MEDS: METOPROLOL TARTRATE 25 MG TAB PO SCH ×2 (07:38→21:23)
[2019-03-15] MEDS: PANTOprazole 40 MG TAB PO SCH (07:38)
[2019-03-15] MEDS: CHOLECALCIFEROL 1,000 UNITS TAB PO SCH (07:38)
[2019-03-15] MEDS: SERTRALINE HCL 100 MG TABLET PO SCH (07:38)
[2019-03-15] MEDS: SACCHAROMYCES BOULARDII 250 MG CAP PO SCH (07:39)
[2019-03-15] MEDS: ACETAMINOPHEN 325 MG TAB PO SCH ×2 (07:43→21:26)
[2019-03-15 08:46] LABS: BUN Creatinine Ratio 21.7 (10-20); Calcium 9.7 mg/dl (8.5-10.1); Creatinine Clr Calc Pharmacy 36.9 ml/min; Est GFR (African American) 60.3; Est GFR (Non-African American) 52.1; Potassium 3.7 mmol/L (3.5-5.1)
--- NOTE | 2019-03-15 11:13 | Hospitalist Progress Note ---
Date of Service March 15, 2019 Assessment & Plan (1) Altered mental status: 84 y/o female with a history of hypertension, anemia, hypothyroidism, IBS, diverticulosis, GERD, polymyalgia rheumatica, rheumatoid arthritis, IBS, diverticulosis, vitamin D deficiency, degenerative joint disease, admitted following confusion and disoriented state at assisted living facility Possible metabolic encephalopathy secondary to infection -UTI and or Hypoxia no focal neurologic deficits no significant derangement of electrolyte levels Head CT: Chronic and age-related change. No acute process. hx of dementia diagnosis uncertain, not documented Likely secondary to UTI supportive care UTI continue ceftriaxone 1000mg IV Q24H urine culture: E coli waiting for sensitivities to adjust abx as needed Accelerated Hypertension possibly sec to agitation from Mental status change on admission: BP 209/78 given labetolol 10mg IV x2 in ED and given hydralazine 10mg PO Q6H x1, PRN if SBP>180, DBP>110 BP improved. continue metoprolol 25mg PO BID continue verapamil 120mg PO QAM restarted lisinopril 20mg PO QAM now that BUN and Cr WNL continue to monitor BP titrate medications as needed hypoxia 03/12: O2sat 87% on room air CTA: No evidence of pulmonary embolus. Emphysematous change with components of interstitial and mild peribronchial change of the mid to lower lung regions bilaterally. No evidence for consolidative infiltrate. Resolved FEN/GI: no fluids needed, Heart healthy diet DVT prophylaxis: SCDs only low risk Code: DNR/DNI discussion with patient and daughter -she has POLST form at [facility] Position: MedSurg with telemetry, PT OT ordered (2) HTN (hypertension): (3) Hypoxia: (4) Hypertensive urgency: Supervising Physician Co-Signing Physician Notes Resident Physician Supervision Note: I independently interviewed and examined the patient and verified the bass history and physical, reviewed labs and image studies, discussed the case with the resident Dr. Akins and agree with the findings and care plan. Subjective Interval history limited secondary to not being alert and oriented. No reported acute events overnight, patient is tolerating her diet, voiding, stooling, sleeping. Spoke with patient's daughter this morning she is wondering what her plans are for discharge, explained to her that we needed to address her blood pressure and heart rate and then she would be good for discharge. Spoke with case management today they stated the patient required a prescription for physical therapy on discharge. Anticipate discharge tomorrow. Otherwise all questions answered no acute concerns. Physical Exam Physical Exam: General: No acute distress HEENT: Normocephalic atraumatic Neck: No significant lymphadenopathy, trachea midline, normal to visual inspection Cardiac: Regular rate and rhythm, normal S1, normal S2, I did not appreciated any significant murmurs rubs or gallops, I did not appreciate any significant pedal edema, No calf tenderness, capillary refill is less than 3 seconds Respiratory: Clear to auscultation bilaterally with symmetrical chest rise, I did not appreciate any significant wheezes, rales, rhonchi, no increased work of breathing MSK: No sensory or motor changes, moves all extremities without issue, extremities are warm and well-perfused Skin: [place], clean, dry, intact. Neuro: Alert and oriented x4 Psych: Calm, cooperative, logical thought process Results & Data Vital Signs (Past 12 Hours) Vital Signs Temp Pulse Pulse Resp BP Pulse Ox 03/15/19 10:26 58 L 126/57 L 03/15/19 08:39 36.9 C 71 18 194/67 H 90 03/15/19 07:01 64 16 93 Laboratory Results 03/15/19 Range/Units 07:57 Sodium 141 (136-145) mmol/L Potassium 3.7 D (3.5-5.1) mmol/L Chloride 105 (98-107) mmol/L Carbon Dioxide 29 (21-32) mmol/L Anion Gap 7.0 (3-11) BUN 22 H (7-18) mg/dl Creatinine 1.00 (0.6-1.2) mg/dl Est Cr Clr Drug Dosing 36.9 ml/min Est GFR ( Amer) 60.3 Est GFR (Non-Af Amer) 52.1 BUN/Creatinine Ratio 21.7 H (10-20) Glucose 93 (70-99) mg/dl Calcium 9.7 (8.5-10.1) mg/dl Medications Administered Current Inpatient Medications Acetaminophen (Tylenol) 650 mg PO BID [facility] Stop: 04/12/19 08:59 Last Admin: 03/15/19 07:43 Dose: 650 mg Documented by: Albuterol (Duoneb) 3 ml NEB QIDR [facility] Stop: 04/12/19 06:59 Last Admin: 03/15/19 06:59 Dose: 3 ml Documented by: Calcium Carbonate (Os-Alexx 500) 1,250 mg PO BID [facility] Stop: 04/12/19 08:59 Last Admin: 03/15/19 07:38 Dose: 1,250 mg Documented by: Cephalexin HCl (Keflex) 500 mg PO BID [facility] Stop: 03/24/19 20:59 Last Admin: 03/15/19 07:38 Dose: 500 mg Documented by: Fluticasone Propionate (Flonase) 1 sprays NA DAILY [facility] Stop: 04/12/19 08:59 Last Admin: 03/15/19 07:38 Dose: 1 sprays Documented by: Hydralazine HCl (Apresoline) 10 mg PO Q6H PRN PRN Reason: SBP > 180 DBP > 110 Stop: 04/12/19 00:49 Levothyroxine Sodium (Synthroid) 75 mcg PO DAILYBB [facility] Stop: 04/12/19 06:29 Last Admin: 03/15/19 06:25 Dose: 75 mcg Documented by: Lisinopril (Zestril) 20 mg PO QAM [facility] Stop: 04/12/19 10:59 Last Admin: 03/15/19 07:37 Dose: 20 mg Documented by: Menthol (Nice) 1 tracy BUCCAL Q2H PRN PRN Reason: Cough Stop: 04/12/19 01:09 Metoprolol Tartrate (Lopressor) 25 mg PO BID [facility] Stop: 04/12/19 00:49 Last Admin: 03/15/19 07:38 Dose: 25 mg Documented by: Nystatin (Mycostatin) 1 appln EXT BID PRN PRN Reason: Skin Irritation Stop: 04/12/19 00:49 Ondansetron HCl (Zofran Odt) 4 mg PO Q6H PRN PRN Reason: Nausea And Vomiting Stop: 04/12/19 01:02 Pantoprazole Sodium (Protonix) 40 mg PO DAILY [facility] Stop: 04/12/19 08:59 Last Admin: 03/15/19 07:38 Dose: 40 mg Documented by: Prednisone (Prednisone) 5 mg PO DAILY [facility] Stop: 04/12/19 08:59 Last Admin: 03/15/19 07:37 Dose: 5 mg Documented by: Saccharomyces Boulardii (Florastor) 250 mg PO DAILY [facility] Stop: 04/12/19 08:59 Last Admin: 03/15/19 07:39 Dose: 250 mg Documented by: Sertraline HCl (Zoloft) 100 mg PO DAILY [facility] Stop: 04/12/19 08:59 Last Admin: 03/15/19 07:38 Dose: 100 mg Documented by: Sodium Chloride (Tigre 128 Oph) 1 drops OPB HS [facility] Stop: 04/12/19 20:59 Last Admin: 03/14/19 20:39 Dose: 1 drops Documented by: Verapamil HCl (Calan) 120 mg PO QAM [facility] Stop: 04/12/19 08:59 Last Admin: 03/15/19 07:37 Dose: 120 mg Documented by: Vitamin D (Vitamin D3) 5,000 units PO DAILY [facility] Stop: 04/12/19 08:59 Last Admin: 03/15/19 07:38 Dose: 5,000 units Documented by: Resident Activity Tracking Resident Involvement: Resident Care Provided Care Provided: Adult Hospital Medicine (1) Altered mental status Altered mental status type: disorientation Qualified Code(s): R41.0 - Disorientation, unspecified
[2019-03-15] MEDS: SODIUM CHLORIDE 5% OP SOLN 15 ML BTL OPB SCH (21:24)
[2019-03-16] MEDS: LEVOTHYROXINE SODIUM 75 MCG TABLET PO SCH (05:55)
[2019-03-16] MEDS: ALBUT/IPRATROP 3MG/0.5MG NEB 3 ML VIAL NEB SCH ×2 (07:30→11:08)
--- NOTE | 2019-03-16 07:45 | Discharge Summary ---
Date of Service March 16, 2019 Admission HPI Per Admitting Provider 84-year-old female with history of hypertension, hypothyroidism, GERD, anemia, polymyalgia rheumatica, rheumatoid arthritis, IBS, diverticulosis, vitamin D deficiency, degenerative joint disease presents from [facility] for concern of confusion. Per daughter her visited her today and thought she was confused as she could not say her name and started crying. Patient says "I am sick ", "I am not actually hurting not sure what is going on ". Per daughter patient has been complaining of headache and had diarrhea yesterday which improved after she takes some Imodium. Patient reports headache associated with nausea, vomiting here in the ED, lightheadedness has been bothering her all day today. Denies any photophobia/phonophobia. Per daughter she has history of mild dementia mainly short-term memory loss. Daughter also reports some urine dribbling at the assisted and possible incontinence. Reports chronic runny nose. Patient denies any chest pain, shortness of breath, fever, chills, cold symptoms, abdominal pain, hematochezia, melena, dysuria, hematuria. Admission Exam Per Admitting Provider General: In NAD Neuro: A&O x 3 (person, place, situation but not time), CN 2-12 intact (of note: L pupil more dilated than R pupil s/p cataract surgery and manual dilation), strength 4/5 bilateral upper and lower extremities, sensation intact Pulm: RLL crackles appreciated, equal breath sounds bilaterally CV: RRR, no m/r/g Abdomen:+BS, no TTP in all quadrants, non-distended LE: no LE edema, no calf TTP Principal Diagnosis AMS secondary to UTI Discharge Exam General: No acute distress HEENT: Normocephalic atraumatic Neck: No significant lymphadenopathy, trachea midline, normal to visual inspection Cardiac: Regular rate and rhythm, normal S1, normal S2, I did not appreciated any significant murmurs rubs or gallops, I did not appreciate any significant pedal edema, No calf tenderness, capillary refill is less than 3 seconds Respiratory: Clear to auscultation bilaterally with symmetrical chest rise, I did not appreciate any significant wheezes, rales, rhonchi, no increased work of breathing MSK: No sensory or motor changes, moves all extremities without issue, extremities are warm and well-perfused Skin: Pettit, clean, dry, intact. Neuro: Intermittently alert and oriented Psych: Calm, cooperative, logical thought process Discharge Data Allergies Allergy/AdvReac Type Severity Reaction Status Date / Time hydroxychloroquine Allergy Severe GI SYMPTOMS Verified 03/12/19 22:59 Sulfa (Sulfonamide Allergy Intermediate RASH Verified 03/12/19 22:59 Antibiotics) erythromycin base AdvReac Unknown N&V Verified 03/12/19 22:59 Consultations 03/12/19 22:02 ED Decision to Admit Stat Ordered Studies 03/12/19 20:54 CT head/brain wo con Stat 03/12/19 21:57 CT angio chest PE protocol Stat Hospital Course (1) Urinary tract infection: 84 y/o female with a history of hypertension, anemia, hypothyroidism, IBS, diverticulosis, GERD, polymyalgia rheumatica, rheumatoid arthritis, IBS, diverticulosis, vitamin D deficiency, degenerative joint disease, admitted following confusion and disoriented state at assisted living facility and found to have a UTI. Altered mental status, likely secondary to UTI Hx of dementia per daughter, has over the last month had more episodes of ag itation and crying spells that are worse at night. No focal neurologic deficits, pt more alert today however not back to baseline AAOx2 (self and place), no insight into why she is in the hospital, where she lives, who she lives with.Head CT: Chronic and age-related change. No acute process. - Originally started on Rocephin for positive UA, UCx grew E. coli sensitive to Keflex. -Continue Keflex 500mg PO BID on discharge day 4 of 7 Accelerated Hypertension Likely also in the setting of infection. Home regimen: metoprolol 25mg BID, verapamil 120mg PO daily, lisinopril 20mg PO daily. -On admission: BP 209/78, at that time given labetalol 10mg IV x2 in ED and given hydralazine 10mg PO Q6H x1, PRN if SBP>180, DBP>110 -Patient has been intermittently hypertensive to the 190s systolic this is likely secondary to time of medication dosing will readjust medication dose time and assess effect. -lisinopril now hs -has been borderline normotensive since Hypokalemia - Potassium 3.2 03/14 , repleted 40meq PO once. -03/15 improved to 3.7 on d/c Hypoxia - In ED 03/12: O2sat 87% on room air CTA: No evidence of pulmonary embolus. Emphysematous change with components of interstitial and mild peribronchial change of the mid to lower lung regions bilaterally. No evidence for consolidative infiltrate. - Since episode of hypoxia has been satting above 90% on room air. Has Duonebs QID. Dementia: Patient currently living in the [facility] with her . I am unclear the level of care she receives there, there is a concern that she is not adequately able to provide self-care. I am unclear of her 's level of functioning. As I am not her PCP I do not know her baseline functioning status, I cannot comment further. However I would recommend that her PCP to reassess her functional status and make recommendations for level of care based upon this. FEN/GI: Heart healthy diet DVT prophylaxis: SCDs only Code: DNR/DNI discussion with patient and daughter -she has POLST form at [place] Disposition: [facility] Total Time Total Time Spent Total Time Spent (In Minutes): see attending attestation Discharge Plan Discharge Items Patient Disposition: Home - Home Health Services Reason For Visit: confusion Discharge Diagnosis: AMS 2/2 UTI Activity: Resume your previous activity Activity Comment: as tolerated Non-emergency contact: Primary Care Provider Call non-emergency contact if: you have any medication questions, your symptoms worsen and your temperature is above 101 Follow-up/Referrals: Marcela Beckford [Primary Care Provider] - Diet: Heart Healthy Addtl Attending Provider Instructions: Care instructions: You were admitted to [facility] for treatment of altered mental status. A discharge summary will be sent to your primary care physician to ensure continuity of care. Please bring this discharge summary with you to your next office appointment so that your provider can review it at that time. -On discharge you are to complete the remaining 3 days of your antibiotic therapy. -Keflex 500 mg take 1 pill in the morning and 1 pill in the evening -You have been give a prescription for this medication -Please take you lisinopril at bed time from now on. Follow-up appointments: - Keep all your follow-up appointments as already scheduled. If you cannot make an appointment, notify your provider. - Please call to request a follow-up appointment with your primary care physician within one week of discharge. Please let us know if you are unable to obtain an appointment Medications: - Your medication list has been reviewed and reconciled upon discharge to ensure accuracy and continuity of care. - You are provided with a list of all your current medications at this time. Please review this list closely and make note of any changes. - Please take all of your medications exactly as prescribed. - Tell your primary care provider if you cannot afford your medications. - Call your primary care provider if you are having any side effects or any other problems. - Call your primary care provider before taking any over the counter medications or supplements, including herbals and vitamins, because some of these may interact with your current medications and/or make your symptoms worse. Symptoms: Please call your primary care provider for symptoms including, but not limited to: fevers (temperatures greater than 100.4), chills, intractable nausea or vomiting, diarrhea, rash, shortness of breath, bleeding, pain, or if you experience any worsening of the symptoms that brought you to the hospital. For EMERGENCY and VERY SERIOUS health-related issues, such as chest pain, s hortness of breath, or sudden onset of the symptoms that brought you to the hospital, you may need to call 911 or go directly to the Emergency Room It has been our privilege to take care of you during your hospital stay. And Above All Else Feel Better! Best Wishes, Raymond Akins MD PGY2 Resident, Family & Community Medicine [facility]CM Residency at [facility] - [address], [address] MC: [address], [place] [address] Pending Studies at Discharge: No Stand-Alone Forms: My [facility], Smoking Cessation Medications and DC Order Prescriptions: New cephalexin 500 mg Capsule 500 mg PO BID 3 Days Qty: 6 RF: 0 Continued risedronate 150 mg tablet 150 mg PO MONTHLY RF: 0 Saccharomyces boulardii 250 mg Capsule 250 mg PO DAILY RF: 0 sertraline 100 mg tablet 100 mg PO DAILY RF: 0 verapamil 120 mg tablet 120 mg PO QAM RF: 0 cholecalciferol (vitamin D3) [Vitamin D3] 5,000 unit Tablet 5,000 unit PO DAILY RF: 0 lansoprazole 30 mg capsule,delayed release(DR/EC) 30 mg PO DAILY RF: 0 docusate sodium 100 mg Tablet 100 mg PO BID RF: 0 levothyroxine 75 mcg tablet 75 mcg PO DAILY RF: 0 melatonin 10 mg Tablet 10 mg PO HS RF: 0 metoprolol tartrate 25 mg tablet 25 mg PO BID RF: 0 sodium chloride [Tigre 128] 5 % Drops 1 drp OPB HS RF: 0 calcium carbonate [Oysco-500] 500 mg calcium (1,250 mg) Tablet 500 mg PO BID RF: 0 prednisone 5 mg tablet 5 mg PO DAILY RF: 0 acetaminophen [Tylenol Arthritis Pain] 650 mg Tablet Extended Release 650 mg PO BID MDD 3G RF: 0 loperamide [Imodium A-D] 2 mg Tablet 2 mg PO Q3H PRN (Reason: Diarrhea) RF: 0 Cough Drops 5 mg Lozenge 5 mg mucous membrane Q2H PRN (Reason: Dry Mouth) RF: 0 ibuprofen 200 mg Tablet 200 mg PO Q4H PRN (Reason: Pain) RF: 0 guaifenesin [Mucinex] 600 mg Tablet Extended Release 12hr 600 mg PO Q12H PRN (Reason: Congestion) RF: 0 nystatin [Nystop] 100,000 unit/gram Powder 1 applic TOPICAL BID PRN (Reason: Skin Irritation) RF: 0 ondansetron 4 mg Tablet,Disintegrating 4 mg PO Q6H PRN (Reason: Nausea And Vomiting) RF: 0 Salonpas 3.1-10-6 % Adhesive Patch,Medicated 1 patch TOPICAL DAILY PRN (Reason: Pain) RF: 0 benzonatate [Tessalon Perles] 100 mg Capsule 100 mg PO TID PRN (Reason: Cough) RF: 0 fluticasone propionate 50 mcg/actuation spray,suspension 1 spray INTRANASAL DAILY RF: 0 Changed lisinopril 20 mg tablet 20 mg PO HS Qty: 0 RF: 0 Discharge Orders: Discharge Order (Routine); Ordered 03/16/19 Ordered By: Raymond Akins Admission Data Admit Date/Time: 03/12/19 23:24 Attending Provider: Lisa Hernandez Admit Provider: Natalie Akins Primary Care Provider: Marcela Beckford Other Providers: Natalie Akins Other Interventions: Discharge Summary Assessment (RN) Last Done: 03/16/19 11:53 DC Date/Time DO NOT enter until pt leaves facility: 03/16/19 13:58 Supervising Physician Co-Signing Physician Notes Resident Physician Supervision Note: I independently interviewed and examined the patient and verified the bass hist ory and physical, reviewed labs and image studies, discussed the case with the resident Dr. Akins and agree with the findings and care plan. Resident Activity Tracking Resident Involvement: Resident Care Provided Care Provided: Adult Hospital Medicine
[2019-03-16] MEDS: CHOLECALCIFEROL 1,000 UNITS TAB PO SCH (07:46)
[2019-03-16] MEDS: cephALEXin 500 MG CAP PO SCH (07:46)
[2019-03-16] MEDS: VERAPAMIL HCL 40 MG TAB PO SCH (07:46)
[2019-03-16] MEDS: PANTOprazole 40 MG TAB PO SCH (07:47)
[2019-03-16] MEDS: SACCHAROMYCES BOULARDII 250 MG CAP PO SCH (07:47)
[2019-03-16] MEDS: FLUTICASONE PROPIONATE NA SPR 16 GM BTL SCH (07:47)
[2019-03-16] MEDS: predniSONE 5 MG TAB PO SCH (07:47)
[2019-03-16] MEDS: SERTRALINE HCL 100 MG TABLET PO SCH (07:47)
[2019-03-16] MEDS: CALCIUM CARBONATE 1250MG TAB PO SCH (07:47)
[2019-03-16] MEDS: METOPROLOL TARTRATE 25 MG TAB PO SCH (07:47)
[2019-03-16] MEDS: ACETAMINOPHEN 325 MG TAB PO SCH (07:48)
[2019-03-16] MEDS ORDERED: LISINOPRIL 20 MG TAB PO SCH (16:00)
== END 2019-03-16 13:58 | disposition home or self-care (01) | DRG 689 ==
LOC: ED 20:26 → SUATTDRO 23:24 → 2N 23:24

== ENCOUNTER 2019-03-17 20:28 | Inpatient (IN) ==
[2019-03-17] MEDS ORDERED: LABETALOL HCL IV 5 MG/ML 20ML IV STA (20:44)
[2019-03-17] MEDS ORDERED: ONDANSETRON INJ 2 MG/ML 2 ML VIAL IV STA ×2 (20:44→23:42)
[2019-03-17] MEDS ORDERED: SODIUM CHLORIDE 0.9% 500 ML IV SCH (20:45)
[2019-03-17 21:00] LABS: Appearance Urine Clear (Clear); Bacteria Urine Automated Negative (Negative); Bilirubin Urine Negative (Negative); Blood Urine Negative (Negative); Color Urine Yellow; Epithelial Cell Urine Auto >30 /lpf (0-5); Glucose Urine UA Negative (Negative); Ketones Urine 1+ (Negative); Leukocyte Esterase Urine Negative (Negative); Nitrite Urine Negative (Negative); Protein Urine Trace (Negative); RBC Urine Automated 0-4 /hpf (0-4); Specific Gravity Urine 1.023 (1.000-1.030); Urobilinogen Urine Negative (Negative); pH Urine 6.5 (4.5-7.5)
[2019-03-17 21:18] LABS: Basophils # (auto) 0.02 K/uL (0-0.2); Basophils % (auto) 0.1 %; Eosinophils # (auto) 0.01 K/uL (0-0.5); Eosinophils % (auto) 0.1 %; Hematocrit (blood only) 38.7 % (37-47); Hemoglobin 12.6 g/dL (12.0-16.0); Immature Granulocytes # (auto) 0.05 K/uL (0.00-0.02); Immature Granulocytes % (auto) 0.3 %; Lymphocytes # (auto) 0.98 K/uL (1.2-3.4); Lymphocytes % (auto) 4.9 %; Mean Corpuscular Hemoglobin 29.4 pg (25-34); Mean Corpuscular Hgb Conc 32.6 g/dL (32-36); Mean Corpuscular Volume 90.4 fL (80-100); Mean Platelet Volume 10.4 fL (7.4-10.4); Monocytes # (auto) 1.25 K/uL (0.11-0.59); Monocytes % (auto) 6.3 %; Neutrophils # (auto) 17.61 K/uL (1.4-6.5); Neutrophils % (auto) 88.3 %; Platelet Count 244 K/uL (130-400); RDW Coefficient of Variation 14.5 % (11.5-14.5); RDW Standard Deviation 47.3 fL (36.4-46.3); Red Blood Count 4.28 M/uL (4.2-5.4); White Blood Count 19.92 K/uL (4.8-10.8)
[2019-03-17 21:33] LABS: Albumin Level 3.8 gm/dl (3.4-5.0); BUN Creatinine Ratio 25.2 (10-20); Calcium 9.8 mg/dl (8.5-10.1); Est GFR (African American) 52.6; Est GFR (Non-African American) 45.4; Potassium 3.7 mmol/L (3.5-5.1)
--- NOTE | 2019-03-17 21:34 | Emergency Department Note ---
Entered by Lydia Epsinal acting as a scribe for Juan Perdomo MD History of Present Illness General Chief complaint: Illness Stated complaint: DIARRHEA, VOMITING Time Seen by Provider: 03/17/19 20:37 Source: other (nursing staff) History of Present Illness Onset (ago): hour(s) (today) Location: abdomen Pain Consistency: + other (persistent ) Quality: + other (nausea, vomiting, diarrhea) Associated symptoms: + other (positive "not acting herself") Treatments prior to arrival: other (keflex) The patient is a 84 year old female with PMHx of HTN and dementia who presents to the Emergency Room with complaints of persistent nausea, vomiting, and di arrhea that began today, per nursing staff. Per nursing staff the patient has not been able to keep her medications down during this time and has not been "acting herself". Nursing staff states that the patient was treated last week for a UTI and is currently on Keflex for this. The patient's history and physical are limited secondary to dementia. Home Medications Home Medications Medication Instructions Recorded Confirmed Type Cough Drops 5 mg MUCOUS MEMBRANE Q2H PRN 03/12/19 03/12/19 History Saccharomyces boulardii 250 mg PO DAILY 03/12/19 03/12/19 History Salonpas 1 patch TOPICAL DAILY PRN 03/12/19 03/12/19 History acetaminophen [Tylenol Arthritis 650 mg PO BID MDD 3G 03/12/19 03/12/19 History Pain] benzonatate [Tessalon Perles] 100 mg PO TID PRN 03/12/19 03/12/19 History calcium carbonate [Oysco-500] 500 mg PO BID 03/12/19 03/12/19 History cholecalciferol (vitamin D3) 5,000 unit PO DAILY 03/12/19 03/12/19 History [Vitamin D3] docusate sodium 100 mg PO BID 03/12/19 03/12/19 History fluticasone propionate 1 spray INTRANASAL DAILY 03/12/19 03/12/19 History guaifenesin [Mucinex] 600 mg PO Q12H PRN 03/12/19 03/12/19 History ibuprofen 200 mg PO Q4H PRN 03/12/19 03/12/19 History lansoprazole 30 mg PO DAILY 03/12/19 03/12/19 History levothyroxine 75 mcg PO DAILY 03/12/19 03/12/19 History loperamide [Imodium A-D] 2 mg PO Q3H PRN 03/12/19 03/12/19 History melatonin 10 mg PO HS 03/12/19 03/12/19 History metoprolol tartrate 25 mg PO BID 03/12/19 03/12/19 History nystatin [Nystop] 1 applic TOPICAL BID PRN 03/12/19 03/12/19 History ondansetron 4 mg PO Q6H PRN 03/12/19 03/12/19 History prednisone 5 mg PO DAILY 03/12/19 03/12/19 History risedronate 150 mg PO MONTHLY 03/12/19 03/12/19 History sertraline 100 mg PO DAILY 03/12/19 03/12/19 History sodium chloride [Tigre 128] 1 drp OPB HS 03/12/19 03/12/19 History verapamil 120 mg PO QAM 03/12/19 03/12/19 History cephalexin 500 mg PO BID 3 Days #6 cap 03/16/19 Rx lisinopril 20 mg PO HS #0 tab 03/16/19 03/12/19 Rx Allergies Allergy/AdvReac Type Severity Reaction Status Date / Time hydroxychloroquine Allergy Severe GI SYMPTOMS Verified 03/17/19 22:09 Sulfa (Sulfonamide Allergy Intermediate RASH Verified 03/17/19 22:09 Antibiotics) erythromycin base AdvReac Unknown N&V Verified 03/17/19 22:09 Past Med/Surg History Medical History Dehydration (Resolved) Diarrhea (Resolved) Dizziness (Resolved) Hypokalemia (Resolved) Hyponatremia Nausea & vomiting (Resolved) Pubic ramus fracture Syncopal episodes (Resolved) Thoracic radiculopathy (Resolved) Weakness (Resolved) Surgical History No pertinent past surgical history Family History (Updated 03/17/19 @ 21:31 by Lydia Espinal) Other No pertinent family history in first degree relatives Social History Preferred Language: Pakistani Communication Ability: Impaired Signs Cleaner Required: No Beliefs That Will Affect Care: None Current Living Situation: Senior Living Feels Safe at Home: Yes Smoking Status: Never smoker Hx Alcohol Use: No Hx Substance Use: No Review of Systems The patient's history and physical are limited secondary to dementia. Physical Exam Vital Signs Vital Signs - 24 hr 03/17/19 20:32 03/17/19 20:42 03/17/19 21:00 Temperature 37.0 C Temperature Source Oral Pulse Rate 88 83 Pulse Rate from SpO2 Sensor 83 Respiratory Rate 18 26 H Respiratory Effort / Characteristics Non-Labored Spontaneous Respiratory Depth Normal Blood Pressure 228/98 H 225/99 H Blood Pressure Mean 141 151 Pulse Oximetry 92 91 88 L Oxygen Delivery Method Room Air Room Air Room Air Oxygen Flow Rate Sepsis Recent Fever Within 48 Hours No Sepsis New/Unexplained Change in Mental Status No Sepsis Action Taken by Nursing No Action Required 03/17/19 21:10 03/17/19 21:14 03/17/19 21:15 Temperature Temperature Source Pulse Rate 91 H 90 90 Pulse Rate from SpO2 Sensor 91 H 91 H 84 Respiratory Rate 28 H 31 H 31 H Respiratory Effort / Characteristics Respiratory Depth Blood Pressure 234/123 H 181/97 H 204/83 H Blood Pressure Mean 157 142 104 Pulse Oximetry 91 90 89 L Oxygen Delivery Method Room Air Room Air Room Air Oxygen Flow Rate Sepsis Recent Fever Within 48 Hours Sepsis New/Unexplained Change in Mental Status Sepsis Action Taken by Nursing 03/17/19 21:30 03/17/19 21:44 03/17/19 21:46 Temperature Temperature Source Pulse Rate 80 86 Pulse Rate from SpO2 Sensor 82 87 Respiratory Rate 31 H 26 H Respiratory Effort / Characteristics Respiratory Depth Blood Pressure 212/107 H 228/89 H Blood Pressure Mean 141 105 Pulse Oximetry 97 97 97 Oxygen Delivery Method Nasal Cannula Nasal Cannula Nasal Cannula Oxygen Flow Rate 2 2 2 Sepsis Recent Fever Within 48 Hours Sepsis New/Unexplained Change in Mental Status Sepsis Action Taken by Nursing 03/17/19 22:00 03/17/19 22:16 Temperature Temperature Source Pulse Rate 76 79 Pulse Rate from SpO2 Sensor 79 76 Respiratory Rate 29 H 22 Respiratory Effort / Characteristics Respiratory Depth Blood Pressure 228/88 H 225/92 H Blood Pressure Mean 149 133 Pulse Oximetry 97 97 Oxygen Delivery Method Nasal Cannula Nasal Cannula Oxygen Flow Rate 2 2 Sepsis Recent Fever Within 48 Hours Sepsis New/Unexplained Change in Mental Status Sepsis Action Taken by Nursing GENERAL: Patient is in no acute distress. HEENT: No acute trauma, normocephalic atraumatic, mucous membranes dry, no nasal congestion, no scleral icterus. NECK: No stridor, no adenopathy, no meningismus, trachea is midline. LUNGS: Clear to auscultation bilaterally, no wheeze, no rhonchi, breath sounds equal. HEART: Without murmurs gallops or rubs, regular rate and rhythm. ABDOMEN: Diffusely tender. Soft, bowel sounds positive, no hernias, no peritonitis. EXTREMITIES: No cyanosis or edema, full range of motion of all the joints without pain or difficulty, no signs for acute trauma. NEUROLOGIC: Awake. Moving all extremities but confused. Follows simple commands. SKIN: No rash, no jaundice, no diaphoresis. Course Course 2040: Past medical records reviewed. The patient was evaluated in room B7. A complete history and physical exam was performed. The patient was discharged from the hospital yesterday after a stay for change in mental status and UTI. She is currently on Keflex. The patient is a DNR. Patient's case was assumed by the oncoming ED physician. There are some outstanding laboratory values pending. The CT of the abdomen pelvis is pending. Administered Medications Ioversol (Optiray 320 100ml) 90 ml IV ONCE PRN PRN Reason: Interaction Checking Stop: 03/21/19 22:39 Last Admin: 03/17/19 22:41 Dose: 1 ml Documented by: [id number] Discontinued Medications Hydralazine HCl (Hydralazine Hcl) 10 mg IV NOW STA Stop: 03/17/19 22:09 Last Admin: 03/17/19 22:18 Dose: 10 mg Documented by: [id number] Sodium Chloride (Nss) 500 mls @ 999 mls/hr IV .Q31M KEVIN Stop: 03/17/19 21:15 Last Infusion: 03/17/19 21:42 Dose: 0 mls/hr Documented by: [id number] Admin: 03/17/19 21:10 Dose: 999 mls/hr Documented by: [id number] Sodium Chloride (Nss 1000ml) 500 mls @ 999 mls/hr IV .Q31M ONE Stop: 03/17/19 22:20 Last Admin: 03/17/19 22:18 Dose: 999 mls/hr Documented by: [id number] Labetalol HCl (Normodyne) 10 mg IV NOW STA Stop: 03/17/19 20:45 Last Admin: 03/17/19 21:09 Dose: 10 mg Documented by: [id number] Cosigned by: [id number] Ondansetron HCl (Zofran) 4 mg IV NOW STA Stop: 03/17/19 20:45 Last Admin: 03/17/19 21:10 Dose: 4 mg Documented by: [id number] Medical Decision Making Differential Diagnosis Differential diagnoses include medication reaction, dehydration, colitis, diverticulitis, C. difficile infection, electrolyte imbalance, persistent UTI, food borne or viral illness, and others were considered. Medical Records Attestation: I reviewed the patient's medical records. Home Medications Current Medication List: was personally reviewed by me Laboratory Data Attestation: I reviewed the patient's lab results. Result diagrams: 03/17/19 20:56 03/17/19 20:56 Lab Results 03/17/19 03/17/19 03/17/19 Range/Units 20:37 20:56 20:56 WBC 19.92 H (4.8-10.8) K/uL RBC 4.28 (4.2-5.4) M/uL Hgb 12.6 (12.0-16.0) g/dL Hct 38.7 (37-47) % MCV 90.4 (80-100) fL MCH 29.4 (25-34) pg MCHC 32.6 (32-36) g/dL RDW Std Deviation 47.3 H (36.4-46.3) fL RDW Coeff of Kwasi 14.5 (11.5-14.5) % Plt Count 244 (130-400) K/uL MPV 10.4 (7.4-10.4) fL Immature Gran % (Auto) 0.3 % Neut % (Auto) 88.3 % Lymph % (Auto) 4.9 % Sunflower % (Auto) 6.3 % Eos % (Auto) 0.1 % Baso % (Auto) 0.1 % Immature Gran # (Auto) 0.05 H (0.00-0.02) K/uL Neut # (Auto) 17.61 H (1.4-6.5) K/uL Lymph # (Auto) 0.98 L (1.2-3.4) K/uL Sunflower # (Auto) 1.25 H (0.11-0.59) K/uL Eos # (Auto) 0.01 (0-0.5) K/uL Baso # (Auto) 0.02 (0-0.2) K/uL Sodium 137 (136-145) mmol/L Potassium 3.7 (3.5-5.1) mmol/L Chloride 102 (98-107) mmol/L Carbon Dioxide 28 (21-32) mmol/L Anion Gap 7.0 (3-11) BUN 28 H (7-18) mg/dl Creatinine 1.12 (0.6-1.2) mg/dl Est Cr Clr Drug Dosing 36.0 ml/min Est GFR ( Amer) 52.6 Est GFR (Non-Af Amer) 45.4 BUN/Creatinine Ratio 25.2 H (10-20) Glucose 178 H (70-99) mg/dl Calcium 9.8 (8.5-10.1) mg/dl Magnesium 2.0 (1.8-2.4) mg/dl Total Bilirubin 0.4 (0.2-1) mg/dl AST 20 (15-37) U/L ALT 17 (12-78) U/L Alkaline Phosphatase 54 (45-117) U/L Troponin I 0.671 H* (0-0.045) ng/ml Total Protein 7.5 (6.4-8.2) gm/dl Albumin 3.8 (3.4-5.0) gm/dl Globulin 3.7 (2.5-4.0) gm/dl Albumin/Globulin Ratio 1.0 (0.9-2) Urine Color Yellow Urine Appearance Clear (Clear) Urine pH 6.5 (4.5-7.5) Ur Specific [place] 1.023 (1.000-1.030) Urine Protein Trace H (Negative) Urine Glucose (UA) Negative (Negative) Urine Ketones 1+ H (Negative) Urine Blood Negative (Negative) Urine Nitrite Negative (Negative) Urine Bilirubin Negative (Negative) Urine Urobilinogen Negative (Negative) Ur Leukocyte Esterase Negative (Negative) Urine WBC (Auto) 1-5 (0-5) /hpf Urine RBC (Auto) 0-4 (0-4) /hpf U Hyaline Cast (Auto) 1-5 (0-5) /lpf U Epithel Cells (Auto) >30 H (0-5) /lpf Urine Bacteria (Auto) Negative (Negative) Imaging Data Radiologist's Impression: Radiology results as stated below per my review and the radiologist's interpretation: SINGLE VIEW CHEST CLINICAL HISTORY: Generalized weakness. FINDINGS: An AP, portable, upright chest radiograph is compared to chest x-ray and chest CT dated 03/12/2019. The examination is degraded by portable technique and patient rotation. The heart is enlarged noting atherosclerotic calcification of the thoracic aorta. The pulmonary vasculature is noncongested. Scarring/atele ctasis is noted at the lung bases. There is no airspace consolidation or large pleural effusion. No pneumothorax is seen. The skeletal structures are osteopenic. The bony thorax is grossly intact. Degenerative change is seen in the shoulders and thoracic spine. IMPRESSION: Cardiomegaly with no acute cardiopulmonary abnormality. Electronically signed by: Juan Nguyen M.D. 03/17/2019 10:08 PM ECG Data Attestation: I personally reviewed and interpreted this ECG as follows: Indication: + vomiting Rate (beats per minute): 89 Rhythm: + normal sinus ECG Intervals/blocks: + Normal QT (459) ECG ST segments: no ST elevation ECG Findings: + Other (baseline artifact ); no PVCs Blood Pressure Blood Pressure Findings: Elevated blood pressure Blood Pressure Disposition: further management by hospitalist LONI Narrative There is a significant leukocytosis at 19,000, this of course could be consistent with infection or possibly, the stress of all her vomiting. No worrisome anemia. No significant electrolyte abnormality or kidney failure. No worrisome liver enzyme elevation. EKG shows a sinus rhythm, no acute ischemia. Cardiac enzyme testing x1 is elevated, this could be consistent with cardiac injury or strain. Urinalysis does not show evidence for infection. Chest film does not show pneumonia or CHF. Abdominal and pelvis CT is pending. C. difficile testing is pending. On my exam, the patient did not have peritonitis. She was not febrile, she did seem dehydrated though. The patient received IV labetalol, she was given IV hydralazine for persistently high blood pressure. She received IV Zofran for nausea, she received 2/500 cc saline boluses. At this point, the case is being assumed by the oncoming ED physician. Please see his notes for the results of the CT and her continued course. I suspect she will require repeat hospitalization. The cause for her presentation at this point is not completely clear. Impression & Plan Vomiting and diarrhea, Leukocytosis, Dehydration Discharge Plan Visit Data Chief Complaint: Illness Stated Complaint: DIARRHEA, VOMITING ED Provider: Morgan eSqueira Discharge Problem: Vomiting and diarrhea, Leukocytosis, Dehydration Forms Stand Alone Forms: My [facility] Prescriptions Prescriptions: No Action risedronate 150 mg tablet 150 mg PO MONTHLY RF: 0 Saccharomyces boulardii 250 mg Capsule 250 mg PO DAILY RF: 0 sertraline 100 mg tablet 100 mg PO DAILY RF: 0 verapamil 120 mg tablet 120 mg PO QAM RF: 0 cholecalciferol (vitamin D3) [Vitamin D3] 5,000 unit Tablet 5,000 unit PO DAILY RF: 0 lansoprazole 30 mg capsule,delayed release(DR/EC) 30 mg PO DAILY RF: 0 docusate sodium 100 mg Tablet 100 mg PO BID RF: 0 levothyroxine 75 mcg tablet 75 mcg PO DAILY RF: 0 melatonin 10 mg Tablet 10 mg PO HS RF: 0 metoprolol tartrate 25 mg tablet 25 mg PO BID RF: 0 sodium chloride [Tigre 128] 5 % Drops 1 drp OPB HS RF: 0 calcium carbonate [Oysco-500] 500 mg calcium (1,250 mg) Tablet 500 mg PO BID RF: 0 prednisone 5 mg tablet 5 mg PO DAILY RF: 0 acetaminophen [Tylenol Arthritis Pain] 650 mg Tablet Extended Release 650 mg PO BID MDD 3G RF: 0 loperamide [Imodium A-D] 2 mg Tablet 2 mg PO Q3H PRN (Reason: Diarrhea) RF: 0 Cough Drops 5 mg Lozenge 5 mg mucous membrane Q2H PRN (Reason: Dry Mouth) RF: 0 ibuprofen 200 mg Tablet 200 mg PO Q4H PRN (Reason: Pain) RF: 0 guaifenesin [Mucinex] 600 mg Tablet Extended Release 12hr 600 mg PO Q12H PRN (Reason: Congestion) RF: 0 nystatin [Nystop] 100,000 unit/gram Powder 1 applic TOPICAL BID PRN (Reason: Skin Irritation) RF: 0 ondansetron 4 mg Tablet,Disintegrating 4 mg PO Q6H PRN (Reason: Nausea And Vomiting) RF: 0 Salonpas 3.1-10-6 % Adhesive Patch,Medicated 1 patch TOPICAL DAILY PRN (Reason: Pain) RF: 0 benzonatate [Tessalon Perles] 100 mg Capsule 100 mg PO TID PRN (Reason: Cough) RF: 0 fluticasone propionate 50 mcg/actuation spray,suspension 1 spray INTRANASAL DAILY RF: 0 lisinopril 20 mg tablet 20 mg PO HS Qty: 0 RF: 0 cephalexin 500 mg Capsule 500 mg PO BID 3 Days Qty: 6 RF: 0 Referrals Referrals: Marcela Beckford [Primary Care Provider] - Discharge Problem: Leukocytosis Qualifiers: Leukocytosis type: unspecified Qualified Code(s): D72.829 - Elevated white blood cell count, unspecified The scribe's documentation has been prepared under my direction and personally reviewed by me in its entirety. I confirm that the note above accurately reflects all work, treatment, procedures, and medical decision making performed by me.
[2019-03-17 21:42] LABS: Bilirubin,Total 0.4 mg/dl (0.2-1); Globulin 3.7 gm/dl (2.5-4.0); Total Protein 7.5 gm/dl (6.4-8.2); Troponin I 0.671 ng/ml (0-0.045)
[2019-03-17] MEDS ORDERED: SODIUM CHLORIDE 0.9% 1000ML 500 ML IV ONE (21:50)
[2019-03-17] MEDS ORDERED: HydrALAZINE HCL 20 MG/ML VIAL IV STA (22:08)
--- NOTE | 2019-03-17 22:09 | XRay Report ---
SINGLE VIEW CHEST CLINICAL HISTORY: Generalized weakness. FINDINGS: An AP, portable, upright chest radiograph is compared to chest x-ray and chest CT dated . The examination is degraded by portable technique and patient rotation. The heart is enlarge d noting atherosclerotic calcification of the thoracic aorta. The pulmonary vasculature is noncongest ed. Scarring/atelectasis is noted at the lung bases. There is no airspace consolidation or large pleu ral effusion. No pneumothorax is seen. The skeletal structures are osteopenic. The bony thorax is robina ssly intact. Degenerative change is seen in the shoulders and thoracic spine. IMPRESSION: Cardiomegaly with no acute cardiopulmonary abnormality. Electronically signed by: Juan Nguyen M.D. 03/17/2019 10:08 PM
[2019-03-17] MEDS ORDERED: IOVERSOL 100ml IV PRN (22:40)
--- NOTE | 2019-03-17 23:11 | CT Scan Report ---
CT SCAN OF THE ABDOMEN AND PELVIS WITH IV CONTRAST CLINICAL HISTORY: Generalized abdominal pain. Diarrhea. COMPARISON STUDY: Abdominal CT dated 09/25/2016. TECHNIQUE: Following the IV administration of 90 cc of Optiray 320, CT scan of the abdomen and pelvi s is performed from the lung bases to the proximal femora. Images are reviewed in the axial, sagittal , and coronal planes. IV contrast was administered without complication. A dose lowering technique wa s utilized adhering to the principles of ALARA. CT DOSE: 521.47 mGy.cm FINDINGS: Lung bases: The heart is enlarged and without pericardial effusion. The lung bases are clear noting b ibasilar scarring/atelectasis. There is a small hiatal hernia. Liver: The contrast-enhanced liver is normal in size, contour, and attenuation. There is no intrahepa tic biliary ductal dilatation. The hepatic veins and portal veins are patent. Gallbladder: Unremarkable. Spleen: Normal in size and attenuation. Pancreas: Moderately atrophic and grossly unremarkable. Adrenal glands: Unremarkable. Kidneys: The contrast enhanced kidneys demonstrate cortical atrophy and are without hydronephrosis. T he kidneys enhance symmetrically. Abdominal vasculature: The abdominal aorta is normal in course and caliber noting moderate atheroscle rotic calcification. 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 Bowel: There is rectosigmoid fecal impaction. There is rectal wall thickening with perirectal inflamm atory change and fluid. There is moderate colonic diverticulosis without CT evidence of acute diverti culitis. No bowel obstruction is seen. The appendix is well-visualized and normal. Peritoneum: There is no intraperitoneal free air or abdominal ascites. Lymphadenopathy: None. Pelvic viscera: The bladder is normal as visualized. The uterus is surgically absent. No adnexal lesi on is seen. Skeletal structures: The skeletal structures are osteopenic. No lytic or blastic lesions are seen. Mo derate lumbosacral spondylosis is observed. There is a mild compression deformity of T12. There are h ealed right pubic ring fractures. IMPRESSION: 1. There is rectosigmoid fecal impaction with associated rectal wall thickening as well as significan t perirectal inflammation and fluid. The appearance is typical for stercoral proctitis. Clinical desi elation will be required. 2. No bowel obstruction is identified. 3. Cardiomegaly 4. Additional findings as above. Electronically signed by: Juan Nguyen M.D. 03/17/2019 11:10 PM
[2019-03-17] MEDS ORDERED: PIPERACILL/TAZOBAC CONSULT ACTIVE PRN (23:50)
[2019-03-17] MEDS ORDERED: PIPERACILLIN/TAZOBACTAM 4.5 GM/120 ML BAG IV ONE (23:50)
--- NOTE | 2019-03-18 00:23 | Emergency Department Note ---
ED Visit Note The patient was taken in signout from Dr. Perdomo at the change of shift. Please see that note for details. The patient was pending CT imaging. The patient had a significant leukocytosis. Nursing obtained a stool sample however it was formed and not compatible with C. difficile. CT imaging revealed a stercoral proctitis and moderate rectal stool. The stool was soft. Enema ordered. Given the proctitis, leukocytosis and tachycardia the patient was given a dose of IV Zosyn. Consultation was made with internal medicine, Dr. Vin Oneal for admission. . : Leukocytosis Qualifiers: Leukocytosis type: unspecified Qualified Code(s): D72.829 - Elevated white blood cell count, unspecified
--- NOTE | 2019-03-18 01:43 | History & Physical Report ---
Date of Service March 18, 2019 Assessment & Plan (1) Proctitis: 84-year-old female with history of hypertension, hypothyroidism, GERD, anemia, polymyalgia rheumatica, rheumatoid arthritis, IBS, diverticulosis, vitamin D deficiency, degenerative joint disease presents from [facility] for concern of nausea, vomiting and diarrhea and altered mental status. Found to have stercoral proctitis and elevated troponin. Altered mental status Likely in the setting of infection vs. dehydration vs. hypertensive urgency/hypertensive encephalopathy versus hypoxia See below Continue to monitor clinically Stercoral Proctitis Afebrile, WBC 19.9 Abd/pelvis CT: rectosigmoid fecal impaction 84-year-old female with associated rectal wall thickening and significant perirectal inflammation and fluid concerning for stercoral proctitis Given enema in the ED Started on MiraLAX daily and Colace continued Received Zosyn in the ED, continued Tramadol as needed for pain Continue to monitor NSTEMI/demand ischemia in the setting of dehydration/infection EKG: Normal sinus rhythm [address] changes, QTC 459 Echo: 10/2015: EF 70% grade 1 diastolic dysfunction Troponin elevated to 0.671 Trend troponin Echo ordered especially given recurrent hypoxia Hypertensive urgency History of hypertension - Blood pressure was 220/100s in the ED Patient received labetalol 10 mg IV x1, hydralazine 10 mg IV x1 in the ED, BP improved to 140/57 Continue home BP meds -metoprolol, and verapamil; lisinopril held in the setting of RONAL Continue to monitor Dehydration In the setting of vomiting and diarrhea Elevated BUN/creatinine ratio 28/1.1 Received 1 L NS bolus in the ED, started on LR 100 cc/h x 1 L Hypoxia Likely secondary to atelectasis vs. worsening emphysema Chest x-ray today: Cardiomegaly no acute findings CTA chest 03/12/19: Emphysematous change with components of interstitial and mild peribronchial change of the mid to lower lung regions bilaterally Supplemental O2 as needed, on 2L Recent UTI Urine culture grew 100 K colonies E. coli received Rocephin during previous admission On Keflex 500 twice daily x3 remaining days Hypothyroidism Continue home levothyroxine GERD Continue home PPI Polymyalgia rheumatica/RA Continue home prednisone, Tylenol Allergic rhinitis Continue fluticasone Mood disorder Continue home sertraline FEN/GI: Heart healthy diet, LR 100 cc/h x 2 bags DVT prophylaxis: SCDs only low risk Code: DNR/DNI Position: MedSurg with telemetry (2) Vomiting and diarrhea: (3) Polymyalgia rheumatica: (4) HTN (hypertension): (5) Hypertensive urgency: History of Present Illness Chief Complaint: Nausea vomiting and diarrhea Primary Care Provider: Marcela Beckford 84-year-old female with history of hypertension, hypothyroidism, GERD, anemia, rheumatica, IBS, diverticulosis, degenerative joint disease, vitamin deficiency presents from [place] with nursing concern for nausea, vomiting and diarrhea today. There was also concern for confusion per ED report. Patient was recently admitted for confusion, hypoxia and was found to have UTI. She was admitted from March 12-. Patient only reports of stomach pain. She is unable to provide further history and appears confused. Review of systems unable to be for completed. ED course: Found to have WBC 19.9, CT concern for stercoral proctitis. Patient required 2 L O2 for hypoxia and was also hypertensive to 200s/100s. She received labetalol 10 mg IV and hydralazine 10 mg IV x1, Zosyn, NS 1 L, Zofran 4 mg IV x2. Her troponin was also elevated 2.671 without EKG changes or complaint of chest pain. Allergies Allergy/AdvReac Type Severity Reaction Status Date / Time hydroxychloroquine Allergy Severe GI SYMPTOMS Verified 03/17/19 22:09 Sulfa (Sulfonamide Allergy Intermediate RASH Verified 03/17/19 22:09 Antibiotics) erythromycin base AdvReac Unknown N&V Verified 03/17/19 22:09 Home Medications Home Medications Medication Instructions Recorded Confirmed Type Cough Drops 5 mg MUCOUS MEMBRANE Q2H PRN 03/12/19 03/17/19 History Saccharomyces boulardii 250 mg PO DAILY 03/12/19 03/17/19 History Salonpas 1 patch TOPICAL DAILY PRN 03/12/19 03/17/19 History acetaminophen [Tylenol Arthritis 650 mg PO BID MDD 3G 03/12/19 03/17/19 History Pain] benzonatate [Tessalon Perles] 100 mg PO TID PRN 03/12/19 03/17/19 History calcium carbonate [Oysco-500] 500 mg PO BID 03/12/19 03/17/19 History cholecalciferol (vitamin D3) 5,000 unit PO DAILY 03/12/19 03/17/19 History [Vitamin D3] docusate sodium 100 mg PO BID 03/12/19 03/17/19 History fluticasone propionate 1 spray INTRANASAL DAILY 03/12/19 03/17/19 History guaifenesin [Mucinex] 600 mg PO Q12H PRN 03/12/19 03/17/19 History ibuprofen 200 mg PO Q4H PRN 03/12/19 03/17/19 History lansoprazole 30 mg PO DAILY 03/12/19 03/17/19 History levothyroxine 75 mcg PO DAILY 03/12/19 03/17/19 History loperamide [Imodium A-D] 2 mg PO Q3H PRN 03/12/19 03/17/19 History melatonin 10 mg PO HS 03/12/19 03/17/19 History metoprolol tartrate 25 mg PO BID 03/12/19 03/17/19 History nystatin [Nystop] 1 applic TOPICAL BID PRN 03/12/19 03/17/19 History ondansetron 4 mg PO Q6H PRN 03/12/19 03/17/19 History prednisone 5 mg PO DAILY 03/12/19 03/17/19 History risedronate 150 mg PO MONTHLY 03/12/19 03/17/19 History sertraline 100 mg PO DAILY 03/12/19 03/17/19 History sodium chloride [Tigre 128] 1 drp OPB HS 03/12/19 03/17/19 History verapamil 120 mg PO QAM 03/12/19 03/17/19 History cephalexin 500 mg PO BID 3 Days #6 cap 03/16/19 03/17/19 Rx lisinopril 20 mg PO HS #0 tab 03/16/19 03/17/19 Rx Past Med/Surg History Medical History Dehydration (Resolved) Diarrhea (Resolved) Dizziness (Resolved) Hypokalemia (Resolved) Hyponatremia Nausea & vomiting (Resolved) Pubic ramus fracture Syncopal episodes (Resolved) Thoracic radiculopathy (Resolved) Weakness (Resolved) Surgical History No pertinent past surgical history Family History Other No pertinent family history in first degree relatives Social History Preferred Language: Azeri Communication Ability: Effective Supervisor Press Room Required: No Beliefs That Will Affect Care: None Current Living Situation: Group Home Feels Safe at Home: Yes Smoking Status: Unknown if ever smoked Hx Alcohol Use: No Hx Substance Use: No Review of Systems Review of Systems: As per HPI limited due to patient mental status Physical Exam Physical Exam: General: In NAD HEENT: dry oral mucosa Neuro: Alert and oriented x 3 (person, place and situation, not time) Pulm: CTAB equal breath sounds bilaterally CV: RRR, no m/r/g, cap refill 3 secs Abdomen:+BS, diffuse TTP in all quadrants, mildly distended LE: no LE edema, no calf TTP Results & Data Vital Signs (Past 12 Hours) Vital Signs Temp Pulse Resp BP Pulse Ox 03/18/19 01:15 105 H 29 H 136/58 L 96 03/18/19 01:00 106 H 27 H 153/84 H 96 03/18/19 00:47 107 H 31 H 151/73 H 95 03/18/19 00:31 103 H 27 H 169/107 H 97 03/18/19 00:15 104 H 28 H 121/78 95 03/17/19 23:30 101 H 27 H 175/92 H 96 03/17/19 23:16 102 H 26 H 169/105 H 97 03/17/19 23:00 100 H 24 205/80 H 97 03/17/19 22:58 102 H 27 H 187/79 H 96 03/17/19 22:32 195/117 H 03/17/19 22:23 95 H 15 226/94 H 95 03/17/19 22:16 79 22 225/92 H 97 03/17/19 22:00 76 29 H 228/88 H 97 03/17/19 21:46 86 26 H 228/89 H 97 03/17/19 21:44 97 03/17/19 21:30 80 31 H 212/107 H 97 03/17/19 21:15 90 31 H 204/83 H 89 L 03/17/19 21:14 90 31 H 181/97 H 90 03/17/19 21:10 91 H 28 H 234/123 H 91 03/17/19 21:00 83 26 H 225/99 H 88 L 03/17/19 20:42 91 03/17/19 20:32 37.0 C 88 18 228/98 H 92 Laboratory Results Abnormal lab results 03/17/19 03/17/19 03/17/19 Range/Units 20:37 20:56 20:56 WBC 19.92 H (4.8-10.8) K/uL RDW Std Deviation 47.3 H (36.4-46.3) fL Immature Gran # (Auto) 0.05 H (0.00-0.02) K/uL Neut # (Auto) 17.61 H (1.4-6.5) K/uL Lymph # (Auto) 0.98 L (1.2-3.4) K/uL [place] # (Auto) 1.25 H (0.11-0.59) K/uL BUN 28 H (7-18) mg/dl BUN/Creatinine Ratio 25.2 H (10-20) Glucose 178 H (70-99) mg/dl Troponin I 0.671 H* (0-0.045) ng/ml Urine Protein Trace H (Negative) Urine Ketones 1+ H (Negative) U Epithel Cells (Auto) >30 H (0-5) /lpf Code Status & VTE Plan Code Status DNR/DNI VTE Prophylaxis Plan VTE Prophylaxis will be ordered: Yes Supervising Physician Co-Signing Physician Notes Attending addendum: I have physically seen this patient, have supervised the medical residents activities, and agree with the H&P unless as otherwise noted. Assessment and Plan: Stercoral proctitis- Continue Zosyn 4.5 g IV every 8 hours. Tramadol 50 mg p.o. every 6 hours as needed moderate pain. Acetaminophen 650 mg p.o. every 6 hours PRN mild pain or temperature. MiraLAX 17 g p.o. daily. Colace 100 mg p.o. twice daily. LR at 100 mils per hour, following a 1 L normal saline bolus from the ED. NSTEMI/hypertension- The patient will be admitted to telemetry for serial cardiac enzymes, serial EKG's, cardiac rhythm monitoring and a 2-D echocardiogram with Dopplers. Likely type II DC, supply demand mismatch. Aspirin, metoprolol and verapamil as noted. Consult cardiology. Remainder of orders and notations as noted. Resident Activity Tracking Resident Involvement: Resident Care Provided Care Provided: Adult Hospital Medicine
[2019-03-18] MEDS ORDERED: NYSTATIN POWDER 15GM BTL EXT PRN (02:09)
[2019-03-18] MEDS ORDERED: ONDANSETRON INJ 2 MG/ML 2 ML VIAL IV PRN (02:09)
[2019-03-18] MEDS ORDERED: guaiFENesin 600 MG TABCR PO PRN (02:09)
[2019-03-18] MEDS ORDERED: BENZONATATE 100 MG CAPSULE PO PRN (02:09)
[2019-03-18] MEDS ORDERED: PIPERACILL/TAZOBAC CONSULT ACTIVE PRN (02:09)
[2019-03-18] MEDS ORDERED: MENTHOL 5 MG mucous membrane PRN (02:09)
[2019-03-18] MEDS ORDERED: TRAMADOL HCL 50 MG TABLET PO PRN (02:21)
[2019-03-18] MEDS: LACTATED RINGER'S 1,000 ML IV SCH ×2 (02:28→16:26)
[2019-03-18] MEDS ORDERED: COUGH DROP (SUGAR FREE) LOZ 24 LOZ/1 BOX BUCCAL PRN (02:57)
[2019-03-18 04:53] LABS: Basophils # (auto) 0.04 K/uL (0-0.2); Basophils % (auto) 0.2 %; Eosinophils # (auto) 0.04 K/uL (0-0.5); Eosinophils % (auto) 0.2 %; Hematocrit (blood only) 40.2 % (37-47); Hemoglobin 12.8 g/dL (12.0-16.0); Immature Granulocytes # (auto) 0.05 K/uL (0.00-0.02); Immature Granulocytes % (auto) 0.3 %; Lymphocytes # (auto) 1.17 K/uL (1.2-3.4); Lymphocytes % (auto) 5.9 %; Mean Corpuscular Hemoglobin 29.3 pg (25-34); Mean Corpuscular Hgb Conc 31.8 g/dL (32-36); Mean Platelet Volume 10.6 fL (7.4-10.4); Monocytes # (auto) 1.12 K/uL (0.11-0.59); Monocytes % (auto) 5.7 %; Neutrophils # (auto) 17.37 K/uL (1.4-6.5); Neutrophils % (auto) 87.7 %; Platelet Count 253 K/uL (130-400); RDW Coefficient of Variation 14.7 % (11.5-14.5); RDW Standard Deviation 49.7 fL (36.4-46.3); Red Blood Count 4.37 M/uL (4.2-5.4); White Blood Count 19.79 K/uL (4.8-10.8)
[2019-03-18 05:25] LABS: BUN Creatinine Ratio 20.8 (10-20); Calcium 8.8 mg/dl (8.5-10.1); Creatinine Clr Calc Pharmacy 29.3 ml/min; Est GFR (African American) 46.1; Est GFR (Non-African American) 39.7
[2019-03-18] MEDS: PIPERACILLIN/TAZOBACTAM 3.375 GM in DEXTROSE 5% 100 ML IV SCH ×3 (05:29→21:23)
[2019-03-18 05:41] LABS: Troponin I 1.12 ng/ml (0-0.045)
[2019-03-18] MEDS: LEVOTHYROXINE SODIUM 75 MCG TABLET PO SCH (05:52)
[2019-03-18] MEDS: FLUTICASONE PROPIONATE NA SPR 16 GM BTL SCH (08:00)
[2019-03-18] MEDS: METOPROLOL TARTRATE 25 MG TAB PO SCH ×2 (08:01→21:08)
[2019-03-18] MEDS: DOCUSATE SODIUM 100 MG CAP PO SCH ×2 (08:01→21:09)
[2019-03-18] MEDS: ACETAMINOPHEN 325 MG TAB PO SCH ×2 (08:01→21:07)
[2019-03-18] MEDS: CHOLECALCIFEROL 1,000 UNITS TAB PO SCH (08:01)
[2019-03-18] MEDS: SERTRALINE HCL 100 MG TABLET PO SCH (08:01)
[2019-03-18] MEDS: SACCHAROMYCES BOULARDII 250 MG CAP PO SCH (08:01)
[2019-03-18] MEDS: PANTOprazole 40 MG TAB PO SCH (08:01)
[2019-03-18] MEDS: VERAPAMIL HCL 120 MG TABCR PO SCH (08:01)
[2019-03-18] MEDS: predniSONE 5 MG TAB PO SCH (08:01)
[2019-03-18] MEDS: POLYETHYLENE (MIRALAX) 17 GM PACK PO SCH (08:01)
[2019-03-18] MEDS ORDERED: cephALEXin 500 MG CAP PO SCH (09:00)
[2019-03-18 11:32] LABS: Base Excess ABG -0.3 mEq/L (-9-1.8); HCO3 ABG 24 mmol/L (19-24); Oxygen Saturation ABG 97.4 % (90-95); PCO2 ABG 39 mmHg (35-46); PO2 ABG 98 mm/Hg (80-95); pH ABG 7.41 (7.35-7.45)
[2019-03-18 11:39] LABS: Allen Test Pos (Pos)
--- NOTE | 2019-03-18 17:47 | Hospitalist Progress Note ---
Date of Service March 18, 2019 Assessment & Plan (1) Metabolic encephalopathy: Likely in the setting of infection vs. dehydration vs. hypertensive urgency/hypertensive encephalopathy versus hypoxia Today with lethargy - ABG wnl, ammonia wnl, lactic acid as below - lethargy improved later in the day and patient was able to interact and became more oriented See below (2) Proctitis: Stercoral Proctitis Afebrile, WBC persist at 19 Abd/pelvis CT: rectosigmoid fecal impaction 84-year-old female with associated rectal wall thickening and significant perirectal inflammation and fluid concerning for stercoral proctitis Given enema in the ED and had formed bm, had another moderate sized bm today Continue MiraLAX daily and Colace Continue Zosyn Tramadol as needed for pain Lactic acid 03/18 was 2.6 - continue IVF GERD Continue home PPI (3) Vomiting and diarrhea: resolved (4) Polymyalgia rheumatica: continue home prednisone, Tylenol (5) HTN (hypertension): Improved Continue home verapamil, metoprolol, and lisinopril (6) Hypertensive urgency: resolved (7) Demand ischemia: Secondary to illness and hypertensive urgency EKG: Normal sinus rhythm [address] changes, QTC 459 Echo: 10/2015: EF 70% grade 1 diastolic dysfunction - repeat Echo pending Troponin peaked at 1.12 (8) UTI (urinary tract infection): Was being treated outpatient with Keflex - continue IV Zosyn (9) Hypoxia: Likely secondary to atelectasis vs. worsening emphysema Chest x-phyllis admission: Cardiomegaly no acute findings CTA chest 03/12/19: Emphysematous change with components of interstitial and mild peribronchial change of the mid to lower lung regions bilaterally Supplemental O2 as needed, on 2L (10) GERD (gastroesophageal reflux disease): Continue PPI (11) Hypothyroid: continue home levothyroxine (12) DVT prophylaxis: SCDs, heparin subq Subjective Ms. Stratton was initially quite drowsy this morning, unable to stay awake to talk to me but more awake later in the afternoon. She is very disoriented and confused. She denies any discomfort or pain but is unable to really give much history or ros. This evening when I saw her she reports feeling tired but is sitting up. Nursing reports she does not have much appetite Physical Exam Physical Exam: General: no distress Eyes: normal inspection, left pupil fixed secondary to previous surgery, right pupil reactive Respiratory: chest non tender, clear to auscultation, normal breath sounds, no respiratory distress, no accessory muscle use Cardiac: regular rate and rhythm, no rub or gallop, no murmur, no edema, no jvd GI/: active bowel sounds, abdomen tender to palpation, soft, non distended Extremities: normal range of motion, generalized weakness, non tender Neuro/Psych: alert and disoriented initially this morning, but this evening oriented to person, place and time. Some difficulty following commands. Both arms drift equally as patient is weak however hand grasp is equal. Pupils unequal due to past surgery, otherwise CN II -XII intact. Speech is clear, able to converse without difficulty. Skin: normal color, dry Results & Data Vital Signs (Past 12 Hours) Vital Signs Temp Pulse Resp BP Pulse Ox 03/18/19 16:52 63 03/18/19 15:01 36.6 C 68 20 130/73 98 03/18/19 11:23 36.7 C 71 20 116/74 94 03/18/19 08:00 36.8 C 94 H 18 130/76 95 PG Care Time/CCT Total # of Minutes Spent Total Time Spent with Patient: Total time spent is greater than 50% in coordination of care (as documented) at patient's floor/unit and/or counseling patient: :
[2019-03-18] MEDS: SODIUM CHLORIDE 5% OP SOLN 15 ML BTL OPB SCH (21:08)
[2019-03-18] MEDS: LISINOPRIL 20 MG TAB PO SCH (21:09)
[2019-03-18] MEDS: HEPARIN SOD 5,000 UNIT/0.5 ML VIAL SQ SCH (21:23)
--- NOTE | 2019-03-19 03:41 | Billing Data ---
Coding Level of Care Code 63534 Initial Inpt Care Lvl 3
[2019-03-19] MEDS: LEVOTHYROXINE SODIUM 75 MCG TABLET PO SCH (06:33)
[2019-03-19] MEDS: PIPERACILLIN/TAZOBACTAM 3.375 GM in DEXTROSE 5% 100 ML IV SCH ×4 (06:42→21:31)
[2019-03-19] MEDS: POLYETHYLENE (MIRALAX) 17 GM PACK PO SCH (07:24)
[2019-03-19] MEDS: HEPARIN SOD 5,000 UNIT/0.5 ML VIAL SQ SCH ×2 (07:24→20:13)
[2019-03-19] MEDS: FLUTICASONE PROPIONATE NA SPR 16 GM BTL SCH (07:24)
[2019-03-19] MEDS: CHOLECALCIFEROL 1,000 UNITS TAB PO SCH (07:24)
[2019-03-19] MEDS: SACCHAROMYCES BOULARDII 250 MG CAP PO SCH (07:25)
[2019-03-19] MEDS: ACETAMINOPHEN 325 MG TAB PO SCH ×2 (07:25→20:12)
[2019-03-19] MEDS: VERAPAMIL HCL 120 MG TABCR PO SCH (07:25)
[2019-03-19] MEDS: DOCUSATE SODIUM 100 MG CAP PO SCH ×2 (07:25→20:12)
[2019-03-19] MEDS: METOPROLOL TARTRATE 25 MG TAB PO SCH ×2 (07:25→20:12)
[2019-03-19] MEDS: SERTRALINE HCL 100 MG TABLET PO SCH (07:25)
[2019-03-19] MEDS: PANTOprazole 40 MG TAB PO SCH (07:25)
[2019-03-19] MEDS: predniSONE 5 MG TAB PO SCH (07:25)
[2019-03-19 08:11] LABS: Basophils # (auto) 0.03 K/uL (0-0.2); Basophils % (auto) 0.2 %; Eosinophils # (auto) 0.54 K/uL (0-0.5); Eosinophils % (auto) 3.7 %; Hematocrit (blood only) 33.9 % (37-47); Hemoglobin 10.7 g/dL (12.0-16.0); Immature Granulocytes # (auto) 0.03 K/uL (0.00-0.02); Immature Granulocytes % (auto) 0.2 %; Lymphocytes # (auto) 1.81 K/uL (1.2-3.4); Lymphocytes % (auto) 12.3 %; Mean Corpuscular Hemoglobin 28.8 pg (25-34); Mean Corpuscular Hgb Conc 31.6 g/dL (32-36); Mean Corpuscular Volume 91.4 fL (80-100); Mean Platelet Volume 10.3 fL (7.4-10.4); Monocytes # (auto) 0.91 K/uL (0.11-0.59); Monocytes % (auto) 6.2 %; Neutrophils # (auto) 11.41 K/uL (1.4-6.5); Neutrophils % (auto) 77.4 %; Platelet Count 189 K/uL (130-400); RDW Standard Deviation 50.5 fL (36.4-46.3); Red Blood Count 3.71 M/uL (4.2-5.4); White Blood Count 14.73 K/uL (4.8-10.8)
[2019-03-19 08:28] LABS: Albumin Globulin Ratio 0.8 (0.9-2); Albumin Level 2.8 gm/dl (3.4-5.0); BUN Creatinine Ratio 19.5 (10-20); Bilirubin,Total 0.4 mg/dl (0.2-1); Calcium 8.9 mg/dl (8.5-10.1); Creatinine Clr Calc Pharmacy 32.3 ml/min; Est GFR (African American) 49.9; Est GFR (Non-African American) 43.1; Globulin 3.4 gm/dl (2.5-4.0); Potassium 3.3 mmol/L (3.5-5.1); Total Protein 6.2 gm/dl (6.4-8.2)
[2019-03-19] MEDS ORDERED: POTASSIUM CHLORIDE 20 MEQ TABCR PO STA (08:31)
--- NOTE | 2019-03-19 14:46 | Hospitalist Progress Note ---
Date of Service March 19, 2019 Assessment & Plan (1) Proctitis: Stercoral Proctitis Afebrile, WBC now decreasing Abd/pelvis CT: rectosigmoid fecal impaction 84-year-old female with associated rectal wall thickening and significant perirectal inflammation and fluid concerning for stercoral proctitis Given enema in the ED and had formed bm, now with diarrhea - will get KUB to assess for fecal impaction - may be overflow if constipation is persistent Continue MiraLAX daily and Colace Continue Zosyn Tramadol as needed for pain Lactic acid 03/18 was 2.6 - continue IVF (2) Vomiting and diarrhea: resolved (3) Polymyalgia rheumatica: continue home prednisone, Tylenol (4) HTN (hypertension): Improved Continue home verapamil, metoprolol, and lisinopril (5) Hypertensive urgency: resolved (6) DVT prophylaxis: heparin subq, SCDs Dispo: PT/OT - will need SNF for rehab at discharge Subjective Ms. Stratton is up to a chair this afternoon, daughter is bedside. She is alert and interactive though still confused and disoriented. She denies any discomfort ROS Constitutional: no chills, aches, sweats or fever Respiratory: no sob,cough, sputum, or wheezing Cardiac: no chest pain, palpitations, edema, orthopnea or lightheadedness GI: no abdominal pain, nausea, vomiting, diarrhea or constipation : no dysuria or hesitancy Extremities: no joint pain or weakness Skin: no rash All other systems reviewed and negative Physical Exam Physical Exam: General: no distress Eyes: normal inspection, PERLL Respiratory: chest non tender, clear to auscultation, normal breath sounds, no respiratory distress, no accessory muscle use Cardiac: regular rate and rhythm, no rub or gallop, no murmur, no edema, no jvd GI/: active bowel sounds, no abd pain or tenderness, soft, non distended Extremities: normal range of motion, generalized weakenss, non tender Neuro/Psych: alert and oriented to person, normal mood and affect Skin: normal color, dry Results & Data Vital Signs (Past 12 Hours) Vital Signs Temp Pulse Pulse Resp BP BP Pulse Ox 03/19/19 11:00 36.6 C 57 L 20 108/56 L 96 03/19/19 07:20 36.4 C L 85 20 175/75 H 93 03/19/19 04:24 36.8 C 70 20 150/63 H 99 PG Care Time/CCT Total # of Minutes Spent Total Time Spent with Patient: Total time spent is greater than 50% in coordination of care (as documented) at patient's floor/unit and/or counseling patient:
--- NOTE | 2019-03-19 14:57 | XRay Report ---
[facility] CLINICAL HISTORY: Constipation. COMPARISON STUDY: CT of the abdomen and pelvis March 17, 2019. FINDINGS: There is contrast within the bladder from recent contrast-enhanced CT. Extensive vascular c alcification is noted. The bowel gas pattern is normal. Amount of stool within the colon and rectum i s within normal limits. Amount of rectal stool has significantly diminished since CT of March 17, 2019. IMPRESSION: 1. No evidence for a bowel obstruction. 2. Significant interval decrease in amount stool within the rectum. Electronically signed by: Miko Richmond M.D. 03/19/2019 2:55 PM
[2019-03-19] MEDS: LISINOPRIL 20 MG TAB PO SCH (20:11)
[2019-03-19] MEDS: SODIUM CHLORIDE 5% OP SOLN 15 ML BTL OPB SCH (20:14)
[2019-03-20] MEDS: LEVOTHYROXINE SODIUM 75 MCG TABLET PO SCH (06:24)
[2019-03-20] MEDS: PIPERACILLIN/TAZOBACTAM 3.375 GM in DEXTROSE 5% 100 ML IV SCH ×4 (06:25→22:04)
[2019-03-20 07:37] LABS: Basophils # (auto) 0.03 K/uL (0-0.2); Basophils % (auto) 0.4 %; Eosinophils # (auto) 0.61 K/uL (0-0.5); Eosinophils % (auto) 7.5 %; Hematocrit (blood only) 29.9 % (37-47); Hemoglobin 9.4 g/dL (12.0-16.0); Immature Granulocytes # (auto) 0.02 K/uL (0.00-0.02); Immature Granulocytes % (auto) 0.2 %; Lymphocytes # (auto) 1.46 K/uL (1.2-3.4); Mean Corpuscular Hgb Conc 31.4 g/dL (32-36); Mean Corpuscular Volume 92.3 fL (80-100); Mean Platelet Volume 10.5 fL (7.4-10.4); Monocytes # (auto) 0.45 K/uL (0.11-0.59); Monocytes % (auto) 5.6 %; Neutrophils # (auto) 5.52 K/uL (1.4-6.5); Neutrophils % (auto) 68.3 %; Platelet Count 201 K/uL (130-400); RDW Coefficient of Variation 14.5 % (11.5-14.5); RDW Standard Deviation 49.7 fL (36.4-46.3); Red Blood Count 3.24 M/uL (4.2-5.4); White Blood Count 8.09 K/uL (4.8-10.8)
[2019-03-20 08:10] LABS: Albumin Level 2.6 gm/dl (3.4-5.0); BUN Creatinine Ratio 17.1 (10-20); Calcium 8.8 mg/dl (8.5-10.1); Creatinine Clr Calc Pharmacy 39.3 ml/min; Est GFR (African American) 63.4; Est GFR (Non-African American) 54.7; Potassium 3.5 mmol/L (3.5-5.1)
[2019-03-20 08:13] LABS: Albumin Globulin Ratio 0.8 (0.9-2); Bilirubin,Total 0.3 mg/dl (0.2-1); Globulin 3.2 gm/dl (2.5-4.0); Total Protein 5.8 gm/dl (6.4-8.2)
[2019-03-20] MEDS: VERAPAMIL HCL 120 MG TABCR PO SCH (08:37)
[2019-03-20] MEDS: METOPROLOL TARTRATE 25 MG TAB PO SCH ×2 (08:37→21:01)
[2019-03-20] MEDS: predniSONE 5 MG TAB PO SCH (08:37)
[2019-03-20] MEDS: CHOLECALCIFEROL 1,000 UNITS TAB PO SCH (08:37)
[2019-03-20] MEDS: ACETAMINOPHEN 325 MG TAB PO SCH ×3 (08:37→21:04)
[2019-03-20] MEDS: PANTOprazole 40 MG TAB PO SCH (08:37)
[2019-03-20] MEDS: SERTRALINE HCL 100 MG TABLET PO SCH (08:37)
[2019-03-20] MEDS: SACCHAROMYCES BOULARDII 250 MG CAP PO SCH (08:37)
[2019-03-20] MEDS: FLUTICASONE PROPIONATE NA SPR 16 GM BTL SCH (08:38)
[2019-03-20] MEDS: HEPARIN SOD 5,000 UNIT/0.5 ML VIAL SQ SCH ×3 (08:38→21:05)
--- NOTE | 2019-03-20 11:53 | Hospitalist Progress Note ---
Date of Service March 20, 2019 Assessment & Plan (1) Proctitis: Stercoral Proctitis Abd/pelvis CT: rectosigmoid fecal impaction 84-year-old female with associated rectal wall thickening and significant perirectal inflammation and fluid concerning for stercoral proctitis KUB shows rectosigmoid impaction has cleared, WBCs resolved Hold MiraLAX daily and Colace due to diarrhea Continue Zosyn Tramadol as needed for pain Lactic acid 03/18 was 2.6 - given IVF, will dc (2) Vomiting and diarrhea: resolved (3) Polymyalgia rheumatica: continue home prednisone, Tylenol (4) HTN (hypertension): Improved Continue home verapamil, metoprolol, and lisinopril (5) Hypertensive urgency: resolved (6) DVT prophylaxis: heparin subq, SCDs Dispo: PT/OT - will need SNF for rehab at discharge Subjective Ms. Stratton is awake and more oriented today. She has no complaints or pain. ROS Constitutional: no chills, aches, sweats or fever Respiratory: no sob,cough, sputum, or wheezing Cardiac: no chest pain, palpitations, edema, orthopnea or lightheadedness GI: no abdominal pain, nausea, vomiting, diarrhea or constipation : no dysuria or hesitancy Extremities: no joint pain or weakness Skin: no rash All other systems reviewed and negative Physical Exam Physical Exam: General: no distress Eyes: normal inspection, PERLL Respiratory: chest non tender, clear to auscultation, normal breath sounds, no respiratory distress, no accessory muscle use Cardiac: regular rate and rhythm, no rub or gallop, no murmur, no edema, no jvd GI/: active bowel sounds, no abd pain or tenderness, soft, non distended Extremities: normal range of motion, normal strength, non tender Neuro/Psych: alert and oriented to person and place, normal mood and affect Skin: normal color, dry Results & Data Vital Signs (Past 12 Hours) Vital Signs Temp Pulse Pulse Resp BP BP Pulse Ox 03/20/19 10:07 65 150/71 H 96 03/20/19 07:37 37.0 C 64 20 189/66 H 98 03/20/19 02:59 36.9 C 63 18 148/64 H 95 03/20/19 02:32 71 PG Care Time/CCT Total # of Minutes Spent Total Time Spent with Patient: Total time spent is greater than 50% in coordination of care (as documented) at patient's floor/unit and/or counseling patient:
[2019-03-20] MEDS: SODIUM CHLORIDE 5% OP SOLN 15 ML BTL OPB SCH (20:59)
[2019-03-20] MEDS: LISINOPRIL 20 MG TAB PO SCH (21:00)
[2019-03-21] MEDS ORDERED: HydrALAZINE HCL 20 MG/ML VIAL IV STA (00:54)
[2019-03-21] MEDS: PIPERACILLIN/TAZOBACTAM 3.375 GM in DEXTROSE 5% 100 ML IV SCH ×3 (05:39→21:09)
[2019-03-21] MEDS: LEVOTHYROXINE SODIUM 75 MCG TABLET PO SCH (05:43)
[2019-03-21 06:25] LABS: Basophils # (auto) 0.04 K/uL (0-0.2); Basophils % (auto) 0.4 %; Eosinophils # (auto) 0.47 K/uL (0-0.5); Hematocrit (blood only) 32.7 % (37-47); Hemoglobin 10.2 g/dL (12.0-16.0); Immature Granulocytes # (auto) 0.25 K/uL (0.00-0.02); Immature Granulocytes % (auto) 2.6 %; Lymphocytes # (auto) 1.97 K/uL (1.2-3.4); Lymphocytes % (auto) 20.9 %; Mean Corpuscular Hemoglobin 28.5 pg (25-34); Mean Corpuscular Hgb Conc 31.2 g/dL (32-36); Mean Corpuscular Volume 91.3 fL (80-100); Mean Platelet Volume 10.1 fL (7.4-10.4); Monocytes # (auto) 0.67 K/uL (0.11-0.59); Monocytes % (auto) 7.1 %; Neutrophils # (auto) 6.04 K/uL (1.4-6.5); Platelet Count 266 K/uL (130-400); RDW Standard Deviation 47.6 fL (36.4-46.3); Red Blood Count 3.58 M/uL (4.2-5.4); White Blood Count 9.44 K/uL (4.8-10.8)
[2019-03-21 06:58] LABS: BUN Creatinine Ratio 14.4 (10-20); Calcium 8.9 mg/dl (8.5-10.1); Creatinine Clr Calc Pharmacy 40.8 ml/min; Est GFR (African American) 67.6; Est GFR (Non-African American) 58.3; Potassium 2.9 mmol/L (3.5-5.1)
[2019-03-21] MEDS ORDERED: POTASSIUM CHLORIDE 20 MEQ TABCR PO ONE ×2 (08:14→12:00)
[2019-03-21] MEDS: predniSONE 5 MG TAB PO SCH (08:23)
[2019-03-21] MEDS: FLUTICASONE PROPIONATE NA SPR 16 GM BTL SCH (08:23)
[2019-03-21] MEDS: ACETAMINOPHEN 325 MG TAB PO SCH ×2 (08:23→21:06)
[2019-03-21] MEDS: HEPARIN SOD 5,000 UNIT/0.5 ML VIAL SQ SCH ×2 (08:23→21:07)
[2019-03-21] MEDS: SACCHAROMYCES BOULARDII 250 MG CAP PO SCH (08:23)
[2019-03-21] MEDS: SERTRALINE HCL 100 MG TABLET PO SCH (08:23)
[2019-03-21] MEDS: PANTOprazole 40 MG TAB PO SCH (08:23)
[2019-03-21] MEDS: CHOLECALCIFEROL 1,000 UNITS TAB PO SCH (08:24)
[2019-03-21] MEDS: METOPROLOL TARTRATE 25 MG TAB PO SCH ×2 (08:24→21:05)
[2019-03-21] MEDS: VERAPAMIL HCL 120 MG TABCR PO SCH (08:24)
--- NOTE | 2019-03-21 13:51 | Hospitalist Progress Note ---
Date of Service Ms. Frias blood pressure is running high today. She appears comfortable, has no complaints. March 21, 2019 Assessment & Plan (1) Proctitis: Stercoral Proctitis Abd/pelvis CT: rectosigmoid fecal impaction 84-year-old female with associated rectal wall thickening and significant perirectal inflammation and fluid concerning for stercoral proctitis KUB shows rectosigmoid impaction has cleared, WBCs resolved Hold MiraLAX daily and Colace due to diarrhea Continue Zosyn Tramadol as needed for pain Lactic acid 03/18 was 2.6 - given IVF, will dc (2) Vomiting and diarrhea: resolved (3) Polymyalgia rheumatica: continue home prednisone, Tylenol (4) HTN (hypertension): Continue home verapamil, metoprolol, Will increase lisinopril to 30 mg from 20 mg PRN hydralazine (5) Hypertensive urgency: resolved (6) DVT prophylaxis: heparin subq, SCDs Dispo: PT/OT - will need SNF for rehab at discharge Subjective ROS Constitutional: no chills, aches, sweats or fever Respiratory: no sob,cough, sputum, or wheezing Cardiac: no chest pain, palpitations, edema, orthopnea or lightheadedness GI: no abdominal pain, nausea, vomiting, diarrhea or constipation : no dysuria or hesitancy Extremities: no joint pain or weakness Skin: no rash All other systems reviewed and negative Physical Exam Physical Exam: General: no distress Eyes: normal inspection, PERLL Respiratory: chest non tender, clear to auscultation, normal breath sounds, no respiratory distress, no accessory muscle use Cardiac: regular rate and rhythm, no rub or gallop, no murmur, no edema, no jvd GI/: active bowel sounds, no abd pain or tenderness, soft, non distended Extremities: normal range of motion, normal strength, non tender Neuro/Psych: alert and oriented to self, normal mood and affect Skin: normal color, dry Results & Data Vital Signs (Past 12 Hours) Vital Signs Temp Pulse Pulse Resp BP BP Pulse Ox 03/21/19 11:52 36.6 C 60 18 189/75 H 193/75 H 95 03/21/19 07:26 36.8 C 79 18 176/75 H 93 03/21/19 02:38 37.4 C 65 20 197/72 H 92 03/21/19 02:08 76 PG Care Time/CCT Total # of Minutes Spent Total Time Spent with Patient: Total time spent is greater than 50% in coordination of care (as documented) at patient's floor/unit and/or counseling patient:
[2019-03-21] MEDS ORDERED: IBUPROFEN 200 MG TAB PO PRN (13:58)
[2019-03-21] MEDS ORDERED: [UNRECOGNIZED DRUG - OTHER] TOP PRN (13:58)
[2019-03-21] MEDS ORDERED: RISEDRONATE 150 MG PO SCH (14:00)
[2019-03-21] MEDS ORDERED: LOPERAMIDE HCL 2 MG CAP PO PRN (14:02)
[2019-03-21] MEDS ORDERED: ONDANSETRON 4 MG OD TAB PO PRN (14:06)
[2019-03-21] MEDS: CALCIUM CARBONATE 1250MG TAB PO SCH (18:29)
[2019-03-21] MEDS ORDERED: LISINOPRIL 10 MG TAB PO SCH (21:00)
[2019-03-21] MEDS: SODIUM CHLORIDE 5% OP SOLN 15 ML BTL OPB SCH (21:05)
[2019-03-22] MEDS: PIPERACILLIN/TAZOBACTAM 3.375 GM in DEXTROSE 5% 100 ML IV SCH (05:51)
[2019-03-22] MEDS: LEVOTHYROXINE SODIUM 75 MCG TABLET PO SCH (06:29)
[2019-03-22 09:25] LABS: BUN Creatinine Ratio 13.5 (10-20); Calcium 9.2 mg/dl (8.5-10.1); Creatinine Clr Calc Pharmacy 39.1 ml/min; Est GFR (African American) 64.2; Est GFR (Non-African American) 55.4; Potassium 3.8 mmol/L (3.5-5.1)
[2019-03-22] MEDS: CALCIUM CARBONATE 1250MG TAB PO SCH (09:30)
[2019-03-22] MEDS: PANTOprazole 40 MG TAB PO SCH (09:30)
[2019-03-22] MEDS: VERAPAMIL HCL 120 MG TABCR PO SCH (09:30)
[2019-03-22] MEDS: SERTRALINE HCL 100 MG TABLET PO SCH (09:30)
[2019-03-22] MEDS: METOPROLOL TARTRATE 25 MG TAB PO SCH (09:30)
[2019-03-22] MEDS: predniSONE 5 MG TAB PO SCH (09:30)
[2019-03-22] MEDS: DOCUSATE SODIUM 100 MG CAP PO SCH (09:30)
[2019-03-22] MEDS: HEPARIN SOD 5,000 UNIT/0.5 ML VIAL SQ SCH (09:30)
[2019-03-22] MEDS: CHOLECALCIFEROL 1,000 UNITS TAB PO SCH (09:31)
[2019-03-22] MEDS: ACETAMINOPHEN 325 MG TAB PO SCH (09:45)
[2019-03-22] MEDS: SACCHAROMYCES BOULARDII 250 MG CAP PO SCH (11:26)
[2019-03-22] MEDS: FLUTICASONE PROPIONATE NA SPR 16 GM BTL SCH (11:26)
--- NOTE | 2019-03-22 11:35 | Discharge Summary ---
Date of Service March 22, 2019 Admission HPI Per Admitting Provider 84-year-old female with history of hypertension, hypothyroidism, GERD, anemia, rheumatica, IBS, diverticulosis, degenerative joint disease, vitamin deficiency presents from [facility] with nursing concern for nausea, vomiting and diarrhea today. There was also concern for confusion per ED report. Patient was recently admitted for confusion, hypoxia and was found to have UTI. She was admitted from March 12-. Patient only reports of stomach pain. She is unable to provide further history and appears confused. Review of systems unable to be for completed. ED course: Found to have WBC 19.9, CT concern for stercoral proctitis. Patient required 2 L O2 for hypoxia and was also hypertensive to 200s/100s. She received labetalol 10 mg IV and hydralazine 10 mg IV x1, Zosyn, NS 1 L, Zofran 4 mg IV x2. Her troponin was also elevated 2.671 without EKG changes or complaint of chest pain. Principal Diagnosis Proctitis Discharge Exam Constitutional + frail appearing Respiratory normal respiratory effort, lungs clear to auscultation Cardiovascular RRR, no murmur, no edema Gastrointestinal (Abdomen) Inspection/Auscultation: abdomen normal to inspection and normal bowel sounds; abdomen not distended Percussion/Palpation: abdomen soft; abdomen nontender, no guarding and abdomen not rigid Musculoskeletal Head/Neck/Chest: + head abnormal to inspection generalized weakness Skin no rashes, warm and dry Neurologic moves all extremities and awake Psychiatric A+Ox3, euthymic affect Discharge Data Allergies Allergy/AdvReac Type Severity Reaction Status Date / Time hydroxychloroquine Allergy Severe GI SYMPTOMS Verified 03/17/19 22:09 Sulfa (Sulfonamide Allergy Intermediate RASH Verified 03/17/19 22:09 Antibiotics) erythromycin base AdvReac Unknown N&V Verified 03/17/19 22:09 Consultations 03/17/19 23:52 ED Decision to Admit Stat Ordered Studies 03/17/19 20:46 CT abd pelvis IV con only Stat Hospital Course (1) Proctitis: Stercoral Proctitis Abd/pelvis CT: rectosigmoid fecal impaction 84-year-old female with associated rectal wall thickening and significant perirectal inflammation and fluid concerning for stercoral proctitis KUB 03/19 shows rectosigmoid impaction has cleared, WBCs resolved Hold MiraLAX daily and Colace due to diarrhea - should resume as soon as stool slows down to avoid returning to constipation - adjust meds to achieve 1 stool per day Zosyn x 5 days - will give 2 more days of Augmentin at discharge Tramadol as needed for pain Lactic acid 03/18 was 2.6 - given IVF (2) Elevated troponin: Troponin peaked at 1.12, asymptomatic Echo 03/18 without wall motion abnormalities, EF was 65 - 70% Likely secondary to hypertensive urgency and demand ischemia secondary to illness ASA 81 mg (3) HTN (hypertension): Continue home verapamil, metoprolol, Increased lisinopril to 30 mg from 20 mg - may need to continue to titrate as pressures continue to be elevated at times (4) Hypertensive urgency: Improved - has been asymptomatic Blood pressure was 220/100s in the ED Treatment as above (5) Vomiting and diarrhea: resolved (6) Polymyalgia rheumatica: continue home prednisone, Tylenol (7) Hypoxia: Likely secondary to atelectasis vs. worsening emphysema Chest x-ray on admission: Cardiomegaly no acute findings CTA chest 03/12/19: Emphysematous change with components of interstitial and mild peribronchial change of the mid to lower lung regions bilaterally CT abd/pelvis on admission showed scarring and atelectasis Supplemental O2 as needed - has been on RA for the past few days (8) Hypokalemia: Replaced and resolved (9) GERD (gastroesophageal reflux disease): Continue home PPI (10) Hypothyroid: Continue home levothyroxine (11) Anemia: Patient's hgb baseline appears to be 10-12 and she has been within that range while admitted. (12) DVT prophylaxis: heparin subq, SCDs Dispo: [facility] [place] Total Time Total Time Spent Total Time Spent (In Minutes): greater than 30 minutes Discharge Plan Discharge Items Patient Disposition: Transfer Inpatient Rehab Fac Reason For Visit: PROCTITIS, NSTEMI Discharge Diagnosis: Proctitis Activity: Resume your previous activity Non-emergency contact: Primary Care Provider Call non-emergency contact if: you have any medication questions and your symptoms worsen Follow-up/Referrals: Marcela Beckford [Primary Care Provider] - Diet: Carb Consistent or DM2 Addtl Attending Provider Instructions: (1)Proctitis: Abd/pelvis CT showed: rectosigmoid fecal impaction 84-year-old female with associated rectal wall thickening and significant perirectal inflammation and fluid concerning for stercoral proctitis KUB on 03/19 showed rectosigmoid impaction had cleared, white blood cell count normalized. Hold MiraLAX daily and Colace due to diarrhea until stools become normal again but would resume at least Colace to avoid another constipation issue. Would adjust Miralax and colace use to achieve 1 stool per day Given IV Zosyn for five days. Ms. Stratton should have 2 more days of Augmentin for a total of 7 days of treatment (2) Vomiting and diarrhea: resolved (3) Polymyalgia rheumatica: continue home prednisone and Tylenol (4) HTN (hypertension)/hypertensive urgency/elevated troponin (cardiac marker of injury): Blood pressures were running hypertensive but without symptoms Continue home verapamil and metoprolol, Increased lisinopril to 30 mg from 20 mg 03/20 - may need to be further titrated as blood pressures continue to be elevated Troponin had a small elevation indication some injury to the heart likely due to illness and high blood pressure. An echocardiogram (ultrasound of the heart) this admission did not show any changes to heart function from previous study - no wall motion abnormalities or reduction in ejection fraction (how well the heart pumps blood). Troponin trended back down Initiated baby aspirin (5)Hypoxia Upon admission Ms. Stratton was hypoxic. This is likely secondary to emphysema and atelectasis (small area of lung collapse) as seen on CTA previous to admission and in abdomen/pelvis CT on admission Chest x-ray on admission: no acute findings No longer requiring supplemental oxygen (6) GERD Continue home PPI (7) Hypothyroid Continue home levothyroxine Pending Studies at Discharge: No Stand-Alone Forms: My [facility] Skilled Items Patient informed of condition?: Yes DNR: Yes Discharge Level of Care: Skilled Communicable Disease: No Discharge Prognosis: Stable Lines: None Urinary Catheter: No Medications and DC Order Prescriptions: New lisinopril 10 mg Tablet 30 mg PO HS Qty: 30 RF: 0 aspirin 81 mg tablet,delayed release (DR/EC) 81 mg PO DAILY Qty: 30 RF: 0 amoxicillin-pot clavulanate 875-125 mg tablet 1 tab PO BID Qty: 5 RF: 0 Continued risedronate 150 mg tablet 150 mg PO MONTHLY RF: 0 Saccharomyces boulardii 250 mg Capsule 250 mg PO DAILY RF: 0 sertraline 100 mg tablet 100 mg PO DAILY RF: 0 verapamil 120 mg tablet 120 mg PO QAM RF: 0 cholecalciferol (vitamin D3) [Vitamin D3] 5,000 unit Tablet 5,000 unit PO DAILY RF: 0 lansoprazole 30 mg capsule,delayed release(DR/EC) 30 mg PO DAILY RF: 0 docusate sodium 100 mg Tablet 100 mg PO BID RF: 0 levothyroxine 75 mcg tablet 75 mcg PO DAILY RF: 0 melatonin 10 mg Tablet 10 mg PO HS RF: 0 metoprolol tartrate 25 mg tablet 25 mg PO BID RF: 0 sodium chloride [Tigre 128] 5 % Drops 1 drp OPB HS RF: 0 calcium carbonate [Oysco-500] 500 mg calcium (1,250 mg) Tablet 500 mg PO BID RF: 0 prednisone 5 mg tablet 5 mg PO DAILY RF: 0 acetaminophen [Tylenol Arthritis Pain] 650 mg Tablet Extended Release 650 mg PO BID MDD 3G RF: 0 loperamide [Imodium A-D] 2 mg Tablet 2 mg PO Q3H PRN (Reason: Diarrhea) RF: 0 Cough Drops 5 mg Lozenge 5 mg mucous membrane Q2H PRN (Reason: Dry Mouth) RF: 0 ibuprofen 200 mg Tablet 200 mg PO Q4H PRN (Reason: Pain) RF: 0 guaifenesin [Mucinex] 600 mg Tablet Extended Release 12hr 600 mg PO Q12H PRN (Reason: Congestion) RF: 0 nystatin [Nystop] 100,000 unit/gram Powder 1 applic TOPICAL BID PRN (Reason: Skin Irritation) RF: 0 ondansetron 4 mg Tablet,Disintegrating 4 mg PO Q6H PRN (Reason: Nausea And Vomiting) RF: 0 Salonpas 3.1-10-6 % Adhesive Patch,Medicated 1 patch TOPICAL DAILY PRN (Reason: Pain) RF: 0 benzonatate [Tessalon Perles] 100 mg Capsule 100 mg PO TID PRN (Reason: Cough) RF: 0 fluticasone propionate 50 mcg/actuation spray,suspension 1 spray INTRANASAL DAILY RF: 0 Discontinued lisinopril 20 mg tablet 20 mg PO HS Qty: 0 RF: 0 cephalexin 500 mg Capsule 500 mg PO BID 3 Days Qty: 6 RF: 0 Discharge Orders: Discharge Order (Routine); Ordered 03/22/19 Ordered By: Guillermina Boss Admission Data Admit Date/Time: 03/18/19 01:22 Attending Provider: Sarwat Byers Admit Provider: Vin Oneal Primary Care Provider: Marcela Beckford Other Providers: Sarwat Byers ; Andres Pruett at [place] ; Vin Oneal Other Interventions: Discharge Summary Assessment (RN) Last Done: 03/22/19 10:35 DC Date/Time DO NOT enter until pt leaves facility: 03/22/19 13:40 Supervising Physician Co-Signing Physician Notes I supervised Guillermina Boss NP on this patient's care. I examined the patient today independently of her. I discussed the plan of care with her with the plan being as written in her note except for any following changes/exceptions: None. Doing well today. Eating pudding. No abdominal pain. No major issues. Ready for discharge today and she is pleased with that.
== END 2019-03-22 13:40 | DRG 393 ==
LOC: ED 20:28 → SUATTDRO 03-18 01:22 → 2W 03-18 01:22 → 4W 03-21 21:40